=== PATIENT | male | born 1945 | race Caucasian/White ===

== ENCOUNTER 2018-12-09 12:47 | Day surgery (SDC) | payer MEDICARE ==
[2018-12-09 13:09] VITALS: BP 126/63; PULSE 76; RESP 20; TEMP 98.4
--- NOTE | 2018-12-09 13:51 | US ---
ULTRASOUND GUIDED FNA THYROID BIOPSY: CLINICAL HISTORY: Left thyroid nodule FINDINGS: The procedure was explained to the patient. The risks, complications, benefits and alternatives were discussed and any questions were answered. Informed consent was obtained. Patient was placed supin e on the ultrasound table and prepped and draped in the usual sterile fashion. The nodules supraclavi cular. Access was difficult approach patient deferred the procedure. All elements of maximal barrier technique were utilized. IMPRESSION: 1. Patient deferred biopsy as discussed above.
== END 2018-12-09 13:50 | disposition home or self-care (01) ==
LOC: RADPROMAIN 12:47
PROVIDERS: ATTEND Internal Medicine Endocrinology, Diabetes & Metabolism
DX: E04.1 Nontoxic single thyroid nodule (principal)
CPT/HCPCS: 76536

== ENCOUNTER → 2022-10-30 | Outpatient (CLI) | payer MEDICARE ==
--- NOTE | 2022-10-30 09:53 | PE ---
EXAMINATION TYPE: PET CT fusion skull to thigh DATE OF EXAM: 10/30/2022 COMPARISON: NONE at this institution. HISTORY: History of prostate cancer March 2018 completed hormone and radiation treatment in June . Lung cancer per order. Recent abnormal CT right upper and lower lobe lung lesion. TECHNIQUE: Following the intravenous administration of 11.72 mCi of F-18 FDG, whole body images are performed from the skull base to the midthigh. Images are reviewed on the computer in the coronal, a xial, and sagittal planes. Reconstructed rotating images are created on independent workstation and reviewed on the computer. A localization and attenuation correction CT is performed in conjunction with the PET scan. Blood glucose level equals 146. SCAN: Initial Scan FINDINGS: SKULL BASE AND NECK: No areas of abnormal hypermetabolic uptake. CHEST, MEDIASTINUM, AND HILAR REGION: Background moderate underlying emphysematous change is identifi ed. In the right upper lobe anteriorly there is a spiculated 2.4 x 1.9 cm area axial image 87 that do es not show abnormal hypermetabolic uptake. In the superior aspect right lower lobe there is a 1.7 x 1.3 cm hypermetabolic nodule or nodular cons olidation axial image 85, max SUV is 6.35 on axial image 87. There are some adjacent small nodules fo r reference 8 mm posterior right lower lobe nodule axial image 91 and 1.2 x 0.7 cm medial right lower lobe nodule axial image 89 that are ametabolic. There is hypermetabolic 1.1 x 0.8 cm right hilar lymph node axial image 91 max SUV is 4.18. No additional areas of abnormal hypermetabolic uptake are present. There is mild/moderate parenchymal fibrotic changes bilaterally. Mild symmetric uptake in the bilateral breasts is incidentally noted. Correlate for mild inflammatory mastitis. ABDOMEN AND PELVIS: There is 2.0 x 1.1 cm low dense left adrenal mass without hypermetabolic take pre sumed lipid rich adenoma. Normal excretion. Nonspecific mild bowel uptake. No abnormal hypermetabolic uptake. OSSEOUS STRUCTURES: No abnormal hypermetabolic uptake. OTHER CT: Moderate calcified plaque right carotid bulb. Moderate to severe calcified plaque left gilman tid bulb. Coronary artery calcification is present which is noted marking for underlying coronary art angelina disease. Tiny fat-containing ventral wall hernia axial image 176. There is aorto bifemoral graft noted. Slight scoliotic curvature in the spine with multilevel spurring. Moderate to severe narrowing in bot h hip joints is present. IMPRESSION: Suspicious hypermetabolic right lower lobe peripheral nodule worrisome for neoplasm with suspected right hilar adenopathy. No distal metastatic disease.
== END | disposition home or self-care (01) ==
LOC: RADPETMAIN 06:33
PROVIDERS: ATTEND Family Medicine
DX: R91.8 Other nonspecific abnormal finding of lung field (principal)
CPT/HCPCS: 78815; A9552

== ENCOUNTER → 2023-02-12 | Outpatient (CLI) | payer MEDICARE ==
[~2023-02-12] MED LIST: SODIUM CHLORIDE 0.9% 1,000 ML IV ONE; SODIUM CHLORIDE 0.9% 500 ML 500 ML in EMPTY BAG 1 BAG IV PRN
[2023-02-12 12:09] VITALS: BP 96/63; PULSE 99; RESP 16; TEMP 97.5
== END ==
LOC: PROCWHC3 11:51
PROVIDERS: ATTEND Internal Medicine Hematology & Oncology
DX: E86.0 Dehydration (principal)
CPT/HCPCS: 96360; 96361

== ENCOUNTER 2023-03-19 11:39 | Day surgery (SDC) | payer MEDICARE, OTHER ==
[2023-03-18 12:57] VITALS: BMI 33.2
[2023-03-19] MEDS ORDERED: LIDOCAINE 1% INJ 10MG/ML (5 ML VIAL-PF) SQ ONE (13:46)
--- NOTE | 2023-03-19 14:20 | IR ---
PICC LINE PLACEMENT: HISTORY: Chemotherapy PROCEDURE: Ultrasound and fluoroscopic guidance of PICC line placement. COMPLICATIONS: None ANESTHESIA: 1. 1% Lidocaine locally. FINDINGS/TECHNIQUE: The procedure was explained to the patient. The risks, complications, benefits and alternatives were discussed and any questions were answered. Informed consent was obtained. The patient was placed supine on the fluoroscopic table and prepped and draped in the usual sterile critical access hospital ion. Utilizing a 21 gauge needle and sonographic and fluoroscopic guidance, access in the vein was achieved and there is placement of a 0.018 guidewire. The vein is patent. A 5-Fr sheath was placed over the guidewire. The guidewire and dilator were removed and a 5-F. Double lumen PICC line was pl aced through the sheath with the tip at the level of the SVC. The sheath was removed, the catheter w as flushed and sutured into position. The patient was stable throughout the procedure and remained s table upon discharge from the Department of Radiology. The vein puncture was patent under ultrasound. A salazar scale image was obtained to document patency of the vein punctured. All elements of the maximal barrier technique were utilized. FLUOROSCOPY TIME: 16.14 DAP IMPRESSION: Successful PICC double lumen line placement under ultrasound and fluoroscopic guidance.
[2023-03-19 21:43] VITALS: RESP 16
[2023-03-19 21:44] VITALS: PULSE 70
[2023-03-19 21:45] VITALS: BP 179/83
== END 2023-03-19 15:30 | disposition home or self-care (01) ==
LOC: CATHCVL 11:39
PROVIDERS: ATTEND Radiology Diagnostic Radiology
DX: Z45.2 Encounter for adjustment and management of vascular access device (principal); C34.91 Malignant neoplasm of unspecified part of right bronchus or lung; E11.9 Type 2 diabetes mellitus without complications; E78.5 Hyperlipidemia, unspecified; I10 Essential (primary) hypertension; E03.9 Hypothyroidism, unspecified; I48.91 Unspecified atrial fibrillation; M10.9 Gout, unspecified; Z98.890 Other specified postprocedural states; Z90.49 Acquired absence of other specified parts of digestive tract; Z79.02 Long term (current) use of antithrombotics/antiplatelets; Z79.84 Long term (current) use of oral hypoglycemic drugs; Z79.899 Other long term (current) drug therapy
CPT/HCPCS: 36573; C1751; C1769; J2001

== ENCOUNTER 2023-03-19 15:37 | Emergency (ER) | payer OTHER ==
[2023-03-19 15:41] VITALS: RESP 18
[2023-03-19] MEDS ORDERED: KETOROLAC 15 MG/ML 1 ML VIAL IVP STA (16:19)
--- NOTE | 2023-03-19 16:34 | XR ---
EXAMINATION TYPE: XR wrist complete LT DATE OF EXAM: 03/19/2023 4:27 PM INDICATION: Patient age:Male; 77 years old; Reason for study: r/o fx; COMPARISON: None TECHNIQUE: left wrist was examined in the. Frontal, navicular, lateral, and oblique. FINDINGS: Degeneration changes most pronounced at the first digit carpometacarpal joint. No acute oss eous pathology, joint dislocation, or joint effusion. No evidence of any soft tissue swelling is see n. IMPRESSION: 1. No acute osseous pathology. 2. 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
--- NOTE | 2023-03-19 16:46 | ED ---
General Adult HPI - General Chief complaint: Extremity Injury, Upper Stated complaint: left wrist pain Time Seen by Provider: 03/19/23 16:07 Source: patient Mode of arrival: wheelchair Limitations: no limitations - History of Present Illness Initial comments: 77-year-old male with past medical history significant for cancer on chemotherapy presents to ED with a chief complaint of left wrist pain. Denies any injury or trauma to left wrist. States over the past 2-3 days has developed pain and swelling over the left wrist and thumb. Pain is worse with movement. Has not been taking any medications for this. No other complaints. - Related Data Home Medications Medication Instructions Recorded Confirmed Aspirin [Adult Low Dose Aspirin EC] 81 mg PO DAILY 11/30/18 03/18/23 Magnesium 400 mg PO BID 11/30/18 03/18/23 Omeprazole 20 mg PO DAILY 11/30/18 03/18/23 hydroCHLOROthiazide 25 mg PO DAILY 11/30/18 03/18/23 lisinopriL 20 mg PO DAILY 11/30/18 03/18/23 metFORMIN HCL [Glucophage] 1,000 mg PO QAM 11/30/18 03/18/23 metFORMIN HCL [Glucophage] 500 mg PO W/SUPPER 11/30/18 03/18/23 Allopurinol (Unknown Dose 1 dose PO DIRECTED 03/18/23 Cholecalciferol [Vitamin D3 (125 125 mcg PO DAILY 03/18/23 03/18/23 Mcg = 5000 Iu)] Ferrous Gluconate 324 mg PO DAILY 03/18/23 03/18/23 Levothyroxine Sodium 137 mcg PO DAILY 03/18/23 03/18/23 Metoprolol Tartrate 25 mg PO BID 03/18/23 03/18/23 Allergies Allergy/AdvReac Type Severity Reaction Status Date / Time No Known Allergies Allergy Verified 03/19/23 15:41 Review of Systems ROS Statement: Those systems with pertinent positive or pertinent negative responses have been documented in the HPI. ROS Other: All systems not noted in ROS Statement are negative. Past Medical History Past Medical History: Atrial Fibrillation, Asthma, Cancer, Diabetes Mellitus, GERD/Reflux, Hyperlipidemia, Hypertension, Prostate Disorder, Sleep Apnea/CPAP/BIPAP, Thyroid Disorder, Vascular Disorder Additional Past Medical History / Comment(s): DM type II, prostate cancer 2018 with radiation & brachytherapy., kidney stones x1., pseudogout., hx of bowel obstrution with surgery and multiple bowel obstruction since (no surgery)., bilateral bifemoral bypass for calcifications (2005), sleep apnea with c-pap machine., hx anemia., Lung cancer with radation tx (last tx 02/08/23), and chemo tx (last 03/04/23)., constipation & diarrhea., pt has been receiving hydration tx at [facility]- states his left hand is swollen and painful and they may go to ER to check (previous IV site)., pt has Loop Recorder. History of Any Multi-Drug Resistant Organisms: None Reported Past Surgical History: Appendectomy, Bowel Resection, Orthopedic Surgery Additional Past Surgical History / Comment(s): bowel resection., bi-femoral bypass for calcifications, left shoulder surgery , left knee surgery, Loop recorder., bronchoscopy with bx. Past Anesthesia/Blood Transfusion Reactions: Previous Problems w/ Anesthesia Additional Past Anesthesia/Blood Transfusion Reaction / Comment(s): difficulty waking up. Past Psychological History: No Psychological Hx Reported Smoking Status: Former smoker Past Alcohol Use History: Occasional Past Drug Use History: None Reported - Past Family History Father Additional Family Medical History / Comment(s): alzheimers Mother Family Medical History: Renal Disease Additional Family Medical History / Comment(s): kidney failure General Exam Limitations: no limitations General appearance: alert, in no apparent distress Eye exam: Present: normal appearance Respiratory exam: Present: normal lung sounds bilaterally Cardiovascular Exam: Present: regular rate, normal rhythm GI/Abdominal exam: Present: soft Extremities exam: Present: other (Positive Jef test.) Neurological exam: Present: alert, oriented X3 Skin exam: Present: warm, dry Course Vital Signs 03/19/23 15:38 Temperature 98 F Pulse Rate 70 Respiratory 18 Rate Blood Pressure 164/86 O2 Sat by Pulse 98 Oximetry Medical Decision Making - Medical Decision Making Was pt. sent in by a medical professional or institution (, PA, KNOCKDOWN WORKER, urgent care, hospital, or correction...) When possible be specific @ -No Did you speak to anyone other than the patient for history (EMS, parent, family, police, friend...)? What history was obtained from this source @ -No Did you review nursing and triage notes (agree or disagree)? Why? @ -I reviewed and agree with nursing and triage notes Were old charts reviewed (outside hosp., previous admission, EMS record, old EKG, old radiological studies, urgent care reports/EKG's, correction records)? Report findings @ -No old charts were reviewed Differential Diagnosis (chest pain, altered mental status, abdominal pain women, abdominal pain men, vaginal bleeding, weakness, fever, dyspnea, syncope, headache, dizziness, GI bleed, back pain, seizure, CVA, palpatations, mental health, musculoskeletal)? @ -Differential Musculoskeletal Muscular strain, contusion, ligament sprain, fracture, arthritis, septic arthritis, bursitis, cellulitis, muscle spasm, nerve compression, DVT, arterial occlusion, herpes zoster, electrolyte abnormality, tumor.... This is not meant to be in all inclusive list EKG interpreted by me (3pts min.). @ -None X-rays interpreted by me (1pt min.). @ -X-ray of the wrist shows no acute findings. CT interpreted by me (1pt min.). @ -None done U/S interpreted by me (1pt. min.). @ -None done What testing was considered but not performed or refused? (CT, X-rays, U/S, labs)? Why? @ -None What meds were considered but not given or refused? Why? @ -None Did you discuss the management of the patient with other professionals (professionals i.e. , PA, KNOCKDOWN WORKER, lab, RT, psych nurse, social worker assistant, reconciliation machine operator, teacher, chairman and chief executive officer, shelter case manager)? Give summary @ -No Was smoking cessation discussed for >3mins.? @ -No Was critical care preformed (if so, how long)? @ -No Were there social determinants of health that impacted care today? How? (Homelessness, low income, unemployed, alcoholism, drug addiction, transportation, low edu. Level, literacy, decrease access to med. care, correction, rehab)? @ -No Was there de-escalation of care discussed even if they declined (Discuss DNR or withdrawal of care, Hospice)? DNR status @ -No What co-morbidities impacted this encounter? (DM, HTN, Smoking, COPD, CAD, Cancer, CVA, ARF, Chemo, Hep., AIDS, mental health diagnosis, sleep apnea, morbid obesity)? @ -Cancer Was patient admitted / discharged? Hospital course, mention meds given and route, prescriptions, significant lab abnormalities, going to OR and other pertinent info. @ -Discharge. Urging shows no acute findings. Patient has a positive Jef test. Symptoms likely musculoskeletal in nature. Provided Toradol here with improvement of pain. Advised Motrin and Tylenol, rest. Discharged home in stable condition. Discussed return precautions with patient verbalizes agreement. Undiagnosed new problem with uncertain prognosis? @ -No Drug Therapy requiring intensive monitoring for toxicity (Heparin, Nitro, Insulin, Cardizem)? @ -No Were any procedures done? @ -No Diagnosis/symptom? @ -Wrist pain, dequarvian tenosynovitis Acute, or Chronic, or Acute on Chronic? @ -Acute Uncomplicated (without systemic symptoms) or Complicated (systemic symptoms)? @ -Uncomplicated Side effects of treatment? @ -No Exacerbation, Progression, or Severe Exacerbation? @ -No Poses a threat to life or bodily function? How? (Chest pain, USA, NV, pneumonia, PE, COPD, DKA, ARF, appy, cholecystitis, CVA, Diverticulitis, Homicidal, Suicidal, threat to staff... and all critical care pts) @ -No Disposition Clinical Impression: Wrist pain Disposition: HOME SELF-CARE Condition: Good Instructions (If sedation given, give patient instructions): Arthralgia (ED) Is patient prescribed a controlled substance at d/c from ED?: No Referrals: Analisa Rosado FNPBC [Primary Care Provider] - 1-2 days Time of Disposition: 16:52
[2023-03-19] MEDS ORDERED: ACETAMINOPHEN TAB 500 MG TAB PO STA (16:58)
[2023-03-19] MEDS ORDERED: MORPHINE SULFATE 4 MG/ML SYRINGE IVP STA (17:17)
[2023-03-19 18:07] VITALS: BP 152/76; PULSE 69; TEMP 97.9
== END 2023-03-19 18:07 | disposition home or self-care (01) ==
LOC: EC 15:37
DX: M25.532 Pain in left wrist (principal); E11.9 Type 2 diabetes mellitus without complications; E78.5 Hyperlipidemia, unspecified; I10 Essential (primary) hypertension; I48.91 Unspecified atrial fibrillation; J45.909 Unspecified asthma, uncomplicated; K21.9 Gastro-esophageal reflux disease without esophagitis; M19.042 Primary osteoarthritis, left hand; E07.9 Disorder of thyroid, unspecified; Z87.891 Personal history of nicotine dependence; Z79.82 Long term (current) use of aspirin; Z79.84 Long term (current) use of oral hypoglycemic drugs; Z79.890 Hormone replacement therapy; Z79.899 Other long term (current) drug therapy
CPT/HCPCS: 73110; 99283; 96374; 96375; J2270; J1885

== ENCOUNTER → 2023-03-24 | Outpatient (CLI) | payer OTHER ==
--- NOTE | 2023-03-24 15:54 | US ---
EXAMINATION TYPE: US venous doppler duplex UE LT DATE OF EXAM: 03/24/2023 COMPARISON: NONE CLINICAL INDICATION: Male, 77 years old with history of R22.31 SWELLING ARM M79.621 PAIN ARM; Left a rm swelling SIDE PERFORMED: Left Left Arm: Appears negative for DVT Limited visualization of lower portions of brachial veins, cephalic vein and basilic vein due to PI CC Line bandage cover part of upper arm IMPRESSION: 1 Left upper extremity venous ultrasound negative for deep venous thrombosis.
== END | disposition home or self-care (01) ==
LOC: RADUSWWP 14:59
PROVIDERS: ATTEND Internal Medicine Hematology & Oncology
DX: R22.31 Localized swelling, mass and lump, right upper limb (principal); M79.621 Pain in right upper arm

== ENCOUNTER → 2023-06-11 | Outpatient (CLI) | payer MEDICARE, OTHER ==
--- NOTE | 2023-06-11 22:50 | PE ---
EXAMINATION TYPE: PET CT fusion skull to thigh DATE OF EXAM: 06/11/2023 CLINICAL INDICATION:Male, 77 years old with history of C34.31; TECHNIQUE: Following the intravenous administration of 12.09 mCi of F-18 FDG, whole body images are performed from the skull base to the midthigh. Images are reviewed on the computer in the coronal, axial, and sagittal planes. Reconstructed rotating images are created on independent workstation and reviewed on the computer. A non-contrast CT is performed in conjunction with the PET scan. Glucose level 124 mg/dL CT DLP: 1000 mGycm, Automated exposure control for dose reduction was used. COMPARISON: CT None, PET/CT 10/30/2022, FINDINGS: Mediastinal SUV mean is 3.. Hepatic parenchyma SUV mean is 3.6. SKULL BASE AND NECK: No suspicious radiotracer activity. CHEST, MEDIASTINUM, AND HILAR REGION: Prior right lower lobe lateral peripheral nodule is no longer visualized. There is patchy airspace op acities with increased FDG activity in this region. There is scattered airspace opacities throughout the right lower lung which is worse around the right pulmonary hilum which limits evaluation with max SUV 5.6 MRI the pulmonary hilum. Other airspace opacities in the right lower lobe max SUV 5.9. Right upper lobe focal opacities with uptake max SUV 4.3. Additionally there is minimal uptake in the left upper and lower lobes. Left upper lobe area max SUV 2.8 and left lower lobe max SUV 3.5. ABDOMEN AND PELVIS: No suspicious radiotracer activity. MUSCULOSKELETAL STRUCTURES: No suspicious radiotracer activity. OTHER CT: Moderate calcified plaque right carotid bulb. Moderate to severe atherosclerotic plaque. Le ft carotid bulb. Coronary artery calcification is present which is noted marking for underlying coron audrey artery disease. Tiny fat-containing ventral wall hernia. There is aorto bifemoral graft noted. Sl ight scoliotic curvature in the spine with multilevel spurring. Moderate to severe narrowing in both hip joints is present. Aortobiiliac stent graft. Postsurgical changes to the transverse colon with che ture identified. Trace right pleural effusion. IMPRESSION: 1. Posttreatment changes with suspected acute infectious/inflammatory process within the right lower lung superior segment. No focal right lower lung peripheral nodule visualized on today's exam. 2. The Right pulmonary hilum lymph node seen on prior with elevated FDG activity is poorly delineate d. This is partially due to the acute infectious/inflammatory process. There is radiotracer activity with in and around the right pulmonary hilum which is similar FDG value to the lymph node seen on didier or. Attention follow-up imaging.
== END | disposition home or self-care (01) ==
LOC: RADPETMAIN 12:13
PROVIDERS: ATTEND Internal Medicine Hematology & Oncology
DX: C34.31 Malignant neoplasm of lower lobe, right bronchus or lung (principal); R59.0 Localized enlarged lymph nodes
CPT/HCPCS: 78815; A9552

== ENCOUNTER → 2023-10-14 | Outpatient (CLI) | payer OTHER ==
--- NOTE | 2023-10-15 02:49 | PE ---
EXAMINATION TYPE: PET CT fusion skull to thigh DATE OF EXAM: 10/14/2023 COMPARISON: Prior PET/CT June 11, 2023 and older study October 30, 2022 HISTORY: Right-sided lung cancer progress study diagnosed in October 2022 completed radiation in January and chemotherapy in March. TECHNIQUE: Following the intravenous administration of 11.5 mCi of F-18 FDG, whole body images are p erformed from the skull base to the midthigh. Images are reviewed on the computer in the coronal, ax ial, and sagittal planes. Reconstructed rotating images are created on independent workstation and r eviewed on the computer. A localization and attenuation correction CT is performed in conjunction w ith the PET scan. Blood glucose level equals 158 SCAN: Subsequent Scan FINDINGS: SKULL BASE AND NECK: No new areas of abnormal hypermetabolic uptake. CHEST, MEDIASTINUM, AND HILAR REGION: Moderate underlying emphysematous change is redemonstrated. The re is persistent irregular consolidation in the right hilar region with some surrounding groundglass opacity. No new or recurrent areas of abnormal hypermetabolic uptake throughout the thorax. ABDOMEN AND PELVIS: No hypermetabolic adrenal masses. Normal excretion. More prominent nonspecific di ffuse bowel uptake. No areas of abnormal suspicious hypermetabolic uptake. OSSEOUS STRUCTURES: No new areas of abnormal hypermetabolic uptake. OTHER CT: Moderate to severe calcified plaque left greater than right carotid bulb level is redemonst rated. Coronary artery calcification is redemonstrated. There is aortobifemoral graft again seen. Flakito gical change to the left side of bowel loop redemonstrated. IMPRESSION: No new areas of abnormal hypermetabolic uptake to suggest active neoplastic recurrence.
== END | disposition home or self-care (01) ==
LOC: RADPETMAIN 11:29
PROVIDERS: ATTEND Internal Medicine Hematology & Oncology
DX: C34.11 Malignant neoplasm of upper lobe, right bronchus or lung (principal)
CPT/HCPCS: 78815; A9552

== ENCOUNTER 2023-12-20 18:46 | Inpatient (IN) | payer OTHER, MEDICARE ==
[2023-12-20 19:48] LABS: Glucose,Whole Blood 491 mg/dL (70-110)
[2023-12-20 19:56] LABS: Anisocytosis Slight; Basophils % (A) 0 %; Eosinophils % (A) 1 %; HCT 29.3 % (39.0-53.0); HGB 9.1 gm/dL (13.0-17.5); Hypochromasia Slight; Lymphocytes # (A) 0.2 k/uL (1.0-4.8); Lymphocytes % (A) 3 %; MCH 31.6 pg (25.0-35.0); MCV 101.9 fL (80.0-100.0); Macrocytosis Slight; Mean Platelet Volume 9.4; Monocytes # (A) 0.3 k/uL (0-1.0); Monocytes % (A) 4 %; Neutrophils # (A) 7.2 k/uL (1.3-7.7); Neutrophils % (A) 92 %; RBC 2.87 m/uL (4.30-5.90); RDW 16.6 % (11.5-15.5); WBC 7.8 k/uL (3.8-10.6)
--- NOTE | 2023-12-20 20:05 | ED ---
General Adult HPI - General Chief complaint: Shortness of Breath Stated complaint: COPD Time Seen by Provider: 12/20/23 19:00 Source: patient, RN notes reviewed, old records reviewed Mode of arrival: EMS Limitations: no limitations - History of Present Illness Initial comments: This is a 78-year-old male who comes to us from [facility]. Patient came to [facility] because of difficulty breathing. Patient has a history of lung cancer which she has been treated for. Patient also has a history of COPD. Patient states this morning he became very short of breath just walking around his home and that was unusual for him. When he went to [facility] they diagnosed him with COPD and a small pulmonary embolism also questionable CHF. Patient states initially he did have some chest pain but it is resolved at this point in time. Patient denies any fever chills or cough. Patient denies abdominal pain patient has any nausea vomiting diarrhea. - Related Data Home Medications Medication Instructions Recorded Confirmed Aspirin [Adult Low Dose Aspirin EC] 81 mg PO DAILY 11/30/18 12/20/23 Omeprazole 20 mg PO Q48H 11/30/18 12/20/23 metFORMIN HCL [Glucophage] 1,000 mg PO DIRECTED 11/30/18 12/20/23 Cholecalciferol [Vitamin D3 (125 125 mcg PO DAILY 03/18/23 12/20/23 Mcg = 5000 Iu)] Ferrous Gluconate 324 mg PO HS 03/18/23 12/20/23 Albuterol Inhaler [Ventolin Hfa 1 - 2 puff INHALATION RT-Q4H PRN 12/20/23 12/20/23 Inhaler] Apixaban [Eliquis] 5 mg PO Q12H 12/20/23 12/20/23 Atorvastatin Calcium [Lipitor] 80 mg PO HS 12/20/23 12/20/23 Budesonide [Pulmicort] 0.5 mg INHALATION RT-BID 12/20/23 12/20/23 Cyanocobalamin (Vitamin B-12) 1,000 mcg PO DAILY 12/20/23 12/20/23 [Vitamin B-12] Furosemide [Lasix] 40 mg PO DAILY PRN 12/20/23 12/20/23 Insulin Glargine,Hum.rec.anlog 10 units SQ HS 12/20/23 12/20/23 [Lantus Solostar Pen] Insulin Lispro [humaLOG Kwikpen] See Protocol SQ AC-TID PRN MDD 30 12/20/23 12/20/23 units Ipratropium-Albuterol Nebulize 3 ml INHALATION RT-QID PRN 12/20/23 12/20/23 [Duoneb 0.5 mg-3 mg/3 ml Soln] Levothyroxine Sodium [Synthroid] 150 mcg PO DAILY 12/20/23 12/20/23 Lidocaine 5% Patch [Lidoderm] 1 patch TOPICAL DIRECTED 12/20/23 12/20/23 Magnesium Chloride [Nu-Mag] 214.5 mg PO BID 12/20/23 12/20/23 Metoprolol Tartrate [Lopressor] 75 mg PO BID 12/20/23 12/20/23 Montelukast [Singulair] 10 mg PO HS 12/20/23 12/20/23 Potassium Chloride ER [K-Dur 20] 20 meq PO DAILY PRN 12/20/23 12/20/23 Vitamin E (Dl,Tocopheryl Acet) 400 unit PO DAILY 12/20/23 12/20/23 [Vitamin E (400 Iu = 180 mg)] allopurinoL [Zyloprim] 100 mg PO HS 12/20/23 12/20/23 allopurinoL [Zyloprim] 200 mg PO DAILY 12/20/23 12/20/23 hydrALAZINE HCL [Apresoline] 10 mg PO BID 12/20/23 12/20/23 hydrALAZINE HCL [Apresoline] 10 mg PO DAILY PRN 12/20/23 12/20/23 lisinopriL 40 mg PO DAILY 12/20/23 12/20/23 predniSONE See Taper PO DIRECTED 12/20/23 12/20/23 Allergies Allergy/AdvReac Type Severity Reaction Status Date / Time No Known Allergies Allergy Verified 12/20/23 19:15 Review of Systems ROS Statement: Those systems with pertinent positive or pertinent negative responses have been documented in the HPI. ROS Other: All systems not noted in ROS Statement are negative. Past Medical History Past Medical History: Atrial Fibrillation, Asthma, Cancer, Diabetes Mellitus, GERD/Reflux, Hyperlipidemia, Hypertension, Prostate Disorder, Sleep Apnea/CPAP/BIPAP, Thyroid Disorder, Vascular Disorder Additional Past Medical History / Comment(s): DM type II, prostate cancer 2018 with radiation & brachytherapy., kidney stones x1., pseudogout., hx of bowel obstrution with surgery and multiple bowel obstruction since (no surgery)., bilateral bifemoral bypass for calcifications (2005), sleep apnea with c-pap machine., hx anemia., Lung cancer with radation tx (last tx 02/08/23), and chemo tx (last 03/04/23)., constipation & diarrhea., pt has been receiving hydration tx at [facility]- states his left hand is swollen and painful and they may go to ER to check (previous IV site)., pt has Loop Recorder. History of Any Multi-Drug Resistant Organisms: None Reported Past Surgical History: Appendectomy, Bowel Resection, Orthopedic Surgery Additional Past Surgical History / Comment(s): bowel resection., bi-femoral bypass for calcifications, left shoulder surgery , left knee surgery, Loop recorder., bronchoscopy with bx. Past Anesthesia/Blood Transfusion Reactions: Previous Problems w/ Anesthesia Additional Past Anesthesia/Blood Transfusion Reaction / Comment(s): difficulty waking up. Past Psychological History: No Psychological Hx Reported Smoking Status: Former smoker Past Alcohol Use History: None Reported - Past Family History Father Additional Family Medical History / Comment(s): alzheimers Mother Family Medical History: Renal Disease Additional Family Medical History / Comment(s): kidney failure General Exam - General Exam Comments Initial Comments: GENERAL: Patient is well-developed and well-nourished. Patient is nontoxic and well-hydrated and is in mild distress. ENT: Neck is soft and supple. No significant lymphadenopathy is noted. Oropharynx is clear. Moist mucous membranes. Neck has full range of motion without eliciting any pain. EYES: The sclera were anicteric and conjunctiva were pink and moist. Extraocular movements were intact and pupils were equal round and reactive to light. Eyelids were unremarkable. PULMONARY: Patient has diffuse expiratory wheezing CARDIOVASCULAR: There is a regular rate and rhythm without any murmurs gallops or rubs. ABDOMEN: Soft and nontender with normal bowel sounds. SKIN: Skin is clear with no lesions or rashes and otherwise unremarkable. NEUROLOGIC: Patient is alert and oriented x3. Cranial nerves II through XII are grossly intact. Motor and sensory are also intact. Normal speech, volume and content. Symmetrical smile. MUSCULOSKELETAL: Normal extremities with adequate strength and full range of motion. Patient has slight edema in his legs bilaterally LYMPHATICS: No significant lymphadenopathy is noted PSYCHIATRIC: Normal psychiatric evaluation. Limitations: no limitations Course Vital Signs 12/20/23 12/20/23 18:53 19:05 Temperature 97.4 F L Pulse Rate 72 Respiratory 22 Rate Blood Pressure 180/91 O2 Sat by Pulse 98 Oximetry Medical Decision Making - Medical Decision Making EKG is interpreted by myself. EKG shows a sinus rhythm at 68 bpm IL is 147 QRS 93 QT interval 418 QTc is 435. Patient EKG shows no ST segment ovation or depression. Was pt. sent in by a medical professional or institution (, PA, TELEVISION REPAIR TEACHER, urgent care, hospital, or long term...) When possible be specific @ -Patient was sent to us by [facility] Did you speak to anyone other than the patient for history (EMS, parent, family, police, friend...)? What history was obtained from this source @ -The ER doc called and gave a doctor to doctor report Did you review nursing and triage notes (agree or disagree)? Why? @ -I reviewed and agree with nursing and triage notes Were old charts reviewed (outside hosp., previous admission, EMS record, old EKG, old radiological studies, urgent care reports/EKG's, long term records)? Report findings @ -I reviewed all records from [facility] including labs CT scans and x-rays Differential Diagnosis (chest pain, altered mental status, abdominal pain women, abdominal pain men, vaginal bleeding, weakness, fever, dyspnea, syncope, headache, dizziness, GI bleed, back pain, seizure, CVA, palpatations, mental health, musculoskeletal)? @ -Differential Dyspnea: Coronary syndrome, arrhythmia, tamponade, asthma, COPD, pulmonary embolism, pneumonia, pneumothorax, pulmonary effusion, anaphylaxis, diabetic ketoacidosis, flailed chest, pulmonary contusion, diaphragmatic rupture, anemia, neuromuscular, this is not meant to be an all-inclusive list. EKG interpreted by me (3pts min.). @ -As above X-rays interpreted by me (1pt min.). @ -None done CT interpreted by me (1pt min.). @ -None done U/S interpreted by me (1pt. min.). @ -None done What testing was considered but not performed or refused? (CT, X-rays, U/S, labs)? Why? @ -None What meds were considered but not given or refused? Why? @ -None Did you discuss the management of the patient with other professionals (professionals i.e. , PA, TELEVISION REPAIR TEACHER, lab, RT, psych nurse, social services, sharepoint developer, teacher, police officer, case folder)? Give summary @ -No Was smoking cessation discussed for >3mins.? @ -No Was critical care preformed (if so, how long)? @ -No Were there social determinants of health that impacted care today? How? (Homelessness, low income, unemployed, alcoholism, drug addiction, transpor tation, low edu. Level, literacy, decrease access to med. care, [facility], rehab)? @ -No Was there de-escalation of care discussed even if they declined (Discuss DNR or withdrawal of care, Hospice)? DNR status @ -No What co-morbidities impacted this encounter? (DM, HTN, Smoking, COPD, CAD, Cancer, CVA, ARF, Chemo, Hep., AIDS, mental health diagnosis, sleep apnea, morbid obesity)? @ -None Was patient admitted / discharged? Hospital course, mention meds given and route, prescriptions, significant lab abnormalities, going to OR and other pertinent info. @ -Patient was given 2 breathing treatments when he arrived at [facility] because of his extensive wheezing. Patient also had an elevated troponin he will be admitted with a cardiology consult. [facility] will admit the patient I will write admitting orders. Undiagnosed new problem with uncertain prognosis? @ -No Drug Therapy requiring intensive monitoring for toxicity (Heparin, Nitro, Insulin, Cardizem)? @ -No Were any procedures done? @ -No Diagnosis/symptom? @ -COPD exacerbation Acute, or Chronic, or Acute on Chronic? @ -Acute Uncomplicated (without systemic symptoms) or Complicated (systemic symptoms)? @ -Complicated Side effects of treatment? @ -No Exacerbation, Progression, or Severe Exacerbation? @ -No Poses a threat to life or bodily function? How? (Chest pain, [place], [place], pneumonia, PE, COPD, DKA, ARF, appy, cholecystitis, CVA, Diverticulitis, Homicidal, Suicidal, threat to staff... and all critical care pts) @ -Yes this can lead to hypoxia and endorgan dysfunction Diagnosis/symptom? @ -Pulmonary embolus Acute, or Chronic, or Acute on Chronic? @ -Acute Uncomplicated (without systemic symptoms) or Complicated (systemic symptoms)? @ -Complicated Side effects of treatment? @ -None Exacerbation, Progression, or Severe Exacerbation] @ -No Poses a threat to life or bodily function? @ -Yes this can lead to hypoxia and endorgan dysfunction - Lab Data Result diagrams: 12/20/23 19:40 Lab Results 12/20/23 12/20/23 12/20/23 Range/Units 19:40 19:40 19:47 Sodium 133 L (137-145) mmol/L Potassium 4.8 (3.5-5.1) mmol/L Chloride 100 (98-107) mmol/L Carbon Dioxide 23 (22-30) mmol/L Anion Gap 10 mmol/L BUN 29 H (9-20) mg/dL Creatinine 1.09 (0.66-1.25) mg/dL Est GFR (CKD-EPI)AfAm 75 (>60 ml/min/1.73 sqM) Est GFR (CKD-EPI)NonAf 65 (>60 ml/min/1.73 sqM) Glucose 436 H (74-99) mg/dL POC Glucose (mg/dL) 491 H (70-110) mg/dL POC Glu Machinist Mate ID Budnik, Rosaline Calcium 8.2 L (8.4-10.2) mg/dL Total Bilirubin 0.5 (0.2-1.3) mg/dL AST 16 L (17-59) U/L ALT 25 (4-49) U/L Alkaline Phosphatase 72 (38-126) U/L Troponin I 0.047 H* (0.000-0.034) ng/mL NT-Pro-B Natriuret Pep 5960 pg/mL Total Protein 5.8 L (6.3-8.2) g/dL Albumin 3.3 L (3.5-5.0) g/dL Disposition Clinical Impression: Acute exacerbation of chronic obstructive pulmonary disease, Pulmonary embolism, Elevated troponin Disposition: ADMITTED IP TO THIS HOSP Referrals: Landen Wilson MD [Primary Care Provider] - 1-2 days Time of Disposition: 20:32
[2023-12-20 20:06] LABS: ALT 25 U/L (4-49); AST 16 U/L (17-59); African American GFR (CKD) 75 (>60 ml/min/1.73 sqM); Albumin 3.3 g/dL (3.5-5.0); Alkaline Phosphatase 72 U/L (38-126); Anion Gap 10 mmol/L; Blood Urea Nitrogen 29 mg/dL (9-20); Calcium 8.2 mg/dL (8.4-10.2); Carbon Dioxide 23 mmol/L (22-30); Chloride 100 mmol/L (98-107); Glucose 436 mg/dL (74-99); Non-African American GFR(CKD) 65 (>60 ml/min/1.73 sqM); Potassium 4.8 mmol/L (3.5-5.1); Sodium 133 mmol/L (137-145); Total Bilirubin 0.5 mg/dL (0.2-1.3); Total Protein 5.8 g/dL (6.3-8.2)
[2023-12-20 20:13] LABS: NT-Pro-B-Type Natriuretic Pept 5960 pg/mL
[2023-12-20] MEDS ORDERED: IPRATROPIUM-ALBUTEROL 3 ML NEB INHALATION PRN (20:35)
[2023-12-20] MEDS ORDERED: NALOXONE 0.4 MG/ML 1 ML VIAL IVP PRN (20:35)
[2023-12-20] MEDS: IPRATROPIUM 0.5 MG/2.5 ML NEBU INHALATION STA (20:37)
[2023-12-20] MEDS: ALBUTEROL NEBULIZED 2.5 MG/3 ML INHALATION STA (20:37)
[2023-12-20] MEDS ORDERED: DEXTROSE 50% SYRINGE 50 ML IVP PRN ×2 (20:54)
[2023-12-20] MEDS ORDERED: POTASSIUM CHLORIDE ER 20 MEQ TAB.ER PO PRN (20:55)
[2023-12-20] MEDS ORDERED: NON FORMULARY DRUG (Metformin Hcl [Glucophage] 1,000 MG Tablet) PO SCH (21:00)
[2023-12-20 21:23] LABS: Platelet Count 90 k/uL (150-450)
[2023-12-20] MEDS: AMOXIC-POT CLAV 875-125MG 1 EACH TAB PO SCH (21:28)
[2023-12-20] MEDS: MAGNESIUM OXIDE 400 MG TAB PO SCH (21:29)
[2023-12-20] MEDS: MONTELUKAST 10 MG TAB PO SCH (21:29)
[2023-12-20] MEDS: ATORVASTATIN 80 MG TAB PO SCH (21:29)
[2023-12-20] MEDS: METOPROLOL TARTRATE 25 MG TAB PO SCH (21:30)
[2023-12-20] MEDS: APIXABAN 5 MG TAB PO SCH (21:30)
[2023-12-20] MEDS: hydrALAZINE HCL 10 MG TAB PO SCH (21:30)
[2023-12-20] MEDS: INSULIN ASPART (NovoLOG) 100 UNIT/ML VIAL SQ SCH (21:33)
[2023-12-21 00:31] LABS: Glucose,Whole Blood 487 mg/dL (70-110)
[2023-12-21] MEDS: methylPREDNISolone SOD SUCCI 125 MG/2 ML VIAL IV SCH ×2 (02:48→08:44)
[2023-12-21] MEDS: MELATONIN 5 MG TABLET PO ONE (02:49)
[2023-12-21 04:29] LABS: Glucose,Whole Blood 483 mg/dL (70-110)
[2023-12-21] MEDS: INSULIN ASPART (NovoLOG) 100 UNIT/ML VIAL SQ ONE (04:58)
[2023-12-21 06:59] LABS: Glucose,Whole Blood 412 mg/dL (70-110)
[2023-12-21] MEDS ORDERED: Potassium Replacement Protocol 1 EACH MISC MISCELLANE PRN (07:51)
[2023-12-21] MEDS ORDERED: Magnesium Replacement Protocol 1 EACH MISC MISCELLANE PRN (07:51)
[2023-12-21] MEDS: IPRATROPIUM-ALBUTEROL 3 ML NEB INHALATION SCH (07:55)
[2023-12-21] MEDS: BUDESONIDE 0.5 MG/2 ML NEBU INHALATION SCH (07:55)
--- NOTE | 2023-12-21 08:20 | XR ---
EXAMINATION TYPE: XR chest 1V portable DATE OF EXAM: 12/21/2023 COMPARISON: None INDICATION: Acute on chronic hypoxemic respiratory failure TECHNIQUE: Single frontal view of the chest is obtained. FINDINGS: The heart size is normal. The pulmonary vasculature is somewhat prominent. There is a focal infiltrate in the right upper lobe. Left lower lobe diffuse infiltrate is present. C orrelate for pneumonia. IMPRESSION: 1. Right upper and left lower lobe infiltrates. Correlate for atelectasis and pneumonia. Atypical pul monary edema could be considered. Follow-up is recommended.
[2023-12-21 08:40] LABS: Glucose,Whole Blood 379 mg/dL (70-110)
[2023-12-21] MEDS: ISOSORBIDE MONONITRATE ER 30 MG TAB.ER.24H PO SCH (08:42)
[2023-12-21] MEDS: PANTOPRAZOLE 40 MG TABLET PO SCH (08:42)
[2023-12-21] MEDS: lisinopriL 20 MG TAB PO SCH (08:43)
[2023-12-21] MEDS: ASPIRIN 81 MG PO SCH (08:44)
--- NOTE | 2023-12-21 08:47 | US ---
EXAMINATION TYPE: US venous doppler duplex LE DATE OF EXAM: 12/21/2023 8:34 AM COMPARISON: NONE CLINICAL INDICATION: Male, 78 years old with history of rule out DVT; SOB, PE SIDE PERFORMED: Bilateral TECHNIQUE: The lower extremity deep venous system is examined utilizing real time linear array sonog beatrice with graded compression, doppler sonography and color-flow sonography. VESSELS IMAGED: Common Femoral Vein Deep Femoral Vein Greater Saphenous Vein * Femoral Vein Popliteal Vein Small Saphenous Vein * Proximal Calf Veins (* superficial vessels) Right Leg: no evidence of DVT as visualized Left Leg: no evidence of DVT as visualized IMPRESSION: Grayscale, color doppler, spectral doppler imaging performed of the deep veins of the lo wer extremities. There is normal flow, compressibility, vascular waveforms.
[2023-12-21] MEDS: INSULIN REGULAR 100 UNIT in SODIUM CHLORIDE 0.9% 100 ML IV SCH (08:48)
--- NOTE | 2023-12-21 08:51 | P.CNPUL ---
History of Present Illness Consult date: 12/21/23 Requesting physician: Howard E Sheet Reason for consult: COPD, pulmonary embolism Chief complaint: Acute shortness of breath History of present illness: Patient is a 78-year-old white male with past medical history significant for lung cancer status post chemoradiation, COPD, former tobacco smoker quitting approximately 1 year ago, diabetes melitis, hypothyroidism, hypertension, hyperlipidemia, obesity, peripheral arterial disease, atrial fibrillation chronically anticoagulated on Eliquis, obstructive sleep apnea with home CPAP, among other comorbidities. Patient states that he was originally diagnosed with small cell lung cancer at [facility] October,. He is currently stat us post chemo and radiation treatments. He does follow with Dr. Kaiser from oncology. Most recent PET scan done 10/14/2023 did not show any new areas of abnormal hypermetabolic uptake to suggest active neoplastic recurrence. He does follow with a local tobacco drier operator, Dr. Nirmala Gillespie. Patient states that his pulmonary status has significantly worsened over the last month and a half. He did have a brief hospitalization at [facility] reportedly last month. He has progressively become more short of breath, especially with exertion. States that he was told that he developed some radiation pneumonitis after his last radiation treatment. He is chronically oxygen dependent on 3 L ho me O2, but more recently increased his flow to 4 L/min. Yesterday, he got up as usual and started to make coffee. Had to use the bathroom, took his oxygen off, and went to the bathroom. He states that his nasal cannula does not reach this far. While in the bathroom he becomes severely short of breath. He called for his who put his CPAP machine on him. They then drove to [facility] where the patient was initially evaluated. While at the outside facility he did have a chest CTA which showed a very small distal right upper lobe filling defect consistent with small pulmonary embolism. Also, some likely post treatment changes of the right lung, with atelectasis and reticular changes in the right upper lobe. Superimposed diffuse groundglass opacities. Following these findings, the patient was transferred to [facility] late last night. Patient is currently sitting up in bed, on 4 L/min nasal cannula, in no acute distress. He endorses acute on chronic shortness of breath as described above. States he has been coughing more than normal over the last 3 days. No significant sputum production. Denies fevers. Denies sick contacts. Does admit substernal chest discomfort. Nonradiating. CBC on arrival to our facility: WBC count 7.8, hemoglobin 9.1, hematocrit 29.3, platelets 90,000. BMP drawn at our facility: Sodium 133, potassium 4.8, chloride 100, serum bicarb 10, BUN 29, creatinine 1.09, glucose 436. LFTs not elevated. Troponins were mildly elevated but are trending down, likely supply/demand mismatch, and are 0.047, 0.045, and 0.026 respectively. EKG demonstrates normal sinus rhythm without any acute ischemic changes noted. NT proBNP was significantly elevated at 5960. Patient's Eliquis has been restarted. Hemodynamics are stable. Review of Systems REVIEW OF SYSTEMS: CONSTITUTIONAL: Denies any recent significant weight loss or weight gain. EYES: Denies change in vision. EARS, NOSE, MOUTH, THROAT: Denies headaches, denies sore throat. CARDIOVASCULAR: Denies palpitations, lightheadedness, syncopal episodes, increased lower extremity swelling. Does endorse chest pain as described in HPI. RESPIRATORY: See HPI. GASTROINTESTINAL: Denies change in appetite, abdominal pain, nausea and vomiting, or diarrhea GENITOURINARY: Denies hematuria, denies infections. MUSKULOSKELETAL: Denies pain, denies swelling. INTEGUMENTARY: Denies rash, denies eczema. NEUROLOGICAL: Denies recent memory loss, no recent seizure activity. PSYCHIATRIC: Denies anxiety, denies depression. HEMATOLOGIC/LYMPHATIC: Denies anemia, denies enlarged lymph node Past Medical History Past Medical History: Atrial Fibrillation, Asthma, Cancer, Diabetes Mellitus, GERD/Reflux, Hyperlipidemia, Hypertension, Prostate Disorder, Sleep Apnea/CPAP/BIPAP, Thyroid Disorder, Vascular Disorder Additional Past Medical History / Comment(s): DM type II, prostate cancer 2018 with radiation & brachytherapy., kidney stones x1., pseudogout., hx of bowel obstrution with surgery and multiple bowel obstruction since (no surgery)., bilateral bifemoral bypass for calcifications (2005), sleep apnea with c-pap machine., hx anemia., Lung cancer with radation tx (last tx 02/08/23), and chemo tx (last 03/04/23)., constipation & diarrhea., pt has been receiving hydration tx at [facility]- states his left hand is swollen and painful and they may go to ER to check (previous IV site)., pt has Loop Recorder. History of Any Multi-Drug Resistant Organisms: None Reported Past Surgical History: Appendectomy, Bowel Resection, Orthopedic Surgery Additional Past Surgical History / Comment(s): bowel resection., bi-femoral bypass for calcifications, left shoulder surgery , left knee surgery, Loop recorder., bronchoscopy with bx. Past Anesthesia/Blood Transfusion Reactions: Previous Problems w/ Anesthesia Additional Past Anesthesia/Blood Transfusion Reaction / Comment(s): difficulty waking up. Past Psychological History: No Psychological Hx Reported Smoking Status: Former smoker Past Alcohol Use History: None Reported - Past Family History Father Additional Family Medical History / Comment(s): alzheimers Mother Family Medical History: Renal Disease Additional Family Medical History / Comment(s): kidney failure Medications and Allergies Home Medications Medication Instructions Recorded Confirmed Type Aspirin [Adult Low Dose Aspirin EC] 81 mg PO DAILY 11/30/18 12/20/23 History Omeprazole 20 mg PO Q48H 11/30/18 12/20/23 History metFORMIN HCL [Glucophage] 1,000 mg PO DIRECTED 11/30/18 12/20/23 History Cholecalciferol [Vitamin D3 (125 125 mcg PO DAILY 03/18/23 12/20/23 History Mcg = 5000 Iu)] Ferrous Gluconate 324 mg PO HS 03/18/23 12/20/23 History Albuterol Inhaler [Ventolin Hfa 1 - 2 puff INHALATION RT-Q4H PRN 12/20/23 12/20/23 History Inhaler] Apixaban [Eliquis] 5 mg PO Q12H 12/20/23 12/20/23 History Atorvastatin Calcium [Lipitor] 80 mg PO HS 12/20/23 12/20/23 History Budesonide [Pulmicort] 0.5 mg INHALATION RT-BID 12/20/23 12/20/23 History Cyanocobalamin (Vitamin B-12) 1,000 mcg PO DAILY 12/20/23 12/20/23 History [Vitamin B-12] Furosemide [Lasix] 40 mg PO DAILY PRN 12/20/23 12/20/23 History Insulin Glargine,Hum.rec.anlog 10 units SQ HS 12/20/23 12/20/23 History [Lantus Solostar Pen] Insulin Lispro [humaLOG Kwikpen] See Protocol SQ AC-TID PRN MDD 30 12/20/23 12/20/23 History units Ipratropium-Albuterol Nebulize 3 ml INHALATION RT-QID PRN 12/20/23 12/20/23 History [Duoneb 0.5 mg-3 mg/3 ml Soln] Levothyroxine Sodium [Synthroid] 150 mcg PO DAILY 12/20/23 12/20/23 History Lidocaine 5% Patch [Lidoderm] 1 patch TOPICAL DIRECTED 12/20/23 12/20/23 History Magnesium Chloride [Nu-Mag] 214.5 mg PO BID 12/20/23 12/20/23 History Metoprolol Tartrate [Lopressor] 75 mg PO BID 12/20/23 12/20/23 History Montelukast [Singulair] 10 mg PO HS 12/20/23 12/20/23 History Potassium Chloride ER [K-Dur 20] 20 meq PO DAILY PRN 12/20/23 12/20/23 History Vitamin E (Dl,Tocopheryl Acet) 400 unit PO DAILY 12/20/23 12/20/23 History [Vitamin E (400 Iu = 180 mg)] allopurinoL [Zyloprim] 100 mg PO HS 12/20/23 12/20/23 History allopurinoL [Zyloprim] 200 mg PO DAILY 12/20/23 12/20/23 History hydrALAZINE HCL [Apresoline] 10 mg PO BID 12/20/23 12/20/23 History hydrALAZINE HCL [Apresoline] 10 mg PO DAILY PRN 12/20/23 12/20/23 History lisinopriL 40 mg PO DAILY 12/20/23 12/20/23 History predniSONE See Taper PO DIRECTED 12/20/23 12/20/23 History Allergies Allergy/AdvReac Type Severity Reaction Status Date / Time No Known Allergies Allergy Verified 12/20/23 19:15 Physical Exam Vitals: Vital Signs Temp Pulse Resp BP Pulse Ox 12/21/23 06:42 68 16 170/68 97 12/21/23 02:00 64 23 157/94 99 12/21/23 00:31 64 21 157/94 98 05/20/24 21:04 97 12/20/23 21:00 81 20 126/80 97 12/20/23 20:38 83 12/20/23 19:05 97.4 F L 12/20/23 18:53 72 22 180/91 98 Intake and Output 12/20/23 12/21/23 12/21/23 22:59 06:59 14:59 Other: Weight 118.841 kg GENERAL EXAM: Alert, 78-year-old white obese male, comfortable in no apparent distress. HEAD: Normocephalic and atraumatic EYES: Normal reaction of pupils, equal size. NOSE: Clear with pink turbinates. THROAT: No erythema or exudates. NECK: No masses, no JVD. CHEST: No chest wall deformity. LUNGS: Equal air entry with faint and expiratory wheezes and mild inspiratory crackles at the right base. On 4 L/min nasal cannula. No conversational dyspnea or accessory muscle use.. CVS: S1 and S2 normal with no audible murmur, regular rhythm. No extra heart sounds ABDOMEN: No hepatosplenomegaly, active bowel sounds, no guarding or rigidity. SPINE: No scoliosis or deformity SKIN: No rashes CENTRAL NERVOUS SYSTEM: No focal deficits, tone is normal in all 4 extremities. EXTREMITIES: There is no peripheral edema, clubbing, or cyanosis. Peripheral pulses are intact. Results - Laboratory Findings CBC and BMP: 12/21/23 09:23 12/21/23 12:52 Abnormal lab findings: Abnormal Labs 12/20/23 12/20/23 12/20/23 19:40 19:40 19:40 RBC 2.87 L Hgb 9.1 L Hct 29.3 L MCV 101.9 H RDW 16.6 H Plt Count 90 L Lymphocytes # 0.2 L Sodium 133 L BUN 29 H Glucose 436 H POC Glucose (mg/dL) Calcium 8.2 L AST 16 L Troponin I 0.047 H* Total Protein 5.8 L Albumin 3.3 L 12/20/23 12/20/23 12/21/23 19:47 21:38 00:29 RBC Hgb Hct MCV RDW Plt Count Lymphocytes # Sodium BUN Glucose POC Glucose (mg/dL) 491 H 487 H Calcium AST Troponin I 0.045 H* Total Protein Albumin 12/21/23 12/21/23 04:27 06:57 RBC Hgb Hct MCV RDW Plt Count Lymphocytes # Sodium BUN Glucose POC Glucose (mg/dL) 483 H 412 H Calcium AST Troponin I Total Protein Albumin - Diagnostic Findings CT scan - chest: image reviewed Assessment and Plan Assessment: Acute on chronic hypoxemic respiratory failure, currently on 4 L/min nasal cannula, chest CTA from outside facility was noted to demonstrate a right upper lobe distal small filling defect consistent with pulmonary embolism. When correlating with patient's past medical history, there was also some likely post treatment changes in the right lung. Also, noted diffuse groundglass opacities, superimposed pulmonary edema was not excluded. Acute exacerbation of chronic obstructive pulmonary disease History of lung cancer, status post chemo/radiation, continues to follow-up with his oncologist outpatient Chronic hypoxemic respiratory failure, secondary to above Elevated troponins, trending down, not consistent with ACS History of paroxysmal atrial fibrillation, currently normal sinus rhythm, chronically anticoagulated on Eliquis Diabetes mellitus type 2 Hypertension History of hyperlipidemia History of hypothyroidism History of peripheral arterial disease Bicytopenia, with thrombocytopenia and anemia, possibly chronic and no overt sig ns of acute blood loss History of prostate cancer status postradiation Obstructive sleep apnea with home CPAP Obesity, with a BMI of 35.5 kg/m Former tobacco dependence, quit smoking December 2022 Plan: Patient's medication, labs, imaging were reviewed Continue supplemental oxygen to maintain attain oxygen saturation of 90% or greater Patient's Eliquis has been resumed Obtain venous Doppler of bilateral lower extremities Continue combination of DuoNebs [id number], budesonide inhalation, and IV Solu-Medrol Follow-up chest x-ray. Patient was empirically placed on Augmentin in the emergency room. Check procalcitonin level Transthoracic echocardiogram pending. Blood glucose management per admitting We will continue to follow, and additional recommendations are forthcoming. I have personally seen and examined the patient, performed the documentation and the assessment and plan as written. Number of minutes spent on the visit:20 This is a joint evaluation that was done along with the nurse practitioner. This evaluation was done more than 30 minutes. I met the patient and also discussed the case with his and the daughter at the bedside. In summary, the patient does not have COPD the patient is currently being treated for limited stage small cell lung cancer the patient has completed chemoradiation therapy. The most recent PET/CT shows some radiation pneumonitis likely chronic with secondary scarring in the right perihilar area. The patient is coming in with worsening shortness of breath. Doppler of the lower extremity has been negative. The patient had a CT angiogram which I reviewed and I do not see any evidence of pulmonary embolism at this point in time. Noted the patient was admitted on anticoagulation for history of chronic atrial fibrillation. As such, his worsening shortness of breath associated to COPD exacerbation. He is currently on bronchodilators and steroids. He is clinically stable. Hemodynamically stable. Comorbidities were all noted. The patient is currently on 40 of oxygen by nasal cannula with a pulse ox of 98%. He will be started on DuoNeb, Perforomist and Pulmicort nebulized treatments and IV Solu- Medrol. Will continue monitoring his sugars closely. Is on Levemir insulin 20 units twice daily and NovoLog 6 units with meals and sliding scale coverage. Rest of the home medications have been resumed. He remains on anticoagulation with Eliquis. Time with Patient: Greater than 30
[2023-12-21 09:44] LABS: Anisocytosis Slight; Basophils % (A) 0 %; Eosinophils % (A) 0 %; HCT 28.3 % (39.0-53.0); HGB 8.9 gm/dL (13.0-17.5); Hypochromasia Slight; Lymphocytes # (A) 0.3 k/uL (1.0-4.8); Lymphocytes % (A) 4 %; MCHC 31.5 g/dL (31.0-37.0); MCV 101.7 fL (80.0-100.0); Macrocytosis Slight; Mean Platelet Volume 8.8; Monocytes # (A) 0.2 k/uL (0-1.0); Monocytes % (A) 3 %; Neutrophils # (A) 6.7 k/uL (1.3-7.7); Neutrophils % (A) 93 %; Platelet Count 104 k/uL (150-450); RBC 2.79 m/uL (4.30-5.90); RDW 16.5 % (11.5-15.5); WBC 7.2 k/uL (3.8-10.6)
[2023-12-21 10:08] LABS: ALT 25 U/L (4-49); AST 16 U/L (17-59); African American GFR (CKD) 79 (>60 ml/min/1.73 sqM); Albumin 3.2 g/dL (3.5-5.0); Alkaline Phosphatase 70 U/L (38-126); Anion Gap 10 mmol/L; Blood Urea Nitrogen 29 mg/dL (9-20); Calcium 8.3 mg/dL (8.4-10.2); Carbon Dioxide 24 mmol/L (22-30); Chloride 99 mmol/L (98-107); Glucose 366 mg/dL (74-99); Non-African American GFR(CKD) 69 (>60 ml/min/1.73 sqM); Potassium 4.1 mmol/L (3.5-5.1); Sodium 133 mmol/L (137-145); Total Bilirubin 0.5 mg/dL (0.2-1.3); Total Protein 5.7 g/dL (6.3-8.2)
[2023-12-21 10:09] LABS: Glucose,Whole Blood 395 mg/dL (70-110)
--- NOTE | 2023-12-21 10:15 | P.CRDCN ---
History of Present Illness Consult date: 12/21/23 Reason for Consult (text): Elevated troponin History of present illness: History of present illness: This is a 78-year-old male follows with a cloth dyer in [place] with past medical history of small cell lung cancer status post chemoradiation, COPD, radiation pneumonitis, chronic hypoxic respiratory failure on home O2 at 3 L, diabetes mellitus type 2, hypothyroidism, hypertension, hyperlipidemia, peripheral artery disease, paroxysmal atrial fibrillation on Eliquis, obstructive sleep apnea with CPAP, remote history of tobacco use. We have been asked to evaluate the patient for elevated troponins. Patient initially presented to [facility] due to shortness of breath. He underwent a CTA of the chest that reported again advanced reticular changes right upper lobe where there is a very small pulmonary embolus. Patient denies having any chest pain. Patient was thus transferred to [facility] for further evaluation. EKG sinus rhythm with ventricular rate of 68. Ultrasound of the bilateral lower extremities negative for DVT. Chest x-ray: Right upper and left lower lobe infiltrates. Correlate for atelectasis and pneumonia. Atypical pulmonary edema could be considered. WBC 7.2, hemoglobin 8.9, platelet count 104. Sodium 133, potassium 4.8, BUN 29,, creatinine 1.09. Glucose initially 491. Hemoglobin A1c 9.5. Calcium 8.2. Total bilirubin 0.5, AST 16, troponins 0.047, 0.045 and 0.026. proBNP 5960. Home cardiac medications: Eliquis 5 mg twice daily, aspirin 81 mg daily, Lipitor 80 mg at bedtime, lisinopril 40 mg daily, magnesium chloride 214 mg twice daily, Lopressor 75 mg twice daily, potassium chloride 20 mill equivalents daily as needed. Review Of Systems: At the time of my exam: CONSTITUTIONAL: Denies fever or chills. HEENT: Denies blurred vision, vision changes, or eye pain. Denies hemoptysis CARDIOVASCULAR: Denies chest pain. Denies orthopnea. Denies PND. Denies palpitations RESPIRATORY: + shortness of breath. GASTROINTESTINAL: Denies abdominal pain. Denies nausea or vomiting. HEMATOLOGIC: Denies bleeding disorders. GENITOURINARY: Denies any blood in urine. SKIN: Denies pruitis. Denies rash. Physical examination: Gen: This is a 78-year-old male in no acute distress VS: reviewed, blood pressure 166/78, heart rate 62, pulse ox 96% on 4 L nasal cannula. HEENT: Head is atraumatic, normocephalic. Pupils equal, round. Sclerae is anicteric. NECK: Supple. No JVD. LUNGS: Few scattered wheezes. No intercostal retractions. HEART: Regular rate and rhythm. No murmur. ABDOMEN: Soft No tenderness. EXTREMITIES: No pedal edema. No calf tenderness. NEUROLOGICAL: Patient is awake, alert and oriented x3. Assessment: Acute on chronic hypoxic respiratory failure secondary to COPD exacerbation Right upper lobe PE doubtful History of lung cancer status post chemoradiation Non-ST elevated myocardial infarction Paroxysmal atrial fibrillation, currently in sinus rhythm Diabetes mellitus type 2 Hypertension Hyperlipidemia Hypothyroidism Peripheral artery disease Plan: Resume patient's home cardiac medications Obtain 2-D echocardiogram and Doppler study to assess cardiac structure and function Due to patient's history of lung cancer and poor prognosis, no aggressive ischemic cardiac workup planned at this time. We will complete the echocardiogram while patient is hospitalized and possibly do outpatient stress testing. At the time of discharge, patient will either follow-up with his primary cloth dyer in [place] or follow-up locally with Dr. Josselyn Hidalgo. Further recommendations to follow based upon clinical course Thank you kindly for this consultation. Nurse practitioner note has been reviewed, I agree with documented findings and plan of care. Patient was seen and examined. Past Medical History Past Medical History: Atrial Fibrillation, Asthma, Cancer, Diabetes Mellitus, GERD/Reflux, Hyperlipidemia, Hypertension, Prostate Disorder, Sleep Apnea/CPAP/BIPAP, Thyroid Disorder, Vascular Disorder Additional Past Medical History / Comment(s): DM type II, prostate cancer 2018 with radiation & brachytherapy., kidney stones x1., pseudogout., hx of bowel obstrution with surgery and multiple bowel obstruction since (no surgery)., bilateral bifemoral bypass for calcifications (2005), sleep apnea with c-pap machine., hx anemia., Lung cancer with radation tx (last tx 02/08/23), and chemo tx (last 03/04/23)., constipation & diarrhea., pt has been receiving hydration tx at [facility]- states his left hand is swollen and painful and they may go to ER to check (previous IV site)., pt has Loop Recorder. History of Any Multi-Drug Resistant Organisms: None Reported Past Surgical History: Appendectomy, Bowel Resection, Orthopedic Surgery Additional Past Surgical History / Comment(s): bowel resection., bi-femoral bypass for calcifications, left shoulder surgery , left knee surgery, Loop recorder., bronchoscopy with bx. Past Anesthesia/Blood Transfusion Reactions: Previous Problems w/ Anesthesia Additional Past Anesthesia/Blood Transfusion Reaction / Comment(s): difficulty waking up. Past Psychological History: No Psychological Hx Reported Smoking Status: Former smoker Past Alcohol Use History: None Reported - Past Family History Father Additional Family Medical History / Comment(s): alzheimers Mother Family Medical History: Renal Disease Additional Family Medical History / Comment(s): kidney failure Medications and Allergies Home Medications Medication Instructions Recorded Confirmed Type Aspirin [Adult Low Dose Aspirin EC] 81 mg PO DAILY 11/30/18 12/20/23 History Omeprazole 20 mg PO Q48H 11/30/18 12/20/23 History metFORMIN HCL [Glucophage] 1,000 mg PO DIRECTED 11/30/18 12/20/23 History Cholecalciferol [Vitamin D3 (125 125 mcg PO DAILY 03/18/23 12/20/23 History Mcg = 5000 Iu)] Ferrous Gluconate 324 mg PO HS 03/18/23 12/20/23 History Albuterol Inhaler [Ventolin Hfa 1 - 2 puff INHALATION RT-Q4H PRN 12/20/23 12/20/23 History Inhaler] Apixaban [Eliquis] 5 mg PO Q12H 12/20/23 12/20/23 History Atorvastatin Calcium [Lipitor] 80 mg PO HS 12/20/23 12/20/23 History Budesonide [Pulmicort] 0.5 mg INHALATION RT-BID 12/20/23 12/20/23 History Cyanocobalamin (Vitamin B-12) 1,000 mcg PO DAILY 12/20/23 12/20/23 History [Vitamin B-12] Furosemide [Lasix] 40 mg PO DAILY PRN 12/20/23 12/20/23 History Insulin Glargine,Hum.rec.anlog 10 units SQ HS 12/20/23 12/20/23 History [Lantus Solostar Pen] Insulin Lispro [humaLOG Kwikpen] See Protocol SQ AC-TID PRN MDD 30 12/20/23 12/20/23 History units Ipratropium-Albuterol Nebulize 3 ml INHALATION RT-QID PRN 12/20/23 12/20/23 History [Duoneb 0.5 mg-3 mg/3 ml Soln] Levothyroxine Sodium [Synthroid] 150 mcg PO DAILY 12/20/23 12/20/23 History Lidocaine 5% Patch [Lidoderm] 1 patch TOPICAL DIRECTED 12/20/23 12/20/23 History Magnesium Chloride [Nu-Mag] 214.5 mg PO BID 12/20/23 12/20/23 History Metoprolol Tartrate [Lopressor] 75 mg PO BID 12/20/23 12/20/23 History Montelukast [Singulair] 10 mg PO HS 12/20/23 12/20/23 History Potassium Chloride ER [K-Dur 20] 20 meq PO DAILY PRN 12/20/23 12/20/23 History Vitamin E (Dl,Tocopheryl Acet) 400 unit PO DAILY 12/20/23 12/20/23 History [Vitamin E (400 Iu = 180 mg)] allopurinoL [Zyloprim] 100 mg PO HS 12/20/23 12/20/23 History allopurinoL [Zyloprim] 200 mg PO DAILY 12/20/23 12/20/23 History hydrALAZINE HCL [Apresoline] 10 mg PO BID 12/20/23 12/20/23 History hydrALAZINE HCL [Apresoline] 10 mg PO DAILY PRN 12/20/23 12/20/23 History lisinopriL 40 mg PO DAILY 12/20/23 12/20/23 History predniSONE See Taper PO DIRECTED 12/20/23 12/20/23 History Allergies Allergy/AdvReac Type Severity Reaction Status Date / Time No Known Allergies Allergy Verified 12/20/23 19:15 Physical Exam Vitals: Vital Signs Temp Pulse Resp BP Pulse Ox 12/21/23 06:42 68 16 170/68 97 12/21/23 02:00 64 23 157/94 99 12/21/23 00:31 64 21 157/94 98 12/20/23 21:04 97 12/20/23 21:00 81 20 126/80 97 12/20/23 20:38 83 12/20/23 19:05 97.4 F L 12/20/23 18:53 72 22 180/91 98 Intake and Output 12/20/23 12/20/23 12/21/23 14:59 22:59 06:59 Other: Weight 118.841 kg Results 12/21/23 09:23 12/20/23 19:40 Cardiac Enzymes 12/20/23 12/20/23 12/20/23 Range/Units 19:40 19:40 21:38 AST 16 L (17-59) U/L Troponin I 0.047 H* 0.045 H* (0.000-0.034) ng/mL 12/21/23 Range/Units 03:47 AST (17-59) U/L Troponin I 0.026 (0.000-0.034) ng/mL CBC 12/20/23 Range/Units 19:40 WBC 7.8 (3.8-10.6) k/uL RBC 2.87 L (4.30-5.90) m/uL Hgb 9.1 L (13.0-17.5) gm/dL Hct 29.3 L (39.0-53.0) % Plt Count 90 L (150-450) k/uL Comprehensive Metabolic Panel 12/20/23 Range/Units 19:40 Sodium 133 L (137-145) mmol/L Potassium 4.8 (3.5-5.1) mmol/L Chloride 100 (98-107) mmol/L Carbon Dioxide 23 (22-30) mmol/L BUN 29 H (9-20) mg/dL Creatinine 1.09 (0.66-1.25) mg/dL Glucose 436 H (74-99) mg/dL Calcium 8.2 L (8.4-10.2) mg/dL AST 16 L (17-59) U/L ALT 25 (4-49) U/L Alkaline Phosphatase 72 (38-126) U/L Total Protein 5.8 L (6.3-8.2) g/dL Albumin 3.3 L (3.5-5.0) g/dL Current Medications Generic Name Dose Route Start Last Admin Trade Name Freq PRN Reason Stop Dose Admin Albuterol/Ipratropium 3 ml 12/21/23 08:00 Ipratropium-Albuterol 3 Ml Neb INHALATION RT-QID TENA Albuterol/Ipratropium 3 ml 12/20/23 20:35 Ipratropium-Albuterol 3 Ml Neb INHALATION RT-Q2H PRN Shortness Of Breath Or Wheezing Amoxicillin/Clavulanate Potassium 1 each 12/20/23 21:00 12/20/23 21:28 Amoxic-Pot Clav 875-125mg 1 Each Tab PO 12/25/23 09:01 1 each Q12HR TENA Administration Protocol Apixaban 5 mg 12/20/23 21:00 12/20/23 21:30 Apixaban 5 Mg Tab PO 5 mg Q12H TENA Administration Protocol Aspirin 81 mg 12/21/23 09:00 Aspirin 81 Mg PO DAILY TENA Atorvastatin Calcium 80 mg 12/20/23 21:00 12/20/23 21:29 Atorvastatin 80 Mg Tab PO 80 mg HS TENA Administration Budesonide 0.5 mg 12/21/23 08:00 Budesonide 0.5 Mg/2 Ml Nebu INHALATION RT-BID TENA Dextrose/Water 25 ml 12/20/23 20:54 Dextrose 50% Syringe 50 Ml IVP PER PROTOCOL PRN Hypoglycemia Protocol Dextrose/Water 50 ml 12/20/23 20:54 Dextrose 50% Syringe 50 Ml IVP PER PROTOCOL PRN Hypoglycemia Protocol Furosemide 40 mg 12/20/23 20:55 Furosemide 40 Mg Tab PO DAILY PRN Edema Hydralazine HCl 10 mg 12/20/23 21:00 12/20/23 21:30 Hydralazine Hcl 10 Mg Tab PO 10 mg BID TENA Administration Insulin Aspart 0 unit 12/20/23 21:00 12/20/23 21:33 Insulin Aspart (Novolog) 100 Unit/Ml Vial SQ 12 unit ACHS TENA Administration Protocol Lisinopril 40 mg 12/21/23 09:00 Lisinopril 20 Mg Tab PO DAILY [facility] Magnesium Oxide 200 mg 12/20/23 21:00 12/20/23 21:29 Magnesium Oxide 400 Mg Tab PO 200 mg BID TENA Administration Melatonin 5 mg 12/21/23 02:16 Melatonin 5 Mg Tablet PO HS PRN Insomnia Methylprednisolone Sodium Succinate 60 mg 12/21/23 09:00 Methylprednisolone Sod Succi 125 Mg/2 Ml Vial IV Q6H [facility] Metoprolol Tartrate 75 mg 12/20/23 21:00 12/20/23 21:30 Metoprolol Tartrate 25 Mg Tab PO 75 mg BID TENA Administration Montelukast Sodium 10 mg 12/20/23 21:00 12/20/23 21:29 Montelukast 10 Mg Tab PO 10 mg HS TENA Administration Naloxone HCl 0.2 mg 12/20/23 20:35 Naloxone 0.4 Mg/Ml 1 Ml Vial IVP Q2M PRN Opioid Reversal Pantoprazole Sodium 40 mg 12/21/23 09:00 Pantoprazole 40 Mg Tablet PO Q48H TENA Potassium Chloride 20 meq 12/20/23 20:55 Potassium Chloride Er 20 Meq Tab.Er PO DAILY PRN EDEMA/WITH LASIX Intake and Output 12/20/23 12/20/23 12/21/23 14:59 22:59 06:59 Other: Weight 118.841 kg Patient Weight 12/21/23 06:59 Weight 118.841 kg 12/20/23 19:40 12/20/23 19:40
[2023-12-21 11:03] LABS: Glucose,Whole Blood 317 mg/dL (70-110)
[2023-12-21 11:37] LABS: Glucose,Whole Blood 268 mg/dL (70-110)
[2023-12-21 12:42] LABS: Glucose,Whole Blood 276 mg/dL (70-110)
[2023-12-21 13:36] LABS: Potassium 3.9 mmol/L (3.5-5.1)
[2023-12-21 14:16] LABS: Glucose,Whole Blood 361 mg/dL (70-110)
[2023-12-21] MEDS: IBUPROFEN 600 MG TAB PO STA (14:50)
[2023-12-21 15:35] LABS: Glucose,Whole Blood 347 mg/dL (70-110)
[2023-12-21 16:51] LABS: Glucose,Whole Blood 218 mg/dL (70-110)
[2023-12-21 17:53] LABS: Glucose,Whole Blood 248 mg/dL (70-110)
[2023-12-21] MEDS: INSULIN ASPART (NovoLOG) 100 UNIT/ML VIAL SQ SCH ×2 (17:54→17:57)
[2023-12-21] MEDS: HYDROcodone/APAP 5-325MG 1 EACH TAB PO PRN (18:20)
[2023-12-21 18:42] LABS: Glucose,Whole Blood 283 mg/dL (70-110)
[2023-12-21] MEDS: INSULIN DETEMIR (LEVEMIR) 100 UNIT/ML SYR SQ SCH (18:48)
[2023-12-21 19:57] LABS: Glucose,Whole Blood 286 mg/dL (70-110)
[2023-12-21] MEDS: TEMAZEPAM 7.5 MG CAP PO PRN (21:51)
--- NOTE | 2023-12-22 00:34 | P.HPIM ---
History of Present Illness H&P Date: 12/21/23 Chief Complaint: Shortness of breath Patient is a 78-year-old male with a past medical history of small cell lung cancer status post chemoradiation, COPD, radiation pneumonitis, chronic hypoxic respiratory failure on home oxygen at 3 L via nasal cannula, diabetes type 2, hypertension hyperlipidemia, peripheral vascular disease, paroxysmal atrial fibrillation on anticoagulation with Eliquis, obstructive sleep apnea on CPAP and prior history of smoking presents to the hospital initially to [facility] due to complaints of worsening shortness of breath. Patient states that he woke up this morning and suddenly became very short of breath while he was walking around his home. Patient initially went to [facility] where they diagnosed him with COPD exacerbation and small PE also questionable CHF. Patient states that he did have chest pain initially but resolved now. Denies any fever or chills. No cough or sputum production. Denies recent illnesses. No nausea vomiting abdominal pain or diarrhea. Denies any dizziness or lightheadedness. EKG showed sinus rhythm. Lab data showed BUN 29 creatinine 1.2 sodium 132 potassium 4.5 chloride 100 bicarb is 22 liver edge is not elevated. WBC 10.2 hemoglobin 9.[address] angio of the chest on 12/20/2023 showed advanced reticular changes right upper lobe. There is a very small pulmonary embolus. Scattered groundglass changes are negative fluid spaces could represent some pulmonary edema. There is fairly diffuse however trace right effusion. Findings represent a significant gynecoma stia bilaterally. Scoliosis. Patient is on anticoagulation with Eliquis 5 mg twice daily at home. Procalcitonin level 0.05 Review of Systems Constitutional: Patient denies any fever or chills . No generalized weakness or weight loss. Abdomen: Patient denied nausea vomiting and diarrhea and abdominal pain. Cardiovascular: Patient did have chest pain and shortness of breath. No palpitations. No worsening leg swelling Respiratory: patient denied any cough is from production. Positive for shortness of breath Neurologic: Patient denied any numbness or tingling headache. Musculoskeletal: Patient denies any complaints of joint swelling or deformity. Skin: Negative Psychiatric: Negative Endocrine: No heat or cold intolerance. No recent weight gain. Genitourinary: No dysuria or hematuria. All other 14 point ROS negative except the above Past Medical History Past Medical History: Atrial Fibrillation, Asthma, Cancer, Diabetes Mellitus, GERD/Reflux, Hyperlipidemia, Hypertension, Prostate Disorder, Sleep Apnea/CPAP/BIPAP, Thyroid Disorder, Vascular Disorder Additional Past Medical History / Comment(s): DM type II, prostate cancer 2018 with radiation & brachytherapy., kidney stones x1., pseudogout., hx of bowel obstrution with surgery and multiple bowel obstruction since (no surgery)., terry ateral bifemoral bypass for calcifications (2005), sleep apnea with c-pap machine., hx anemia., Lung cancer with radation tx (last tx 02/08/23), and chemo tx (last 03/04/23)., constipation & diarrhea., pt has been receiving hydration tx at [facility]- states his left hand is swollen and painful and they may go to ER to check (previous IV site)., pt has Loop Recorder. History of Any Multi-Drug Resistant Organisms: None Reported Past Surgical History: Appendectomy, Bowel Resection, Orthopedic Surgery Additional Past Surgical History / Comment(s): bowel resection., bi-femoral bypass for calcifications, left shoulder surgery , left knee surgery, Loop recorder., bronchoscopy with bx. Past Anesthesia/Blood Transfusion Reactions: Previous Problems w/ Anesthesia Additional Past Anesthesia/Blood Transfusion Reaction / Comment(s): difficulty waking up. Past Psychological History: No Psychological Hx Reported Smoking Status: Former smoker Past Alcohol Use History: None Reported - Past Family History Father Additional Family Medical History / Comment(s): alzheimers Mother Family Medical History: Renal Disease Additional Family Medical History / Comment(s): kidney failure Medications and Allergies Home Medications Medication Instructions Recorded Confirmed Type Aspirin [Adult Low Dose Aspirin EC] 81 mg PO DAILY 11/30/18 12/20/23 History Omeprazole 20 mg PO Q48H 11/30/18 12/20/23 History metFORMIN HCL [Glucophage] 1,000 mg PO DIRECTED 11/30/18 12/20/23 History Cholecalciferol [Vitamin D3 (125 125 mcg PO DAILY 03/18/23 12/20/23 History Mcg = 5000 Iu)] Ferrous Gluconate 324 mg PO HS 03/18/23 12/20/23 History Albuterol Inhaler [Ventolin Hfa 1 - 2 puff INHALATION RT-Q4H PRN 12/20/23 12/20/23 History Inhaler] Apixaban [Eliquis] 5 mg PO Q12H 12/20/23 12/20/23 History Atorvastatin Calcium [Lipitor] 80 mg PO HS 12/20/23 12/20/23 History Budesonide [Pulmicort] 0.5 mg INHALATION RT-BID 12/20/23 12/20/23 History Cyanocobalamin (Vitamin B-12) 1,000 mcg PO DAILY 12/20/23 12/20/23 History [Vitamin B-12] Furosemide [Lasix] 40 mg PO DAILY PRN 12/20/23 12/20/23 History Insulin Glargine,Hum.rec.anlog 10 units SQ HS 12/20/23 12/20/23 History [Lantus Solostar Pen] Insulin Lispro [humaLOG Kwikpen] See Protocol SQ AC-TID PRN MDD 30 12/20/23 12/20/23 History units Ipratropium-Albuterol Nebulize 3 ml INHALATION RT-QID PRN 12/20/23 12/20/23 History [Duoneb 0.5 mg-3 mg/3 ml Soln] Levothyroxine Sodium [Synthroid] 150 mcg PO DAILY 12/20/23 12/20/23 History Lidocaine 5% Patch [Lidoderm] 1 patch TOPICAL DIRECTED 12/20/23 12/20/23 History Magnesium Chloride [Nu-Mag] 214.5 mg PO BID 12/20/23 12/20/23 History Metoprolol Tartrate [Lopressor] 75 mg PO BID 12/20/23 12/20/23 History Montelukast [Singulair] 10 mg PO HS 12/20/23 12/20/23 History Potassium Chloride ER [K-Dur 20] 20 meq PO DAILY PRN 12/20/23 12/20/23 History Vitamin E (Dl,Tocopheryl Acet) 400 unit PO DAILY 12/20/23 12/20/23 History [Vitamin E (400 Iu = 180 mg)] allopurinoL [Zyloprim] 100 mg PO HS 12/20/23 12/20/23 History allopurinoL [Zyloprim] 200 mg PO DAILY 12/20/23 12/20/23 History hydrALAZINE HCL [Apresoline] 10 mg PO BID 12/20/23 12/20/23 History hydrALAZINE HCL [Apresoline] 10 mg PO DAILY PRN 12/20/23 12/20/23 History lisinopriL 40 mg PO DAILY 12/20/23 12/20/23 History predniSONE See Taper PO DIRECTED 12/20/23 12/20/23 History Allergies Allergy/AdvReac Type Severity Reaction Status Date / Time No Known Allergies Allergy Verified 12/20/23 19:15 Physical Exam Vitals: Vital Signs Temp Pulse Resp BP Pulse Ox 12/21/23 10:00 63 18 130/73 95 12/21/23 08:47 62 18 166/78 96 12/21/23 08:06 59 L 12/21/23 07:59 97 12/21/23 07:57 57 L 12/21/23 06:42 68 16 170/68 97 12/21/23 02:00 64 23 157/94 99 12/21/23 00:31 64 21 157/94 98 12/20/23 21:04 97 12/20/23 21:00 81 20 126/80 97 12/20/23 20:38 83 12/20/23 19:05 97.4 F L 12/20/23 18:53 72 22 180/91 98 Intake and Output 12/20/23 12/21/23 12/21/23 22:59 06:59 14:59 Intake Total 20.605 Balance 20.605 Intake: Intake, IV Titration 20.605 Amount Insulin Regular 100 unit 20.605 In Sodium Chloride 0.9% 100 ml @ 0.1 UNITS/KG/HR 12.003 mls/hr IV .Q8H25M [facility] Rx#:[id number] Other: Weight 118.841 kg PHYSICAL EXAMINATION: Patient is lying in the bed comfortably, no acute distress, awake alert and oriented.. HEENT: Normocephalic. Neck is supple. Pupils reactive. Nostrils clear. Oral cavity is moist. Neck reveals no JVD, carotid bruits, or thyromegaly. CHEST EXAMINATION: Trachea is central. Symmetrical expansion. Bibasilar diminished sounds. Expiratory wheezing and scattered rhonchi nonlabored breat skip. CARDIAC: Normal S1, S2 with no gallops. No murmurs ABDOMEN: Soft. Bowel sounds normal. No organomegaly. No abdominal bruits. Extremities: Bilateral lower extremity trace edema. No clubbing or cyanosis Neurologically awake, alert, oriented x3 with well-coordinated movements. No focal deficits noted Skin: No rash or skin lesions. Psychiatric: Coperative. Nonsuicidal Musculoskeletal: No joint swelling or deformity. Normal range of motion. Results CBC & Chem 7: 12/21/23 09:23 12/21/23 12:52 Labs: Abnormal Lab Results - Last 24 Hours (Table) 12/20/23 12/20/23 12/20/23 Range/Units 19:40 19:40 19:40 RBC 2.87 L (4.30-5.90) m/uL Hgb 9.1 L (13.0-17.5) gm/dL Hct 29.3 L (39.0-53.0) % MCV 101.9 H (80.0-100.0) fL RDW 16.6 H (11.5-15.5) % Plt Count 90 L (150-450) k/uL Lymphocytes # 0.2 L (1.0-4.8) k/uL Sodium 133 L (137-145) mmol/L BUN 29 H (9-20) mg/dL Glucose 436 H (74-99) mg/dL POC Glucose (mg/dL) (70-110) mg/dL Hemoglobin A1c (<=6.0) % Calcium 8.2 L (8.4-10.2) mg/dL AST 16 L (17-59) U/L Troponin I 0.047 H* (0.000-0.034) ng/mL Total Protein 5.8 L (6.3-8.2) g/dL Albumin 3.3 L (3.5-5.0) g/dL 12/20/23 12/20/23 12/21/23 Range/Units 19:47 21:38 00:29 RBC (4.30-5.90) m/uL Hgb (13.0-17.5) gm/dL Hct (39.0-53.0) % MCV (80.0-100.0) fL RDW (11.5-15.5) % Plt Count (150-450) k/uL Lymphocytes # (1.0-4.8) k/uL Sodium (137-145) mmol/L BUN (9-20) mg/dL Glucose (74-99) mg/dL POC Glucose (mg/dL) 491 H 487 H (70-110) mg/dL Hemoglobin A1c (<=6.0) % Calcium (8.4-10.2) mg/dL AST (17-59) U/L Troponin I 0.045 H* (0.000-0.034) ng/mL Total Protein (6.3-8.2) g/dL Albumin (3.5-5.0) g/dL 12/21/23 12/21/23 12/21/23 Range/Units 03:47 04:27 06:57 RBC (4.30-5.90) m/uL Hgb (13.0-17.5) gm/dL Hct (39.0-53.0) % MCV (80.0-100.0) fL RDW (11.5-15.5) % Plt Count (150-450) k/uL Lymphocytes # (1.0-4.8) k/uL Sodium (137-145) mmol/L BUN (9-20) mg/dL Glucose (74-99) mg/dL POC Glucose (mg/dL) 483 H 412 H (70-110) mg/dL Hemoglobin A1c 9.5 H (<=6.0) % Calcium (8.4-10.2) mg/dL AST (17-59) U/L Troponin I (0.000-0.034) ng/mL Total Protein (6.3-8.2) g/dL Albumin (3.5-5.0) g/dL 12/21/23 12/21/23 12/21/23 Range/Units 08:39 09:23 09:23 RBC 2.79 L (4.30-5.90) m/uL Hgb 8.9 L (13.0-17.5) gm/dL Hct 28.3 L (39.0-53.0) % MCV 101.7 H (80.0-100.0) fL RDW 16.5 H (11.5-15.5) % Plt Count 104 L (150-450) k/uL Lymphocytes # 0.3 L (1.0-4.8) k/uL Sodium 133 L (137-145) mmol/L BUN 29 H (9-20) mg/dL Glucose 366 H (74-99) mg/dL POC Glucose (mg/dL) 379 H (70-110) mg/dL Hemoglobin A1c (<=6.0) % Calcium 8.3 L (8.4-10.2) mg/dL AST 16 L (17-59) U/L Troponin I (0.000-0.034) ng/mL Total Protein 5.7 L (6.3-8.2) g/dL Albumin 3.2 L (3.5-5.0) g/dL 12/21/23 Range/Units 10:07 RBC (4.30-5.90) m/uL Hgb (13.0-17.5) gm/dL Hct (39.0-53.0) % MCV (80.0-100.0) fL RDW (11.5-15.5) % Plt Count (150-450) k/uL Lymphocytes # (1.0-4.8) k/uL Sodium (137-145) mmol/L BUN (9-20) mg/dL Glucose (74-99) mg/dL POC Glucose (mg/dL) 395 H (70-110) mg/dL Hemoglobin A1c (<=6.0) % Calcium (8.4-10.2) mg/dL AST (17-59) U/L Troponin I (0.000-0.034) ng/mL Total Protein (6.3-8.2) g/dL Albumin (3.5-5.0) g/dL Thrombosis Risk Factor Assmnt - DVT/VTE Prophylaxis DVT/VTE Prophylaxis: Pharmacologic Prophylaxis ordered Assessment and Plan Assessment: Acute on chronic hypoxic respiratory failure. Currently on 4 L via nasal cannula. Right upper lobe distal small pulmonary embolism as per CTA done at [facility]. Acute exacerbation of COPD Chronic hypoxic respiratory failure secondary to COPD on home oxygen at 3 L via nasal cannula History of lung cancer small cell status post chemoradiation Elevated troponin level with possible type II MS Paroxysmal atrial fibrillation on anticoagulation with Eliquis at home Diabetes type 2 Hyperglycemia with uncontrolled diabetes due to steroids Hypertension Hyperlipidemia Hypothyroidism Peripheral vascular disease Bicytopenia thrombocytopenia and anemia History of prostate cancer s/p radiation Obstructive sleep apnea on CPAP at home Obesity with BMI 32.5 Prior history of smoking Plan: Patient will be continued on oxygen supplementation and titrate back to his baseline at home. Continue with IV Solu-Medrol, DuoNebs and follow-up respiratory status closely. Procalcitonin level is not elevated. Patient was started back on Eliquis. Bilateral lower extremity duplex scan was ordered to rule out DVT. 2D echocardiogram is ordered. Cardiology was consulted due to elevated troponin level. Continue with Lasix 40 mg daily and other cardiac medications. Patient was started on insulin drip for hyperglycemia which is likely due to steroids. Pulmonary and cardiology is on board. Continue to follow closely. Prognosis is guarded. Time with Patient: Greater than 30
[2023-12-22 01:58] LABS: Glucose,Whole Blood 412 mg/dL (70-110)
[2023-12-22 07:09] LABS: Glucose,Whole Blood 380 mg/dL (70-110)
[2023-12-22 11:45] LABS: Anisocytosis Slight; Basophils % (A) 0 %; Eosinophils % (A) 0 %; HCT 27.7 % (39.0-53.0); HGB 8.9 gm/dL (13.0-17.5); Hypochromasia Slight; Lymphocytes # (A) 0.3 k/uL (1.0-4.8); Lymphocytes % (A) 3 %; MCH 32.6 pg (25.0-35.0); MCHC 32.1 g/dL (31.0-37.0); MCV 101.8 fL (80.0-100.0); Macrocytosis Slight; Monocytes # (A) 0.4 k/uL (0-1.0); Monocytes % (A) 5 %; Neutrophils # (A) 8.4 k/uL (1.3-7.7); Neutrophils % (A) 92 %; RBC 2.72 m/uL (4.30-5.90); RDW 16.5 % (11.5-15.5); WBC 9.2 k/uL (3.8-10.6)
[2023-12-22 11:52] LABS: Platelet Count 96 k/uL (150-450)
[2023-12-22 12:07] LABS: Glucose,Whole Blood 468 mg/dL (70-110)
[2023-12-22 12:14] LABS: African American GFR (CKD) 67 (>60 ml/min/1.73 sqM); Anion Gap 9 mmol/L; Blood Urea Nitrogen 37 mg/dL (9-20); Carbon Dioxide 23 mmol/L (22-30); Chloride 99 mmol/L (98-107); Glucose 387 mg/dL (74-99); Non-African American GFR(CKD) 58 (>60 ml/min/1.73 sqM); Potassium 4.6 mmol/L (3.5-5.1); Sodium 131 mmol/L (137-145)
[2023-12-22] MEDS: INSULIN ASPART (NovoLOG) 100 UNIT/ML VIAL SQ SCH ×2 (12:17→19:12)
--- NOTE | 2023-12-22 14:31 | P.PN ---
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 We have been asked to evaluate the patient for elevated troponins. Patient initially presented to [facility] due to shortness of breath. He underwent a CTA of the chest that reported again advanced reticular changes right upper lobe where there is a very small pulmonary embolus. Patient denies having any chest pain. Patient was thus transferred to [facility] for further evaluation. EKG sinus rhythm with ventricular rate of 68. Ultrasound of the bilateral lower extremities negative for DVT. Chest x-ray: Right upper and left lower lobe infiltrates. Correlate for atelectasis and pneumonia. Atypical pulmonary edema could be considered. WBC 7.2, hemoglobin 8.9, platelet count 104. Sodium 133, potassium 4.8, BUN 29,, creatinine 1.09. Glucose initially 491. Hemoglobin A1c 9.5. Calcium 8.2. Total bilirubin 0.5, AST 16, troponins 0.047, 0.045 and 0.026. proBNP 5960. Home cardiac medications: Eliquis 5 mg twice daily, aspirin 81 mg daily, Lipitor 80 mg at bedtime, lisinopril 40 mg daily, magnesium chloride 214 mg twice daily, Lopressor 75 mg twice daily, potassium chloride 20 mill equivalents daily as needed. 12/21 Patient states that he is feeling a lot better from yesterday. Shortness of breath is significantly improved. He denies having any chest pain. Blood pressure 148/83, heart rate 64, pulse ox 97% on 4 L nasal cannula. Hemoglobin 8.9. BUN 37, creatinine 1.2, sodium 131 and potassium 4.6. Echocardiogram has been obtained but report is pending. Physical examination: Gen: This is a 78-year-old male in no acute distress VS: reviewed, blood pressure 166/78, heart rate 62, pulse ox 96% on 4 L nasal cannula. HEENT: Head is atraumatic, normocephalic. Pupils equal, round. Sclerae is anicteric. NECK: Supple. No JVD. LUNGS: Few scattered wheezes. No intercostal retractions. HEART: Regular rate and rhythm. No murmur. ABDOMEN: Soft No tenderness. EXTREMITIES: No pedal edema. No calf tenderness. NEUROLOGICAL: Patient is awake, alert and oriented x3. Assessment: Acute on chronic hypoxic respiratory failure secondary to COPD exacerbation Right upper lobe PE doubtful History of lung cancer status post chemoradiation Non-ST elevated myocardial infarction Paroxysmal atrial fibrillation, currently in sinus rhythm Diabetes mellitus type 2 Hypertension Hyperlipidemia Hypothyroidism Peripheral artery disease Plan: Continue patient's home cardiac medications Obtain 2-D echocardiogram and Doppler report Due to patient's history of lung cancer and poor prognosis, no aggressive ischemic cardiac workup planned at this time. We will complete the echocardiogram while patient is hospitalized and possibly do outpatient stress testing. At the time of discharge, patient will either follow-up with his primary electrician substation in [place] or follow-up locally with Dr. Josselyn Hidalgo. Further recommendations to follow based upon clinical course Nurse practitioner note has been reviewed, I agree with documented findings and plan of care. Patient was seen and examined. Objective - Vital Signs Vital signs: Vital Signs Temp 98.5 F 12/22/23 11:03 Pulse 64 12/22/23 11:03 Resp 16 12/22/23 11:03 BP 148/83 12/22/23 11:03 Pulse Ox 97 12/22/23 11:03 FiO2 Intake & Output 12/21/23 12/22/23 12/22/23 18:59 06:59 18:59 Intake Total 202.000 10 356 Output Total 1575 Balance 202.000 -1565 356 Weight 121 kg Intake: IV 10 Invasive Line 1 10 Intake, IV Titration 202.000 Amount Insulin Regular 100 unit 202.000 In Sodium Chloride 0.9% 100 ml @ 0.1 UNITS/KG/HR 12.003 mls/hr IV .Q8H25M [facility] Rx#:[id number] Oral 356 Output: Urine 1575 Other: Voiding Method Urinal Urinal - Labs CBC & Chem 7: 12/22/23 11:26 12/22/23 11:26 Labs: Abnormal Lab Results - Last 24 Hours (Table) 12/21/23 12/21/23 12/21/23 Range/Units 12:41 12:52 14:15 Sodium 135 L (137-145) mmol/L POC Glucose (mg/dL) 276 H 361 H (70-110) mg/dL 12/21/23 12/21/23 12/21/23 Range/Units 15:35 16:49 17:52 Sodium (137-145) mmol/L POC Glucose (mg/dL) 347 H 218 H 248 H (70-110) mg/dL 12/21/23 12/21/23 12/22/23 Range/Units 18:41 19:55 01:56 Sodium (137-145) mmol/L POC Glucose (mg/dL) 283 H 286 H 412 H (70-110) mg/dL 12/22/23 Range/Units 07:06 Sodium (137-145) mmol/L POC Glucose (mg/dL) 380 H (70-110) mg/dL
--- NOTE | 2023-12-22 15:17 | P.PN ---
Subjective Progress Note Date: 12/22/23 Patient is a 78-year-old white male with past medical history significant for lung cancer status post chemoradiation, COPD, former tobacco smoker quitting approximately 1 year ago, diabetes melitis, hypothyroidism, hypertension, hyperlipidemia, obesity, peripheral arterial disease, atrial fibrillation ch ronically anticoagulated on Eliquis, obstructive sleep apnea with home CPAP, among other comorbidities. Patient states that he was originally diagnosed with small cell lung cancer at [facility] October,. He is currently status post chemo and radiation treatments. He does follow with Dr. Kaiser from oncology. Most recent PET scan done 10/14/2023 did not show any new areas of abnormal hypermetabolic uptake to suggest active neoplastic recurrence. He does follow with a local lead front end developer, Dr. Nirmala Gillespie. Patient states that his pulmonary status has significantly worsened over the last month and a half. He did have a brief hospitalization at [facility] reportedly last month. He has progressively become more short of breath, especially with exertion. States that he was told that he developed some radiation pneumonitis after his last radiation treatment. He is chronically oxygen dependent on 3 L home O2, but more recently increased his flow to 4 L/min. Yesterday, he got up as usual and started to make coffee. Had to use the bathroom, took his oxygen off, and went to the bathroom. He states that his nasal cannula does not reach this far. While in the bathroom he becomes severely short of breath. He called for his who put his CPAP machine on him. They then drove to [facility] where the patient was initially evaluated. While at the outside facility he did have a chest CTA which showed a very small distal right upper lobe filling defect consistent with small pulmonary embolism. Also, some likely post treatment changes of the right lung, with atelectasis and reticular changes in the right upper lobe. Superimposed diffuse groundglass opacities. Following these findings, the patient was transferred to [facility] late last night. Patient is currently sitting up in bed, on 4 L/min nasal cannula, in no acute distress. He endorses acute on chronic shortness of breath as described above. States he has been coughing more than normal over the last 3 days. No significant sputum production. Denies fevers. Denies sick contacts. Does admit substernal chest discomfort. Nonradiating. CBC on arrival to our facility: WBC count 7.8, hemoglobin 9.1, hematocrit 29.3, platelets 90,000. BMP drawn at our facility: Sodium 133, potassium 4.8, chloride 100, serum bicarb 10, BUN 29, creatinine 1.09, glucose 436. LFTs not elevated. Troponins were mildly elevated but are trending down, likely supply/demand mismatch, and are 0.047, 0.045, and 0.026 respectively. EKG demonstrates normal sinus rhythm without any acute ischemic changes noted. NT proBNP was significantly elevated at 5960. Patient's Eliquis has been restarted. Hemodynamics are stable. On today's evaluation of 12/22/2023, I am seeing the patient for a follow-up. Clinically improved compared to yesterday. Less bronchospastic and wheezy compared to yesterday. Still having some shortness of breath at rest. He is considerably improved compared to yesterday. Remains on bronchodilators. Remains on IV Solu-Medrol. Remains on oxygen 4 L/min nasal cannula. Remains on a combination performance of Pulmicort nebulized treatments and remains on Augmentin as an empiric antibiotic coverage. The blood work from today shows a WBC count of 9.2 with a hemoglobin 8.9 and a platelet count of 96. BUN is at 37 with a creatinine of 1.2 and a sodium levels at 131. The patient also has obstructive sleep apnea and he was able to bring in his CPAP unit which is an APAP unit set at a pressure of 6/15 cm of water. His treatment has been successful as the patient has been averaging around 10 hours of CPAP use per night and his AHI was down to 1 while on treatment the patient also feeds and oxygen 2 L through his CPAP unit. He remains on anticoagulation with Eliquis. Objective - Vital Signs Vital signs: Vital Signs Temp 97.4 F L 12/22/23 08:06 Pulse 62 12/22/23 10:03 Resp 18 12/22/23 08:06 BP 137/81 12/22/23 08:06 Pulse Ox 94 L 12/22/23 09:40 FiO2 Intake & Output 12/21/23 12/22/23 12/22/23 18:59 06:59 18:59 Intake Total 202.000 10 356 Output Total 1575 Balance 202.000 -1565 356 Weight 121 kg Intake: IV 10 Invasive Line 1 10 Intake, IV Titration 202.000 Amount Insulin Regular 100 unit 202.000 In Sodium Chloride 0.9% 100 ml @ 0.1 UNITS/KG/HR 12.003 mls/hr IV .Q8H25M [facility] Rx#:[id number] Oral 356 Output: Urine 1575 Other: Voiding Method Urinal Urinal - Exam GENERAL EXAM: Alert, 78-year-old white obese male, comfortable in no apparent distress. HEAD: Normocephalic and atraumatic EYES: Normal reaction of pupils, equal size. NOSE: Clear with pink turbinates. THROAT: No erythema or exudates. NECK: No masses, no JVD. CHEST: No chest wall deformity. LUNGS: Equal air entry with faint and expiratory wheezes and mild inspiratory crackles at the right base. On 4 L/min nasal cannula. No conversational dyspnea or accessory muscle use.. CVS: S1 and S2 normal with no audible murmur, regular rhythm. No extra heart sounds ABDOMEN: No hepatosplenomegaly, active bowel sounds, no guarding or rigidity. SPINE: No scoliosis or deformity SKIN: No rashes CENTRAL NERVOUS SYSTEM: No focal deficits, tone is normal in all 4 extremities. EXTREMITIES: There is no peripheral edema, clubbing, or cyanosis. Peripheral pulses are intact. - Labs CBC & Chem 7: 12/22/23 11:26 12/22/23 11:26 Labs: Abnormal Lab Results - Last 24 Hours (Table) 12/21/23 12/21/23 12/21/23 Range/Units 11:02 11:36 12:41 Sodium (137-145) mmol/L POC Glucose (mg/dL) 317 H 268 H 276 H (70-110) mg/dL 12/21/23 12/21/23 12/21/23 Range/Units 12:52 14:15 15:35 Sodium 135 L (137-145) mmol/L POC Glucose (mg/dL) 361 H 347 H (70-110) mg/dL 12/21/23 12/21/23 12/21/23 Range/Units 16:49 17:52 18:41 Sodium (137-145) mmol/L POC Glucose (mg/dL) 218 H 248 H 283 H (70-110) mg/dL 12/21/23 12/22/23 12/22/23 Range/Units 19:55 01:56 07:06 Sodium (137-145) mmol/L POC Glucose (mg/dL) 286 H 412 H 380 H (70-110) mg/dL Assessment and Plan Assessment: Acute on chronic hypoxemic respiratory failure, currently on 4 L/min nasal cannula, chest CTA from outside facility was noted to demonstrate a right upper lobe distal small filling defect consistent with pulmonary embolism. When correlating with patient's past medical history, there was also some likely post treatment changes in the right lung. Also, noted diffuse groundglass opacities, superimposed pulmonary edema was not excluded. My overall impression that the patient has COPD exacerbation. I doubt the possibility of pulm embolism despite the report that was given by radiologist. Remains on anticoagulation. Continues to receive treatment for an acute COPD exacerbation with a combination of bronchodilators and steroids. He is also on empiric antibiotic coverage with Augmentin. Clinically improving. Acute exacerbation of chronic obstructive pulmonary disease, improving History of lung cancer, status post chemo/radiation, continues to follow-up with his oncologist outpatient, the patient has course radiation related pulmonary infiltrates involving the right perihilar area. No evidence of any active malignancy at this point in time. Chronic hypoxemic respiratory failure, secondary to above Elevated troponins, trending down, not consistent with ACS History of paroxysmal atrial fibrillation, currently normal sinus rhythm, chronically anticoagulated on Eliquis Diabetes mellitus type 2 Hypertension History of hyperlipidemia History of hypothyroidism History of peripheral arterial disease Bicytopenia, with thrombocytopenia and anemia, possibly chronic and no overt signs of acute blood loss History of prostate cancer status postradiation Obstructive sleep apnea with home CPAP Obesity, with a BMI of 35.5 kg/m Former tobacco dependence, quit smoking December 2022 Plan: Keep the oxygen at 4 L and titrate oxygen flow to maintain saturation above 90% Patient's Eliquis has been resumed, Doppler lower extremity negative and diagnosis of pulm embolism is doubtful Continue combination of DuoNebs [id number], budesonide inhalation, and IV Solu-Medrol Continue Augmentin Transthoracic echocardiogram pending. Blood glucose management per admitting Levemir insulin 20 units twice daily and NovoLog 10 units with meals and sliding scale coverage. Rest of the home medications have been resumed. He remains on anticoagulation with Eliquis.
[2023-12-22 16:25] VITALS: BMI 36.1
[2023-12-22 17:06] LABS: Glucose,Whole Blood 464 mg/dL (70-110)
[2023-12-22 18:03] LABS: Glucose,Whole Blood 454 mg/dL (70-110)
[2023-12-22] MEDS: INSULIN REGULAR 100 UNIT in SODIUM CHLORIDE 0.9% 100 ML IV SCH (18:04)
[2023-12-22] MEDS: FUROSEMIDE 40 MG TAB PO PRN (18:08)
[2023-12-22 19:05] LABS: Glucose,Whole Blood 528 mg/dL (70-110)
[2023-12-22 20:13] LABS: Glucose,Whole Blood 540 mg/dL (70-110)
[2023-12-22 20:59] LABS: Glucose,Whole Blood 455 mg/dL (70-110)
[2023-12-22 21:53] LABS: Glucose,Whole Blood 420 mg/dL (70-110)
[2023-12-22 23:07] LABS: Glucose,Whole Blood 307 mg/dL (70-110)
[2023-12-22 23:53] LABS: Glucose,Whole Blood 239 mg/dL (70-110)
[2023-12-23] MEDS: CYCLOBENZAPRINE 10 MG TAB PO PRN (00:52)
[2023-12-23 00:59] LABS: Glucose,Whole Blood 218 mg/dL (70-110)
[2023-12-23 02:00] LABS: Glucose,Whole Blood 162 mg/dL (70-110)
[2023-12-23 02:57] LABS: Glucose,Whole Blood 107 mg/dL (70-110)
[2023-12-23 04:04] LABS: Glucose,Whole Blood 136 mg/dL (70-110)
[2023-12-23 05:01] LABS: Glucose,Whole Blood 171 mg/dL (70-110)
[2023-12-23 06:03] LABS: Glucose,Whole Blood 198 mg/dL (70-110)
[2023-12-23 07:00] LABS: Glucose,Whole Blood 247 mg/dL (70-110)
[2023-12-23 08:00] LABS: Glucose,Whole Blood 256 mg/dL (70-110)
[2023-12-23 09:01] LABS: Glucose,Whole Blood 339 mg/dL (70-110)
[2023-12-23 10:06] LABS: Glucose,Whole Blood 309 mg/dL (70-110)
[2023-12-23 10:57] LABS: Glucose,Whole Blood 269 mg/dL (70-110)
[2023-12-23] MEDS: FUROSEMIDE 10 MG/ML 4 ML VIAL IV SCH (11:24)
[2023-12-23 11:47] LABS: Anisocytosis Slight; Basophils % (A) 0 %; Eosinophils % (A) 0 %; HCT 28.8 % (39.0-53.0); HGB 9.3 gm/dL (13.0-17.5); Lymphocytes # (A) 0.3 k/uL (1.0-4.8); Lymphocytes % (A) 3 %; MCH 32.2 pg (25.0-35.0); MCHC 32.3 g/dL (31.0-37.0); MCV 99.6 fL (80.0-100.0); Macrocytosis Slight; Mean Platelet Volume 9.2; Monocytes # (A) 0.4 k/uL (0-1.0); Monocytes % (A) 4 %; Neutrophils # (A) 9.8 k/uL (1.3-7.7); Neutrophils % (A) 92 %; Platelet Count 117 k/uL (150-450); RBC 2.89 m/uL (4.30-5.90); RDW 16.9 % (11.5-15.5); WBC 10.6 k/uL (3.8-10.6)
[2023-12-23 12:03] LABS: Glucose,Whole Blood 183 mg/dL (70-110)
[2023-12-23 12:15] LABS: African American GFR (CKD) 73 (>60 ml/min/1.73 sqM); Anion Gap 6 mmol/L; Blood Urea Nitrogen 37 mg/dL (9-20); Calcium 8.3 mg/dL (8.4-10.2); Carbon Dioxide 27 mmol/L (22-30); Chloride 100 mmol/L (98-107); Glucose 205 mg/dL (74-99); Non-African American GFR(CKD) 63 (>60 ml/min/1.73 sqM); Potassium 4.4 mmol/L (3.5-5.1); Sodium 133 mmol/L (137-145)
--- NOTE | 2023-12-23 12:42 | CA ---
Transthoracic Echo Report Name: Benja Guzman Age: 78 Gender: M : 1945 Exam Date: 12/22/2023 11:30 Exam Location: [facility] Ht (in): 72 Wt (lb): 262 Ordering Physician: Howard Huang MD Attending/Referring Phys: [id number], Sal Corporate Development Manager Shireen Stover RDCS Procedure CPT: Indications: elevated troponin Cardiac Hx: Technical Quality: Very technically difficult study Contrast 1: Definity Total Dose (mL): 2 Contrast 2: Total Dose (mL): MEASUREMENTS (Male / Female) Normal Values 2D ECHO LV Diastolic Diameter PLAX 4.6 cm 4.2 - 5.9 / 3.9 - 5.3 cm LV Systolic Diameter PLAX 3.5 cm IVS Diastolic Thickness 2.3 cm 0.6 - 1.0 / 0.6 - 0.9 cm LVPW Diastolic Thickness 1.6 cm 0.6 - 1.0 / 0.6 - 0.9 cm LV Relative Wall Thickness 0.9 RV Internal Dim ED PLAX 2.9 cm LVOT Diameter 2.6 cm LA Volume 87.0 cm??? 18 - 58 / 22 - 52 cm??? LA Volume Index 34.8 cm???/m??? 16 - 28 cm???/m??? M-MODE Aortic Root Diameter MM 3.8 cm LA Systolic Diameter MM 3.4 cm LA Ao Ratio MM 0.9 AV Cusp Separation MM 1.4 cm DOPPLER AV Peak Velocity 224.1 cm/s AV Peak Gradient 20.1 mmHg AV Mean Velocity 151.9 cm/s AV Mean Gradient 10.6 mmHg AV Velocity Time Integral 52.0 cm LVOT Peak Velocity 99.8 cm/s LVOT Peak Gradient 4.0 mmHg LVOT Velocity Time Integral 24.6 cm LVOT Stroke Volume 129.2 cm??? LVOT Stroke Volume Index 54.1 ml/m??? LVOT Cardiac Index 3206.6 cm???/min???m??? AV Area Cont Eq vti 2.5 cm??? AV Area Cont Eq pk 2.3 cm??? MV Area PHT 2.3 cm??? Mitral E Point Velocity 74.3 cm/s Mitral A Point Velocity 92.9 cm/s Mitral E to A Ratio 0.8 MV Deceleration Time 326.4 ms MV E' Velocity 4.9 cm/s Mitral E to MV E' Ratio 15.2 FINDINGS Left Ventricle Severely increased left ventricular wall thickness. Left ventricular cavity size normal. No obvious regional wall motion abnormalities. Left ventricular ejection fraction is estimated at 55-60 %. Grade 1 diastolic dysfunction. Right Ventricle Normal right ventricular size and function. Right ventricular systolic pressure within normal limits. Right Atrium Normal right atrial size. Left Atrium Moderately increased left atrial volume. Moderately increased left atrial area. Mitral Valve Structurally normal mitral valve. Mild mitral annular calcification. Trace to mild mitral regurgitation. Aortic Valve Mild aortic stenosis with a peak gradient of 20 mmHg and a mean gradient of 11 mmHg. Tricuspid Valve Structurally normal tricuspid valve. Mild tricuspid regurgitation. Pulmonic Valve Pulmonic valve not well visualized. Pericardium No pericardial effusion. Aorta Normal size aortic root and proximal ascending aorta. CONCLUSIONS Left ventricular ejection fraction 55-60% Moderate to severely increased left ventricular wall thickness Trace to mild mitral regurgitation Moderately dilated left atrium Mild aortic stenosis Mild tricuspid regurgitation Previewed by: Dr. Elan Sanchez DO (Electronically Signed) Final Date: 23 Dec 2023 12:41
[2023-12-23 13:05] LABS: Glucose,Whole Blood 214 mg/dL (70-110)
[2023-12-23 14:07] LABS: Glucose,Whole Blood 195 mg/dL (70-110)
--- NOTE | 2023-12-23 14:17 | P.PN ---
Subjective Progress Note Date: 12/23/23 Patient is a 78-year-old white male with past medical history significant for lung cancer status post chemoradiation, COPD, former tobacco smoker quitting approximately 1 year ago, diabetes melitis, hypothyroidism, hypertension, hyperlipidemia, obesity, peripheral arterial disease, atrial fibrillation ch ronically anticoagulated on Eliquis, obstructive sleep apnea with home CPAP, among other comorbidities. Patient states that he was originally diagnosed with small cell lung cancer at [facility] October,. He is currently status post chemo and radiation treatments. He does follow with Dr. Kaiser from oncology. Most recent PET scan done 10/14/2023 did not show any new areas of abnormal hypermetabolic uptake to suggest active neoplastic recurrence. He does follow with a local hand sample maker, Dr. Nirmala Gillespie. Patient states that his pulmonary status has significantly worsened over the last month and a half. He did have a brief hospitalization at [facility] reportedly last month. He has progressively become more short of breath, especially with exertion. States that he was told that he developed some radiation pneumonitis after his last radiation treatment. He is chronically oxygen dependent on 3 L home O2, but more recently increased his flow to 4 L/min. Yesterday, he got up as usual and started to make coffee. Had to use the bathroom, took his oxygen off, and went to the bathroom. He states that his nasal cannula does not reach this far. While in the bathroom he becomes severely short of breath. He called for his who put his CPAP machine on him. They then drove to [facility] where the patient was initially evaluated. While at the outside facility he did have a chest CTA which showed a very small distal right upper lobe filling defect consistent with small pulmonary embolism. Also, some likely post treatment changes of the right lung, with atelectasis and reticular changes in the right upper lobe. Superimposed diffuse groundglass opacities. Following these findings, the patient was transferred to [facility] late last night. Patient is currently sitting up in bed, on 4 L/min nasal cannula, in no acute distress. He endorses acute on chronic shortness of breath as described above. States he has been coughing more than normal over the last 3 days. No significant sputum production. Denies fevers. Denies sick contacts. Does admit substernal chest discomfort. Nonradiating. CBC on arrival to our facility: WBC count 7.8, hemoglobin 9.1, hematocrit 29.3, platelets 90,000. BMP drawn at our facility: Sodium 133, potassium 4.8, chloride 100, serum bicarb 10, BUN 29, creatinine 1.09, glucose 436. LFTs not elevated. Troponins were mildly elevated but are trending down, likely supply/demand mismatch, and are 0.047, 0.045, and 0.026 respectively. EKG demonstrates normal sinus rhythm without any acute ischemic changes noted. NT proBNP was significantly elevated at 5960. Patient's Eliquis has been restarted. Hemodynamics are stable. On today's evaluation of 12/22/2023, I am seeing the patient for a follow-up. Clinically improved compared to yesterday. Less bronchospastic and wheezy compared to yesterday. Still having some shortness of breath at rest. He is considerably improved compared to yesterday. Remains on bronchodilators. Remains on IV Solu-Medrol. Remains on oxygen 4 L/min nasal cannula. Remains on a combination performance of Pulmicort nebulized treatments and remains on Augmentin as an empiric antibiotic coverage. The blood work from today shows a WBC count of 9.2 with a hemoglobin 8.9 and a platelet count of 96. BUN is at 37 with a creatinine of 1.2 and a sodium levels at 131. The patient also has obstructive sleep apnea and he was able to bring in his CPAP unit which is an APAP unit set at a pressure of 6/15 cm of water. His treatment has been successful as the patient has been averaging around 10 hours of CPAP use per night and his AHI was down to 1 while on treatment the patient also feeds and oxygen 2 L through his CPAP unit. He remains on anticoagulation with Eliquis. 12/23/2023, the patient is being seen for a follow-up. The patient is doing w ell. Less short of breath compared to yesterday. Less bronchospastic and wheezy and utilizing his CPAP overnight. Blood sugar remains elevated and the patient is still on insulin drip for blood sugar control. Remains on IV Solu- Medrol dose of 60 mg every 6 hours. He is also empirically covered with Augmentin. He has developed some muscle cramps overnight. He is known to have muscle cramps on a chronic basis and the patient is drinking quinine water. BUN 37 with a creatinine 1.1 and a sodium levels at 133. Calcium level is at 8.3. Hemoglobin is 9.3 with a white cell count of 10.6. The patient remains on DuoNeb updrafts. The patient remains on Lasix 40 mg on a as needed basis and b ased on some increased edema and fluid overload, I am going to switch his Lasix to 40 mg on a daily basis and the first dose is to be given to him today. Objective - Vital Signs Vital signs: Vital Signs Temp 97.5 F L 12/23/23 08:00 Pulse 74 12/23/23 09:41 Resp 18 12/23/23 08:00 BP 180/85 12/23/23 08:00 Pulse Ox 98 12/23/23 09:25 FiO2 Intake & Output 12/22/23 12/23/23 12/23/23 18:59 06:59 18:59 Intake Total 1068 546.079 33.643 Output Total 300 1100 400 Balance 768 -553.921 -366.357 Weight 121 kg 117 kg Intake: Intake, IV Titration 146.079 33.643 Amount Insulin Regular 100 unit 146.079 33.643 In Sodium Chloride 0.9% 100 ml @ Titrate IV .Q0M [facility] Rx#:[id number] Oral 1068 400 Output: Urine 300 1100 400 Other: Voiding Method Urinal Urinal Urinal - Exam GENERAL EXAM: Alert, 78-year-old white obese male, comfortable in no apparent distress. HEAD: Normocephalic and atraumatic EYES: Normal reaction of pupils, equal size. NOSE: Clear with pink turbinates. THROAT: No erythema or exudates. NECK: No masses, no JVD. CHEST: No chest wall deformity. LUNGS: Equal air entry with faint and expiratory wheezes and mild inspiratory crackles at the right base. On 4 L/min nasal cannula. No conversational dyspnea or accessory muscle use.. CVS: S1 and S2 normal with no audible murmur, regular rhythm. No extra heart sounds ABDOMEN: No hepatosplenomegaly, active bowel sounds, no guarding or rigidity. SPINE: No scoliosis or deformity SKIN: No rashes CENTRAL NERVOUS SYSTEM: No focal deficits, tone is normal in all 4 extremities. EXTREMITIES: There is no peripheral edema, clubbing, or cyanosis. Peripheral pulses are intact. - Labs CBC & Chem 7: 12/23/23 10:52 12/23/23 10:52 Labs: Abnormal Lab Results - Last 24 Hours (Table) 12/22/23 12/22/23 12/22/23 Range/Units 11:26 11:26 12:05 RBC 2.72 L (4.30-5.90) m/uL Hgb 8.9 L (13.0-17.5) gm/dL Hct 27.7 L (39.0-53.0) % MCV 101.8 H (80.0-100.0) fL RDW 16.5 H (11.5-15.5) % Plt Count 96 L (150-450) k/uL Neutrophils # 8.4 H (1.3-7.7) k/uL Lymphocytes # 0.3 L (1.0-4.8) k/uL Sodium 131 L (137-145) mmol/L BUN 37 H (9-20) mg/dL Glucose 387 H (74-99) mg/dL POC Glucose (mg/dL) 468 H (70-110) mg/dL Calcium 8.0 L (8.4-10.2) mg/dL 12/22/23 12/22/23 12/22/23 Range/Units 17:04 18:02 19:04 RBC (4.30-5.90) m/uL Hgb (13.0-17.5) gm/dL Hct (39.0-53.0) % MCV (80.0-100.0) fL RDW (11.5-15.5) % Plt Count (150-450) k/uL Neutrophils # (1.3-7.7) k/uL Lymphocytes # (1.0-4.8) k/uL Sodium (137-145) mmol/L BUN (9-20) mg/dL Glucose (74-99) mg/dL POC Glucose (mg/dL) 464 H 454 H 528 H* (70-110) mg/dL Calcium (8.4-10.2) mg/dL 12/22/23 12/22/23 12/22/23 Range/Units 20:11 20:58 21:52 RBC (4.30-5.90) m/uL Hgb (13.0-17.5) gm/dL Hct (39.0-53.0) % MCV (80.0-100.0) fL RDW (11.5-15.5) % Plt Count (150-450) k/uL Neutrophils # (1.3-7.7) k/uL Lymphocytes # (1.0-4.8) k/uL Sodium (137-145) mmol/L BUN (9-20) mg/dL Glucose (74-99) mg/dL POC Glucose (mg/dL) 540 H* 455 H 420 H (70-110) mg/dL Calcium (8.4-10.2) mg/dL 12/22/23 12/22/23 12/23/23 Range/Units 23:05 23:51 00:58 RBC (4.30-5.90) m/uL Hgb (13.0-17.5) gm/dL Hct (39.0-53.0) % MCV (80.0-100.0) fL RDW (11.5-15.5) % Plt Count (150-450) k/uL Neutrophils # (1.3-7.7) k/uL Lymphocytes # (1.0-4.8) k/uL Sodium (137-145) mmol/L BUN (9-20) mg/dL Glucose (74-99) mg/dL POC Glucose (mg/dL) 307 H 239 H 218 H (70-110) mg/dL Calcium (8.4-10.2) mg/dL 12/23/23 12/23/23 12/23/23 Range/Units 01:59 04:02 04:59 RBC (4.30-5.90) m/uL Hgb (13.0-17.5) gm/dL Hct (39.0-53.0) % MCV (80.0-100.0) fL RDW (11.5-15.5) % Plt Count (150-450) k/uL Neutrophils # (1.3-7.7) k/uL Lymphocytes # (1.0-4.8) k/uL Sodium (137-145) mmol/L BUN (9-20) mg/dL Glucose (74-99) mg/dL POC Glucose (mg/dL) 162 H 136 H 171 H (70-110) mg/dL Calcium (8.4-10.2) mg/dL 12/23/23 12/23/23 12/23/23 Range/Units 06:01 06:59 07:59 RBC (4.30-5.90) m/uL Hgb (13.0-17.5) gm/dL Hct (39.0-53.0) % MCV (80.0-100.0) fL RDW (11.5-15.5) % Plt Count (150-450) k/uL Neutrophils # (1.3-7.7) k/uL Lymphocytes # (1.0-4.8) k/uL Sodium (137-145) mmol/L BUN (9-20) mg/dL Glucose (74-99) mg/dL POC Glucose (mg/dL) 198 H 247 H 256 H (70-110) mg/dL Calcium (8.4-10.2) mg/dL 12/23/23 12/23/23 Range/Units 08:59 10:04 RBC (4.30-5.90) m/uL Hgb (13.0-17.5) gm/dL Hct (39.0-53.0) % MCV (80.0-100.0) fL RDW (11.5-15.5) % Plt Count (150-450) k/uL Neutrophils # (1.3-7.7) k/uL Lymphocytes # (1.0-4.8) k/uL Sodium (137-145) mmol/L BUN (9-20) mg/dL Glucose (74-99) mg/dL POC Glucose (mg/dL) 339 H 309 H (70-110) mg/dL Calcium (8.4-10.2) mg/dL Assessment and Plan Assessment: Acute on chronic hypoxemic respiratory failure, currently on 4 L/min nasal cannula, chest CTA from outside facility was noted to demonstrate a right upper lobe distal small filling defect consistent with pulmonary embolism. When correlating with patient's past medical history, there was also some likely post treatment changes in the right lung. Also, noted diffuse groundglass opacities, superimposed pulmonary edema was not excluded. My overall impression that the patient has COPD exacerbation. I doubt the possibility of pulm embolism despite the report that was given by radiologist. Remains on anticoagulation. Continues to receive treatment for an acute COPD exacerbation with a combination of bronchodilators and steroids. He is also on empiric antibiotic coverage with Augmentin. Clinically improving. Acute exacerbation of chronic obstructive pulmonary disease, improving History of lung cancer, status post chemo/radiation, continues to follow-up with his oncologist outpatient, the patient has course radiation related pulmonary infiltrates involving the right perihilar area. No evidence of any active malignancy at this point in time. Chronic hypoxemic respiratory failure, secondary to above Elevated troponins, trending down, not consistent with ACS History of paroxysmal atrial fibrillation, currently normal sinus rhythm, chronically anticoagulated on Eliquis Diabetes mellitus type 2 Hypertension History of hyperlipidemia History of hypothyroidism History of peripheral arterial disease Bicytopenia, with thrombocytopenia and anemia, possibly chronic and no overt signs of acute blood loss History of prostate cancer status postradiation Obstructive sleep apnea with home CPAP Obesity, with a BMI of 35.5 kg/m Former tobacco dependence, quit smoking December 2022 Plan: Clinically improving and will continue the same treatment Less short of breath compared to yesterday Keep the oxygen at 4 L and titrate oxygen flow to maintain saturation above 90% Patient's Eliquis has been resumed, Doppler lower extremity negative and diagnosis of pulm embolism is doubtful Continue combination of DuoNebs [id number], budesonide inhalation, and IV Solu-Medrol Continue Augmentin Change Lasix to 40 mg IV every 24 hours Transthoracic echocardiogram pending. Blood glucose management per admitting Continue insulin drip for blood sugar Control CPAP overnight and the patient utilizing his own APAP unit. He remains on anticoagulation with Eliquis.
--- NOTE | 2023-12-23 14:58 | P.PN ---
Subjective Progress Note Date: 12/23/23 Reason for Consult (text): Elevated troponin History of present illness: This is a 78-year-old male follows with a food supervisor in [place] with past medical history of small cell lung cancer status post chemoradiation, COPD, radiation pneumonitis, chronic hypoxic respiratory failure on home O2 at 3 L, diabetes mellitus type 2, hypothyroidism, hypertension, hyperlipidemia, peripheral artery disease, paroxysmal atrial fibrillation on Eliquis, obstructi ve sleep apnea with CPAP, remote history of tobacco use. We have been asked to evaluate the patient for elevated troponins. Patient initially presented to [facility] due to shortness of breath. He underwent a CTA of the chest that reported again advanced reticular changes right upper lobe where there is a very small pulmonary embolus. Patient denies having any chest pain. Patient was thus transferred to [facility] for further evaluation. EKG sinus rhythm with ventricular rate of 68. Ultrasound of the bilateral lower extremities negative for DVT. Chest x-ray: Right upper and left lower lobe infiltrates. Correlate for atelectasis and pneumonia. Atypical pulmonary edema could be considered. WBC 7.2, hemoglobin 8.9, platelet count 104. Sodium 133, potassium 4.8, BUN 29,, creatinine 1.09. Glucose initially 491. Hemoglobin A1c 9.5. Calcium 8.2. Total bilirubin 0.5, AST 16, troponins 0.047, 0.045 and 0.026. proBNP 5960. Home cardiac medications: Eliquis 5 mg twice daily, aspirin 81 mg daily, Lipitor 80 mg at bedtime, lisinopril 40 mg daily, magnesium chloride 214 mg twice daily, Lopressor 75 mg twice daily, potassium chloride 20 mill equivalents daily as needed. 12/21 Patient states that he is feeling a lot better from yesterday. Shortness of breath is significantly improved. He denies having any chest pain. Blood pressure 148/83, heart rate 64, pulse ox 97% on 4 L nasal cannula. Hemoglobin 8.9. BUN 37, creatinine 1.2, sodium 131 and potassium 4.6. Echocardiogram has been obtained but report is pending. 12/22 Patient denies having any chest pain or shortness of breath. He states he had a bad night as his blood sugar was extremely high over 500 he was started on insulin drip and developed cramps in his hands. Blood pressure 141/71, heart rate in the 60s and 70s, pulse ox 99% on 4 L nasal cannula. Repeat blood work reveals hemoglobin 9.3. BUN 37, creatinine 1.12. Echocardiogram reveals EF of 55 to 60%. Moderate to severe increased left ventricular wall thickness. Trace to mild mitral regurgitation. Moderately dilated left atrium. Mild aortic stenosis. Mild tricuspid regurgitation. Physical examination: Gen: This is a 78-year-old male in no acute distress VS: reviewed HEENT: Head is atraumatic, normocephalic. Pupils equal, round. Sclerae is anicteric. NECK: Supple. No JVD. LUNGS: Few scattered wheezes. No intercostal retractions. HEART: Regular rate and rhythm. No murmur. ABDOMEN: Soft No tenderness. EXTREMITIES: No pedal edema. No calf tenderness. NEUROLOGICAL: Patient is awake, alert and oriented x3. Assessment: Acute on chronic hypoxic respiratory failure secondary to COPD exacerbation Right upper lobe PE doubtful History of lung cancer status post chemoradiation Non-ST elevated myocardial infarction Paroxysmal atrial fibrillation, currently in sinus rhythm Diabetes mellitus type 2 Hypertension Hyperlipidemia Hypothyroidism Peripheral artery disease Plan: Continue patient's home cardiac medications Due to patient's history of lung cancer and poor prognosis, no aggressive ischemic cardiac workup planned at this time. We will complete the echocardiogram while patient is hospitalized and possibly do outpatient stress testing. At the time of discharge, patient will either follow-up with his primary food supervisor in [place] or follow-up locally with Dr. Josselyn Hidalgo. Further recommendations to follow based upon clinical course Nurse practitioner note has been reviewed, I agree with documented findings and plan of care. Patient was seen and examined. Objective - Vital Signs Vital signs: Vital Signs Temp 97.5 F L 12/23/23 08:00 Pulse 74 12/23/23 09:41 Resp 18 12/23/23 08:00 BP 180/85 12/23/23 08:00 Pulse Ox 98 12/23/23 09:25 FiO2 Intake & Output 12/22/23 12/23/23 12/23/23 18:59 06:59 18:59 Intake Total 1068 546.079 33.643 Output Total 300 1100 400 Balance 768 -553.921 -366.357 Weight 121 kg 117 kg Intake: Intake, IV Titration 146.079 33.643 Amount Insulin Regular 100 unit 146.079 33.643 In Sodium Chloride 0.9% 100 ml @ Titrate IV .Q0M [facility] Rx#:[id number] Oral 1068 400 Output: Urine 300 1100 400 Other: Voiding Method Urinal Urinal Urinal - Labs CBC & Chem 7: 12/23/23 10:52 12/23/23 10:52 Labs: Abnormal Lab Results - Last 24 Hours (Table) 12/22/23 12/22/23 12/22/23 Range/Units 11:26 11:26 12:05 RBC 2.72 L (4.30-5.90) m/uL Hgb 8.9 L (13.0-17.5) gm/dL Hct 27.7 L (39.0-53.0) % MCV 101.8 H (80.0-100.0) fL RDW 16.5 H (11.5-15.5) % Plt Count 96 L (150-450) k/uL Neutrophils # 8.4 H (1.3-7.7) k/uL Lymphocytes # 0.3 L (1.0-4.8) k/uL Sodium 131 L (137-145) mmol/L BUN 37 H (9-20) mg/dL Glucose 387 H (74-99) mg/dL POC Glucose (mg/dL) 468 H (70-110) mg/dL Calcium 8.0 L (8.4-10.2) mg/dL 12/22/23 12/22/23 12/22/23 Range/Units 17:04 18:02 19:04 RBC (4.30-5.90) m/uL Hgb (13.0-17.5) gm/dL Hct (39.0-53.0) % MCV (80.0-100.0) fL RDW (11.5-15.5) % Plt Count (150-450) k/uL Neutrophils # (1.3-7.7) k/uL Lymphocytes # (1.0-4.8) k/uL Sodium (137-145) mmol/L BUN (9-20) mg/dL Glucose (74-99) mg/dL POC Glucose (mg/dL) 464 H 454 H 528 H* (70-110) mg/dL Calcium (8.4-10.2) mg/dL 12/22/23 12/22/23 12/22/23 Range/Units 20:11 20:58 21:52 RBC (4.30-5.90) m/uL Hgb (13.0-17.5) gm/dL Hct (39.0-53.0) % MCV (80.0-100.0) fL RDW (11.5-15.5) % Plt Count (150-450) k/uL Neutrophils # (1.3-7.7) k/uL Lymphocytes # (1.0-4.8) k/uL Sodium (137-145) mmol/L BUN (9-20) mg/dL Glucose (74-99) mg/dL POC Glucose (mg/dL) 540 H* 455 H 420 H (70-110) mg/dL Calcium (8.4-10.2) mg/dL 12/22/23 12/22/23 12/23/23 Range/Units 23:05 23:51 00:58 RBC (4.30-5.90) m/uL Hgb (13.0-17.5) gm/dL Hct (39.0-53.0) % MCV (80.0-100.0) fL RDW (11.5-15.5) % Plt Count (150-450) k/uL Neutrophils # (1.3-7.7) k/uL Lymphocytes # (1.0-4.8) k/uL Sodium (137-145) mmol/L BUN (9-20) mg/dL Glucose (74-99) mg/dL POC Glucose (mg/dL) 307 H 239 H 218 H (70-110) mg/dL Calcium (8.4-10.2) mg/dL 12/23/23 12/23/23 12/23/23 Range/Units 01:59 04:02 04:59 RBC (4.30-5.90) m/uL Hgb (13.0-17.5) gm/dL Hct (39.0-53.0) % MCV (80.0-100.0) fL RDW (11.5-15.5) % Plt Count (150-450) k/uL Neutrophils # (1.3-7.7) k/uL Lymphocytes # (1.0-4.8) k/uL Sodium (137-145) mmol/L BUN (9-20) mg/dL Glucose (74-99) mg/dL POC Glucose (mg/dL) 162 H 136 H 171 H (70-110) mg/dL Calcium (8.4-10.2) mg/dL 12/23/23 12/23/23 12/23/23 Range/Units 06:01 06:59 07:59 RBC (4.30-5.90) m/uL Hgb (13.0-17.5) gm/dL Hct (39.0-53.0) % MCV (80.0-100.0) fL RDW (11.5-15.5) % Plt Count (150-450) k/uL Neutrophils # (1.3-7.7) k/uL Lymphocytes # (1.0-4.8) k/uL Sodium (137-145) mmol/L BUN (9-20) mg/dL Glucose (74-99) mg/dL POC Glucose (mg/dL) 198 H 247 H 256 H (70-110) mg/dL Calcium (8.4-10.2) mg/dL 12/23/23 12/23/23 Range/Units 08:59 10:04 RBC (4.30-5.90) m/uL Hgb (13.0-17.5) gm/dL Hct (39.0-53.0) % MCV (80.0-100.0) fL RDW (11.5-15.5) % Plt Count (150-450) k/uL Neutrophils # (1.3-7.7) k/uL Lymphocytes # (1.0-4.8) k/uL Sodium (137-145) mmol/L BUN (9-20) mg/dL Glucose (74-99) mg/dL POC Glucose (mg/dL) 339 H 309 H (70-110) mg/dL Calcium (8.4-10.2) mg/dL
[2023-12-23 15:02] LABS: Glucose,Whole Blood 128 mg/dL (70-110)
[2023-12-23 16:03] LABS: Glucose,Whole Blood 229 mg/dL (70-110)
[2023-12-23 17:03] LABS: Glucose,Whole Blood 292 mg/dL (70-110)
[2023-12-23 18:04] LABS: Glucose,Whole Blood 295 mg/dL (70-110)
[2023-12-23 19:06] LABS: Glucose,Whole Blood 303 mg/dL (70-110)
[2023-12-23 20:00] LABS: Glucose,Whole Blood 325 mg/dL (70-110)
[2023-12-23 21:03] LABS: Glucose,Whole Blood 316 mg/dL (70-110)
[2023-12-23 22:04] LABS: Glucose,Whole Blood 293 mg/dL (70-110)
[2023-12-23 23:02] LABS: Glucose,Whole Blood 251 mg/dL (70-110)
[2023-12-24] MEDS: MELATONIN 5 MG TABLET PO PRN (00:07)
[2023-12-24 00:12] LABS: Glucose,Whole Blood 186 mg/dL (70-110)
--- NOTE | 2023-12-24 00:15 | P.PN ---
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 Patient states that he woke up this morning and suddenly became very short of breath while he was walking around his home. Patient initially went to [facility] where they diagnosed him with COPD exacerbation and small PE also questionable CHF. Patient states that he did have chest pain initially but resolved now. Denies any fever or chills. No cough or sputum production. Denies recent illnesses. No nausea vomiting abdominal pain or diarrhea. Denies any dizziness or lightheadedness. EKG showed sinus rhythm. Lab data showed BUN 29 creatinine 1.2 sodium 132 potassium 4.5 chloride 100 bicarb is 22 liver edge is not elevated. WBC 10.2 hemoglobin 9.[address] angio of the chest on 12/20/2023 showed advanced reticular changes right upper lobe. There is a very small pulmonary embolus. Scattered groundglass changes are negative fluid spaces could represent some pulmonary edema. There is fairly diffuse however trace right effusion. Findings represent a significant gynecomastia bilaterally. Scoliosis. Patient is on anticoagulation with Eliquis 5 mg twice daily at home. Procalcitonin level 0.05 12/22/2023 Patient is currently resting in the bed. Awake alert and oriented. Shortness of breath is slightly better compared to yesterday. Continued on IV Solu-Medrol and DuoNebs and also on insulin drip due to hyperglycemia. Patient is on 4 L oxygen via nasal cannula currently. Laboratory data showed WBC 9.2 hemoglobin 8.9 and platelets 96 sodium 131 potassium 4.6 chloride 99 bicarb is 23 BUN 37 and creatinine 1.21 and calcium 8.0. Lower EXTR duplex scan is negative for DVT. 2D echocardiogram was done. Cardiology and pulmonary is on board. Current medications reviewed. Objective - Vital Signs Vital signs: Vital Signs Temp 97.0 F L 12/22/23 23:11 Pulse 60 12/22/23 23:11 Resp 20 12/22/23 23:11 BP 148/78 12/22/23 23:11 Pulse Ox 99 12/22/23 23:11 FiO2 Intake & Output 12/22/23 12/22/23 12/23/23 06:59 18:59 06:59 Intake Total 10 1068 63.537 Output Total 1575 300 800 Balance -1565 768 -736.463 Weight 121 kg 121 kg Intake: IV 10 Invasive Line 1 10 Intake, IV Titration 63.537 Amount Insulin Regular 100 unit 63.537 In Sodium Chloride 0.9% 100 ml @ Titrate IV .Q0M [facility] Rx#:[id number] Oral 1068 Output: Urine 1575 300 800 Other: Voiding Method Urinal Urinal - Exam PHYSICAL EXAMINATION: Patient is lying in the bed comfortably, no acute distress, awake alert and oriented.. HEENT: Normocephalic. Neck is supple. Pupils reactive. Nostrils clear. Oral cavity is moist. Neck reveals no JVD, carotid bruits, or thyromegaly. CHEST EXAMINATION: Trachea is central. Symmetrical expansion. Bibasilar diminished sounds. Expiratory wheezing and scattered rhonchi nonlabored breathing. CARDIAC: Normal S1, S2 with no gallops. No murmurs ABDOMEN: Soft. Bowel sounds normal. No organomegaly. No abdominal bruits. Extremities: Bilateral lower extremity trace edema. No clubbing or cyanosis Neurologically awake, alert, oriented x3 with well-coordinated movements. No focal deficits noted Skin: No rash or skin lesions. Psychiatric: Coperative. Nonsuicidal Musculoskeletal: No joint swelling or deformity. Normal range of motion. - Labs CBC & Chem 7: 12/23/23 10:52 12/23/23 10:52 Labs: Abnormal Lab Results - Last 24 Hours (Table) 12/22/23 12/22/23 12/22/23 Range/Units 01:56 07:06 11:26 RBC (4.30-5.90) m/uL Hgb (13.0-17.5) gm/dL Hct (39.0-53.0) % MCV (80.0-100.0) fL RDW (11.5-15.5) % Plt Count (150-450) k/uL Neutrophils # (1.3-7.7) k/uL Lymphocytes # (1.0-4.8) k/uL Sodium 131 L (137-145) mmol/L BUN 37 H (9-20) mg/dL Glucose 387 H (74-99) mg/dL POC Glucose (mg/dL) 412 H 380 H (70-110) mg/dL Calcium 8.0 L (8.4-10.2) mg/dL 12/22/23 12/22/23 12/22/23 Range/Units 11:26 12:05 17:04 RBC 2.72 L (4.30-5.90) m/uL Hgb 8.9 L (13.0-17.5) gm/dL Hct 27.7 L (39.0-53.0) % MCV 101.8 H (80.0-100.0) fL RDW 16.5 H (11.5-15.5) % Plt Count 96 L (150-450) k/uL Neutrophils # 8.4 H (1.3-7.7) k/uL Lymphocytes # 0.3 L (1.0-4.8) k/uL Sodium (137-145) mmol/L BUN (9-20) mg/dL Glucose (74-99) mg/dL POC Glucose (mg/dL) 468 H 464 H (70-110) mg/dL Calcium (8.4-10.2) mg/dL 12/22/23 12/22/23 12/22/23 Range/Units 18:02 19:04 20:11 RBC (4.30-5.90) m/uL Hgb (13.0-17.5) gm/dL Hct (39.0-53.0) % MCV (80.0-100.0) fL RDW (11.5-15.5) % Plt Count (150-450) k/uL Neutrophils # (1.3-7.7) k/uL Lymphocytes # (1.0-4.8) k/uL Sodium (137-145) mmol/L BUN (9-20) mg/dL Glucose (74-99) mg/dL POC Glucose (mg/dL) 454 H 528 H* 540 H* (70-110) mg/dL Calcium (8.4-10.2) mg/dL 12/22/23 12/22/23 12/22/23 Range/Units 20:58 21:52 23:05 RBC (4.30-5.90) m/uL Hgb (13.0-17.5) gm/dL Hct (39.0-53.0) % MCV (80.0-100.0) fL RDW (11.5-15.5) % Plt Count (150-450) k/uL Neutrophils # (1.3-7.7) k/uL Lymphocytes # (1.0-4.8) k/uL Sodium (137-145) mmol/L BUN (9-20) mg/dL Glucose (74-99) mg/dL POC Glucose (mg/dL) 455 H 420 H 307 H (70-110) mg/dL Calcium (8.4-10.2) mg/dL Assessment and Plan Assessment: Acute on chronic hypoxic respiratory failure. Currently on 4 L via nasal cannula. Right upper lobe distal small pulmonary embolism as per CTA done at [facility]. Less likely PE. Acute exacerbation of COPD Chronic hypoxic respiratory failure secondary to COPD on home oxygen at 3 L via nasal cannula History of lung cancer small cell status post chemoradiation Elevated troponin level with possible type II ND Paroxysmal atrial fibrillation on anticoagulation with Eliquis at home Diabetes type 2 Hyperglycemia with uncontrolled diabetes due to steroids Hypertension Hyperlipidemia Hypothyroidism Peripheral vascular disease Bicytopenia thrombocytopenia and anemia History of prostate cancer s/p radiation Obstructive sleep apnea on CPAP at home Obesity with BMI 32.5 Prior history of smoking Plan: Patient will be continued on oxygen supplementation and titrate back to his baseline at home. Continue with IV Solu-Medrol, DuoNebs and follow-up respiratory status closely. Procalcitonin level is not elevated.. Patient was started back on Eliquis. Bilateral lower extremity duplex scan was ordered to rule out DVT. 2D echocardiogram is ordered. Cardiology was consulted due to elevated troponin level. Continue with Lasix 40 mg daily and other cardiac medications. Patient was started on insulin drip for hyperglycemia which is likely due to steroids. Pulmonary and cardiology is on board. Continue to follow closely. Prognosis is guarded. Time with Patient: Greater than 30
--- NOTE | 2023-12-24 00:17 | P.PN ---
Subjective Progress Note Date: 12/23/23 Patient is a 78-year-old male with a past medical history of small cell lung cancer status post chemoradiation, COPD, radiation pneumonitis, chronic hypoxic respiratory failure on home oxygen at 3 L via nasal cannula, diabetes type 2, hypertension hyperlipidemia, peripheral vascular disease, paroxysmal atrial fibrillation on anticoagulation with Eliquis, obstructive sleep apnea on CPAP and prior history of smoking presents to the hospital initially to [facility] due to complaints of worsening shortness of breath. Patient states that he woke up this morning and suddenly became very short of breath while he was walking around his home. Patient initially went to [facility] where they diagnosed him with COPD exacerbation and small PE also questionable CHF. Patient states that he did have chest pain initially but resolved now. Denies any fever or chills. No cough or sputum production. Denies recent illnesses. No nausea vomiting abdominal pain or diarrhea. Denies any dizziness or lightheadedness. EKG showed sinus rhythm. Lab data showed BUN 29 creatinine 1.2 sodium 132 potassium 4.5 chloride 100 bicarb is 22 liver edge is not elevated. WBC 10.2 hemoglobin 9.[address] angio of the chest on 12/20/2023 showed advanced reticular changes right upper lobe. There is a very small pulmonary embolus. Scattered groundglass changes are negative fluid spaces could represent some pulmonary edema. There is fairly diffuse however trace right effusion. Findings represent a significant gynecomastia bilaterally. Scoliosis. Patient is on anticoagulation with Eliquis 5 mg twice daily at home. Procalcitonin level 0.05 12/22/2023 Patient is currently resting in the bed. Awake alert and oriented. Shortness of breath is slightly better compared to yesterday. Continued on IV Solu-Medrol and DuoNebs and also on insulin drip due to hyperglycemia. Patient is on 4 L oxygen via nasal cannula currently. Laboratory data showed WBC 9.2 hemoglobin 8.9 and platelets 96 sodium 131 potassium 4.6 chloride 99 bicarb is 23 BUN 37 and creatinine 1.21 and calcium 8.0. Lower EXTR duplex scan is negative for DVT. 2D echocardiogram was done. Cardiology and pulmonary is on board. 12/23/2023 Patient is resting in the bed. Awake alert and oriented x 3. No complaints of chest pain. Breathing status is much improved. No nausea or vomiting or abdominal pain or diarrhea. Patient is on insulin drip. Also complains of muscle cramps in the upper extremities this morning. Patient was also started on Lasix 40 mg IV daily. Continued on IV Solu-Medrol, DuoNebs and antibiotics in the form of Augmentin. Laboratory data showed WBC 10.6 hemoglobin 9.3 and platelets 117 sodium 133 potassium 4.4 chloride 100 bicarb is 27 BUN 37 creatinine 1.12 and blood sugar 269 calcium 8.3 procalcitonin level 0.05 2D echocardiogram showed left ventricular ejection fraction 55 to 60%, moderate to severely increased left ventricular wall thickness, trace to mild mitral regurgitation, moderately dilated left atrium, moderate aortic stenosis and mild tricuspid regurgitation. Current medications reviewed. Objective - Vital Signs Vital signs: Vital Signs Temp 98.1 F 12/23/23 20:00 Pulse 75 12/23/23 20:34 Resp 16 12/23/23 20:00 BP 125/72 12/23/23 20:00 Pulse Ox 100 12/23/23 20:00 FiO2 Intake & Output 12/23/23 12/23/23 12/24/23 06:59 18:59 06:59 Intake Total 546.079 530.632 37.296 Output Total 1100 2120 150 Balance -553.921 -1589.368 -112.704 Weight 117 kg Intake: Intake, IV Titration 146.079 114.632 37.296 Amount Insulin Regular 100 unit 146.079 114.632 37.296 In Sodium Chloride 0.9% 100 ml @ Titrate IV .Q0M [facility] Rx#:[id number] Oral 400 416 Output: Urine 1100 2120 150 Straight 475 Other: Voiding Method Urinal Urinal - Exam PHYSICAL EXAMINATION: Patient is lying in the bed comfortably, no acute distress, awake alert and oriented.. HEENT: Normocephalic. Neck is supple. Pupils reactive. Nostrils clear. Oral cavity is moist. Neck reveals no JVD, carotid bruits, or thyromegaly. CHEST EXAMINATION: Trachea is central. Symmetrical expansion. Bibasilar diminished sounds. Scattered rhonchi. No wheezing. Nonlabored breathing.. CARDIAC: Normal S1, S2 with no gallops. No murmurs ABDOMEN: Soft. Bowel sounds normal. No organomegaly. No abdominal bruits. Extremities: Bilateral lower extremity trace edema. No clubbing or cyanosis Neurologically awake, alert, oriented x3 with well-coordinated movements. No focal deficits noted Skin: No rash or skin lesions. Psychiatric: Coperative. Nonsuicidal Musculoskeletal: No joint swelling or deformity. Normal range of motion. - Labs CBC & Chem 7: 01/02/24 04:40 01/02/24 04:40 Labs: Abnormal Lab Results - Last 24 Hours (Table) 12/22/23 12/22/23 12/22/23 Range/Units 21:52 23:05 23:51 RBC (4.30-5.90) m/uL Hgb (13.0-17.5) gm/dL Hct (39.0-53.0) % RDW (11.5-15.5) % Plt Count (150-450) k/uL Neutrophils # (1.3-7.7) k/uL Lymphocytes # (1.0-4.8) k/uL Sodium (137-145) mmol/L BUN (9-20) mg/dL Glucose (74-99) mg/dL POC Glucose (mg/dL) 420 H 307 H 239 H (70-110) mg/dL Calcium (8.4-10.2) mg/dL 12/23/23 12/23/23 12/23/23 Range/Units 00:58 01:59 04:02 RBC (4.30-5.90) m/uL Hgb (13.0-17.5) gm/dL Hct (39.0-53.0) % RDW (11.5-15.5) % Plt Count (150-450) k/uL Neutrophils # (1.3-7.7) k/uL Lymphocytes # (1.0-4.8) k/uL Sodium (137-145) mmol/L BUN (9-20) mg/dL Glucose (74-99) mg/dL POC Glucose (mg/dL) 218 H 162 H 136 H (70-110) mg/dL Calcium (8.4-10.2) mg/dL 12/23/23 12/23/23 12/23/23 Range/Units 04:59 06:01 06:59 RBC (4.30-5.90) m/uL Hgb (13.0-17.5) gm/dL Hct (39.0-53.0) % RDW (11.5-15.5) % Plt Count (150-450) k/uL Neutrophils # (1.3-7.7) k/uL Lymphocytes # (1.0-4.8) k/uL Sodium (137-145) mmol/L BUN (9-20) mg/dL Glucose (74-99) mg/dL POC Glucose (mg/dL) 171 H 198 H 247 H (70-110) mg/dL Calcium (8.4-10.2) mg/dL 12/23/23 12/23/23 12/23/23 Range/Units 07:59 08:59 10:04 RBC (4.30-5.90) m/uL Hgb (13.0-17.5) gm/dL Hct (39.0-53.0) % RDW (11.5-15.5) % Plt Count (150-450) k/uL Neutrophils # (1.3-7.7) k/uL Lymphocytes # (1.0-4.8) k/uL Sodium (137-145) mmol/L BUN (9-20) mg/dL Glucose (74-99) mg/dL POC Glucose (mg/dL) 256 H 339 H 309 H (70-110) mg/dL Calcium (8.4-10.2) mg/dL 12/23/23 12/23/23 12/23/23 Range/Units 10:52 10:52 10:55 RBC 2.89 L (4.30-5.90) m/uL Hgb 9.3 L (13.0-17.5) gm/dL Hct 28.8 L (39.0-53.0) % RDW 16.9 H (11.5-15.5) % Plt Count 117 L (150-450) k/uL Neutrophils # 9.8 H (1.3-7.7) k/uL Lymphocytes # 0.3 L (1.0-4.8) k/uL Sodium 133 L (137-145) mmol/L BUN 37 H (9-20) mg/dL Glucose 205 H (74-99) mg/dL POC Glucose (mg/dL) 269 H (70-110) mg/dL Calcium 8.3 L (8.4-10.2) mg/dL 0512/23/23 12/23/23 Range/Units 12:00 13:04 14:05 RBC (4.30-5.90) m/uL Hgb (13.0-17.5) gm/dL Hct (39.0-53.0) % RDW (11.5-15.5) % Plt Count (150-450) k/uL Neutrophils # (1.3-7.7) k/uL Lymphocytes # (1.0-4.8) k/uL Sodium (137-145) mmol/L BUN (9-20) mg/dL Glucose (74-99) mg/dL POC Glucose (mg/dL) 183 H 214 H 195 H (70-110) mg/dL Calcium (8.4-10.2) mg/dL 12/23/23 12/23/23 12/23/23 Range/Units 15:00 16:02 17:01 RBC (4.30-5.90) m/uL Hgb (13.0-17.5) gm/dL Hct (39.0-53.0) % RDW (11.5-15.5) % Plt Count (150-450) k/uL Neutrophils # (1.3-7.7) k/uL Lymphocytes # (1.0-4.8) k/uL Sodium (137-145) mmol/L BUN (9-20) mg/dL Glucose (74-99) mg/dL POC Glucose (mg/dL) 128 H 229 H 292 H (70-110) mg/dL Calcium (8.4-10.2) mg/dL 12/23/23 12/23/23 12/23/23 Range/Units 18:02 19:05 19:59 RBC (4.30-5.90) m/uL Hgb (13.0-17.5) gm/dL Hct (39.0-53.0) % RDW (11.5-15.5) % Plt Count (150-450) k/uL Neutrophils # (1.3-7.7) k/uL Lymphocytes # (1.0-4.8) k/uL Sodium (137-145) mmol/L BUN (9-20) mg/dL Glucose (74-99) mg/dL POC Glucose (mg/dL) 295 H 303 H 325 H (70-110) mg/dL Calcium (8.4-10.2) mg/dL 12/23/23 Range/Units 21:01 RBC (4.30-5.90) m/uL Hgb (13.0-17.5) gm/dL Hct (39.0-53.0) % RDW (11.5-15.5) % Plt Count (150-450) k/uL Neutrophils # (1.3-7.7) k/uL Lymphocytes # (1.0-4.8) k/uL Sodium (137-145) mmol/L BUN (9-20) mg/dL Glucose (74-99) mg/dL POC Glucose (mg/dL) 316 H (70-110) mg/dL Calcium (8.4-10.2) mg/dL Assessment and Plan Assessment: Acute on chronic hypoxic respiratory failure. Currently on 4 L via nasal cannula. Right upper lobe distal small pulmonary embolism as per CTA done at [facility]. Less likely PE. Acute exacerbation of COPD Chronic hypoxic respiratory failure secondary to COPD on home oxygen at 3 L via nasal cannula History of lung cancer small cell status post chemoradiation Elevated troponin level with possible type II [place] Paroxysmal atrial fibrillation on anticoagulation with Eliquis at home Diabetes type 2 Hyperglycemia with uncontrolled diabetes due to steroids Hypertension Hyperlipidemia Hypothyroidism Peripheral vascular disease Bicytopenia thrombocytopenia and anemia History of prostate cancer s/p radiation Obstructive sleep apnea on CPAP at home Obesity with BMI 32.5 Prior history of smoking Plan: Patient will be continued on oxygen supplementation and titrate back to his baseline at home. Continue with IV Solu-Medrol, DuoNebs and follow-up respiratory status closely. Procalcitonin level is not elevated.. Patient was started back on Eliquis. Bilateral lower extremity duplex scan was ordered to rule out DVT which is negative. 2D echocardiogram is ordered. Cardiology was consulted due to elevated troponin level. Continue with Lasix 40 mg daily, changed to IV and other cardiac medications. Patient was started on insulin drip for hyperglycemia which is likely due to steroids. Pulmonary and cardiology is on board. Continue to follow closely. Prognosis is guarded. Time with Patient: Greater than 30
[2023-12-24 01:03] LABS: Glucose,Whole Blood 142 mg/dL (70-110)
[2023-12-24] MEDS: methylPREDNISolone SOD SUCCI 40 MG/ML 1 ML VIAL IV SCH (01:16)
[2023-12-24 02:01] LABS: Glucose,Whole Blood 90 mg/dL (70-110)
[2023-12-24 03:06] LABS: Glucose,Whole Blood 127 mg/dL (70-110)
[2023-12-24 04:01] LABS: Glucose,Whole Blood 216 mg/dL (70-110)
[2023-12-24 05:03] LABS: Glucose,Whole Blood 208 mg/dL (70-110)
[2023-12-24 06:03] LABS: Glucose,Whole Blood 194 mg/dL (70-110)
[2023-12-24 07:03] LABS: Glucose,Whole Blood 167 mg/dL (70-110)
[2023-12-24 08:06] LABS: Glucose,Whole Blood 200 mg/dL (70-110)
[2023-12-24 08:43] LABS: African American GFR (CKD) 67 (>60 ml/min/1.73 sqM); Anion Gap 9 mmol/L; Blood Urea Nitrogen 49 mg/dL (9-20); Calcium 7.6 mg/dL (8.4-10.2); Carbon Dioxide 23 mmol/L (22-30); Chloride 102 mmol/L (98-107); Glucose 139 mg/dL (74-99); Non-African American GFR(CKD) 58 (>60 ml/min/1.73 sqM); Sodium 134 mmol/L (137-145)
[2023-12-24 08:45] LABS: Potassium 4.7 mmol/L (3.5-5.1)
[2023-12-24] MEDS ORDERED: FUROSEMIDE 40 MG TAB PO SCH (09:00)
[2023-12-24 09:07] LABS: Glucose,Whole Blood 256 mg/dL (70-110)
[2023-12-24 09:08] LABS: Anisocytosis Slight; HCT 29.6 % (39.0-53.0); HGB 9.3 gm/dL (13.0-17.5); Hypochromasia Slight; MCH 31.7 pg (25.0-35.0); MCHC 31.3 g/dL (31.0-37.0); MCV 101.2 fL (80.0-100.0); Macrocytosis Slight; Mean Platelet Volume 10.2; Platelet Count 103 k/uL (150-450); RBC 2.93 m/uL (4.30-5.90); WBC 11.7 k/uL (3.8-10.6)
[2023-12-24 10:10] LABS: Glucose,Whole Blood 214 mg/dL (70-110)
[2023-12-24 10:59] LABS: Glucose,Whole Blood 189 mg/dL (70-110)
[2023-12-24] MEDS: TAMSULOSIN 0.4 MG CAP.ER.24H PO SCH (11:05)
[2023-12-24 12:04] LABS: Glucose,Whole Blood 208 mg/dL (70-110)
[2023-12-24 13:00] LABS: Glucose,Whole Blood 253 mg/dL (70-110)
--- NOTE | 2023-12-24 13:34 | P.PN ---
Subjective Progress Note Date: 12/24/23 Reason for Consult (text): Elevated troponin History of present illness: This is a 78-year-old male follows with a human resource professional in [place] with past medical history of small cell lung cancer status post chemoradiation, COPD, radiation pneumonitis, chronic hypoxic respiratory failure on home O2 at 3 L, diabetes mellitus type 2, hypothyroidism, hypertension, hyperlipidemia, peripheral artery disease, paroxysmal atrial fibrillation on Eliquis, obstructi ve sleep apnea with CPAP, remote history of tobacco use. We have been asked to evaluate the patient for elevated troponins. Patient initially presented to [facility] due to shortness of breath. He underwent a CTA of the chest that reported again advanced reticular changes right upper lobe where there is a very small pulmonary embolus. Patient denies having any chest pain. Patient was thus transferred to [facility] for further evaluation. EKG sinus rhythm with ventricular rate of 68. Ultrasound of the bilateral lower extremities negative for DVT. Chest x-ray: Right upper and left lower lobe infiltrates. Correlate for atelectasis and pneumonia. Atypical pulmonary edema could be considered. WBC 7.2, hemoglobin 8.9, platelet count 104. Sodium 133, potassium 4.8, BUN 29,, creatinine 1.09. Glucose initially 491. Hemoglobin A1c 9.5. Calcium 8.2. Total bilirubin 0.5, AST 16, troponins 0.047, 0.045 and 0.026. proBNP 5960. Home cardiac medications: Eliquis 5 mg twice daily, aspirin 81 mg daily, Lipitor 80 mg at bedtime, lisinopril 40 mg daily, magnesium chloride 214 mg twice daily, Lopressor 75 mg twice daily, potassium chloride 20 mill equivalents daily as needed. 12/21 Patient states that he is feeling a lot better from yesterday. Shortness of breath is significantly improved. He denies having any chest pain. Blood pressure 148/83, heart rate 64, pulse ox 97% on 4 L nasal cannula. Hemoglobin 8.9. BUN 37, creatinine 1.2, sodium 131 and potassium 4.6. Echocardiogram has been obtained but report is pending. 12/22 Patient denies having any chest pain or shortness of breath. He states he had a bad night as his blood sugar was extremely high over 500 he was started on insulin drip and developed cramps in his hands. Blood pressure 141/71, heart rate in the 60s and 70s, pulse ox 99% on 4 L nasal cannula. Repeat blood work reveals hemoglobin 9.3. BUN 37, creatinine 1.12. Echocardiogram reveals EF of 55 to 60%. Moderate to severe increased left ventricular wall thickness. Trace to mild mitral regurgitation. Moderately dilated left atrium. Mild aortic stenosis. Mild tricuspid regurgitation. 12/23 Patient denies having any chest pain. Pulmonary medicine started patient on IV Lasix 40 mg yesterday. Telemetry is a sinus rhythm with PACs. Blood pressure 126/68, heart rate 68, pulse ox 98% on 4 L nasal cannula. He remains on insulin drip. Physical examination: Gen: This is a 78-year-old male in no acute distress VS: reviewed HEENT: Head is atraumatic, normocephalic. Pupils equal, round. Sclerae is anicteric. NECK: Supple. No JVD. LUNGS: Few scattered wheezes. No intercostal retractions. HEART: Regular rate and rhythm. No murmur. ABDOMEN: Soft No tenderness. EXTREMITIES: Mild pedal edema. No calf tenderness. NEUROLOGICAL: Patient is awake, alert and oriented x3. Assessment: Acute on chronic hypoxic respiratory failure secondary to COPD exacerbation Right upper lobe PE doubtful History of lung cancer status post chemoradiation Non-ST elevated myocardial infarction Paroxysmal atrial fibrillation, currently in sinus rhythm Diabetes mellitus type 2 Hypertension Hyperlipidemia Hypothyroidism Peripheral artery disease Chronic hypoxic respiratory failure on home O2 at 3 L nasal cannula Plan: Continue patient's home cardiac medications Due to patient's history of lung cancer and poor prognosis, no aggressive ischemic cardiac workup planned at this time. We will complete the echocardiogram while patient is hospitalized and possibly do outpatient stress testing. Continue IV Lasix per pulmonary medicine Monitor BESS, daily weights, electrolytes and renal function At the time of discharge, patient will either follow-up with his primary human resource professional in [place] or follow-up locally with Dr. Josselyn Hidalgo. Further recommendations to follow based upon clinical course Nurse practitioner note has been reviewed, I agree with documented findings and plan of care. Patient was seen and examined. Objective - Vital Signs Vital signs: Vital Signs Temp 97.5 F L 12/24/23 07:48 Pulse 76 12/24/23 08:17 Resp 18 12/24/23 07:48 BP 139/72 12/24/23 07:48 Pulse Ox 99 12/24/23 07:48 FiO2 Intake & Output 12/23/23 12/24/23 12/24/23 18:59 06:59 18:59 Intake Total 530.632 914.556 156.635 Output Total 2120 825 900 Balance -1589.368 89.556 -743.365 Weight 118.5 kg Intake: Intake, IV Titration 114.632 134.556 38.635 Amount Insulin Regular 100 unit 114.632 134.556 38.635 In Sodium Chloride 0.9% 100 ml @ Titrate IV .Q0M [facility] Rx#:[id number] Oral 416 780 [id number] Output: Urine 2120 825 900 Straight 475 350 Other: Voiding Method Urinal Urinal Indwelling Catheter - Labs CBC & Chem 7: 12/24/23 07:14 12/24/23 07:14 Labs: Abnormal Lab Results - Last 24 Hours (Table) 12/23/23 12/23/23 12/23/23 Range/Units 10:04 10:52 10:52 WBC (3.8-10.6) k/uL RBC 2.89 L (4.30-5.90) m/uL Hgb 9.3 L (13.0-17.5) gm/dL Hct 28.8 L (39.0-53.0) % MCV (80.0-100.0) fL RDW 16.9 H (11.5-15.5) % Plt Count 117 L (150-450) k/uL Neutrophils # 9.8 H (1.3-7.7) k/uL Lymphocytes # 0.3 L (1.0-4.8) k/uL Sodium 133 L (137-145) mmol/L BUN 37 H (9-20) mg/dL Glucose 205 H (74-99) mg/dL POC Glucose (mg/dL) 309 H (70-110) mg/dL Calcium 8.3 L (8.4-10.2) mg/dL 12/23/23 12/23/23 12/23/23 Range/Units 10:55 12:00 13:04 WBC (3.8-10.6) k/uL RBC (4.30-5.90) m/uL Hgb (13.0-17.5) gm/dL Hct (39.0-53.0) % MCV (80.0-100.0) fL RDW (11.5-15.5) % Plt Count (150-450) k/uL Neutrophils # (1.3-7.7) k/uL Lymphocytes # (1.0-4.8) k/uL Sodium (137-145) mmol/L BUN (9-20) mg/dL Glucose (74-99) mg/dL POC Glucose (mg/dL) 269 H 183 H 214 H (70-110) mg/dL Calcium (8.4-10.2) mg/dL 12/23/23 12/23/23 12/23/23 Range/Units 14:05 15:00 16:02 WBC (3.8-10.6) k/uL RBC (4.30-5.90) m/uL Hgb (13.0-17.5) gm/dL Hct (39.0-53.0) % MCV (80.0-100.0) fL RDW (11.5-15.5) % Plt Count (150-450) k/uL Neutrophils # (1.3-7.7) k/uL Lymphocytes # (1.0-4.8) k/uL Sodium (137-145) mmol/L BUN (9-20) mg/dL Glucose (74-99) mg/dL POC Glucose (mg/dL) 195 H 128 H 229 H (70-110) mg/dL Calcium (8.4-10.2) mg/dL 12/23/23 12/23/23 12/23/23 Range/Units 17:01 18:02 19:05 WBC (3.8-10.6) k/uL RBC (4.30-5.90) m/uL Hgb (13.0-17.5) gm/dL Hct (39.0-53.0) % MCV (80.0-100.0) fL RDW (11.5-15.5) % Plt Count (150-450) k/uL Neutrophils # (1.3-7.7) k/uL Lymphocytes # (1.0-4.8) k/uL Sodium (137-145) mmol/L BUN (9-20) mg/dL Glucose (74-99) mg/dL POC Glucose (mg/dL) 292 H 295 H 303 H (70-110) mg/dL Calcium (8.4-10.2) mg/dL 12/23/23 12/23/23 12/23/23 Range/Units 19:59 21:01 21:59 WBC (3.8-10.6) k/uL RBC (4.30-5.90) m/uL Hgb (13.0-17.5) gm/dL Hct (39.0-53.0) % MCV (80.0-100.0) fL RDW (11.5-15.5) % Plt Count (150-450) k/uL Neutrophils # (1.3-7.7) k/uL Lymphocytes # (1.0-4.8) k/uL Sodium (137-145) mmol/L BUN (9-20) mg/dL Glucose (74-99) mg/dL POC Glucose (mg/dL) 325 H 316 H 293 H (70-110) mg/dL Calcium (8.4-10.2) mg/dL 12/23/23 12/23/23 12/24/23 Range/Units 23:00 23:58 00:58 WBC (3.8-10.6) k/uL RBC (4.30-5.90) m/uL Hgb (13.0-17.5) gm/dL Hct (39.0-53.0) % MCV (80.0-100.0) fL RDW (11.5-15.5) % Plt Count (150-450) k/uL Neutrophils # (1.3-7.7) k/uL Lymphocytes # (1.0-4.8) k/uL Sodium (137-145) mmol/L BUN (9-20) mg/dL Glucose (74-99) mg/dL POC Glucose (mg/dL) 251 H 186 H 142 H (70-110) mg/dL Calcium (8.4-10.2) mg/dL 12/24/23 12/24/23 12/24/23 Range/Units 03:02 04:00 05:01 WBC (3.8-10.6) k/uL RBC (4.30-5.90) m/uL Hgb (13.0-17.5) gm/dL Hct (39.0-53.0) % MCV (80.0-100.0) fL RDW (11.5-15.5) % Plt Count (150-450) k/uL Neutrophils # (1.3-7.7) k/uL Lymphocytes # (1.0-4.8) k/uL Sodium (137-145) mmol/L BUN (9-20) mg/dL Glucose (74-99) mg/dL POC Glucose (mg/dL) 127 H 216 H 208 H (70-110) mg/dL Calcium (8.4-10.2) mg/dL 12/24/23 12/24/23 12/24/23 Range/Units 06:01 07:02 07:14 WBC 11.7 H (3.8-10.6) k/uL RBC 2.93 L (4.30-5.90) m/uL Hgb 9.3 L (13.0-17.5) gm/dL Hct 29.6 L (39.0-53.0) % MCV 101.2 H (80.0-100.0) fL RDW 17.0 H (11.5-15.5) % Plt Count 103 L (150-450) k/uL Neutrophils # (1.3-7.7) k/uL Lymphocytes # (1.0-4.8) k/uL Sodium (137-145) mmol/L BUN (9-20) mg/dL Glucose (74-99) mg/dL POC Glucose (mg/dL) 194 H 167 H (70-110) mg/dL Calcium (8.4-10.2) mg/dL 12/24/23 12/24/23 12/24/23 Range/Units 07:14 08:04 09:06 WBC (3.8-10.6) k/uL RBC (4.30-5.90) m/uL Hgb (13.0-17.5) gm/dL Hct (39.0-53.0) % MCV (80.0-100.0) fL RDW (11.5-15.5) % Plt Count (150-450) k/uL Neutrophils # (1.3-7.7) k/uL Lymphocytes # (1.0-4.8) k/uL Sodium 134 L (137-145) mmol/L BUN 49 H (9-20) mg/dL Glucose 139 H (74-99) mg/dL POC Glucose (mg/dL) 200 H 256 H (70-110) mg/dL Calcium 7.6 L (8.4-10.2) mg/dL
[2023-12-24 13:57] LABS: Glucose,Whole Blood 269 mg/dL (70-110)
[2023-12-24 14:00] LABS: Band Neutrophils % 3 %; Lymphocytes # (M) 0.47 k/uL (1.0-4.8); Monocytes # (M) 0.35 k/uL (0-1.0); Myelocytes # (M) 0.35 k/uL (0); Myelocytes % 3 %; Neutrophils % (M) 87 %; Nucleated Red Blood Cells 0 /100 WBC (0-0); Total Cells Counted 200
--- NOTE | 2023-12-24 14:00 | P.PN ---
Subjective Progress Note Date: 12/24/23 Patient is a 78-year-old white male with past medical history significant for lung cancer status post chemoradiation, COPD, former tobacco smoker quitting approximately 1 year ago, diabetes melitis, hypothyroidism, hypertension, hyperlipidemia, obesity, peripheral arterial disease, atrial fibrillation ch ronically anticoagulated on Eliquis, obstructive sleep apnea with home CPAP, among other comorbidities. Patient states that he was originally diagnosed with small cell lung cancer at [facility] October,. He is currently status post chemo and radiation treatments. He does follow with Dr. Kaiser from oncology. Most recent PET scan done 10/14/2023 did not show any new areas of abnormal hypermetabolic uptake to suggest active neoplastic recurrence. He does follow with a local leaded glass installer, Dr. Nirmala Gillespie. Patient states that his pulmonary status has significantly worsened over the last month and a half. He did have a brief hospitalization at [facility] reportedly last month. He has progressively become more short of breath, especially with exertion. States that he was told that he developed some radiation pneumonitis after his last radiation treatment. He is chronically oxygen dependent on 3 L home O2, but more recently increased his flow to 4 L/min. Yesterday, he got up as usual and started to make coffee. Had to use the bathroom, took his oxygen off, and went to the bathroom. He states that his nasal cannula does not reach this far. While in the bathroom he becomes severely short of breath. He called for his who put his CPAP machine on him. They then drove to [facility] where the patient was initially evaluated. While at the outside facility he did have a chest CTA which showed a very small distal right upper lobe filling defect consistent with small pulmonary embolism. Also, some likely post treatment changes of the right lung, with atelectasis and reticular changes in the right upper lobe. Superimposed diffuse groundglass opacities. Following these findings, the patient was transferred to [facility] late last night. Patient is currently sitting up in bed, on 4 L/min nasal cannula, in no acute distress. He endorses acute on chronic shortness of breath as described above. States he has been coughing more than normal over the last 3 days. No significant sputum production. Denies fevers. Denies sick contacts. Does admit substernal chest discomfort. Nonradiating. CBC on arrival to our facility: WBC count 7.8, hemoglobin 9.1, hematocrit 29.3, platelets 90,000. BMP drawn at our facility: Sodium 133, potassium 4.8, chloride 100, serum bicarb 10, BUN 29, creatinine 1.09, glucose 436. LFTs not elevated. Troponins were mildly elevated but are trending down, likely supply/demand mismatch, and are 0.047, 0.045, and 0.026 respectively. EKG demonstrates normal sinus rhythm without any acute ischemic changes noted. NT proBNP was significantly elevated at 5960. Patient's Eliquis has been restarted. Hemodynamics are stable. On today's evaluation of 12/22/2023, I am seeing the patient for a follow-up. Clinically improved compared to yesterday. Less bronchospastic and wheezy compared to yesterday. Still having some shortness of breath at rest. He is considerably improved compared to yesterday. Remains on bronchodilators. Remains on IV Solu-Medrol. Remains on oxygen 4 L/min nasal cannula. Remains on a combination performance of Pulmicort nebulized treatments and remains on Augmentin as an empiric antibiotic coverage. The blood work from today shows a WBC count of 9.2 with a hemoglobin 8.9 and a platelet count of 96. BUN is at 37 with a creatinine of 1.2 and a sodium levels at 131. The patient also has obstructive sleep apnea and he was able to bring in his CPAP unit which is an APAP unit set at a pressure of 6/15 cm of water. His treatment has been successful as the patient has been averaging around 10 hours of CPAP use per night and his AHI was down to 1 while on treatment the patient also feeds and oxygen 2 L through his CPAP unit. He remains on anticoagulation with Eliquis. 12/23/2023, the patient is being seen for a follow-up. The patient is doing w ell. Less short of breath compared to yesterday. Less bronchospastic and wheezy and utilizing his CPAP overnight. Blood sugar remains elevated and the patient is still on insulin drip for blood sugar control. Remains on IV Solu- Medrol dose of 60 mg every 6 hours. He is also empirically covered with Augmentin. He has developed some muscle cramps overnight. He is known to have muscle cramps on a chronic basis and the patient is drinking quinine water. BUN 37 with a creatinine 1.1 and a sodium levels at 133. Calcium level is at 8.3. Hemoglobin is 9.3 with a white cell count of 10.6. The patient remains on DuoNeb updrafts. The patient remains on Lasix 40 mg on a as needed basis and b ased on some increased edema and fluid overload, I am going to switch his Lasix to 40 mg on a daily basis and the first dose is to be given to him today. On 12/24/2023, seen the patient for a follow-up. The patient is doing well. Remains on IV Solu-Medrol. Remains on insulin drip for blood sugar control. No cramping of the body. Overnight, the patient issues with urinary retention. Michelle catheter was inserted and this was a traumatic insertion and is encountering some hematuria which is mild. Anticoagulation is still in progress. He is less short of breath compared to yesterday. Obese close 11.7 with a hemoglobin 9.3 and a platelet count of 103. His BUN is 49 with a creatinine of 1.2 and sodium is at 134 and the potassium level is 4.7. He has no other specific complaints for now. No chest pain. He clearly reports that his shortness of breath improving and the patient is currently on 4 L of oxygen by nasal cannula with a pulse ox of 98%. Objective - Vital Signs Vital signs: Vital Signs Temp 97.5 F L 12/24/23 07:48 Pulse 76 12/24/23 08:17 Resp 18 12/24/23 07:48 BP 139/72 12/24/23 07:48 Pulse Ox 99 12/24/23 07:48 FiO2 Intake & Output 12/23/23 12/24/23 12/24/23 18:59 06:59 18:59 Intake Total 530.632 914.556 165.954 Output Total 2120 825 900 Balance -1589.368 89.556 -734.046 Weight 118.5 kg Intake: Intake, IV Titration 114.632 134.556 47.954 Amount Insulin Regular 100 unit 114.632 134.556 47.954 In Sodium Chloride 0.9% 100 ml @ Titrate IV .Q0M [facility] Rx#:[id number] Oral [id number] Output: Urine 2120 825 900 Straight 475 350 Other: Voiding Method Urinal Urinal Indwelling Catheter - Exam GENERAL EXAM: Alert, 78-year-old white obese male, comfortable in no apparent distress. HEAD: Normocephalic and atraumatic EYES: Normal reaction of pupils, equal size. NOSE: Clear with pink turbinates. THROAT: No erythema or exudates. NECK: No masses, no JVD. CHEST: No chest wall deformity. LUNGS: Equal air entry with faint and expiratory wheezes and mild inspiratory crackles at the right base. On 4 L/min nasal cannula. No conversational dyspnea or accessory muscle use.. CVS: S1 and S2 normal with no audible murmur, regular rhythm. No extra heart s ounds ABDOMEN: No hepatosplenomegaly, active bowel sounds, no guarding or rigidity. SPINE: No scoliosis or deformity SKIN: No rashes CENTRAL NERVOUS SYSTEM: No focal deficits, tone is normal in all 4 extremities. EXTREMITIES: There is no peripheral edema, clubbing, or cyanosis. Peripheral pulses are intact. - Labs CBC & Chem 7: 12/24/23 07:14 12/24/23 07:14 Labs: Abnormal Lab Results - Last 24 Hours (Table) 12/23/23 12/23/23 12/23/23 Range/Units 10:52 10:52 10:55 WBC (3.8-10.6) k/uL RBC 2.89 L (4.30-5.90) m/uL Hgb 9.3 L (13.0-17.5) gm/dL Hct 28.8 L (39.0-53.0) % MCV (80.0-100.0) fL RDW 16.9 H (11.5-15.5) % Plt Count 117 L (150-450) k/uL Neutrophils # 9.8 H (1.3-7.7) k/uL Lymphocytes # 0.3 L (1.0-4.8) k/uL Sodium 133 L (137-145) mmol/L BUN 37 H (9-20) mg/dL Glucose 205 H (74-99) mg/dL POC Glucose (mg/dL) 269 H (70-110) mg/dL Calcium 8.3 L (8.4-10.2) mg/dL 12/23/23 12/23/23 12/23/23 Range/Units 12:00 13:04 14:05 WBC (3.8-10.6) k/uL RBC (4.30-5.90) m/uL Hgb (13.0-17.5) gm/dL Hct (39.0-53.0) % MCV (80.0-100.0) fL RDW (11.5-15.5) % Plt Count (150-450) k/uL Neutrophils # (1.3-7.7) k/uL Lymphocytes # (1.0-4.8) k/uL Sodium (137-145) mmol/L BUN (9-20) mg/dL Glucose (74-99) mg/dL POC Glucose (mg/dL) 183 H 214 H 195 H (70-110) mg/dL Calcium (8.4-10.2) mg/dL 12/23/23 12/23/23 12/23/23 Range/Units 15:00 16:02 17:01 WBC (3.8-10.6) k/uL RBC (4.30-5.90) m/uL Hgb (13.0-17.5) gm/dL Hct (39.0-53.0) % MCV (80.0-100.0) fL RDW (11.5-15.5) % Plt Count (150-450) k/uL Neutrophils # (1.3-7.7) k/uL Lymphocytes # (1.0-4.8) k/uL Sodium (137-145) mmol/L BUN (9-20) mg/dL Glucose (74-99) mg/dL POC Glucose (mg/dL) 128 H 229 H 292 H (70-110) mg/dL Calcium (8.4-10.2) mg/dL 12/23/23 12/23/23 12/23/23 Range/Units 18:02 19:05 19:59 WBC (3.8-10.6) k/uL RBC (4.30-5.90) m/uL Hgb (13.0-17.5) gm/dL Hct (39.0-53.0) % MCV (80.0-100.0) fL RDW (11.5-15.5) % Plt Count (150-450) k/uL Neutrophils # (1.3-7.7) k/uL Lymphocytes # (1.0-4.8) k/uL Sodium (137-145) mmol/L BUN (9-20) mg/dL Glucose (74-99) mg/dL POC Glucose (mg/dL) 295 H 303 H 325 H (70-110) mg/dL Calcium (8.4-10.2) mg/dL 12/23/23 12/23/23 12/23/23 Range/Units 21:01 21:59 23:00 WBC (3.8-10.6) k/uL RBC (4.30-5.90) m/uL Hgb (13.0-17.5) gm/dL Hct (39.0-53.0) % MCV (80.0-100.0) fL RDW (11.5-15.5) % Plt Count (150-450) k/uL Neutrophils # (1.3-7.7) k/uL Lymphocytes # (1.0-4.8) k/uL Sodium (137-145) mmol/L BUN (9-20) mg/dL Glucose (74-99) mg/dL POC Glucose (mg/dL) 316 H 293 H 251 H (70-110) mg/dL Calcium (8.4-10.2) mg/dL 12/23/23 12/24/23 12/24/23 Range/Units 23:58 00:58 03:02 WBC (3.8-10.6) k/uL RBC (4.30-5.90) m/uL Hgb (13.0-17.5) gm/dL Hct (39.0-53.0) % MCV (80.0-100.0) fL RDW (11.5-15.5) % Plt Count (150-450) k/uL Neutrophils # (1.3-7.7) k/uL Lymphocytes # (1.0-4.8) k/uL Sodium (137-145) mmol/L BUN (9-20) mg/dL Glucose (74-99) mg/dL POC Glucose (mg/dL) 186 H 142 H 127 H (70-110) mg/dL Calcium (8.4-10.2) mg/dL 12/24/23 12/24/23 12/24/23 Range/Units 04:00 05:01 06:01 WBC (3.8-10.6) k/uL RBC (4.30-5.90) m/uL Hgb (13.0-17.5) gm/dL Hct (39.0-53.0) % MCV (80.0-100.0) fL RDW (11.5-15.5) % Plt Count (150-450) k/uL Neutrophils # (1.3-7.7) k/uL Lymphocytes # (1.0-4.8) k/uL Sodium (137-145) mmol/L BUN (9-20) mg/dL Glucose (74-99) mg/dL POC Glucose (mg/dL) 216 H 208 H 194 H (70-110) mg/dL Calcium (8.4-10.2) mg/dL 12/24/23 12/24/23 12/24/23 Range/Units 07:02 07:14 07:14 WBC 11.7 H (3.8-10.6) k/uL RBC 2.93 L (4.30-5.90) m/uL Hgb 9.3 L (13.0-17.5) gm/dL Hct 29.6 L (39.0-53.0) % MCV 101.2 H (80.0-100.0) fL RDW 17.0 H (11.5-15.5) % Plt Count 103 L (150-450) k/uL Neutrophils # (1.3-7.7) k/uL Lymphocytes # (1.0-4.8) k/uL Sodium 134 L (137-145) mmol/L BUN 49 H (9-20) mg/dL Glucose 139 H (74-99) mg/dL POC Glucose (mg/dL) 167 H (70-110) mg/dL Calcium 7.6 L (8.4-10.2) mg/dL 12/24/23 12/24/23 12/24/23 Range/Units 08:04 09:06 10:08 WBC (3.8-10.6) k/uL RBC (4.30-5.90) m/uL Hgb (13.0-17.5) gm/dL Hct (39.0-53.0) % MCV (80.0-100.0) fL RDW (11.5-15.5) % Plt Count (150-450) k/uL Neutrophils # (1.3-7.7) k/uL Lymphocytes # (1.0-4.8) k/uL Sodium (137-145) mmol/L BUN (9-20) mg/dL Glucose (74-99) mg/dL POC Glucose (mg/dL) 200 H 256 H 214 H (70-110) mg/dL Calcium (8.4-10.2) mg/dL Assessment and Plan Assessment: Acute on chronic hypoxemic respiratory failure, currently on 4 L/min nasal cannula, chest CTA from outside facility was noted to demonstrate a right upper lobe distal small filling defect consistent with pulmonary embolism. When correlating with patient's past medical history, there was also some likely post treatment changes in the right lung. Also, noted diffuse groundglass opacities, superimposed pulmonary edema was not excluded. My overall impression that the patient has COPD exacerbation. I doubt the possibility of pulm embolism despite the report that was given by radiologist. Remains on anticoagulation. Continues to receive treatment for an acute COPD exacerbation with a combination of bronchodilators and steroids. He is also on empiric antibiotic coverage with Augmentin. Clinically improving. The patient remains on 4 L of oxygen by nasal cannula. Calm and comfortable. Acute exacerbation of chronic obstructive pulmonary disease, improving and the patient is less short of breath History of lung cancer, status post chemo/radiation, continues to follow-up with his oncologist outpatient, the patient has course radiation related pulmonary infiltrates involving the right perihilar area. No evidence of any active malignancy at this point in time. 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 Plan: Clinically improving and will continue the same treatment Less short of breath compared to yesterday Keep the oxygen at 4 L and titrate oxygen flow to maintain saturation above 90% Patient's Eliquis has been resumed, Doppler lower extremity negative and diagnosis of pulm embolism is doubtful Continue combination of DuoNebs [id number], budesonide inhalation, and IV Solu-Medrol and IV Solu-Medrol will be continued for another 24 hours. Continue Augmentin Continue Lasix to 40 mg IV every 24 hours Transthoracic echocardiogram was within normal limits Blood glucose elevated due to steroids and the patient is currently on insulin drip for blood sugar control. Continue insulin drip for blood sugar Control CPAP overnight and the patient utilizing his own APAP unit. He remains on anticoagulation with Eliquis. Michelle catheter in place Monitor hematuria The plan is to switch this patient to a prednisone burst taper as of tomorrow. Will keep the IV Solu-Medrol for another 24 hours. Keep the IV insulin for another 24 hours.
[2023-12-24 14:57] LABS: Glucose,Whole Blood 197 mg/dL (70-110)
[2023-12-24] MEDS: allopurinoL 100 MG TAB PO SCH ×2 (15:02→20:57)
[2023-12-24] MEDS: LIDOCAINE 4% PATCH TOPICAL SCH (15:17)
[2023-12-24 16:12] LABS: Glucose,Whole Blood 215 mg/dL (70-110)
[2023-12-24] MEDS: AMIODARONE 200 MG TAB PO SCH (16:14)
--- NOTE | 2023-12-24 16:37 | XR ---
EXAMINATION TYPE: XR chest 1V portable DATE OF EXAM: 12/24/2023 COMPARISON: 12/21/2023 INDICATION: COPD TECHNIQUE: Single frontal view of the chest is obtained. FINDINGS: The heart size is probably prominent. The pulmonary vasculature is normal Left lower lobe and right upper lobe infiltrates remain present. This may be worsening at the left ba se. IMPRESSION: 1. Left lower lobe worsening infiltrate. Correlate for pneumonia. 2. Stable right upper lobe infiltrate.
[2023-12-24 17:12] LABS: Glucose,Whole Blood 194 mg/dL (70-110)
[2023-12-24 17:59] LABS: Glucose,Whole Blood 254 mg/dL (70-110)
[2023-12-24] MEDS: DILTIAZEM 125 MG in SODIUM CHLORIDE 0.9% 100 ML IV SCH (18:36)
[2023-12-24 19:00] LABS: Glucose,Whole Blood 245 mg/dL (70-110)
[2023-12-24 19:56] LABS: Glucose,Whole Blood 243 mg/dL (70-110)
[2023-12-24] MEDS: FERROUS SULFATE 325 MG TAB PO SCH (20:57)
[2023-12-24] MEDS: INSULIN DETEMIR (LEVEMIR) 100 UNIT/ML SYR SQ SCH (20:58)
[2023-12-24 21:09] LABS: Glucose,Whole Blood 191 mg/dL (70-110)
[2023-12-24 22:01] LABS: Glucose,Whole Blood 149 mg/dL (70-110)
[2023-12-24] MEDS ORDERED: HEPARIN SODIUM 1,000 UN/ML (10ML VL) IV PRN (22:28)
[2023-12-24 22:59] LABS: Glucose,Whole Blood 147 mg/dL (70-110)
[2023-12-24 23:26] LABS: Glucose,Whole Blood 118 mg/dL (70-110)
[2023-12-24] MEDS: HEPARIN SOD,PORK IN 0.45% NACL 25,000 UNIT in 0.45% NACL 1 250ML.BAG IV SCH (23:50)
[2023-12-24 23:55] LABS: Anisocytosis Slight; Basophils % (A) 0 %; Eosinophils # (A) 0.1 k/uL (0-0.7); Eosinophils % (A) 1 %; HCT 26.9 % (39.0-53.0); HGB 9.1 gm/dL (13.0-17.5); Hypochromasia Slight; Lymphocytes # (A) 0.4 k/uL (1.0-4.8); Lymphocytes % (A) 3 %; MCHC 33.6 g/dL (31.0-37.0); MCV 101.2 fL (80.0-100.0); Macrocytosis Slight; Monocytes # (A) 0.7 k/uL (0-1.0); Monocytes % (A) 6 %; Neutrophils # (A) 10.4 k/uL (1.3-7.7); Neutrophils % (A) 89 %; Platelet Count 117 k/uL (150-450); RBC 2.66 m/uL (4.30-5.90); RDW 17.2 % (11.5-15.5); WBC 11.7 k/uL (3.8-10.6)
[2023-12-25] MEDS ORDERED: NALOXONE 0.4 MG/ML 1 ML VIAL IV PRN (00:09)
[2023-12-25 00:12] LABS: INR 1.1 (<1.2); Prothrombin Time 11.5 sec (10.0-12.5)
[2023-12-25] MEDS: fentaNYL (PF) 50 MCG/ML 2 ML AMP IVP STA (00:12)
[2023-12-25] MEDS: MIDAZOLAM 1 MG/ML 5 ML VIAL IV STA (00:12)
[2023-12-25 00:32] LABS: Partial Thromboplastin Time 20.5 sec (22.0-30.0)
[2023-12-25 00:46] LABS: Glucose,Whole Blood 139 mg/dL (70-110)
[2023-12-25 01:09] LABS: Glucose,Whole Blood 142 mg/dL (70-110)
[2023-12-25 01:37] LABS: African American GFR (CKD) 54 (>60 ml/min/1.73 sqM); Anion Gap 6 mmol/L; Blood Urea Nitrogen 55 mg/dL (9-20); Carbon Dioxide 25 mmol/L (22-30); Chloride 101 mmol/L (98-107); Glucose 114 mg/dL (74-99); Magnesium 1.6 mg/dL (1.6-2.3); Non-African American GFR(CKD) 47 (>60 ml/min/1.73 sqM); Potassium 4.8 mmol/L (3.5-5.1); Sodium 132 mmol/L (137-145)
[2023-12-25 02:09] LABS: Glucose,Whole Blood 166 mg/dL (70-110)
--- NOTE | 2023-12-25 02:46 | PN ---
PROGRESS NOTE DATE OF SERVICE: 12/24/2023 This 78-year-old gentleman admitted with COPD exacerbation as well as small pulmonary embolism, acute hypoxic respiratory failure, is being closely monitored. Multiple consultants are following the patient closely. Chest x-ray was reviewed, showed some atelectasis and right upper and lower lobe infiltrates. is following the patient closely. PAST MEDICAL HISTORY: Reviewed. REVIEW OF SYSTEMS: 14-point review is negative as mentioned. CURRENT MEDICATIONS: Reviewed. PHYSICAL EXAMINATION: VITAL SIGNS: Pulse is 68, blood pressure 126/68, respirations 17. HEENT: Conjunctivae normal. CARDIOVASCULAR: S1, S2. CHEST: Few scattered rhonchi and crackles. ABDOMEN: Soft. NERVOUS SYSTEM: Nonfocal. LABORATORY DATA: WBC 11.7, rest of the labs are noted. ASSESSMENT: 1. Chronic obstructive pulmonary disease acute exacerbation with acute hypoxic respiratory failure. 2. Right upper lobe distal pulmonary embolism. 3. Possible right upper lobe pneumonia. 4. Chronic hypoxic respiratory failure. 5. History of lung cancer status post chemoradiation. 6. Elevated troponin. 7. Paroxysmal atrial fibrillation. 8. Hypertension. 9. Hyperlipidemia. 10.Hypothyroidism. 11.Multiple complex medical issues. RECOMMENDATIONS AND DISCUSSION: I recommend to continue current management and symptomatic treatment. Otherwise, continue with aggressive bronchodilator treatment. The patient is also on IV steroids. Closely follow with Pulmonary. Increase ambulation. Continue with Eliquis and DVT prophylaxis. Prognosis guarded. Further recommendations to follow. See orders for details. MMODL / IJN: [id number] / MTDD
[2023-12-25 02:48] LABS: Appearance,Urine Turbid (Clear); Bilirubin,Urine Negative (Negative); Blood,Urine Large (Negative); Color,Urine Dark Red; Glucose,Urine (UA) Negative (Negative); Ketones,Urine Negative (Negative); Leukocyte Esterase,Urine Moderate (Negative); Nitrite,Urine Negative (Negative); Protein,Urine 2+ (Negative); RBC,Urine >182 /hpf (0-5); Squamous Epithelial Cell,Urine 31 /hpf (0-4); Urobilinogen,Urine <2.0 mg/dL (<2.0); WBC,Urine 36 /hpf (0-5)
[2023-12-25 02:58] LABS: Specific Gravity,Urine 1.016 (1.001-1.035)
[2023-12-25] MEDS: MAGNESIUM SULFATE-D5W PMX 1 GM in DEXTROSE/WATER 1 100ML.BAG IVPB SCH (03:17)
[2023-12-25 03:24] LABS: Glucose,Whole Blood 206 mg/dL (70-110)
[2023-12-25 04:20] LABS: Anisocytosis Slight; Basophils % (A) 0 %; Eosinophils # (A) 0.1 k/uL (0-0.7); Eosinophils % (A) 1 %; HCT 28.4 % (39.0-53.0); HGB 9.1 gm/dL (13.0-17.5); Hypochromasia Slight; Lymphocytes # (A) 0.3 k/uL (1.0-4.8); Lymphocytes % (A) 3 %; MCH 32.8 pg (25.0-35.0); MCHC 32.1 g/dL (31.0-37.0); MCV 102.2 fL (80.0-100.0); Macrocytosis Moderate; Mean Platelet Volume 8.9; Monocytes # (A) 0.5 k/uL (0-1.0); Monocytes % (A) 5 %; Neutrophils # (A) 9.1 k/uL (1.3-7.7); Neutrophils % (A) 91 %; Platelet Count 106 k/uL (150-450); RBC 2.78 m/uL (4.30-5.90); RDW 17.2 % (11.5-15.5)
[2023-12-25 04:32] LABS: African American GFR (CKD) 61 (>60 ml/min/1.73 sqM); Anion Gap 8 mmol/L; Blood Urea Nitrogen 54 mg/dL (9-20); Calcium 6.8 mg/dL (8.4-10.2); Carbon Dioxide 21 mmol/L (22-30); Chloride 103 mmol/L (98-107); Glucose 200 mg/dL (74-99); INR 1.1 (<1.2); Non-African American GFR(CKD) 53 (>60 ml/min/1.73 sqM); Partial Thromboplastin Time 28.6 sec (22.0-30.0); Potassium 4.8 mmol/L (3.5-5.1); Prothrombin Time 11.7 sec (10.0-12.5); Sodium 132 mmol/L (137-145)
[2023-12-25 04:34] LABS: Glucose,Whole Blood 242 mg/dL (70-110)
[2023-12-25 05:37] LABS: Glucose,Whole Blood 215 mg/dL (70-110)
[2023-12-25 06:18] LABS: Glucose,Whole Blood 212 mg/dL (70-110)
--- NOTE | 2023-12-25 06:44 | P.GSCN ---
History of Present Illness Consult date: 12/24/23 Reason for Consult: Urinary Retention Requesting physician: Howard E Sheet History of present illness: The patient is a 78-year-old white male admitted with shortness of breath due to exacerbation of CHF. He was found to be emptying his bladder incompletely. A Michelle catheter was placed with difficulty. Resistance was met, requiring that a coud tip catheter be used. He has experienced hematuria since that time. Postvoid residuals prior to Michelle catheter insertion were 397 cc, 482 cc, and 527 cc. Patient is a vague historian. He appears to have a history of prostate cancer, treated with radiation therapy. However, he is vague regarding this. When questioned about his voiding recently at home, he describes his urinary stream as being very weak and he reports both hesitancy and postvoid dribbling. He a lso reports nocturia as often as hourly. He denies dysuria and clearly states that he has not experienced hematuria prior to catheter insertion. Review of Systems - Cardiovascular Reports high blood pressure - Respiratory Reports dyspnea - Genitourinary Reports as per HPI Past Medical History Past Medical History: Atrial Fibrillation, Asthma, Cancer, Diabetes Mellitus, GERD/Reflux, Hyperlipidemia, Hypertension, Prostate Disorder, Sleep Apnea/CPAP/B IPAP, Thyroid Disorder, Vascular Disorder Additional Past Medical History / Comment(s): DM type II, prostate cancer 2018 with radiation & brachytherapy. kidney stones x1. pseudogout. hx of bowel obstrution with surgery and multiple bowel obstruction since (no surgery). bilat eral bifemoral bypass for calcifications (2005). sleep apnea with c-pap machine. hx anemia. Lung cancer with radation tx (last tx 02/08/23), and chemo tx (last 03/04/23). constipation & diarrhea. Pt has been receiving hydration tx at [facility] - states his left hand is swollen and painful and they may go to ER to check (previous IV site). Pt has Loop Recorder. History of Any Multi-Drug Resistant Organisms: None Reported Past Surgical History: Appendectomy, Bowel Resection, Orthopedic Surgery Additional Past Surgical History / Comment(s): bowel resection, bi-femoral bypass for calcifications, left shoulder surgery, left knee surgery, Loop recorder, bronchoscopy with bx. Past Anesthesia/Blood Transfusion Reactions: Previous Problems w/ Anesthesia Additional Past Anesthesia/Blood Transfusion Reaction / Comm: difficulty waking up. Smoking Status: Former smoker - Past Family History Father Additional Family Medical History / Comment(s): alzheimers Mother Family Medical History: Renal Disease Additional Family Medical History / Comment(s): kidney failure Medications and Allergies Home Medications Medication Instructions Recorded Confirmed Type Aspirin [Adult Low Dose Aspirin EC] 81 mg PO DAILY 11/30/18 12/20/23 History Omeprazole 20 mg PO Q48H 11/30/18 12/20/23 History metFORMIN HCL [Glucophage] 1,000 mg PO DIRECTED 11/30/18 12/20/23 History Cholecalciferol [Vitamin D3 (125 125 mcg PO DAILY 03/18/23 12/20/23 History Mcg = 5000 Iu)] Ferrous Gluconate 324 mg PO HS 03/18/23 12/20/23 History Albuterol Inhaler [Ventolin Hfa 1 - 2 puff INHALATION RT-Q4H PRN 12/20/23 12/20/23 History Inhaler] Apixaban [Eliquis] 5 mg PO Q12H 12/20/23 12/20/23 History Atorvastatin Calcium [Lipitor] 80 mg PO HS 12/20/23 12/20/23 History Budesonide [Pulmicort] 0.5 mg INHALATION RT-BID 12/20/23 12/20/23 History Cyanocobalamin (Vitamin B-12) 1,000 mcg PO DAILY 12/20/23 12/20/23 History [Vitamin B-12] Furosemide [Lasix] 40 mg PO DAILY PRN 12/20/23 12/20/23 History Insulin Glargine,Hum.rec.anlog 10 units SQ HS 12/20/23 12/20/23 History [Lantus Solostar Pen] Insulin Lispro [humaLOG Kwikpen] See Protocol SQ AC-TID PRN MDD 30 12/20/23 12/20/23 History units Ipratropium-Albuterol Nebulize 3 ml INHALATION RT-QID PRN 12/20/23 12/20/23 History [Duoneb 0.5 mg-3 mg/3 ml Soln] Levothyroxine Sodium [Synthroid] 150 mcg PO DAILY 12/20/23 12/20/23 History Lidocaine 5% Patch [Lidoderm] 1 patch TOPICAL DIRECTED 12/20/23 12/20/23 History Magnesium Chloride [Nu-Mag] 214.5 mg PO BID 12/20/23 12/20/23 History Metoprolol Tartrate [Lopressor] 75 mg PO BID 12/20/23 12/20/23 History Montelukast [Singulair] 10 mg PO HS 12/20/23 12/20/23 History Potassium Chloride ER [K-Dur 20] 20 meq PO DAILY PRN 12/20/23 12/20/23 History Vitamin E (Dl,Tocopheryl Acet) 400 unit PO DAILY 12/20/23 12/20/23 History [Vitamin E (400 Iu = 180 mg)] allopurinoL [Zyloprim] 100 mg PO HS 12/20/23 12/20/23 History allopurinoL [Zyloprim] 200 mg PO DAILY 12/20/23 12/20/23 History hydrALAZINE HCL [Apresoline] 10 mg PO BID 12/20/23 12/20/23 History hydrALAZINE HCL [Apresoline] 10 mg PO DAILY PRN 12/20/23 12/20/23 History lisinopriL 40 mg PO DAILY 12/20/23 12/20/23 History predniSONE See Taper PO DIRECTED 12/20/23 12/20/23 History Allergies Allergy/AdvReac Type Severity Reaction Status Date / Time No Known Allergies Allergy Verified 12/20/23 19:15 Surgical - Exam Vital Signs Pulse Resp BP Pulse Ox 72 22 180/91 98 12/20/23 18:53 12/20/23 18:53 12/20/23 18:53 12/20/23 18:53 - General well developed, well nourished, no distress - Respiratory normal respiratory effort - Genitourinary normal penis with no external lesions, testicles non-tender - Rectum Rectum: normal sphincter tone, no masses, other (Prostate small and smooth) - Psychiatric oriented to time, oriented to person, oriented to place, speech is normal, memory intact Results - Labs 12/25/23 03:52 12/25/23 03:52 Abnormal Lab Results - Last 24 Hours (Table) 12/23/23 12/23/23 12/23/23 Range/Units 21:59 23:00 23:58 WBC (3.8-10.6) k/uL RBC (4.30-5.90) m/uL Hgb (13.0-17.5) gm/dL Hct (39.0-53.0) % MCV (80.0-100.0) fL RDW (11.5-15.5) % Plt Count (150-450) k/uL Neutrophils # (Manual) (1.3-7.7) k/uL Lymphocytes # (Manual) (1.0-4.8) k/uL Myelocytes # (Manual) (0) k/uL Sodium (137-145) mmol/L BUN (9-20) mg/dL Glucose (74-99) mg/dL POC Glucose (mg/dL) 293 H 251 H 186 H (70-110) mg/dL Calcium (8.4-10.2) mg/dL 12/24/23 12/24/23 12/24/23 Range/Units 00:58 03:02 04:00 WBC (3.8-10.6) k/uL RBC (4.30-5.90) m/uL Hgb (13.0-17.5) gm/dL Hct (39.0-53.0) % MCV (80.0-100.0) fL RDW (11.5-15.5) % Plt Count (150-450) k/uL Neutrophils # (Manual) (1.3-7.7) k/uL Lymphocytes # (Manual) (1.0-4.8) k/uL Myelocytes # (Manual) (0) k/uL Sodium (137-145) mmol/L BUN (9-20) mg/dL Glucose (74-99) mg/dL POC Glucose (mg/dL) 142 H 127 H 216 H (70-110) mg/dL Calcium (8.4-10.2) mg/dL 12/24/23 12/24/23 12/24/23 Range/Units 05:01 06:01 07:02 WBC (3.8-10.6) k/uL RBC (4.30-5.90) m/uL Hgb (13.0-17.5) gm/dL Hct (39.0-53.0) % MCV (80.0-100.0) fL RDW (11.5-15.5) % Plt Count (150-450) k/uL Neutrophils # (Manual) (1.3-7.7) k/uL Lymphocytes # (Manual) (1.0-4.8) k/uL Myelocytes # (Manual) (0) k/uL Sodium (137-145) mmol/L BUN (9-20) mg/dL Glucose (74-99) mg/dL POC Glucose (mg/dL) 208 H 194 H 167 H (70-110) mg/dL Calcium (8.4-10.2) mg/dL 12/24/23 12/24/23 12/24/23 Range/Units 07:14 07:14 08:04 WBC 11.7 H (3.8-10.6) k/uL RBC 2.93 L (4.30-5.90) m/uL Hgb 9.3 L (13.0-17.5) gm/dL Hct 29.6 L (39.0-53.0) % MCV 101.2 H (80.0-100.0) fL RDW 17.0 H (11.5-15.5) % Plt Count 103 L (150-450) k/uL Neutrophils # (Manual) 10.50 H (1.3-7.7) k/uL Lymphocytes # (Manual) 0.47 L (1.0-4.8) k/uL Myelocytes # (Manual) 0.35 H (0) k/uL Sodium 134 L (137-145) mmol/L BUN 49 H (9-20) mg/dL Glucose 139 H (74-99) mg/dL POC Glucose (mg/dL) 200 H (70-110) mg/dL Calcium 7.6 L (8.4-10.2) mg/dL 12/24/23 12/24/23 12/24/23 Range/Units 09:06 10:08 10:58 WBC (3.8-10.6) k/uL RBC (4.30-5.90) m/uL Hgb (13.0-17.5) gm/dL Hct (39.0-53.0) % MCV (80.0-100.0) fL RDW (11.5-15.5) % Plt Count (150-450) k/uL Neutrophils # (Manual) (1.3-7.7) k/uL Lymphocytes # (Manual) (1.0-4.8) k/uL Myelocytes # (Manual) (0) k/uL Sodium (137-145) mmol/L BUN (9-20) mg/dL Glucose (74-99) mg/dL POC Glucose (mg/dL) 256 H 214 H 189 H (70-110) mg/dL Calcium (8.4-10.2) mg/dL 12/24/23 12/24/23 12/24/23 Range/Units 12:02 12:58 13:56 WBC (3.8-10.6) k/uL RBC (4.30-5.90) m/uL Hgb (13.0-17.5) gm/dL Hct (39.0-53.0) % MCV (80.0-100.0) fL RDW (11.5-15.5) % Plt Count (150-450) k/uL Neutrophils # (Manual) (1.3-7.7) k/uL Lymphocytes # (Manual) (1.0-4.8) k/uL Myelocytes # (Manual) (0) k/uL Sodium (137-145) mmol/L BUN (9-20) mg/dL Glucose (74-99) mg/dL POC Glucose (mg/dL) 208 H 253 H 269 H (70-110) mg/dL Calcium (8.4-10.2) mg/dL 12/24/23 12/24/23 12/24/23 Range/Units 14:55 16:10 17:10 WBC (3.8-10.6) k/uL RBC (4.30-5.90) m/uL Hgb (13.0-17.5) gm/dL Hct (39.0-53.0) % MCV (80.0-100.0) fL RDW (11.5-15.5) % Plt Count (150-450) k/uL Neutrophils # (Manual) (1.3-7.7) k/uL Lymphocytes # (Manual) (1.0-4.8) k/uL Myelocytes # (Manual) (0) k/uL Sodium (137-145) mmol/L BUN (9-20) mg/dL Glucose (74-99) mg/dL POC Glucose (mg/dL) 197 H 215 H 194 H (70-110) mg/dL Calcium (8.4-10.2) mg/dL 12/24/23 12/24/23 12/24/23 Range/Units 17:58 18:58 19:54 WBC (3.8-10.6) k/uL RBC (4.30-5.90) m/uL Hgb (13.0-17.5) gm/dL Hct (39.0-53.0) % MCV (80.0-100.0) fL RDW (11.5-15.5) % Plt Count (150-450) k/uL Neutrophils # (Manual) (1.3-7.7) k/uL Lymphocytes # (Manual) (1.0-4.8) k/uL Myelocytes # (Manual) (0) k/uL Sodium (137-145) mmol/L BUN (9-20) mg/dL Glucose (74-99) mg/dL POC Glucose (mg/dL) 254 H 245 H 243 H (70-110) mg/dL Calcium (8.4-10.2) mg/dL 12/24/23 Range/Units 21:07 WBC (3.8-10.6) k/uL RBC (4.30-5.90) m/uL Hgb (13.0-17.5) gm/dL Hct (39.0-53.0) % MCV (80.0-100.0) fL RDW (11.5-15.5) % Plt Count (150-450) k/uL Neutrophils # (Manual) (1.3-7.7) k/uL Lymphocytes # (Manual) (1.0-4.8) k/uL Myelocytes # (Manual) (0) k/uL Sodium (137-145) mmol/L BUN (9-20) mg/dL Glucose (74-99) mg/dL POC Glucose (mg/dL) 191 H (70-110) mg/dL Calcium (8.4-10.2) mg/dL Diabetes panel 12/24/23 Range/Units 07:14 Sodium 134 L (137-145) mmol/L Potassium 4.7 (3.5-5.1) mmol/L Chloride 102 (98-107) mmol/L Carbon Dioxide 23 (22-30) mmol/L BUN 49 H (9-20) mg/dL Creatinine 1.21 (0.66-1.25) mg/dL Glucose 139 H (74-99) mg/dL Calcium 7.6 L (8.4-10.2) mg/dL Calcium panel 12/24/23 Range/Units 07:14 Calcium 7.6 L (8.4-10.2) mg/dL Pituitary panel 12/24/23 Range/Units 07:14 Sodium 134 L (137-145) mmol/L Potassium 4.7 (3.5-5.1) mmol/L Chloride 102 (98-107) mmol/L Carbon Dioxide 23 (22-30) mmol/L BUN 49 H (9-20) mg/dL Creatinine 1.21 (0.66-1.25) mg/dL Glucose 139 H (74-99) mg/dL Calcium 7.6 L (8.4-10.2) mg/dL Adrenal panel 12/24/23 Range/Units 07:14 Sodium 134 L (137-145) mmol/L Potassium 4.7 (3.5-5.1) mmol/L Chloride 102 (98-107) mmol/L Carbon Dioxide 23 (22-30) mmol/L BUN 49 H (9-20) mg/dL Creatinine 1.21 (0.66-1.25) mg/dL Glucose 139 H (74-99) mg/dL Calcium 7.6 L (8.4-10.2) mg/dL Assessment and Plan (1) Retention of urine, unspecified Current Visit: Yes Status: Acute Code(s): R33.9 - RETENTION OF URINE, UNSPECIFIED SNOMED Code(s): 056381161 Plan: Tamsulosin was prescribed earlier today. The Michelle catheter is draining bloody urine, without clots. I would suggest the catheter remain in place for a m inimum of 48 hours, and until the urine has cleared. The catheter may then be removed for a voiding trial. If the retention persists, he may may need to be discharged home with the Michelle catheter and undergo outpatient evaluation. Time with Patient: Greater than 30
[2023-12-25 07:57] LABS: Glucose,Whole Blood 361 mg/dL (70-110)
[2023-12-25] MEDS: INSULIN DETEMIR (LEVEMIR) 100 UNIT/ML SYR SQ SCH ×2 (10:21→21:03)
[2023-12-25] MEDS: predniSONE 20 MG TAB PO SCH (10:21)
[2023-12-25] MEDS: CYANOCOBALAMIN 500 MCG TAB PO SCH (10:21)
[2023-12-25] MEDS: FUROSEMIDE 40 MG TAB PO SCH (10:22)
[2023-12-25] MEDS: CHOLECALCIFEROL 125 MCG (5000 IU) TABLET PO SCH (10:23)
[2023-12-25] MEDS: APIXABAN 5 MG TAB PO SCH (10:26)
[2023-12-25] MEDS: LEVOTHYROXINE 75 MCG TAB PO SCH (10:26)
[2023-12-25] MEDS ORDERED: DEXTROSE 50% SYRINGE 50 ML IVP PRN ×4 (11:27→17:21)
[2023-12-25 11:59] LABS: Glucose,Whole Blood 390 mg/dL (70-110)
[2023-12-25] MEDS: INSULIN ASPART (NovoLOG) 100 UNIT/ML VIAL SQ SCH (12:22)
[2023-12-25] MEDS: VITAMIN E (DL,TOCOPHERYL ACET) 400 UNIT (180 MG) CAP PO SCH (12:22)
--- NOTE | 2023-12-25 13:01 | P.PN ---
Subjective Progress Note Date: 12/25/23 Patient is a 78-year-old white male with past medical history significant for lung cancer status post chemoradiation, COPD, former tobacco smoker quitting approximately 1 year ago, diabetes melitis, hypothyroidism, hypertension, hyperlipidemia, obesity, peripheral arterial disease, atrial fibrillation ch ronically anticoagulated on Eliquis, obstructive sleep apnea with home CPAP, among other comorbidities. Patient states that he was originally diagnosed with small cell lung cancer at [facility] October,. He is currently status post chemo and radiation treatments. He does follow with Dr. Kaiser from oncology. Most recent PET scan done 10/14/2023 did not show any new areas of abnormal hypermetabolic uptake to suggest active neoplastic recurrence. He does follow with a local electrical laboratory technician, Dr. Nirmala Gillespie. Patient states that his pulmonary status has significantly worsened over the last month and a half. He did have a brief hospitalization at [facility] reportedly last month. He has progressively become more short of breath, especially with exertion. States that he was told that he developed some radiation pneumonitis after his last radiation treatment. He is chronically oxygen dependent on 3 L home O2, but more recently increased his flow to 4 L/min. Yesterday, he got up as usual and started to make coffee. Had to use the bathroom, took his oxygen off, and went to the bathroom. He states that his nasal cannula does not reach this far. While in the bathroom he becomes severely short of breath. He called for his who put his CPAP machine on him. They then drove to [facility] where the patient was initially evaluated. While at the outside facility he did have a chest CTA which showed a very small distal right upper lobe filling defect consistent with small pulmonary embolism. Also, some likely post treatment changes of the right lung, with atelectasis and reticular changes in the right upper lobe. Superimposed diffuse groundglass opacities. Following these findings, the patient was transferred to [facility] late last night. Patient is currently sitting up in bed, on 4 L/min nasal cannula, in no acute distress. He endorses acute on chronic shortness of breath as described above. States he has been coughing more than normal over the last 3 days. No significant sputum production. Denies fevers. Denies sick contacts. Does admit substernal chest discomfort. Nonradiating. CBC on arrival to our facility: WBC count 7.8, hemoglobin 9.1, hematocrit 29.3, platelets 90,000. BMP drawn at our facility: Sodium 133, potassium 4.8, chloride 100, serum bicarb 10, BUN 29, creatinine 1.09, glucose 436. LFTs not elevated. Troponins were mildly elevated but are trending down, likely supply/demand mismatch, and are 0.047, 0.045, and 0.026 respectively. EKG demonstrates normal sinus rhythm without any acute ischemic changes noted. NT proBNP was significantly elevated at 5960. Patient's Eliquis has been restarted. Hemodynamics are stable. On today's evaluation of 12/22/2023, I am seeing the patient for a follow-up. Clinically improved compared to yesterday. Less bronchospastic and wheezy compared to yesterday. Still having some shortness of breath at rest. He is considerably improved compared to yesterday. Remains on bronchodilators. Remains on IV Solu-Medrol. Remains on oxygen 4 L/min nasal cannula. Remains on a combination performance of Pulmicort nebulized treatments and remains on Augmentin as an empiric antibiotic coverage. The blood work from today shows a WBC count of 9.2 with a hemoglobin 8.9 and a platelet count of 96. BUN is at 37 with a creatinine of 1.2 and a sodium levels at 131. The patient also has obstructive sleep apnea and he was able to bring in his CPAP unit which is an APAP unit set at a pressure of 6/15 cm of water. His treatment has been successful as the patient has been averaging around 10 hours of CPAP use per night and his AHI was down to 1 while on treatment the patient also feeds and oxygen 2 L through his CPAP unit. He remains on anticoagulation with Eliquis. 12/23/2023, the patient is being seen for a follow-up. The patient is doing w ell. Less short of breath compared to yesterday. Less bronchospastic and wheezy and utilizing his CPAP overnight. Blood sugar remains elevated and the patient is still on insulin drip for blood sugar control. Remains on IV Solu- Medrol dose of 60 mg every 6 hours. He is also empirically covered with Augmentin. He has developed some muscle cramps overnight. He is known to have muscle cramps on a chronic basis and the patient is drinking quinine water. BUN 37 with a creatinine 1.1 and a sodium levels at 133. Calcium level is at 8.3. Hemoglobin is 9.3 with a white cell count of 10.6. The patient remains on DuoNeb updrafts. The patient remains on Lasix 40 mg on a as needed basis and b ased on some increased edema and fluid overload, I am going to switch his Lasix to 40 mg on a daily basis and the first dose is to be given to him today. On 12/24/2023, seen the patient for a follow-up. The patient is doing well. Remains on IV Solu-Medrol. Remains on insulin drip for blood sugar control. No cramping of the body. Overnight, the patient issues with urinary retention. Michelle catheter was inserted and this was a traumatic insertion and is encountering some hematuria which is mild. Anticoagulation is still in progress. He is less short of breath compared to yesterday. Obese close 11.7 with a hemoglobin 9.3 and a platelet count of 103. His BUN is 49 with a creatinine of 1.2 and sodium is at 134 and the potassium level is 4.7. He has no other specific complaints for now. No chest pain. He clearly reports that his shortness of breath improving and the patient is currently on 4 L of oxygen by nasal cannula with a pulse ox of 98%. 12/25/2023, patient is being seen for a follow-up. Events from last night were noted. Noted the patient went into A-fib RVR. This made him quite unstable and short of breath. The patient was initially started on a Cardizem drip and he failed and his heart rate was quite tachycardic. Based on cardiology recommendation, the patient was cardioverted and a cardioversion was successful and the patient is currently back in normal sinus rhythm. Michelle catheter is in place and is having some limited hematuria. This is essentially clearing at this point in time. No significant shortness of breath. " Again wheezy and his respiratory status is back to his baseline. Blood sugars elevated and the patient remains on an insulin drip at 7 units an hour. Is currently on 3 L of oxygen nasal cannula. He is on IV Lasix daily. He remains in a negative fluid balance of 1.8 L over the past 24 hours. The white cell count is at 10 with a hemoglobin 9.1 and a platelet count of 106. Sodium is 132, potassium is at 4.8, BUN is 54 with a creatinine of 1.3. Blood sugars are elevated. Objective - Vital Signs Vital signs: Vital Signs Temp 98.2 F 12/25/23 00:00 Pulse 64 12/25/23 08:03 Resp 18 12/25/23 08:03 BP 138/70 12/25/23 07:30 Pulse Ox 98 12/25/23 07:51 FiO2 Intake & Output 12/24/23 12/25/23 12/25/23 18:59 06:59 18:59 Intake Total 634.274 78.391 17.513 Output Total 1900 650 75 Balance -1265.726 -571.609 -57.487 Intake: Intake, IV Titration 140.274 78.391 17.513 Amount Insulin Regular 100 unit 140.274 78.391 17.513 In Sodium Chloride 0.9% 100 ml @ Titrate IV .Q0M [facility] Rx#:[id number] Oral 494 Output: Urine 1900 650 75 Other: Voiding Method Indwelling Catheter Indwelling Catheter - Exam GENERAL EXAM: Alert, 78-year-old white obese male, comfortable in no apparent distress. The patient is currently on 3 L of O2 nasal cannula HEAD: Normocephalic and atraumatic EYES: Normal reaction of pupils, equal size. NOSE: Clear with pink turbinates. THROAT: No erythema or exudates. NECK: No masses, no JVD. CHEST: No chest wall deformity. LUNGS: Equal air entry with faint and expiratory wheezes and mild inspiratory crackles at the right base. No conversational dyspnea or accessory muscle use.. CVS: S1 and S2 normal with no audible murmur, regular rhythm. No extra heart sounds ABDOMEN: No hepatosplenomegaly, active bowel sounds, no guarding or rigidity. SPINE: No scoliosis or deformity SKIN: No rashes CENTRAL NERVOUS SYSTEM: No focal deficits, tone is normal in all 4 extremities. EXTREMITIES: There is no peripheral edema, clubbing, or cyanosis. Peripheral pulses are intact. - Labs CBC & Chem 7: 12/25/23 03:52 12/25/23 03:52 Labs: Abnormal Lab Results - Last 24 Hours (Table) 12/24/23 12/24/23 12/24/23 Range/Units 07:14 09:06 10:08 WBC 11.7 H (3.8-10.6) k/uL RBC 2.93 L (4.30-5.90) m/uL Hgb 9.3 L (13.0-17.5) gm/dL Hct 29.6 L (39.0-53.0) % MCV 101.2 H (80.0-100.0) fL RDW 17.0 H (11.5-15.5) % Plt Count 103 L (150-450) k/uL Neutrophils # (1.3-7.7) k/uL Neutrophils # (Manual) 10.50 H (1.3-7.7) k/uL Lymphocytes # (1.0-4.8) k/uL Lymphocytes # (Manual) 0.47 L (1.0-4.8) k/uL Myelocytes # (Manual) 0.35 H (0) k/uL APTT (22.0-30.0) sec Sodium (137-145) mmol/L Carbon Dioxide (22-30) mmol/L BUN (9-20) mg/dL Creatinine (0.66-1.25) mg/dL Glucose (74-99) mg/dL POC Glucose (mg/dL) 256 H 214 H (70-110) mg/dL Calcium (8.4-10.2) mg/dL Urine Protein (Negative) Urine Blood (Negative) Ur Leukocyte Esterase (Negative) Urine RBC (0-5) /hpf Urine WBC (0-5) /hpf Ur Squamous Epith Cells (0-4) /hpf 12/24/23 12/24/23 12/24/23 Range/Units 10:58 12:02 12:58 WBC (3.8-10.6) k/uL RBC (4.30-5.90) m/uL Hgb (13.0-17.5) gm/dL Hct (39.0-53.0) % MCV (80.0-100.0) fL RDW (11.5-15.5) % Plt Count (150-450) k/uL Neutrophils # (1.3-7.7) k/uL Neutrophils # (Manual) (1.3-7.7) k/uL Lymphocytes # (1.0-4.8) k/uL Lymphocytes # (Manual) (1.0-4.8) k/uL Myelocytes # (Manual) (0) k/uL APTT (22.0-30.0) sec Sodium (137-145) mmol/L Carbon Dioxide (22-30) mmol/L BUN (9-20) mg/dL Creatinine (0.66-1.25) mg/dL Glucose (74-99) mg/dL POC Glucose (mg/dL) 189 H 208 H 253 H (70-110) mg/dL Calcium (8.4-10.2) mg/dL Urine Protein (Negative) Urine Blood (Negative) Ur Leukocyte Esterase (Negative) Urine RBC (0-5) /hpf Urine WBC (0-5) /hpf Ur Squamous Epith Cells (0-4) /hpf 12/24/23 12/24/23 12/24/23 Range/Units 13:56 14:55 16:10 WBC (3.8-10.6) k/uL RBC (4.30-5.90) m/uL Hgb (13.0-17.5) gm/dL Hct (39.0-53.0) % MCV (80.0-100.0) fL RDW (11.5-15.5) % Plt Count (150-450) k/uL Neutrophils # (1.3-7.7) k/uL Neutrophils # (Manual) (1.3-7.7) k/uL Lymphocytes # (1.0-4.8) k/uL Lymphocytes # (Manual) (1.0-4.8) k/uL Myelocytes # (Manual) (0) k/uL APTT (22.0-30.0) sec Sodium (137-145) mmol/L Carbon Dioxide (22-30) mmol/L BUN (9-20) mg/dL Creatinine (0.66-1.25) mg/dL Glucose (74-99) mg/dL POC Glucose (mg/dL) 269 H 197 H 215 H (70-110) mg/dL Calcium (8.4-10.2) mg/dL Urine Protein (Negative) Urine Blood (Negative) Ur Leukocyte Esterase (Negative) Urine RBC (0-5) /hpf Urine WBC (0-5) /hpf Ur Squamous Epith Cells (0-4) /hpf 12/24/23 12/24/23 12/24/23 Range/Units 17:10 17:58 18:58 WBC (3.8-10.6) k/uL RBC (4.30-5.90) m/uL Hgb (13.0-17.5) gm/dL Hct (39.0-53.0) % MCV (80.0-100.0) fL RDW (11.5-15.5) % Plt Count (150-450) k/uL Neutrophils # (1.3-7.7) k/uL Neutrophils # (Manual) (1.3-7.7) k/uL Lymphocytes # (1.0-4.8) k/uL Lymphocytes # (Manual) (1.0-4.8) k/uL Myelocytes # (Manual) (0) k/uL APTT (22.0-30.0) sec Sodium (137-145) mmol/L Carbon Dioxide (22-30) mmol/L BUN (9-20) mg/dL Creatinine (0.66-1.25) mg/dL Glucose (74-99) mg/dL POC Glucose (mg/dL) 194 H 254 H 245 H (70-110) mg/dL Calcium (8.4-10.2) mg/dL Urine Protein (Negative) Urine Blood (Negative) Ur Leukocyte Esterase (Negative) Urine RBC (0-5) /hpf Urine WBC (0-5) /hpf Ur Squamous Epith Cells (0-4) /hpf 12/24/23 12/24/23 12/24/23 Range/Units 19:54 21:07 22:00 WBC (3.8-10.6) k/uL RBC (4.30-5.90) m/uL Hgb (13.0-17.5) gm/dL Hct (39.0-53.0) % MCV (80.0-100.0) fL RDW (11.5-15.5) % Plt Count (150-450) k/uL Neutrophils # (1.3-7.7) k/uL Neutrophils # (Manual) (1.3-7.7) k/uL Lymphocytes # (1.0-4.8) k/uL Lymphocytes # (Manual) (1.0-4.8) k/uL Myelocytes # (Manual) (0) k/uL APTT (22.0-30.0) sec Sodium (137-145) mmol/L Carbon Dioxide (22-30) mmol/L BUN (9-20) mg/dL Creatinine (0.66-1.25) mg/dL Glucose (74-99) mg/dL POC Glucose (mg/dL) 243 H 191 H 149 H (70-110) mg/dL Calcium (8.4-10.2) mg/dL Urine Protein (Negative) Urine Blood (Negative) Ur Leukocyte Esterase (Negative) Urine RBC (0-5) /hpf Urine WBC (0-5) /hpf Ur Squamous Epith Cells (0-4) /hpf 12/24/23 12/24/23 12/24/23 Range/Units 22:58 23:24 23:42 WBC 11.7 H (3.8-10.6) k/uL RBC 2.66 L (4.30-5.90) m/uL Hgb 9.1 L (13.0-17.5) gm/dL Hct 26.9 L (39.0-53.0) % MCV 101.2 H (80.0-100.0) fL RDW 17.2 H (11.5-15.5) % Plt Count 117 L (150-450) k/uL Neutrophils # 10.4 H (1.3-7.7) k/uL Neutrophils # (Manual) (1.3-7.7) k/uL Lymphocytes # 0.4 L (1.0-4.8) k/uL Lymphocytes # (Manual) (1.0-4.8) k/uL Myelocytes # (Manual) (0) k/uL APTT (22.0-30.0) sec Sodium (137-145) mmol/L Carbon Dioxide (22-30) mmol/L BUN (9-20) mg/dL Creatinine (0.66-1.25) mg/dL Glucose (74-99) mg/dL POC Glucose (mg/dL) 147 H 118 H (70-110) mg/dL Calcium (8.4-10.2) mg/dL Urine Protein (Negative) Urine Blood (Negative) Ur Leukocyte Esterase (Negative) Urine RBC (0-5) /hpf Urine WBC (0-5) /hpf Ur Squamous Epith Cells (0-4) /hpf 12/24/23 12/25/23 12/25/23 Range/Units 23:42 00:42 00:56 WBC (3.8-10.6) k/uL RBC (4.30-5.90) m/uL Hgb (13.0-17.5) gm/dL Hct (39.0-53.0) % MCV (80.0-100.0) fL RDW (11.5-15.5) % Plt Count (150-450) k/uL Neutrophils # (1.3-7.7) k/uL Neutrophils # (Manual) (1.3-7.7) k/uL Lymphocytes # (1.0-4.8) k/uL Lymphocytes # (Manual) (1.0-4.8) k/uL Myelocytes # (Manual) (0) k/uL APTT 20.5 L (22.0-30.0) sec Sodium 132 L (137-145) mmol/L Carbon Dioxide (22-30) mmol/L BUN 55 H (9-20) mg/dL Creatinine 1.44 H (0.66-1.25) mg/dL Glucose 114 H (74-99) mg/dL POC Glucose (mg/dL) 139 H (70-110) mg/dL Calcium 7.0 L (8.4-10.2) mg/dL Urine Protein (Negative) Urine Blood (Negative) Ur Leukocyte Esterase (Negative) Urine RBC (0-5) /hpf Urine WBC (0-5) /hpf Ur Squamous Epith Cells (0-4) /hpf 12/25/23 12/25/23 12/25/23 Range/Units 01:07 02:08 02:10 WBC (3.8-10.6) k/uL RBC (4.30-5.90) m/uL Hgb (13.0-17.5) gm/dL Hct (39.0-53.0) % MCV (80.0-100.0) fL RDW (11.5-15.5) % Plt Count (150-450) k/uL Neutrophils # (1.3-7.7) k/uL Neutrophils # (Manual) (1.3-7.7) k/uL Lymphocytes # (1.0-4.8) k/uL Lymphocytes # (Manual) (1.0-4.8) k/uL Myelocytes # (Manual) (0) k/uL APTT (22.0-30.0) sec Sodium (137-145) mmol/L Carbon Dioxide (22-30) mmol/L BUN (9-20) mg/dL Creatinine (0.66-1.25) mg/dL Glucose (74-99) mg/dL POC Glucose (mg/dL) 142 H 166 H (70-110) mg/dL Calcium (8.4-10.2) mg/dL Urine Protein 2+ H (Negative) Urine Blood Large H (Negative) Ur Leukocyte Esterase Moderate H (Negative) Urine RBC >182 H (0-5) /hpf Urine WBC 36 H (0-5) /hpf Ur Squamous Epith Cells 31 H (0-4) /hpf 12/25/23 12/25/23 12/25/23 Range/Units 03:22 03:52 03:52 WBC (3.8-10.6) k/uL RBC 2.78 L (4.30-5.90) m/uL Hgb 9.1 L (13.0-17.5) gm/dL Hct 28.4 L (39.0-53.0) % MCV 102.2 H (80.0-100.0) fL RDW 17.2 H (11.5-15.5) % Plt Count 106 L (150-450) k/uL Neutrophils # 9.1 H (1.3-7.7) k/uL Neutrophils # (Manual) (1.3-7.7) k/uL Lymphocytes # 0.3 L (1.0-4.8) k/uL Lymphocytes # (Manual) (1.0-4.8) k/uL Myelocytes # (Manual) (0) k/uL APTT (22.0-30.0) sec Sodium 132 L (137-145) mmol/L Carbon Dioxide 21 L (22-30) mmol/L BUN 54 H (9-20) mg/dL Creatinine 1.30 H (0.66-1.25) mg/dL Glucose 200 H (74-99) mg/dL POC Glucose (mg/dL) 206 H (70-110) mg/dL Calcium 6.8 L (8.4-10.2) mg/dL Urine Protein (Negative) Urine Blood (Negative) Ur Leukocyte Esterase (Negative) Urine RBC (0-5) /hpf Urine WBC (0-5) /hpf Ur Squamous Epith Cells (0-4) /hpf 12/25/23 12/25/23 12/25/23 Range/Units 04:32 05:29 05:35 WBC (3.8-10.6) k/uL RBC (4.30-5.90) m/uL Hgb (13.0-17.5) gm/dL Hct (39.0-53.0) % MCV (80.0-100.0) fL RDW (11.5-15.5) % Plt Count (150-450) k/uL Neutrophils # (1.3-7.7) k/uL Neutrophils # (Manual) (1.3-7.7) k/uL Lymphocytes # (1.0-4.8) k/uL Lymphocytes # (Manual) (1.0-4.8) k/uL Myelocytes # (Manual) (0) k/uL APTT 30.6 H (22.0-30.0) sec Sodium (137-145) mmol/L Carbon Dioxide (22-30) mmol/L BUN (9-20) mg/dL Creatinine (0.66-1.25) mg/dL Glucose (74-99) mg/dL POC Glucose (mg/dL) 242 H 215 H (70-110) mg/dL Calcium (8.4-10.2) mg/dL Urine Protein (Negative) Urine Blood (Negative) Ur Leukocyte Esterase (Negative) Urine RBC (0-5) /hpf Urine WBC (0-5) /hpf Ur Squamous Epith Cells (0-4) /hpf 12/25/23 12/25/23 Range/Units 06:17 07:56 WBC (3.8-10.6) k/uL RBC (4.30-5.90) m/uL Hgb (13.0-17.5) gm/dL Hct (39.0-53.0) % MCV (80.0-100.0) fL RDW (11.5-15.5) % Plt Count (150-450) k/uL Neutrophils # (1.3-7.7) k/uL Neutrophils # (Manual) (1.3-7.7) k/uL Lymphocytes # (1.0-4.8) k/uL Lymphocytes # (Manual) (1.0-4.8) k/uL Myelocytes # (Manual) (0) k/uL APTT (22.0-30.0) sec Sodium (137-145) mmol/L Carbon Dioxide (22-30) mmol/L BUN (9-20) mg/dL Creatinine (0.66-1.25) mg/dL Glucose (74-99) mg/dL POC Glucose (mg/dL) 212 H 361 H (70-110) mg/dL Calcium (8.4-10.2) mg/dL Urine Protein (Negative) Urine Blood (Negative) Ur Leukocyte Esterase (Negative) Urine RBC (0-5) /hpf Urine WBC (0-5) /hpf Ur Squamous Epith Cells (0-4) /hpf Assessment and Plan Assessment: Acute on chronic hypoxemic respiratory failure, currently on 3 L/min nasal cannula, chest CTA from outside facility was noted to demonstrate a right upper lobe distal small filling defect consistent with pulmonary embolism. When correlating with patient's past medical history, there was also some likely post treatment changes in the right lung. Also, noted diffuse groundglass opacities, superimposed pulmonary edema was not excluded. My overall impression that the patient has COPD exacerbation. Patient responded nicely to bronchodilators and steroids and the patient's overall respite status is improved and the patient is currently on 3 L O2 nasal cannula Acute exacerbation of chronic obstructive pulmonary disease, improving and the patient is less short of breath, improving History of lung cancer, status post chemo/radiation, continues to follow-up with his oncologist outpatient, the patient has course radiation related pulmonary infiltrates involving the right perihilar area. No evidence of any active sindi gnancy at this point in time. Atrial fibrillation with rapid ventricular response, converted into sinus rhythm post cardioversion and the patient remains on amiodarone 4 mg p.o. twice a day and metoprolol 75 mg twice a day and the patient is on anticoagulation with Eliquis. 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 Plan: Clinically improving Cardiac rhythm is sinus Shortness of breath is improved Keep the oxygen at 3 L and titrate oxygen flow to maintain saturation above 90% Patient's Eliquis has been resumed, Doppler lower extremity negative and diagnosis of pulm embolism is doubtful, IV heparin will be discontinued Continue combination of DuoNebs [id number], budesonide inhalation Discontinue the IV Solu-Medrol start the patient on prednisone burst taper Continue Augmentin Continue Lasix at a dose of 40 mg p.o. twice a day Transthoracic echocardiogram was within normal limits Discontinue Lasix drip and start the patient on Levemir insulin, 20 units twice a day and sliding scale coverage CPAP overnight and the patient utilizing his own APAP unit. He remains on anticoagulation with Eliquis. Monitor hematuria Michelle catheter in place Keep the patient in the ICU for today and will continue to follow.
[2023-12-25] MEDS ORDERED: Magnesium Replacement Protocol 1 EACH MISC MISCELLANE PRN (14:08)
[2023-12-25] MEDS ORDERED: Potassium Replacement Protocol 1 EACH MISC MISCELLANE PRN (14:08)
--- NOTE | 2023-12-25 14:09 | P.PN ---
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 We have been asked to evaluate the patient for elevated troponins. Patient initially presented to [facility] due to shortness of breath. He underwent a CTA of the chest that reported again advanced reticular changes right upper lobe where there is a very small pulmonary embolus. Patient denies having any chest pain. Patient was thus transferred to [facility] for further evaluation. EKG sinus rhythm with ventricular rate of 68. Ultrasound of the bilateral lower extremities negative for DVT. Chest x-ray: Right upper and left lower lobe infiltrates. Correlate for atelec tasis and pneumonia. Atypical pulmonary edema could be considered. WBC 7.2, hemoglobin 8.9, platelet count 104. Sodium 133, potassium 4.8, BUN 29,, creatinine 1.09. Glucose initially 491. Hemoglobin A1c 9.5. Calcium 8.2. Total bilirubin 0.5, AST 16, troponins 0.047, 0.045 and 0.026. proBNP 5960. Home cardiac medications: Eliquis 5 mg twice daily, aspirin 81 mg daily, Lipitor 80 mg at bedtime, lisinopril 40 mg daily, magnesium chloride 214 mg twice daily, Lopressor 75 mg twice daily, potassium chloride 20 mill equivalents daily as needed. 12/21 Patient states that he is feeling a lot better from yesterday. Shortness of breath is significantly improved. He denies having any chest pain. Blood pressure 148/83, heart rate 64, pulse ox 97% on 4 L nasal cannula. Hemoglobin 8.9. BUN 37, creatinine 1.2, sodium 131 and potassium 4.6. Echocardiogram has been obtained but report is pending. 12/22 Patient denies having any chest pain or shortness of breath. He states he had a bad night as his blood sugar was extremely high over 500 he was started on insulin drip and developed cramps in his hands. Blood pressure 141/71, heart rate in the 60s and 70s, pulse ox 99% on 4 L nasal cannula. Repeat blood work reveals hemoglobin 9.3. BUN 37, creatinine 1.12. Echocardiogram reveals EF of 55 to 60%. Moderate to severe increased left ventricular wall thickness. Trace to mild mitral regurgitation. Moderately dilated left atrium. Mild aortic stenosis. Mild tricuspid regurgitation. 12/23 Patient denies having any chest pain. Pulmonary medicine started patient on IV Lasix 40 mg yesterday. Telemetry is a sinus rhythm with PACs. Blood pressure 126/68, heart rate 68, pulse ox 98% on 4 L nasal cannula. He remains on insulin drip. 12/24 Patient seen and examined. Patient had event overnight where he became more short of breath and more unstable with atrial fibrillation and RVR. Heart rates up in the 160s and Cardizem drip started however became again more symptomatic and therefore was recommended to undergo cardioversion which patient tolerated well with conversion back to normal sinus rhythm. He was transferred to ICU. He denies any chest pain or pressure. He does have continued shortness of breath. Physical examination: Gen: This is a 78-year-old male in no acute distress VS: reviewed HEENT: Head is atraumatic, normocephalic. Pupils equal, round. Sclerae is anicteric. NECK: Supple. No JVD. LUNGS: Few scattered wheezes. No intercostal retractions. HEART: Regular rate and rhythm. No murmur. ABDOMEN: Soft No tenderness. EXTREMITIES: Mild pedal edema. No calf tenderness. NEUROLOGICAL: Patient is awake, alert and oriented x3. Assessment: Acute on chronic hypoxic respiratory failure secondary to COPD exacerbation Right upper lobe PE doubtful History of lung cancer status post chemoradiation Non-ST elevated myocardial infarction Paroxysmal atrial fibrillation, currently in sinus rhythm Diabetes mellitus type 2 Hypertension Hyperlipidemia Hypothyroidism Peripheral artery disease Chronic hypoxic respiratory failure on home O2 at 3 L nasal cannula Episode of Atrial flutter with RVR, highly symptomatic s/p cardioversion Plan: Continue patient's home cardiac medications Due to patient's history of lung cancer and poor prognosis, no aggressive ischemic cardiac workup planned at this time. Consider outpatient stress testing. patient was transitioned to oral Lasix patient was transitioned to oral Lasix. Currently appears euvolemic. 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 Josselyn Hidalgo. patient with highly symptomatic atrial flutter requiring cardioversion and therefore continue with amiodarone at this time. Further recommendations to follow based upon clinical course Objective - Vital Signs Vital signs: Vital Signs Temp 97.4 F L 12/25/23 09:00 Pulse 60 12/25/23 11:42 Resp 18 12/25/23 12:00 BP 124/73 12/25/23 11:00 Pulse Ox 97 12/25/23 11:00 FiO2 Intake & Output 12/24/23 12/25/23 12/25/23 18:59 06:59 18:59 Intake Total 634.274 78.391 217.513 Output Total 1900 650 335 Balance -1265.726 -571.609 -117.487 Intake: Intake, IV Titration 140.274 78.391 17.513 Amount Insulin Regular 100 unit 140.274 78.391 17.513 In Sodium Chloride 0.9% 100 ml @ Titrate IV .Q0M [facility] Rx#:[id number] Oral 494 200 Output: Urine 1900 650 335 Other: Voiding Method Indwelling Catheter Indwelling Catheter Indwelling Catheter - Labs CBC & Chem 7: 12/25/23 03:52 12/25/23 03:52 Labs: Abnormal Lab Results - Last 24 Hours (Table) 12/24/23 12/24/23 12/24/23 Range/Units 14:55 16:10 17:10 WBC (3.8-10.6) k/uL RBC (4.30-5.90) m/uL Hgb (13.0-17.5) gm/dL Hct (39.0-53.0) % MCV (80.0-100.0) fL RDW (11.5-15.5) % Plt Count (150-450) k/uL Neutrophils # (1.3-7.7) k/uL Lymphocytes # (1.0-4.8) k/uL APTT (22.0-30.0) sec Sodium (137-145) mmol/L Carbon Dioxide (22-30) mmol/L BUN (9-20) mg/dL Creatinine (0.66-1.25) mg/dL Glucose (74-99) mg/dL POC Glucose (mg/dL) 197 H 215 H 194 H (70-110) mg/dL Calcium (8.4-10.2) mg/dL Urine Protein (Negative) Urine Blood (Negative) Ur Leukocyte Esterase (Negative) Urine RBC (0-5) /hpf Urine WBC (0-5) /hpf Ur Squamous Epith Cells (0-4) /hpf 12/24/23 12/24/23 12/24/23 Range/Units 17:58 18:58 19:54 WBC (3.8-10.6) k/uL RBC (4.30-5.90) m/uL Hgb (13.0-17.5) gm/dL Hct (39.0-53.0) % MCV (80.0-100.0) fL RDW (11.5-15.5) % Plt Count (150-450) k/uL Neutrophils # (1.3-7.7) k/uL Lymphocytes # (1.0-4.8) k/uL APTT (22.0-30.0) sec Sodium (137-145) mmol/L Carbon Dioxide (22-30) mmol/L BUN (9-20) mg/dL Creatinine (0.66-1.25) mg/dL Glucose (74-99) mg/dL POC Glucose (mg/dL) 254 H 245 H 243 H (70-110) mg/dL Calcium (8.4-10.2) mg/dL Urine Protein (Negative) Urine Blood (Negative) Ur Leukocyte Esterase (Negative) Urine RBC (0-5) /hpf Urine WBC (0-5) /hpf Ur Squamous Epith Cells (0-4) /hpf 12/24/23 12/24/23 12/24/23 Range/Units 21:07 22:00 22:58 WBC (3.8-10.6) k/uL RBC (4.30-5.90) m/uL Hgb (13.0-17.5) gm/dL Hct (39.0-53.0) % MCV (80.0-100.0) fL RDW (11.5-15.5) % Plt Count (150-450) k/uL Neutrophils # (1.3-7.7) k/uL Lymphocytes # (1.0-4.8) k/uL APTT (22.0-30.0) sec Sodium (137-145) mmol/L Carbon Dioxide (22-30) mmol/L BUN (9-20) mg/dL Creatinine (0.66-1.25) mg/dL Glucose (74-99) mg/dL POC Glucose (mg/dL) 191 H 149 H 147 H (70-110) mg/dL Calcium (8.4-10.2) mg/dL Urine Protein (Negative) Urine Blood (Negative) Ur Leukocyte Esterase (Negative) Urine RBC (0-5) /hpf Urine WBC (0-5) /hpf Ur Squamous Epith Cells (0-4) /hpf 12/24/23 12/24/23 12/24/23 Range/Units 23:24 23:42 23:42 WBC 11.7 H (3.8-10.6) k/uL RBC 2.66 L (4.30-5.90) m/uL Hgb 9.1 L (13.0-17.5) gm/dL Hct 26.9 L (39.0-53.0) % MCV 101.2 H (80.0-100.0) fL RDW 17.2 H (11.5-15.5) % Plt Count 117 L (150-450) k/uL Neutrophils # 10.4 H (1.3-7.7) k/uL Lymphocytes # 0.4 L (1.0-4.8) k/uL APTT 20.5 L (22.0-30.0) sec Sodium (137-145) mmol/L Carbon Dioxide (22-30) mmol/L BUN (9-20) mg/dL Creatinine (0.66-1.25) mg/dL Glucose (74-99) mg/dL POC Glucose (mg/dL) 118 H (70-110) mg/dL Calcium (8.4-10.2) mg/dL Urine Protein (Negative) Urine Blood (Negative) Ur Leukocyte Esterase (Negative) Urine RBC (0-5) /hpf Urine WBC (0-5) /hpf Ur Squamous Epith Cells (0-4) /hpf 12/25/23 12/25/23 12/25/23 Range/Units 00:42 00:56 01:07 WBC (3.8-10.6) k/uL RBC (4.30-5.90) m/uL Hgb (13.0-17.5) gm/dL Hct (39.0-53.0) % MCV (80.0-100.0) fL RDW (11.5-15.5) % Plt Count (150-450) k/uL Neutrophils # (1.3-7.7) k/uL Lymphocytes # (1.0-4.8) k/uL APTT (22.0-30.0) sec Sodium 132 L (137-145) mmol/L Carbon Dioxide (22-30) mmol/L BUN 55 H (9-20) mg/dL Creatinine 1.44 H (0.66-1.25) mg/dL Glucose 114 H (74-99) mg/dL POC Glucose (mg/dL) 139 H 142 H (70-110) mg/dL Calcium 7.0 L (8.4-10.2) mg/dL Urine Protein (Negative) Urine Blood (Negative) Ur Leukocyte Esterase (Negative) Urine RBC (0-5) /hpf Urine WBC (0-5) /hpf Ur Squamous Epith Cells (0-4) /hpf 12/25/23 12/25/23 12/25/23 Range/Units 02:08 02:10 03:22 WBC (3.8-10.6) k/uL RBC (4.30-5.90) m/uL Hgb (13.0-17.5) gm/dL Hct (39.0-53.0) % MCV (80.0-100.0) fL RDW (11.5-15.5) % Plt Count (150-450) k/uL Neutrophils # (1.3-7.7) k/uL Lymphocytes # (1.0-4.8) k/uL APTT (22.0-30.0) sec Sodium (137-145) mmol/L Carbon Dioxide (22-30) mmol/L BUN (9-20) mg/dL Creatinine (0.66-1.25) mg/dL Glucose (74-99) mg/dL POC Glucose (mg/dL) 166 H 206 H (70-110) mg/dL Calcium (8.4-10.2) mg/dL Urine Protein 2+ H (Negative) Urine Blood Large H (Negative) Ur Leukocyte Esterase Moderate H (Negative) Urine RBC >182 H (0-5) /hpf Urine WBC 36 H (0-5) /hpf Ur Squamous Epith Cells 31 H (0-4) /hpf 12/25/23 12/25/23 12/25/23 Range/Units 03:52 03:52 04:32 WBC (3.8-10.6) k/uL RBC 2.78 L (4.30-5.90) m/uL Hgb 9.1 L (13.0-17.5) gm/dL Hct 28.4 L (39.0-53.0) % MCV 102.2 H (80.0-100.0) fL RDW 17.2 H (11.5-15.5) % Plt Count 106 L (150-450) k/uL Neutrophils # 9.1 H (1.3-7.7) k/uL Lymphocytes # 0.3 L (1.0-4.8) k/uL APTT (22.0-30.0) sec Sodium 132 L (137-145) mmol/L Carbon Dioxide 21 L (22-30) mmol/L BUN 54 H (9-20) mg/dL Creatinine 1.30 H (0.66-1.25) mg/dL Glucose 200 H (74-99) mg/dL POC Glucose (mg/dL) 242 H (70-110) mg/dL Calcium 6.8 L (8.4-10.2) mg/dL Urine Protein (Negative) Urine Blood (Negative) Ur Leukocyte Esterase (Negative) Urine RBC (0-5) /hpf Urine WBC (0-5) /hpf Ur Squamous Epith Cells (0-4) /hpf 12/25/23 12/25/23 12/25/23 Range/Units 05:29 05:35 06:17 WBC (3.8-10.6) k/uL RBC (4.30-5.90) m/uL Hgb (13.0-17.5) gm/dL Hct (39.0-53.0) % MCV (80.0-100.0) fL RDW (11.5-15.5) % Plt Count (150-450) k/uL Neutrophils # (1.3-7.7) k/uL Lymphocytes # (1.0-4.8) k/uL APTT 30.6 H (22.0-30.0) sec Sodium (137-145) mmol/L Carbon Dioxide (22-30) mmol/L BUN (9-20) mg/dL Creatinine (0.66-1.25) mg/dL Glucose (74-99) mg/dL POC Glucose (mg/dL) 215 H 212 H (70-110) mg/dL Calcium (8.4-10.2) mg/dL Urine Protein (Negative) Urine Blood (Negative) Ur Leukocyte Esterase (Negative) Urine RBC (0-5) /hpf Urine WBC (0-5) /hpf Ur Squamous Epith Cells (0-4) /hpf 12/25/23 12/25/23 Range/Units 07:56 11:57 WBC (3.8-10.6) k/uL RBC (4.30-5.90) m/uL Hgb (13.0-17.5) gm/dL Hct (39.0-53.0) % MCV (80.0-100.0) fL RDW (11.5-15.5) % Plt Count (150-450) k/uL Neutrophils # (1.3-7.7) k/uL Lymphocytes # (1.0-4.8) k/uL APTT (22.0-30.0) sec Sodium (137-145) mmol/L Carbon Dioxide (22-30) mmol/L BUN (9-20) mg/dL Creatinine (0.66-1.25) mg/dL Glucose (74-99) mg/dL POC Glucose (mg/dL) 361 H 390 H (70-110) mg/dL Calcium (8.4-10.2) mg/dL Urine Protein (Negative) Urine Blood (Negative) Ur Leukocyte Esterase (Negative) Urine RBC (0-5) /hpf Urine WBC (0-5) /hpf Ur Squamous Epith Cells (0-4) /hpf
[2023-12-25 16:25] LABS: Glucose,Whole Blood 475 mg/dL (70-110)
[2023-12-25] MEDS: INSULIN ASPART (NovoLOG) 100 UNIT/ML VIAL SQ ONE (17:48)
--- NOTE | 2023-12-25 18:21 | PN ---
PROGRESS NOTE DATE OF SERVICE: 12/25/2023 SUBJECTIVE: This 78-year-old gentleman admitted with COPD as well as pulmonary embolism, had atrial fibrillation with rapid ventricular rate. Last night, the patient was transferred to the ICU and cardioverted. The patient was closely monitored. Multiple consultants are following the patient closely. The most recent chest x-ray, which I reviewed personally showed continued fluid overload and right upper lobe scarring also. PAST MEDICAL HISTORY: Reviewed. REVIEW OF SYSTEMS: A 14-point review is negative, otherwise as mentioned earlier. MEDICATIONS: DuoNeb. Rest of medication and doses are reviewed. PHYSICAL EXAMINATION: VITAL SIGNS: Pulse is 59, blood pressure 120/70, and respirations 20. HEENT: Conjunctivae normal. CARDIOVASCULAR: S1 and S2. RESPIRATIONS: Diminished breath sounds at the bases. Few scattered rhonchi and crackles. ABDOMEN: Soft. NERVOUS SYSTEM: Nonfocal. LABORATORY DATA: Accu-Cheks 361 and 319. Hemoglobin 9.1. Rest of the labs are noted. ASSESSMENT: 1. Chronic obstructive pulmonary disease acute exacerbation with acute hypoxic respiratory failure. 2. Atrial fibrillation with rapid ventricular rate, cardioverted, normal sinus rhythm. 3. Right upper lobe distal pulmonary embolism. 4. Possible right upper lobe pneumonia versus scarring. 5. Chronic hypoxic respiratory failure. 6. Elevated blood sugars and diabetes mellitus type 2. 7. History of lung cancer, status post chemoradiation. 8. Elevated troponin. 9. Paroxysmal atrial fibrillation. 10.Multiple complex medical issues. RECOMMENDATIONS: Recommend to continue current medical management and symptomatic treatment, otherwise closely follow with Cardiology. Continue with bronchodilators. Continue with beta- blockers. The patient is on Levemir 20 units subcu b.i.d. We will continue to monitor. Steroids have been tapered to p.o. prednisone. Guarded prognosis. Further recommendations to follow. See orders for details. The patient is on Eliquis at this time. MMODL / IJN: [id number] /
[2023-12-25 18:40] LABS: Glucose,Whole Blood 558 mg/dL (70-110)
[2023-12-25] MEDS: INSULIN REGULAR 100 UNIT in SODIUM CHLORIDE 0.9% 100 ML IV SCH (18:42)
[2023-12-25 20:16] LABS: Glucose,Whole Blood 492 mg/dL (70-110)
[2023-12-25 21:30] LABS: Glucose,Whole Blood 415 mg/dL (70-110)
[2023-12-25 22:22] LABS: Glucose,Whole Blood 363 mg/dL (70-110)
[2023-12-25 23:13] LABS: Glucose,Whole Blood 314 mg/dL (70-110)
[2023-12-26 00:11] LABS: Glucose,Whole Blood 214 mg/dL (70-110)
[2023-12-26 03:56] LABS: Glucose,Whole Blood 270 mg/dL (70-110)
[2023-12-26] MEDS: INSULIN ASPART (NovoLOG) 100 UNIT/ML VIAL SQ SCH (04:04)
--- NOTE | 2023-12-26 05:47 | P.PN ---
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 We have been asked to evaluate the patient for elevated troponins. Patient initially presented to [facility] due to shortness of breath. He underwent a CTA of the chest that reported again advanced reticular changes right upper lobe where there is a very small pulmonary embolus. Patient denies having any chest pain. Patient was thus transferred to [facility] for further evaluation. EKG sinus rhythm with ventricular rate of 68. Ultrasound of the bilateral lower extremities negative for DVT. Chest x-ray: Right upper and left lower lobe infiltrates. Correlate for atelec tasis and pneumonia. Atypical pulmonary edema could be considered. WBC 7.2, hemoglobin 8.9, platelet count 104. Sodium 133, potassium 4.8, BUN 29,, creatinine 1.09. Glucose initially 491. Hemoglobin A1c 9.5. Calcium 8.2. Total bilirubin 0.5, AST 16, troponins 0.047, 0.045 and 0.026. proBNP 5960. Home cardiac medications: Eliquis 5 mg twice daily, aspirin 81 mg daily, Lipitor 80 mg at bedtime, lisinopril 40 mg daily, magnesium chloride 214 mg twice daily, Lopressor 75 mg twice daily, potassium chloride 20 mill equivalents daily as needed. 12/21 Patient states that he is feeling a lot better from yesterday. Shortness of breath is significantly improved. He denies having any chest pain. Blood pressure 148/83, heart rate 64, pulse ox 97% on 4 L nasal cannula. Hemoglobin 8.9. BUN 37, creatinine 1.2, sodium 131 and potassium 4.6. Echocardiogram has been obtained but report is pending. 12/22 Patient denies having any chest pain or shortness of breath. He states he had a bad night as his blood sugar was extremely high over 500 he was started on insulin drip and developed cramps in his hands. Blood pressure 141/71, heart rate in the 60s and 70s, pulse ox 99% on 4 L nasal cannula. Repeat blood work reveals hemoglobin 9.3. BUN 37, creatinine 1.12. Echocardiogram reveals EF of 55 to 60%. Moderate to severe increased left ventricular wall thickness. Trace to mild mitral regurgitation. Moderately dilated left atrium. Mild aortic stenosis. Mild tricuspid regurgitation. 12/23 Patient denies having any chest pain. Pulmonary medicine started patient on IV Lasix 40 mg yesterday. Telemetry is a sinus rhythm with PACs. Blood pressure 126/68, heart rate 68, pulse ox 98% on 4 L nasal cannula. He remains on insulin drip. 12/24 Patient seen and examined. Patient had event overnight where he became more short of breath and more unstable with atrial fibrillation and RVR. Heart rates up in the 160s and Cardizem drip started however became again more symptomatic and therefore was recommended to undergo cardioversion which patient tolerated well with conversion back to normal sinus rhythm. He was transferred to ICU. He denies any chest pain or pressure. He does have continued shortness of breath. 12/24 patient seen and examined. Patient denies any chest pain or pressure. Still some shortness breath. No further atrial fibrillation. On amiodarone with we aning dose currently 400 twice a day. Physical examination: Gen: This is a 78-year-old male in no acute distress VS: reviewed HEENT: Head is atraumatic, normocephalic. Pupils equal, round. Sclerae is anicteric. NECK: Supple. No JVD. LUNGS: Few scattered wheezes. No intercostal retractions. HEART: Regular rate and rhythm. No murmur. ABDOMEN: Soft No tenderness. EXTREMITIES: Mild pedal edema. No calf tenderness. NEUROLOGICAL: Patient is awake, alert and oriented x3. Assessment: Acute on chronic hypoxic respiratory failure secondary to COPD exacerbation Right upper lobe PE doubtful History of lung cancer status post chemoradiation Non-ST elevated myocardial infarction Paroxysmal atrial fibrillation, currently in sinus rhythm Diabetes mellitus type 2 Hypertension Hyperlipidemia Hypothyroidism Peripheral artery disease Chronic hypoxic respiratory failure on home O2 at 3 L nasal cannula Episode of Atrial flutter with RVR, highly symptomatic s/p cardioversion Plan: Continue patient's home cardiac medications Due to patient's history of lung cancer and poor prognosis, no aggressive ischemic cardiac workup planned at this time. Consider outpatient stress testing. patient was transitioned to oral Lasix patient was transitioned to oral Lasix. Currently appears euvolemic. Monitor BESS, daily weights, electrolytes and renal function At the time of discharge, patient will either follow-up with his primary wire straightener in [place] or follow-up locally with Dr. Josselyn Hidalgo. patient with highly symptomatic atrial flutter requiring cardioversion and therefore continue with amiodarone at this time. stop his aspirin and only anticoagulation. Further recommendations to follow based upon clinical course Objective - Vital Signs Vital signs: Vital Signs Temp 97.6 F 12/26/23 04:00 Pulse 54 L 12/26/23 05:00 Resp 12 12/26/23 05:00 BP 150/71 12/26/23 05:00 Pulse Ox 97 12/26/23 05:00 FiO2 Intake & Output 12/25/23 12/25/23 12/26/23 06:59 18:59 06:59 Intake Total 78.391 917.513 504.637 Output Total 815 240 0280 Balance -571.609 7.513 -970.363 Intake: Intake, IV Titration 78.391 117.513 64.637 Amount Insulin Regular 100 unit 78.391 17.513 In Sodium Chloride 0.9% 100 ml @ Titrate IV .Q0M [facility] Rx#:[id number] Insulin Regular 100 unit 64.637 In Sodium Chloride 0.9% 100 ml @ Titrate IV .Q0M [facility] Rx#:[id number] Magnesium Sulfate-D5w Pmx 100 1 gm In Dextrose/Water 1 100ml.bag @ 100 mls/hr IVPB Q1H [facility] Rx#: [id number] Oral 800 440 Output: Urine 178 351 6143 Other: Voiding Method Indwelling Catheter Indwelling Catheter Indwelling Catheter # Bowel Movements 1 - Labs CBC & Chem 7: 12/25/23 03:52 12/25/23 03:52 Labs: Abnormal Lab Results - Last 24 Hours (Table) 12/25/23 12/25/23 12/25/23 Range/Units 05:29 06:17 07:56 APTT 30.6 H (22.0-30.0) sec POC Glucose (mg/dL) 212 H 361 H (70-110) mg/dL 12/25/23 12/25/23 12/25/23 Range/Units 11:57 16:23 18:39 APTT (22.0-30.0) sec POC Glucose (mg/dL) 390 H 475 H 558 H* (70-110) mg/dL 12/25/23 12/25/23 12/25/23 Range/Units 20:14 21:29 22:21 APTT (22.0-30.0) sec POC Glucose (mg/dL) 492 H 415 H 363 H (70-110) mg/dL 12/25/23 12/26/23 12/26/23 Range/Units 23:10 00:10 03:55 APTT (22.0-30.0) sec POC Glucose (mg/dL) 314 H 214 H 270 H (70-110) mg/dL
[2023-12-26 06:06] LABS: Anisocytosis Slight; HCT 30.8 % (39.0-53.0); HGB 9.8 gm/dL (13.0-17.5); Hypochromasia Slight; MCH 33.2 pg (25.0-35.0); MCHC 31.9 g/dL (31.0-37.0); MCV 103.9 fL (80.0-100.0); Macrocytosis Moderate; Mean Platelet Volume 9.2; RBC 2.97 m/uL (4.30-5.90); RDW 16.9 % (11.5-15.5)
[2023-12-26 06:07] LABS: Platelet Count 114 k/uL (150-450)
[2023-12-26 06:17] LABS: ALT 22 U/L (4-49); AST 15 U/L (17-59); African American GFR (CKD) 65 (>60 ml/min/1.73 sqM); Albumin 2.9 g/dL (3.5-5.0); Alkaline Phosphatase 69 U/L (38-126); Anion Gap 4 mmol/L; Blood Urea Nitrogen 57 mg/dL (9-20); Calcium 7.5 mg/dL (8.4-10.2); Carbon Dioxide 25 mmol/L (22-30); Chloride 101 mmol/L (98-107); Glucose 175 mg/dL (74-99); Magnesium 2.1 mg/dL (1.6-2.3); Non-African American GFR(CKD) 56 (>60 ml/min/1.73 sqM); Potassium 4.5 mmol/L (3.5-5.1); Sodium 130 mmol/L (137-145); Total Bilirubin 0.4 mg/dL (0.2-1.3); Total Protein 5.2 g/dL (6.3-8.2)
[2023-12-26 06:28] LABS: Band Neutrophils % 3 %; Monocytes # (M) 0.28 k/uL (0-1.0); Myelocytes % 2 %; Neutrophils % (M) 88 %; Nucleated Red Blood Cells 2 /100 WBC (0-0); Total Cells Counted 200
[2023-12-26 06:29] LABS: Lymphocytes # (M) 0.37 k/uL (1.0-4.8); Myelocytes # (M) 0.18 k/uL (0); WBC 9.2 k/uL (3.8-10.6)
[2023-12-26 06:30] LABS: Toxic Vacuolation Present
[2023-12-26 07:01] LABS: Glucose,Whole Blood 162 mg/dL (70-110)
[2023-12-26 08:25] LABS: Glucose,Whole Blood 253 mg/dL (70-110)
[2023-12-26] MEDS: SODIUM CHLORIDE 0.9% 1,000 ML IV ONE ×2 (11:20→14:04)
[2023-12-26 12:47] LABS: Glucose,Whole Blood 160 mg/dL (70-110)
--- NOTE | 2023-12-26 12:57 | XR ---
EXAMINATION TYPE: XR chest 1V portable DATE OF EXAM: 12/26/2023 COMPARISON: 12/24/2023 INDICATION: Respiratory status follow-up TECHNIQUE: Single frontal view of the chest is obtained. FINDINGS: The heart size is normal. The pulmonary vasculature is prominent. There is some increasing density in the right upper lung field Mild left basilar atelectasis or early pneumonia, similar to prior IMPRESSION: 1. Worsening right upper lobe infiltrate. Correlate for pneumonia. 2. Mild transient the left base remains present.
--- NOTE | 2023-12-26 13:11 | P.PN ---
Subjective Progress Note Date: 12/26/23 Patient is a 78-year-old white male with past medical history significant for lung cancer status post chemoradiation, COPD, former tobacco smoker quitting approximately 1 year ago, diabetes melitis, hypothyroidism, hypertension, hyperlipidemia, obesity, peripheral arterial disease, atrial fibrillation ch ronically anticoagulated on Eliquis, obstructive sleep apnea with home CPAP, among other comorbidities. Patient states that he was originally diagnosed with small cell lung cancer at [facility] October,. He is currently status post chemo and radiation treatments. He does follow with Dr. Kaiser from oncology. Most recent PET scan done 10/14/2023 did not show any new areas of abnormal hypermetabolic uptake to suggest active neoplastic recurrence. He does follow with a local river guide, Dr. Nirmala Gillespie. Patient states that his pulmonary status has significantly worsened over the last month and a half. He did have a brief hospitalization at [facility] reportedly last month. He has progressively become more short of breath, especially with exertion. States that he was told that he developed some radiation pneumonitis after his last radiation treatment. He is chronically oxygen dependent on 3 L home O2, but more recently increased his flow to 4 L/min. Yesterday, he got up as usual and started to make coffee. Had to use the bathroom, took his oxygen off, and went to the bathroom. He states that his nasal cannula does not reach this far. While in the bathroom he becomes severely short of breath. He called for his who put his CPAP machine on him. They then drove to [facility] where the patient was initially evaluated. While at the outside facility he did have a chest CTA which showed a very small distal right upper lobe filling defect consistent with small pulmonary embolism. Also, some likely post treatment changes of the right lung, with atelectasis and reticular changes in the right upper lobe. Superimposed diffuse groundglass opacities. Following these findings, the patient was transferred to [facility] late last night. Patient is currently sitting up in bed, on 4 L/min nasal cannula, in no acute distress. He endorses acute on chronic shortness of breath as described above. States he has been coughing more than normal over the last 3 days. No significant sputum production. Denies fevers. Denies sick contacts. Does admit substernal chest discomfort. Nonradiating. CBC on arrival to our facility: WBC count 7.8, hemoglobin 9.1, hematocrit 29.3, platelets 90,000. BMP drawn at our facility: Sodium 133, potassium 4.8, chloride 100, serum bicarb 10, BUN 29, creatinine 1.09, glucose 436. LFTs not elevated. Troponins were mildly elevated but are trending down, likely supply/demand mismatch, and are 0.047, 0.045, and 0.026 respectively. EKG demonstrates normal sinus rhythm without any acute ischemic changes noted. NT proBNP was significantly elevated at 5960. Patient's Eliquis has been restarted. Hemodynamics are stable. On today's evaluation of 12/22/2023, I am seeing the patient for a follow-up. Clinically improved compared to yesterday. Less bronchospastic and wheezy compared to yesterday. Still having some shortness of breath at rest. He is considerably improved compared to yesterday. Remains on bronchodilators. Remains on IV Solu-Medrol. Remains on oxygen 4 L/min nasal cannula. Remains on a combination performance of Pulmicort nebulized treatments and remains on Augmentin as an empiric antibiotic coverage. The blood work from today shows a WBC count of 9.2 with a hemoglobin 8.9 and a platelet count of 96. BUN is at 37 with a creatinine of 1.2 and a sodium levels at 131. The patient also has obstructive sleep apnea and he was able to bring in his CPAP unit which is an APAP unit set at a pressure of 6/15 cm of water. His treatment has been successful as the patient has been averaging around 10 hours of CPAP use per night and his AHI was down to 1 while on treatment the patient also feeds and oxygen 2 L through his CPAP unit. He remains on anticoagulation with Eliquis. 12/23/2023, the patient is being seen for a follow-up. The patient is doing w ell. Less short of breath compared to yesterday. Less bronchospastic and wheezy and utilizing his CPAP overnight. Blood sugar remains elevated and the patient is still on insulin drip for blood sugar control. Remains on IV Solu- Medrol dose of 60 mg every 6 hours. He is also empirically covered with Augmentin. He has developed some muscle cramps overnight. He is known to have muscle cramps on a chronic basis and the patient is drinking quinine water. BUN 37 with a creatinine 1.1 and a sodium levels at 133. Calcium level is at 8.3. Hemoglobin is 9.3 with a white cell count of 10.6. The patient remains on DuoNeb updrafts. The patient remains on Lasix 40 mg on a as needed basis and b ased on some increased edema and fluid overload, I am going to switch his Lasix to 40 mg on a daily basis and the first dose is to be given to him today. On 12/24/2023, seen the patient for a follow-up. The patient is doing well. Remains on IV Solu-Medrol. Remains on insulin drip for blood sugar control. No cramping of the body. Overnight, the patient issues with urinary retention. Michelle catheter was inserted and this was a traumatic insertion and is encountering some hematuria which is mild. Anticoagulation is still in progress. He is less short of breath compared to yesterday. Obese close 11.7 with a hemoglobin 9.3 and a platelet count of 103. His BUN is 49 with a creatinine of 1.2 and sodium is at 134 and the potassium level is 4.7. He has no other specific complaints for now. No chest pain. He clearly reports that his shortness of breath improving and the patient is currently on 4 L of oxygen by nasal cannula with a pulse ox of 98%. 12/25/2023, patient is being seen for a follow-up. Events from last night were noted. Noted the patient went into A-fib RVR. This made him quite unstable and short of breath. The patient was initially started on a Cardizem drip and he failed and his heart rate was quite tachycardic. Based on cardiology recommendation, the patient was cardioverted and a cardioversion was successful and the patient is currently back in normal sinus rhythm. Michelle catheter is in place and is having some limited hematuria. This is essentially clearing at this point in time. No significant shortness of breath. " Again wheezy and his respiratory status is back to his baseline. Blood sugars elevated and the patient remains on an insulin drip at 7 units an hour. Is currently on 3 L of oxygen nasal cannula. He is on IV Lasix daily. He remains in a negative fluid balance of 1.8 L over the past 24 hours. The white cell count is at 10 with a hemoglobin 9.1 and a platelet count of 106. Sodium is 132, potassium is at 4.8, BUN is 54 with a creatinine of 1.3. Blood sugars are elevated. 12/26/2023, the patient is being seen for a follow-up. Comfortable on 3 L of oxygen by nasal cannula. The cardiac rhythm Remains sinus. No significant bronchospasm or wheezing. Afebrile. Blood sugars remain quite elevated and the patient will be placed on Levemir 30 units twice daily. Patient is on oral Lasix. The patient is also on oral prednisone. IV insulin drip has been discontinued. Labs are stable with a white cell count of 9.2, hemoglobin 9.8, platelet count of 114, BUN 57 with a creatinine of 1.2 and a sodium levels of 130. Objective - Vital Signs Vital signs: Vital Signs Temp 97.6 F 12/26/23 04:00 Pulse 60 12/26/23 08:42 Resp 18 12/26/23 08:42 BP 140/65 12/26/23 07:00 Pulse Ox 98 12/26/23 08:29 FiO2 Intake & Output 12/25/23 12/26/23 12/26/23 18:59 06:59 18:59 Intake Total 917.513 504.637 Output Total 910 1775 Balance 7.513 -1270.363 Intake: Intake, IV Titration 117.513 64.637 Amount Insulin Regular 100 unit 17.513 In Sodium Chloride 0.9% 100 ml @ Titrate IV .Q0M TENA Rx#:[id number] Insulin Regular 100 unit 64.637 In Sodium Chloride 0.9% 100 ml @ Titrate IV .Q0M TENA Rx#:[id number] Magnesium Sulfate-D5w Pmx 100 1 gm In Dextrose/Water 1 100ml.bag @ 100 mls/hr IVPB Q1H TENA Rx#: [id number] Oral 800 440 Output: Urine 910 1775 Other: Voiding Method Indwelling Catheter Indwelling Catheter # Bowel Movements 1 - Exam GENERAL EXAM: Alert, 78-year-old white obese male, comfortable in no apparent distress. The patient is currently on 3 L of O2 nasal cannula HEAD: Normocephalic and atraumatic EYES: Normal reaction of pupils, equal size. NOSE: Clear with pink turbinates. THROAT: No erythema or exudates. NECK: No masses, no JVD. CHEST: No chest wall deformity. LUNGS: Equal air entry with faint and expiratory wheezes and mild inspiratory crackles at the right base. No conversational dyspnea or accessory muscle use.. CVS: S1 and S2 normal with no audible murmur, regular rhythm. No extra heart sounds ABDOMEN: No hepatosplenomegaly, active bowel sounds, no guarding or rigidity. SPINE: No scoliosis or deformity SKIN: No rashes CENTRAL NERVOUS SYSTEM: No focal deficits, tone is normal in all 4 extremities. EXTREMITIES: There is no peripheral edema, clubbing, or cyanosis. Peripheral pulses are intact. - Labs CBC & Chem 7: 12/26/23 05:42 12/26/23 05:42 Labs: Abnormal Lab Results - Last 24 Hours (Table) 12/25/23 12/25/23 12/25/23 Range/Units 11:57 16:23 18:39 RBC (4.30-5.90) m/uL Hgb (13.0-17.5) gm/dL Hct (39.0-53.0) % MCV (80.0-100.0) fL RDW (11.5-15.5) % Plt Count (150-450) k/uL Neutrophils # (Manual) (1.3-7.7) k/uL Lymphocytes # (Manual) (1.0-4.8) k/uL Myelocytes # (Manual) (0) k/uL Nucleated RBCs (0-0) /100 WBC Sodium (137-145) mmol/L BUN (9-20) mg/dL Glucose (74-99) mg/dL POC Glucose (mg/dL) 390 H 475 H 558 H* (70-110) mg/dL Calcium (8.4-10.2) mg/dL AST (17-59) U/L Total Protein (6.3-8.2) g/dL Albumin (3.5-5.0) g/dL 12/25/23 12/25/23 12/25/23 Range/Units 20:14 21:29 22:21 RBC (4.30-5.90) m/uL Hgb (13.0-17.5) gm/dL Hct (39.0-53.0) % MCV (80.0-100.0) fL RDW (11.5-15.5) % Plt Count (150-450) k/uL Neutrophils # (Manual) (1.3-7.7) k/uL Lymphocytes # (Manual) (1.0-4.8) k/uL Myelocytes # (Manual) (0) k/uL Nucleated RBCs (0-0) /100 WBC Sodium (137-145) mmol/L BUN (9-20) mg/dL Glucose (74-99) mg/dL POC Glucose (mg/dL) 492 H 415 H 363 H (70-110) mg/dL Calcium (8.4-10.2) mg/dL AST (17-59) U/L Total Protein (6.3-8.2) g/dL Albumin (3.5-5.0) g/dL 12/25/23 12/26/23 12/26/23 Range/Units 23:10 00:10 03:55 RBC (4.30-5.90) m/uL Hgb (13.0-17.5) gm/dL Hct (39.0-53.0) % MCV (80.0-100.0) fL RDW (11.5-15.5) % Plt Count (150-450) k/uL Neutrophils # (Manual) (1.3-7.7) k/uL Lymphocytes # (Manual) (1.0-4.8) k/uL Myelocytes # (Manual) (0) k/uL Nucleated RBCs (0-0) /100 WBC Sodium (137-145) mmol/L BUN (9-20) mg/dL Glucose (74-99) mg/dL POC Glucose (mg/dL) 314 H 214 H 270 H (70-110) mg/dL Calcium (8.4-10.2) mg/dL AST (17-59) U/L Total Protein (6.3-8.2) g/dL Albumin (3.5-5.0) g/dL 12/26/23 12/26/23 12/26/23 Range/Units 05:42 05:42 07:00 RBC 2.97 L (4.30-5.90) m/uL Hgb 9.8 L (13.0-17.5) gm/dL Hct 30.8 L (39.0-53.0) % MCV 103.9 H (80.0-100.0) fL RDW 16.9 H (11.5-15.5) % Plt Count 114 L (150-450) k/uL Neutrophils # (Manual) 8.30 H (1.3-7.7) k/uL Lymphocytes # (Manual) 0.37 L (1.0-4.8) k/uL Myelocytes # (Manual) 0.18 H (0) k/uL Nucleated RBCs 2 H (0-0) /100 WBC Sodium 130 L (137-145) mmol/L BUN 57 H (9-20) mg/dL Glucose 175 H (74-99) mg/dL POC Glucose (mg/dL) 162 H (70-110) mg/dL Calcium 7.5 L (8.4-10.2) mg/dL AST 15 L (17-59) U/L Total Protein 5.2 L (6.3-8.2) g/dL Albumin 2.9 L (3.5-5.0) g/dL 12/26/23 Range/Units 08:23 RBC (4.30-5.90) m/uL Hgb (13.0-17.5) gm/dL Hct (39.0-53.0) % MCV (80.0-100.0) fL RDW (11.5-15.5) % Plt Count (150-450) k/uL Neutrophils # (Manual) (1.3-7.7) k/uL Lymphocytes # (Manual) (1.0-4.8) k/uL Myelocytes # (Manual) (0) k/uL Nucleated RBCs (0-0) /100 WBC Sodium (137-145) mmol/L BUN (9-20) mg/dL Glucose (74-99) mg/dL POC Glucose (mg/dL) 253 H (70-110) mg/dL Calcium (8.4-10.2) mg/dL AST (17-59) U/L Total Protein (6.3-8.2) g/dL Albumin (3.5-5.0) g/dL Assessment and Plan Assessment: Acute on chronic hypoxemic respiratory failure, currently on 3 L/min nasal cannula, chest CTA from outside facility was noted to demonstrate a right upper lobe distal small filling defect consistent with pulmonary embolism. When c orrelating with patient's past medical history, there was also some likely post treatment changes in the right lung. Also, noted diffuse groundglass opacities, superimposed pulmonary edema was not excluded. My overall impression that the patient has COPD exacerbation. Patient responded nicely to bronchodilators and steroids and the patient's overall respite status is improved and the patient is currently on 3 L O2 nasal cannula Acute exacerbation of chronic obstructive pulmonary disease, improving and the patient is less short of breath, improving History of lung cancer, status post chemo/radiation, continues to follow-up with his oncologist outpatient, the patient has course radiation related pulmonary infiltrates involving the right perihilar area. No evidence of any active malignancy at this point in time. Atrial fibrillation with rapid ventricular response, converted into sinus rhythm post cardioversion and the patient remains on amiodarone 400 mg p.o. twice a day and metoprolol 75 mg twice a day and the patient is on anticoagulation with Eliquis. 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 Improved and the patient is on Flomax and the hematuria has recovered Plan: Clinically improving Cardiac rhythm is sinus Shortness of breath is improved Keep the oxygen at 3 L and titrate oxygen flow to maintain saturation above 90% Patient's Eliquis has been resumed, Doppler lower extremity negative and diagnosis of pulm embolism is doubtful, IV heparin will be discontinued Continue combination of DuoNebs [id number], budesonide inhalation Continue prednisone burst taper Continue Augmentin Continue Lasix at a dose of 40 mg p.o. twice a day Transthoracic echocardiogram was within normal limits Discontinue Lasix drip and start the patient on Levemir insulin, 30 units twice a day and sliding scale coverage CPAP overnight and the patient utilizing his own APAP unit. He remains on anticoagulation with Eliquis. Monitor hematuria, currently inactive and this has subsided Michelle catheter in place Possible discharge out of the intensive care unit today.
[2023-12-26 16:46] LABS: Glucose,Whole Blood 248 mg/dL (70-110)
[2023-12-26] MEDS: INSULIN DETEMIR (LEVEMIR) 100 UNIT/ML SYR SQ SCH (20:33)
[2023-12-26 20:40] LABS: Glucose,Whole Blood 353 mg/dL (70-110)
[2023-12-27 00:01] LABS: Glucose,Whole Blood 243 mg/dL (70-110)
--- NOTE | 2023-12-27 02:13 | PN ---
PROGRESS NOTE DATE OF SERVICE: 12/26/2023 SUBJECTIVE: This 78-year-old gentleman admitted with COPD as well as pulmonary embolism and atrial fibrillation with rapid ventricular rate. The patient was transferred to ICU and is being closely monitored. The blood pressure today this morning was slightly low, but is improving at this time. The most recent chest x-ray which I reviewed personally showed some increased bronchovascular markings and rather stable appearance. PAST MEDICAL HISTORY: Reviewed. REVIEW OF SYSTEMS: A 14-point review is negative, otherwise as mentioned. CURRENT MEDICATIONS: Reviewed include DuoNeb, dose and rest of medications noted. PHYSICAL EXAMINATION: VITAL SIGNS: Pulse 86, blood pressure 140/70, and respirations 16. CHEST: Few scattered rhonchi. ABDOMEN: Soft and obese. LEGS: No edema. No swelling. NERVOUS SYSTEM: Nonfocal. LABORATORY DATA: Hemoglobin 9.8, sodium 130. Accu-Cheks are noted. Further labs are noted. ASSESSMENT: 1. Chronic obstructive pulmonary disease acute exacerbation with acute hypoxic respiratory failure. 2. Atrial fibrillation with rapid ventricular rate, cardioverted, normal sinus rhythm. 3. Right upper lobe distal pulmonary embolism. 4. Possible right upper lobe pneumonia versus scarring. 5. Chronic hypoxic respiratory failure. 6. Elevated blood sugars and diabetes mellitus type 2. 7. History of lung cancer, status post chemo radiation. 8. Elevated troponins and paroxysmal atrial fibrillation. 9. Multiple complex medical issues. RECOMMENDATIONS: I recommend to continue current medical management and symptomatic treatment. Repeat labs. Continue the bronchodilators. Monitor closely. Continue with Eliquis. Guarded prognosis. Further recommendations follow. MMODL / IJN: [id number] /
[2023-12-27 04:09] LABS: Glucose,Whole Blood 83 mg/dL (70-110)
[2023-12-27 06:18] LABS: Glucose,Whole Blood 57 mg/dL (70-110)
[2023-12-27 06:39] LABS: Glucose,Whole Blood 73 mg/dL (70-110)
[2023-12-27 06:57] LABS: Glucose,Whole Blood 84 mg/dL (70-110)
[2023-12-27 08:12] LABS: Glucose,Whole Blood 132 mg/dL (70-110)
[2023-12-27 09:49] LABS: Anisocytosis Slight; Basophils # (A) 0.1 k/uL (0-0.2); Basophils % (A) 1 %; Eosinophils # (A) 0.2 k/uL (0-0.7); Eosinophils % (A) 2 %; HCT 30.5 % (39.0-53.0); HGB 9.1 gm/dL (13.0-17.5); Hypochromasia Slight; Lymphocytes # (A) 0.3 k/uL (1.0-4.8); Lymphocytes % (A) 3 %; MCH 31.4 pg (25.0-35.0); MCV 104.4 fL (80.0-100.0); Macrocytosis Moderate; Mean Platelet Volume 9.3; Monocytes # (A) 0.6 k/uL (0-1.0); Monocytes % (A) 6 %; Neutrophils # (A) 9.2 k/uL (1.3-7.7); Neutrophils % (A) 89 %; Platelet Count 107 k/uL (150-450); RBC 2.92 m/uL (4.30-5.90); WBC 10.3 k/uL (3.8-10.6)
[2023-12-27 09:55] LABS: African American GFR (CKD) 63 (>60 ml/min/1.73 sqM); Anion Gap 5 mmol/L; Blood Urea Nitrogen 47 mg/dL (9-20); Calcium 7.7 mg/dL (8.4-10.2); Carbon Dioxide 26 mmol/L (22-30); Chloride 103 mmol/L (98-107); Glucose 108 mg/dL (74-99); Non-African American GFR(CKD) 54 (>60 ml/min/1.73 sqM); Potassium 4.3 mmol/L (3.5-5.1); Sodium 134 mmol/L (137-145)
--- NOTE | 2023-12-27 10:50 | P.PN ---
Subjective Progress Note Date: 12/27/23 Principal diagnosis: Urinary retention, hematuria The patient underwent difficult insertion of a Michelle catheter on December 24, 2023. Following that, he was noted to have hematuria. That evening, he developed atrial fibrillation and was transferred to the ICU for cardioversion. He is now back on the floor, and the Michelle catheter is draining clear yellow urine. I discussed with the patient and his his previous prostate cancer treatment. He underwent external beam radiotherapy combined with HDR, performed at [facility] by Dr. Ruelas. Dr. Ruelas has retired and the patient does not currently have a urologist. Objective - Vital Signs Vital signs: Vital Signs Temp 97.6 F 12/27/23 00:00 Pulse 65 12/27/23 04:00 Resp 16 12/27/23 04:00 BP 135/73 12/27/23 04:00 Pulse Ox 95 12/27/23 04:00 FiO2 Intake & Output 12/26/23 12/27/23 12/27/23 18:59 06:59 18:59 Intake Total 1000 Output Total 605 2075 Balance 395 -2075 Weight 118 kg Intake: IV 1000 Sodium Chloride 0.9% 1, 1000 000 ml @ 999 mls/hr IV . Q1H1M ONE Rx#:[id number] Output: Urine 605 2075 Other: Voiding Method Indwelling Catheter Indwelling Catheter - Constitutional General appearance: Present: average body habitus, cooperative, no acute distress - Psychiatric Psychiatric: Present: A&O x's 3 - Labs CBC & Chem 7: 12/27/23 09:09 12/27/23 09:09 Labs: Abnormal Lab Results - Last 24 Hours (Table) 12/26/23 12/26/23 12/26/23 Range/Units 08:23 12:45 16:45 POC Glucose (mg/dL) 253 H 160 H 248 H (70-110) mg/dL 12/26/23 12/26/23 12/27/23 Range/Units 20:38 23:59 06:16 POC Glucose (mg/dL) 353 H 243 H 57 L (70-110) mg/dL 12/27/23 Range/Units 08:07 POC Glucose (mg/dL) 132 H (70-110) mg/dL Assessment and Plan (1) Retention of urine, unspecified Current Visit: Yes Status: Acute Code(s): R33.9 - RETENTION OF URINE, UNSPECIFIED SNOMED Code(s): 990039960 (2) Malignant neoplasm of prostate Current Visit: Yes Status: Acute Code(s): C61 - MALIGNANT NEOPLASM OF PROSTATE SNOMED Code(s): 031237623 Plan: A PSA level has been ordered to determine the status of the patient's prostate cancer. The Michelle catheter is now draining clear yellow urine, and the patient is receiving tamsulosin. The Michelle catheter will be removed tomorrow for a voiding trial.
--- NOTE | 2023-12-27 11:03 | P.PN ---
Subjective Progress Note Date: 12/27/23 This is a 78-year-old male follows with a manufacturing team member in [place] with past medical history of small cell lung cancer status post chemoradiation, COPD, radiation pneumonitis, chronic hypoxic respiratory failure on home O2 at 3 L, diabetes mellitus type 2, hypothyroidism, hypertension, hyperlipidemia, rhoda pheral artery disease, paroxysmal atrial fibrillation on Eliquis, obstructive sleep apnea with CPAP, remote history of tobacco use. We have been asked to evaluate the patient for elevated troponins. Patient initially presented to [facility] due to shortness of breath. He underwent a CTA of the chest that reported again advanced reticular changes right upper lobe where there is a very small pulmonary embolus. Patient denies having any chest pain. Patient was thus transferred to [facility] for further evaluation. EKG sinus rhythm with ventricular rate of 68. Ultrasound of the bilateral lower extremities negative for DVT. Chest x-ray: Right upper and left lower lobe infiltrates. Correlate for atelectasis and pneumonia. Atypical pulmonary edema could be considered. WBC 7.2, hemoglobin 8.9, platelet count 104. Sodium 133, potassium 4.8, BUN 29,, creatinine 1.09. Glucose initially 491. Hemoglobin A1c 9.5. Calcium 8.2. Total bilirubin 0.5, AST 16, troponins 0.047, 0.045 and 0.026. proBNP 5960. Home cardiac medications: Eliquis 5 mg twice daily, aspirin 81 mg daily, Lipitor 80 mg at bedtime, lisinopril 40 mg daily, magnesium chloride 214 mg twice daily, Lopressor 75 mg twice daily, potassium chloride 20 mill equivalents daily as needed. 12/21 Patient states that he is feeling a lot better from yesterday. Shortness of breath is significantly improved. He denies having any chest pain. Blood pressure 148/83, heart rate 64, pulse ox 97% on 4 L nasal cannula. Hemoglobin 8.9. BUN 37, creatinine 1.2, sodium 131 and potassium 4.6. Echocardiogram has been obtained but report is pending. 12/22 Patient denies having any chest pain or shortness of breath. He states he had a bad night as his blood sugar was extremely high over 500 he was started on insulin drip and developed cramps in his hands. Blood pressure 141/71, heart rate in the 60s and 70s, pulse ox 99% on 4 L nasal cannula. Repeat blood work reveals hemoglobin 9.3. BUN 37, creatinine 1.12. Echocardiogram reveals EF of 55 to 60%. Moderate to severe increased left ventricular wall thickness. Trace to mild mitral regurgitation. Moderately dilated left atrium. Mild aortic stenosis. Mild tricuspid regurgitation. 12/23 Patient denies having any chest pain. Pulmonary medicine started patient on IV Lasix 40 mg yesterday. Telemetry is a sinus rhythm with PACs. Blood pressure 126/68, heart rate 68, pulse ox 98% on 4 L nasal cannula. He remains on insulin drip. 12/24 Patient seen and examined. Patient had event overnight where he became more short of breath and more unstable with atrial fibrillation and RVR. Heart rates up in the 160s and Cardizem drip started however became again more symptomatic and therefore was recommended to undergo cardioversion which patient tolerated well with conversion back to normal sinus rhythm. He was transferred to ICU. He denies any chest pain or pressure. He does have continued shortness of breath. 12/24 patient seen and examined. Patient denies any chest pain or pressure. Still some shortness breath. No further atrial fibrillation. On amiodarone with weaning dose currently 400 twice a day. 12/26 Patient has been transferred out of ICU and seen today on the CSD unit. He is concerned about low BS and felt shaky. He denies chest pain and no shortness of breath. Blood pressure 124/65, heart rate is in the 60s and sinus rhythm. Pulse ox 98% on 3 L nasal cannula. Physical examination: Gen: This is a 78-year-old male in no acute distress VS: reviewed HEENT: Head is atraumatic, normocephalic. Pupils equal, round. Sclerae is anicteric. NECK: Supple. No JVD. LUNGS: Few scattered wheezes. No intercostal retractions. HEART: Regular rate and rhythm. No murmur. ABDOMEN: Soft No tenderness. EXTREMITIES: Mild pedal edema. No calf tenderness. NEUROLOGICAL: Patient is awake, alert and oriented x3. Assessment: Acute on chronic hypoxic respiratory failure secondary to COPD exacerbation Right upper lobe PE doubtful History of lung cancer status post chemoradiation Non-ST elevated myocardial infarction Paroxysmal atrial fibrillation, currently in sinus rhythm Diabetes mellitus type 2 Hypertension Hyperlipidemia Hypothyroidism Peripheral artery disease Chronic hypoxic respiratory failure on home O2 at 3 L nasal cannula Episode of Atrial flutter with RVR, highly symptomatic s/p cardioversion Plan: Continue patient's home cardiac medications Due to patient's history of lung cancer and poor prognosis, no aggressive ischemic cardiac workup planned at this time. Consider outpatient stress testing. patient was transitioned to oral Lasix patient was transitioned to oral Lasix. Currently appears euvolemic. Monitor BESS, daily weights, electrolytes and renal function At the time of discharge, patient will either follow-up with his primary manufacturing team member in [place] or follow-up locally with Dr. Josselyn Hidalgo. Patient with highly symptomatic atrial flutter requiring cardioversion and therefore continue with amiodarone at this time. Stop his aspirin and only anticoagulation with Eliquis. Further recommendations to follow based upon clinical course Nurse practitioner note has been reviewed, I agree with documented findings and plan of care. Patient was seen and examined. He denies have any chest pain or shortness of breath. Objective - Vital Signs Vital signs: Vital Signs Temp 97.0 F L 12/27/23 08:33 Pulse 68 12/27/23 09:21 Resp 17 12/27/23 08:33 BP 124/65 12/27/23 08:33 Pulse Ox 98 12/27/23 09:07 FiO2 Intake & Output 12/26/23 12/27/23 12/27/23 18:59 06:59 18:59 Intake Total 1000 110 Output Total 605 2075 Balance 395 -2075 110 Weight 118 kg Intake: IV 1000 Sodium Chloride 0.9% 1, 1000 000 ml @ 999 mls/hr IV . Q1H1M ONE Rx#:[id number] Oral 110 Output: Urine 605 2075 Other: Voiding Method Indwelling Catheter Indwelling Catheter Indwelling Catheter - Labs CBC & Chem 7: 12/27/23 09:09 12/27/23 09:09 Labs: Abnormal Lab Results - Last 24 Hours (Table) 12/26/23 12/26/23 12/26/23 Range/Units 12:45 16:45 20:38 RBC (4.30-5.90) m/uL Hgb (13.0-17.5) gm/dL Hct (39.0-53.0) % MCV (80.0-100.0) fL MCHC (31.0-37.0) g/dL RDW (11.5-15.5) % Plt Count (150-450) k/uL Neutrophils # (1.3-7.7) k/uL Lymphocytes # (1.0-4.8) k/uL Sodium (137-145) mmol/L BUN (9-20) mg/dL Creatinine (0.66-1.25) mg/dL Glucose (74-99) mg/dL POC Glucose (mg/dL) 160 H 248 H 353 H (70-110) mg/dL Calcium (8.4-10.2) mg/dL 12/26/23 12/27/23 12/27/23 Range/Units 23:59 06:16 08:07 RBC (4.30-5.90) m/uL Hgb (13.0-17.5) gm/dL Hct (39.0-53.0) % MCV (80.0-100.0) fL MCHC (31.0-37.0) g/dL RDW (11.5-15.5) % Plt Count (150-450) k/uL Neutrophils # (1.3-7.7) k/uL Lymphocytes # (1.0-4.8) k/uL Sodium (137-145) mmol/L BUN (9-20) mg/dL Creatinine (0.66-1.25) mg/dL Glucose (74-99) mg/dL POC Glucose (mg/dL) 243 H 57 L 132 H (70-110) mg/dL Calcium (8.4-10.2) mg/dL 12/27/23 12/27/23 Range/Units 09:09 09:09 RBC 2.92 L (4.30-5.90) m/uL Hgb 9.1 L (13.0-17.5) gm/dL Hct 30.5 L (39.0-53.0) % MCV 104.4 H (80.0-100.0) fL MCHC 30.0 L (31.0-37.0) g/dL RDW 17.0 H (11.5-15.5) % Plt Count 107 L (150-450) k/uL Neutrophils # 9.2 H (1.3-7.7) k/uL Lymphocytes # 0.3 L (1.0-4.8) k/uL Sodium 134 L (137-145) mmol/L BUN 47 H (9-20) mg/dL Creatinine 1.27 H (0.66-1.25) mg/dL Glucose 108 H (74-99) mg/dL POC Glucose (mg/dL) (70-110) mg/dL Calcium 7.7 L (8.4-10.2) mg/dL
[2023-12-27 11:41] LABS: Glucose,Whole Blood 129 mg/dL (70-110)
--- NOTE | 2023-12-27 14:45 | P.PN ---
Subjective Progress Note Date: 12/27/23 Patient is a 78-year-old white male with past medical history significant for lung cancer status post chemoradiation, COPD, former tobacco smoker quitting approximately 1 year ago, diabetes melitis, hypothyroidism, hypertension, hyperlipidemia, obesity, peripheral arterial disease, atrial fibrillation ch ronically anticoagulated on Eliquis, obstructive sleep apnea with home CPAP, among other comorbidities. Patient states that he was originally diagnosed with small cell lung cancer at [facility] October,. He is currently status post chemo and radiation treatments. He does follow with Dr. Kaiser from oncology. Most recent PET scan done 10/14/2023 did not show any new areas of abnormal hypermetabolic uptake to suggest active neoplastic recurrence. He does follow with a local extruder operator, Dr. Nirmala Gillespie. Patient states that his pulmonary status has significantly worsened over the last month and a half. He did have a brief hospitalization at [facility] reportedly last month. He has progressively become more short of breath, especially with exertion. States that he was told that he developed some radiation pneumonitis after his last radiation treatment. He is chronically oxygen dependent on 3 L home O2, but more recently increased his flow to 4 L/min. Yesterday, he got up as usual and started to make coffee. Had to use the bathroom, took his oxygen off, and went to the bathroom. He states that his nasal cannula does not reach this far. While in the bathroom he becomes severely short of breath. He called for his who put his CPAP machine on him. They then drove to [facility] where the patient was initially evaluated. While at the outside facility he did have a chest CTA which showed a very small distal right upper lobe filling defect consistent with small pulmonary embolism. Also, some likely post treatment changes of the right lung, with atelectasis and reticular changes in the right upper lobe. Superimposed diffuse groundglass opacities. Following these findings, the patient was transferred to [facility] late last night. Patient is currently sitting up in bed, on 4 L/min nasal cannula, in no acute distress. He endorses acute on chronic shortness of breath as described above. States he has been coughing more than normal over the last 3 days. No significant sputum production. Denies fevers. Denies sick contacts. Does admit substernal chest discomfort. Nonradiating. CBC on arrival to our facility: WBC count 7.8, hemoglobin 9.1, hematocrit 29.3, platelets 90,000. BMP drawn at our facility: Sodium 133, potassium 4.8, chloride 100, serum bicarb 10, BUN 29, creatinine 1.09, glucose 436. LFTs not elevated. Troponins were mildly elevated but are trending down, likely supply/demand mismatch, and are 0.047, 0.045, and 0.026 respectively. EKG demonstrates normal sinus rhythm without any acute ischemic changes noted. NT proBNP was significantly elevated at 5960. Patient's Eliquis has been restarted. Hemodynamics are stable. On today's evaluation of 12/22/2023, I am seeing the patient for a follow-up. Clinically improved compared to yesterday. Less bronchospastic and wheezy compared to yesterday. Still having some shortness of breath at rest. He is considerably improved compared to yesterday. Remains on bronchodilators. Remains on IV Solu-Medrol. Remains on oxygen 4 L/min nasal cannula. Remains on a combination performance of Pulmicort nebulized treatments and remains on Augmentin as an empiric antibiotic coverage. The blood work from today shows a WBC count of 9.2 with a hemoglobin 8.9 and a platelet count of 96. BUN is at 37 with a creatinine of 1.2 and a sodium levels at 131. The patient also has obstructive sleep apnea and he was able to bring in his CPAP unit which is an APAP unit set at a pressure of 6/15 cm of water. His treatment has been successful as the patient has been averaging around 10 hours of CPAP use per night and his AHI was down to 1 while on treatment the patient also feeds and oxygen 2 L through his CPAP unit. He remains on anticoagulation with Eliquis. 12/23/2023, the patient is being seen for a follow-up. The patient is doing w ell. Less short of breath compared to yesterday. Less bronchospastic and wheezy and utilizing his CPAP overnight. Blood sugar remains elevated and the patient is still on insulin drip for blood sugar control. Remains on IV Solu- Medrol dose of 60 mg every 6 hours. He is also empirically covered with Augmentin. He has developed some muscle cramps overnight. He is known to have muscle cramps on a chronic basis and the patient is drinking quinine water. BUN 37 with a creatinine 1.1 and a sodium levels at 133. Calcium level is at 8.3. Hemoglobin is 9.3 with a white cell count of 10.6. The patient remains on DuoNeb updrafts. The patient remains on Lasix 40 mg on a as needed basis and b ased on some increased edema and fluid overload, I am going to switch his Lasix to 40 mg on a daily basis and the first dose is to be given to him today. On 12/24/2023, seen the patient for a follow-up. The patient is doing well. Remains on IV Solu-Medrol. Remains on insulin drip for blood sugar control. No cramping of the body. Overnight, the patient issues with urinary retention. Michelle catheter was inserted and this was a traumatic insertion and is encountering some hematuria which is mild. Anticoagulation is still in progress. He is less short of breath compared to yesterday. Obese close 11.7 with a hemoglobin 9.3 and a platelet count of 103. His BUN is 49 with a creatinine of 1.2 and sodium is at 134 and the potassium level is 4.7. He has no other specific complaints for now. No chest pain. He clearly reports that his shortness of breath improving and the patient is currently on 4 L of oxygen by nasal cannula with a pulse ox of 98%. 12/25/2023, patient is being seen for a follow-up. Events from last night were noted. Noted the patient went into A-fib RVR. This made him quite unstable and short of breath. The patient was initially started on a Cardizem drip and he failed and his heart rate was quite tachycardic. Based on cardiology recommendation, the patient was cardioverted and a cardioversion was successful and the patient is currently back in normal sinus rhythm. Michelle catheter is in place and is having some limited hematuria. This is essentially clearing at this point in time. No significant shortness of breath. " Again wheezy and his respiratory status is back to his baseline. Blood sugars elevated and the patient remains on an insulin drip at 7 units an hour. Is currently on 3 L of oxygen nasal cannula. He is on IV Lasix daily. He remains in a negative fluid balance of 1.8 L over the past 24 hours. The white cell count is at 10 with a hemoglobin 9.1 and a platelet count of 106. Sodium is 132, potassium is at 4.8, BUN is 54 with a creatinine of 1.3. Blood sugars are elevated. 12/26/2023, the patient is being seen for a follow-up. Comfortable on 3 L of oxygen by nasal cannula. The cardiac rhythm Remains sinus. No significant bronchospasm or wheezing. Afebrile. Blood sugars remain quite elevated and the patient will be placed on Levemir 30 units twice daily. Patient is on oral Lasix. The patient is also on oral prednisone. IV insulin drip has been discontinued. Labs are stable with a white cell count of 9.2, hemoglobin 9.8, platelet count of 114, BUN 57 with a creatinine of 1.2 and a sodium levels of 130. On 12/27/2023, the patient is resting comfortably in bed and currently is on 3 L of oxygen by nasal cannula. Oxygenation is improved. Chills exacerbation was also recovered. Patient is currently on DuoNeb updrafts and prednisone taper and currently receiving a dose of 40 mg p.o. daily. Cardiac rhythm is also sinus. He is on a combination of amiodarone 400 mg p.o. twice a day and metoprolol 75 mg p.o. twice daily. He remains on anticoagulation with Eliquis 5 mg p.o. twice a day. He is also on Levemir insulin 20 units twice daily and sliding scale coverage. He remains on Lasix 40 mg p.o. daily. He was moved out of the intensive care unit. Michelle catheter is in place and the plan is to keep the catheter for another 24 hours and remove it in the morning. The white cell count is at 10.3 with a hemoglobin 11.1 and a platelet count of 117. BUN is 47 with a creatinine of 1.27 and a sodium levels of 134. Awake and alert. No altered mentation. No other new complaints otherwise for now. Objective - Vital Signs Vital signs: Vital Signs Temp 97.0 F L 12/27/23 08:33 Pulse 56 L 12/27/23 11:44 Resp 18 12/27/23 11:31 BP 96/50 12/27/23 11:31 Pulse Ox 98 12/27/23 11:31 FiO2 Intake & Output 12/26/23 12/27/23 12/27/23 18:59 06:59 18:59 Intake Total 1000 110 Output Total 605 5 Balance 395 -207 110 Weight 118 kg Intake: IV 1000 Sodium Chloride 0.9% 1, 1000 000 ml @ 999 mls/hr IV . Q1H1M ONE Rx#:[id number] Oral 110 Output: Urine 605 2074 Other: Voiding Method Indwelling Catheter Indwelling Catheter Indwelling Catheter - Exam GENERAL EXAM: Alert, 78-year-old white obese male, comfortable in no apparent distress. The patient is currently on 3 L of O2 nasal cannula HEAD: Normocephalic and atraumatic EYES: Normal reaction of pupils, equal size. NOSE: Clear with pink turbinates. THROAT: No erythema or exudates. NECK: No masses, no JVD. CHEST: No chest wall deformity. LUNGS: Equal air entry with faint and expiratory wheezes and mild inspiratory crackles at the right base. No conversational dyspnea or accessory muscle use.. CVS: S1 and S2 normal with no audible murmur, regular rhythm. No extra heart sounds ABDOMEN: No hepatosplenomegaly, active bowel sounds, no guarding or rigidity. SPINE: No scoliosis or deformity SKIN: No rashes CENTRAL NERVOUS SYSTEM: No focal deficits, tone is normal in all 4 extremities. EXTREMITIES: There is no peripheral edema, clubbing, or cyanosis. Peripheral pulses are intact. - Labs CBC & Chem 7: 12/27/23 09:09 12/27/23 09:09 Labs: Abnormal Lab Results - Last 24 Hours (Table) 12/26/23 12/26/23 12/26/23 Range/Units 12:45 16:45 20:38 RBC (4.30-5.90) m/uL Hgb (13.0-17.5) gm/dL Hct (39.0-53.0) % MCV (80.0-100.0) fL MCHC (31.0-37.0) g/dL RDW (11.5-15.5) % Plt Count (150-450) k/uL Neutrophils # (1.3-7.7) k/uL Lymphocytes # (1.0-4.8) k/uL Sodium (137-145) mmol/L BUN (9-20) mg/dL Creatinine (0.66-1.25) mg/dL Glucose (74-99) mg/dL POC Glucose (mg/dL) 160 H 248 H 353 H (70-110) mg/dL Calcium (8.4-10.2) mg/dL 12/26/23 12/27/23 12/27/23 Range/Units 23:59 06:16 08:07 RBC (4.30-5.90) m/uL Hgb (13.0-17.5) gm/dL Hct (39.0-53.0) % MCV (80.0-100.0) fL MCHC (31.0-37.0) g/dL RDW (11.5-15.5) % Plt Count (150-450) k/uL Neutrophils # (1.3-7.7) k/uL Lymphocytes # (1.0-4.8) k/uL Sodium (137-145) mmol/L BUN (9-20) mg/dL Creatinine (0.66-1.25) mg/dL Glucose (74-99) mg/dL POC Glucose (mg/dL) 243 H 57 L 132 H (70-110) mg/dL Calcium (8.4-10.2) mg/dL 12/27/23 12/27/23 12/27/23 Range/Units 09:09 09:09 11:39 RBC 2.92 L (4.30-5.90) m/uL Hgb 9.1 L (13.0-17.5) gm/dL Hct 30.5 L (39.0-53.0) % MCV 104.4 H (80.0-100.0) fL MCHC 30.0 L (31.0-37.0) g/dL RDW 17.0 H (11.5-15.5) % Plt Count 107 L (150-450) k/uL Neutrophils # 9.2 H (1.3-7.7) k/uL Lymphocytes # 0.3 L (1.0-4.8) k/uL Sodium 134 L (137-145) mmol/L BUN 47 H (9-20) mg/dL Creatinine 1.27 H (0.66-1.25) mg/dL Glucose 108 H (74-99) mg/dL POC Glucose (mg/dL) 129 H (70-110) mg/dL Calcium 7.7 L (8.4-10.2) mg/dL Assessment and Plan Assessment: Acute on chronic hypoxemic respiratory failure, currently on 3 L/min nasal cannula, chest CTA from outside facility was noted to demonstrate a right upper lobe distal small filling defect consistent with pulmonary embolism. When correlating with patient's past medical history, there was also some likely post treatment changes in the right lung. Also, noted diffuse groundglass opacities, superimposed pulmonary edema was not excluded. My overall impression that the patient has COPD exacerbation. Patient responded nicely to bronchodilators and steroids and the patient's overall respite status is improved and the patient is currently on 3 L O2 nasal cannula. The patient is currently on a prednisone burst taper starting with 40 mg p.o. daily. Remains on bronchodilators. Acute exacerbation of chronic obstructive pulmonary disease, improving and the patient is less short of breath, improved History of lung cancer, status post chemo/radiation, continues to follow-up with his oncologist outpatient, the patient has course radiation related pulmonary infiltrates involving the right perihilar area. No evidence of any active malignancy at this point in time. Atrial fibrillation with rapid ventricular response, converted into sinus rhythm post cardioversion and the patient remains on amiodarone 400 mg p.o. twice a day and metoprolol 75 mg twice a day and the patient is on anticoagulation with Eliquis. The current rhythm remained sinus Chronic hypoxemic respiratory failure, secondary to above Elevated troponins, trending down, not consistent with ACS History of paroxysmal atrial fibrillation, currently normal sinus rhythm, chronically anticoagulated on Eliquis Diabetes mellitus type 2 with steroid-induced hyperglycemia currently off insulin drip for blood sugar control currently on Levemir insulin Hypertension History of hyperlipidemia History of hypothyroidism History of peripheral arterial disease Bicytopenia, with thrombocytopenia and anemia, possibly chronic and no overt signs of acute blood loss History of prostate cancer status postradiation Obstructive sleep apnea with home CPAP Obesity, with a BMI of 35.5 kg/m Former tobacco dependence, quit smoking December 2022 Obstructive uropathy post Michelle catheter insertion. Improved and the patient is on Flomax and the hematuria has recovered Plan: Clinically improving Cardiac rhythm is sinus Shortness of breath is improved Keep the oxygen at 3 L and titrate oxygen flow to maintain saturation above 90% Patient's is on anticoagulation with Eliquis Continue combination of DuoNebs [id number], budesonide inhalation Continue prednisone burst taper Continue Augmentin Continue Lasix at a dose of 40 mg p.o. twice a day Transthoracic echocardiogram was within normal limits Levemir insulin, 20 units twice a day and sliding scale coverage CPAP overnight and the patient utilizing his own APAP unit. He remains on anticoagulation with Eliquis. Monitor hematuria, currently inactive and this has subsided Michelle catheter in place for another 24 hours and attempt removing it in the mo rning
[2023-12-27 16:26] LABS: Glucose,Whole Blood 357 mg/dL (70-110)
[2023-12-27 20:06] LABS: Glucose,Whole Blood 482 mg/dL (70-110)
[2023-12-27] MEDS: INSULIN DETEMIR (LEVEMIR) 100 UNIT/ML SYR SQ SCH (21:39)
--- NOTE | 2023-12-28 00:55 | PN ---
PROGRESS NOTE DATE OF SERVICE: 12/27/2023 SUBJECTIVE: This is a 78-year-old gentleman who was admitted with COPD acute exacerbation, also had atrial fibrillation. No chest pain, no palpitations, no fever. The patient's most recent chest x-ray showed some worsening of the right upper lobe infiltrate. The patient clinically is stable. OBJECTIVE: VITAL SIGNS: Pulse is 56, blood pressure 96/50, respirations 18. CHEST: Few scattered rhonchi and crackles. ABDOMEN: Soft. NERVOUS SYSTEM: Nonfocal. LABORATORY DATA: Hemoglobin 9.1, other labs are noted. ASSESSMENT: 1. Chronic obstructive pulmonary disease acute exacerbation with acute hypoxic respiratory failure. 2. Atrial fibrillation, rapid ventricular rate, converted to normal sinus rhythm. 3. Right upper lobe lesion in the upper lobe, distal pulmonary embolism. 4. Possible right upper lobe pneumonia versus scarring. 5. Chronic hypoxic respiratory failure. 6. Elevated blood sugars and diabetes mellitus type 2. 7. History of lung cancer, status post chemo radiation. 8. Elevated troponin, paroxysmal atrial fibrillation. 9. Multiple complex medical issues. RECOMMENDATIONS AND DISCUSSION: Continue current management and continue symptomatic treatment. Repeat labs. Increase ambulation. Possible discharge within the next 24-48 hours if the patient continues to improve and if okay with multiple consultants. Prognosis guarded. Further recommendations to follow, discussed with family. MMODL / IJN: [id number] /
[2023-12-28 01:04] LABS: Glucose,Whole Blood 326 mg/dL (70-110)
[2023-12-28 04:04] LABS: Glucose,Whole Blood 192 mg/dL (70-110)
[2023-12-28 06:03] LABS: Glucose,Whole Blood 287 mg/dL (70-110)
[2023-12-28 08:09] LABS: Glucose,Whole Blood 198 mg/dL (70-110)
[2023-12-28 09:09] LABS: African American GFR (CKD) 60 (>60 ml/min/1.73 sqM); Anion Gap 6 mmol/L; Blood Urea Nitrogen 47 mg/dL (9-20); Calcium 7.8 mg/dL (8.4-10.2); Carbon Dioxide 25 mmol/L (22-30); Chloride 102 mmol/L (98-107); Glucose 116 mg/dL (74-99); Non-African American GFR(CKD) 52 (>60 ml/min/1.73 sqM); Potassium 4.5 mmol/L (3.5-5.1); Sodium 133 mmol/L (137-145)
[2023-12-28 09:10] LABS: Anisocytosis Slight; Basophils # (A) 0.1 k/uL (0-0.2); Basophils % (A) 1 %; Eosinophils # (A) 0.2 k/uL (0-0.7); Eosinophils % (A) 2 %; HGB 9.2 gm/dL (13.0-17.5); Hypochromasia Slight; Lymphocytes # (A) 0.2 k/uL (1.0-4.8); Lymphocytes % (A) 2 %; MCH 32.7 pg (25.0-35.0); MCHC 31.7 g/dL (31.0-37.0); MCV 103.2 fL (80.0-100.0); Macrocytosis Moderate; Mean Platelet Volume 8.7; Monocytes # (A) 0.4 k/uL (0-1.0); Monocytes % (A) 5 %; Neutrophils # (A) 7.1 k/uL (1.3-7.7); Neutrophils % (A) 90 %; Platelet Count 110 k/uL (150-450); RBC 2.81 m/uL (4.30-5.90); RDW 16.8 % (11.5-15.5); WBC 7.9 k/uL (3.8-10.6)
--- NOTE | 2023-12-28 09:24 | P.PN ---
Subjective Progress Note Date: 12/28/23 Principal diagnosis: Urinary retention, hematuria The patient underwent difficult insertion of a Michelle catheter on December 24, 2023. Following that, he was noted to have hematuria. That evening, he developed atrial fibrillation and was transferred to the ICU for cardioversion. The hematuria has resolved, and the Michelle catheter was removed this morning. The patient has yet to void. The patient has a history of prostate cancer. He underwent external beam radiotherapy combined with HDR, performed at [facility] by Dr. Ruelas. Dr. Ruelas has retired and the patient does not currently have a urologist. Objective - Vital Signs Vital signs: Vital Signs Temp 97.4 F L 12/28/23 07:57 Pulse 62 12/28/23 07:57 Resp 18 12/28/23 07:57 BP 132/76 12/28/23 07:57 Pulse Ox 97 12/28/23 07:57 FiO2 Intake & Output 12/27/23 12/28/23 12/28/23 18:59 06:59 18:59 Intake Total 350 500 180 Output Total 2100 1380 Balance -1750 -880 180 Weight 123.5 kg Intake: IV 20 Invasive Line 2 20 Oral 350 480 180 Output: Urine 2100 1380 Uretheral (Michelle) 180 Other: Voiding Method Indwelling Catheter Indwelling Catheter - Constitutional General appearance: Present: average body habitus, cooperative, no acute distress - Psychiatric Psychiatric: Present: A&O x's 3 - Labs CBC & Chem 7: 12/28/23 08:14 12/28/23 08:14 Labs: Abnormal Lab Results - Last 24 Hours (Table) 12/27/23 12/27/23 12/27/23 Range/Units 09:09 09:09 11:39 RBC 2.92 L (4.30-5.90) m/uL Hgb 9.1 L (13.0-17.5) gm/dL Hct 30.5 L (39.0-53.0) % MCV 104.4 H (80.0-100.0) fL MCHC 30.0 L (31.0-37.0) g/dL RDW 17.0 H (11.5-15.5) % Plt Count 107 L (150-450) k/uL Neutrophils # 9.2 H (1.3-7.7) k/uL Lymphocytes # 0.3 L (1.0-4.8) k/uL Sodium 134 L (137-145) mmol/L BUN 47 H (9-20) mg/dL Creatinine 1.27 H (0.66-1.25) mg/dL Glucose 108 H (74-99) mg/dL POC Glucose (mg/dL) 129 H (70-110) mg/dL Calcium 7.7 L (8.4-10.2) mg/dL 12/27/23 12/27/23 12/28/23 Range/Units 16:24 20:04 01:00 RBC (4.30-5.90) m/uL Hgb (13.0-17.5) gm/dL Hct (39.0-53.0) % MCV (80.0-100.0) fL MCHC (31.0-37.0) g/dL RDW (11.5-15.5) % Plt Count (150-450) k/uL Neutrophils # (1.3-7.7) k/uL Lymphocytes # (1.0-4.8) k/uL Sodium (137-145) mmol/L BUN (9-20) mg/dL Creatinine (0.66-1.25) mg/dL Glucose (74-99) mg/dL POC Glucose (mg/dL) 357 H 482 H 326 H (70-110) mg/dL Calcium (8.4-10.2) mg/dL 12/28/23 12/28/23 12/28/23 Range/Units 04:02 06:01 08:08 RBC (4.30-5.90) m/uL Hgb (13.0-17.5) gm/dL Hct (39.0-53.0) % MCV (80.0-100.0) fL MCHC (31.0-37.0) g/dL RDW (11.5-15.5) % Plt Count (150-450) k/uL Neutrophils # (1.3-7.7) k/uL Lymphocytes # (1.0-4.8) k/uL Sodium (137-145) mmol/L BUN (9-20) mg/dL Creatinine (0.66-1.25) mg/dL Glucose (74-99) mg/dL POC Glucose (mg/dL) 192 H 287 H 198 H (70-110) mg/dL Calcium (8.4-10.2) mg/dL 12/28/23 12/28/23 Range/Units 08:14 08:14 RBC 2.81 L (4.30-5.90) m/uL Hgb 9.2 L (13.0-17.5) gm/dL Hct 29.0 L (39.0-53.0) % MCV 103.2 H (80.0-100.0) fL MCHC (31.0-37.0) g/dL RDW 16.8 H (11.5-15.5) % Plt Count 110 L (150-450) k/uL Neutrophils # (1.3-7.7) k/uL Lymphocytes # 0.2 L (1.0-4.8) k/uL Sodium 133 L (137-145) mmol/L BUN 47 H (9-20) mg/dL Creatinine 1.33 H (0.66-1.25) mg/dL Glucose 116 H (74-99) mg/dL POC Glucose (mg/dL) (70-110) mg/dL Calcium 7.8 L (8.4-10.2) mg/dL Assessment and Plan (1) Retention of urine, unspecified Current Visit: Yes Status: Acute Code(s): R33.9 - RETENTION OF URINE, UNSPECIFIED SNOMED Code(s): 340146864 (2) Malignant neoplasm of prostate Current Visit: Yes Status: Acute Code(s): C61 - MALIGNANT NEOPLASM OF PROSTATE SNOMED Code(s): 203515591 Plan: A PSA level has been ordered to determine the status of the patient's prostate cancer. The Michelle catheter has been removed. If the patient is unable to void or empties his bladder incompletely, the Michelle catheter will be replaced and arrangements will be made for him to undergo urodynamic testing and cystoscopy as an outpatient.
[2023-12-28 11:55] LABS: Glucose,Whole Blood 83 mg/dL (70-110)
--- NOTE | 2023-12-28 14:11 | PN ---
PROGRESS NOTE DATE OF SERVICE: 12/28/2023 SUBJECTIVE: This 78-year-old gentleman admitted with COPD acute exacerbation, also atrial fibrillation. No chest pain, no palpitations. History of short of breath. OBJECTIVE: VITAL SIGNS: Pulse is 60, blood pressure 130/76, respirations 70. CHEST: Bilateral scattered rhonchi and crackles. ABDOMEN: Soft. NERVOUS SYSTEM: Nonfocal. LABORATORY DATA: Reviewed. ASSESSMENT: 1. Chronic obstructive pulmonary disease acute exacerbation with acute hypoxic respiratory failure. 2. Atrial fibrillation, rapid ventricular rate, converted to normal sinus rhythm. 3. Right upper lobe lesion and possibly distal pulmonary embolism. 4. Possible right upper lobe pneumonia versus scarring. 5. Chronic hypoxic respiratory failure. 6. Elevated blood sugar, diabetes mellitus type 2. 7. History of lung cancer, status post chemoradiation. 8. Multiple medical issues. RECOMMENDATIONS AND DISCUSSION: Recommended to continue current management, continue symptomatic treatment, increase ambulation. Otherwise, I would recommend repeat labs. Closely follow. Possible discharge in the next 24 hours. Further recommendations to follow. MMODL / IJN: [id number] /
--- NOTE | 2023-12-28 15:14 | P.PN ---
Subjective Progress Note Date: 12/28/23 Patient is a 78-year-old white male with past medical history significant for lung cancer status post chemoradiation, COPD, former tobacco smoker quitting approximately 1 year ago, diabetes melitis, hypothyroidism, hypertension, hyperlipidemia, obesity, peripheral arterial disease, atrial fibrillation chr onically anticoagulated on Eliquis, obstructive sleep apnea with home CPAP, among other comorbidities. Patient states that he was originally diagnosed with small cell lung cancer at [facility] October,. He is currently status post chemo and radiation treatments. He does follow with Dr. Kaiser from oncology. Most recent PET scan done 10/14/2023 did not show any new areas of abnormal hypermetabolic uptake to suggest active neoplastic recurrence. He does follow with a local upholstery cutter, Dr. Nirmala Gillespie. Patient states that his pulmonary status has significantly worsened over the last month and a half. He did have a brief hospitalization at [facility] reportedly last month. He has progressively become more short of breath, especially with exertion. States that he was told that he developed some radiation pneumonitis after his last radiation treatment. He is chronically oxygen dependent on 3 L home O2, but more recently increased his flow to 4 L/min. Yesterday, he got up as usual and started to make coffee. Had to use the bathroom, took his oxygen off, and went to the bathroom. He states that his nasal cannula does not reach this far. While in the bathroom he becomes severely short of breath. He called for his who put his CPAP machine on him. They then drove to [facility] where the patient was initially evaluated. While at the outside facility he did have a chest CTA which showed a very small distal right upper lobe filling defect consistent with small pulmonary embolism. Also, some likely post treatment changes of the right lung, with atelectasis and reticular changes in the right upper lobe. Superimposed diffuse groundglass opacities. Following these findings, the patient was transferred to [facility] late last night. Patient is currently sitting up in bed, on 4 L/min nasal cannula, in no acute distress. He endorses acute on chronic shortness of breath as described above. States he has been coughing more than normal over the last 3 days. No significant sputum production. Denies fevers. Denies sick contacts. Does admit substernal chest discomfort. Nonradiating. CBC on arrival to our facility: WBC count 7.8, hemoglobin 9.1, hematocrit 29.3, platelets 90,000. BMP drawn at our facility: Sodium 133, potassium 4.8, chloride 100, serum bicarb 10, BUN 29, creatinine 1.09, glucose 436. LFTs not elevated. Troponins were mildly elevated but are trending down, likely supply/demand mismatch, and are 0.047, 0.045, and 0.026 respectively. EKG demonstrates normal sinus rhythm without any acute ischemic changes noted. NT proBNP was significantly elevated at 5960. Patient's Eliquis has been restarted. Hemodynamics are stable. On today's evaluation of 12/22/2023, I am seeing the patient for a follow-up. Clinically improved compared to yesterday. Less bronchospastic and wheezy compared to yesterday. Still having some shortness of breath at rest. He is considerably improved compared to yesterday. Remains on bronchodilators. Remains on IV Solu-Medrol. Remains on oxygen 4 L/min nasal cannula. Remains on a combination performance of Pulmicort nebulized treatments and remains on Augmentin as an empiric antibiotic coverage. The blood work from today shows a WBC count of 9.2 with a hemoglobin 8.9 and a platelet count of 96. BUN is at 37 with a creatinine of 1.2 and a sodium levels at 131. The patient also has obstructive sleep apnea and he was able to bring in his CPAP unit which is an APAP unit set at a pressure of 6/15 cm of water. His treatment has been successful as the patient has been averaging around 10 hours of CPAP use per night and his AHI was down to 1 while on treatment the patient also feeds and oxygen 2 L through his CPAP unit. He remains on anticoagulation with Eliquis. 12/23/2023, the patient is being seen for a follow-up. The patient is doing we ll. Less short of breath compared to yesterday. Less bronchospastic and wheezy and utilizing his CPAP overnight. Blood sugar remains elevated and the patient is still on insulin drip for blood sugar control. Remains on IV Solu-Medrol dose of 60 mg every 6 hours. He is also empirically covered with Augmentin. He has developed some muscle cramps overnight. He is known to have muscle cramps on a chronic basis and the patient is drinking quinine water. BUN 37 with a creatinine 1.1 and a sodium levels at 133. Calcium level is at 8.3. Hemoglobin is 9.3 with a white cell count of 10.6. The patient remains on DuoNeb updrafts. The patient remains on Lasix 40 mg on a as needed basis and based on some increased edema and fluid overload, I am going to switch his Lasix to 40 mg on a daily basis and the first dose is to be given to him today. On 12/24/2023, seen the patient for a follow-up. The patient is doing well. Remains on IV Solu-Medrol. Remains on insulin drip for blood sugar control. No cramping of the body. Overnight, the patient issues with urinary retention. Michelle catheter was inserted and this was a traumatic insertion and is encountering some hematuria which is mild. Anticoagulation is still in progress. He is less short of breath compared to yesterday. Obese close 11.7 with a hemoglobin 9.3 and a platelet count of 103. His BUN is 49 with a creatinine of 1.2 and sodium is at 134 and the potassium level is 4.7. He has no other specific complaints for now. No chest pain. He clearly reports that his shortness of breath improving and the patient is currently on 4 L of oxygen by nasal cannula with a pulse ox of 98%. 12/25/2023, patient is being seen for a follow-up. Events from last night were noted. Noted the patient went into A-fib RVR. This made him quite unstable and short of breath. The patient was initially started on a Cardizem drip and he failed and his heart rate was quite tachycardic. Based on cardiology recommendation, the patient was cardioverted and a cardioversion was successful and the patient is currently back in normal sinus rhythm. Michelle catheter is in place and is having some limited hematuria. This is essentially clearing at this point in time. No significant shortness of breath. " Again wheezy and his respiratory status is back to his baseline. Blood sugars elevated and the patient remains on an insulin drip at 7 units an hour. Is currently on 3 L of oxygen nasal cannula. He is on IV Lasix daily. He remains in a negative fluid balance of 1.8 L over the past 24 hours. The white cell count is at 10 with a hemoglobin 9.1 and a platelet count of 106. Sodium is 132, potassium is at 4.8, BUN is 54 with a creatinine of 1.3. Blood sugars are elevated. 12/26/2023, the patient is being seen for a follow-up. Comfortable on 3 L of oxygen by nasal cannula. The cardiac rhythm Remains sinus. No significant bronchospasm or wheezing. Afebrile. Blood sugars remain quite elevated and the patient will be placed on Levemir 30 units twice daily. Patient is on oral Lasix. The patient is also on oral prednisone. IV insulin drip has been discontinued. Labs are stable with a white cell count of 9.2, hemoglobin 9.8, platelet count of 114, BUN 57 with a creatinine of 1.2 and a sodium levels of 130. On 12/27/2023, the patient is resting comfortably in bed and currently is on 3 L of oxygen by nasal cannula. Oxygenation is improved. Chills exacerbation was also recovered. Patient is currently on DuoNeb updrafts and prednisone taper and currently receiving a dose of 40 mg p.o. daily. Cardiac rhythm is also sinus. He is on a combination of amiodarone 400 mg p.o. twice a day and metoprolol 75 mg p.o. twice daily. He remains on anticoagulation with Eliquis 5 mg p.o. twice a day. He is also on Levemir insulin 20 units twice daily and sliding scale coverage. He remains on Lasix 40 mg p.o. daily. He was moved out of the intensive care unit. Michelle catheter is in place and the plan is to keep the catheter for another 24 hours and remove it in the morning. The white cell count is at 10.3 with a hemoglobin 11.1 and a platelet count of 117. BUN is 47 with a creatinine of 1.27 and a sodium levels of 134. Awake and alert. No altered mentation. No other new complaints otherwise for now. The patient is seen today December 28, 2023 in follow-up on the selective care unit. He is awake and alert in no acute distress. Resting comfortably in bed. Denies any worsening shortness of breath, cough or congestion. He is maintaining good O2 saturations in the upper 90s on 2 L/min per nasal cannula. Has been afebrile. Hemodynamically stable. White count 7.9. Hemoglobin 9.2. Platelets 110. Sodium 133. Potassium 4.5. Bicarb 25. BUN 47. Creatinine 1.33. Glucose 116. He remains on bronchodilators. Remains on diuretics. Anticoagulated with Eliquis. Objective - Vital Signs Vital signs: Vital Signs Temp 98.4 F 12/28/23 11:54 Pulse 78 12/28/23 12:12 Resp 17 12/28/23 11:54 BP 130/77 12/28/23 11:54 Pulse Ox 97 12/28/23 11:54 FiO2 Intake & Output 12/27/23 12/28/23 12/28/23 18:59 06:59 18:59 Intake Total 350 500 360 Output Total 2100 1380 525 Balance -1750 -880 -165 Weight 123.5 kg Intake: IV 20 Invasive Line 2 20 Oral 350 480 360 Output: Urine 2100 1380 525 Uretheral (Michelle) 180 Other: Voiding Method Indwelling Catheter Indwelling Catheter Urinal # Bowel Movements 1 - Exam GENERAL EXAM: Alert, 78-year-old obese male, comfortable in no apparent distress. Currently on 2 L of O2 nasal cannula HEAD: Normocephalic and atraumatic EYES: Normal reaction of pupils, equal size. NOSE: Clear with pink turbinates. THROAT: No erythema or exudates. NECK: No masses, no JVD. CHEST: No chest wall deformity. LUNGS: Equal air entry with faint and expiratory wheezes and mild inspiratory crackles at the right base. CVS: S1 and S2 normal with no audible murmur, regular rhythm. No extra heart sounds ABDOMEN: No hepatosplenomegaly, active bowel sounds, no guarding or rigidity. SPINE: No scoliosis or deformity SKIN: No rashes CENTRAL NERVOUS SYSTEM: No focal deficits, tone is normal in all 4 extremities. EXTREMITIES: There is no peripheral edema, clubbing, or cyanosis. Peripheral pulses are intact. - Labs CBC & Chem 7: 12/28/23 08:14 12/28/23 08:14 Labs: Abnormal Lab Results - Last 24 Hours (Table) 12/27/23 12/27/23 12/27/23 Range/Units 09:09 16:24 20:04 RBC (4.30-5.90) m/uL Hgb (13.0-17.5) gm/dL Hct (39.0-53.0) % MCV (80.0-100.0) fL RDW (11.5-15.5) % Plt Count (150-450) k/uL Lymphocytes # (1.0-4.8) k/uL Sodium (137-145) mmol/L BUN (9-20) mg/dL Creatinine (0.66-1.25) mg/dL Glucose (74-99) mg/dL POC Glucose (mg/dL) 357 H 482 H (70-110) mg/dL Calcium (8.4-10.2) mg/dL PSA Screen 6.550 H (0.000-4.000) ng/mL 12/28/23 12/28/23 12/28/23 Range/Units 01:00 04:02 06:01 RBC (4.30-5.90) m/uL Hgb (13.0-17.5) gm/dL Hct (39.0-53.0) % MCV (80.0-100.0) fL RDW (11.5-15.5) % Plt Count (150-450) k/uL Lymphocytes # (1.0-4.8) k/uL Sodium (137-145) mmol/L BUN (9-20) mg/dL Creatinine (0.66-1.25) mg/dL Glucose (74-99) mg/dL POC Glucose (mg/dL) 326 H 192 H 287 H (70-110) mg/dL Calcium (8.4-10.2) mg/dL PSA Screen (0.000-4.000) ng/mL 12/28/23 12/28/23 12/28/23 Range/Units 08:08 08:14 08:14 RBC 2.81 L (4.30-5.90) m/uL Hgb 9.2 L (13.0-17.5) gm/dL Hct 29.0 L (39.0-53.0) % MCV 103.2 H (80.0-100.0) fL RDW 16.8 H (11.5-15.5) % Plt Count 110 L (150-450) k/uL Lymphocytes # 0.2 L (1.0-4.8) k/uL Sodium 133 L (137-145) mmol/L BUN 47 H (9-20) mg/dL Creatinine 1.33 H (0.66-1.25) mg/dL Glucose 116 H (74-99) mg/dL POC Glucose (mg/dL) 198 H (70-110) mg/dL Calcium 7.8 L (8.4-10.2) mg/dL PSA Screen (0.000-4.000) ng/mL Assessment and Plan Assessment: Acute on chronic hypoxemic respiratory failure, currently on 3 L/min nasal cannula, chest CTA from outside facility was noted to demonstrate a right upper lobe distal small filling defect consistent with pulmonary embolism. When correlating with patient's past medical history, there was also some likely post treatment changes in the right lung. Also, noted diffuse groundglass opacities, superimposed pulmonary edema was not excluded. Overall impression that the patient has COPD exacerbation. Patient responded nicely to bronchodilators and steroids and his overall pulmonary status is improved and is currently on 2 L O2 nasal cannula. The patient is currently on a prednisone burst taper starting with 40 mg p.o. daily. Remains on bronchodilators. Acute exacerbation of chronic obstructive pulmonary disease, improving and the patient is less short of breath, improved History of lung cancer, status post chemo/radiation, continues to follow-up with his oncologist outpatient, the patient has course radiation related pulmonary infiltrates involving the right perihilar area. No evidence of any active malignancy at this point in time. Atrial fibrillation with rapid ventricular response, converted into sinus rhythm post cardioversion and the patient remains on amiodarone 400 mg p.o. twice a day and metoprolol 75 mg twice a day and the patient is on anticoagulation with Eliquis. The current rhythm remained sinus Chronic hypoxemic respiratory failure, secondary to above Elevated troponins, trending down, not consistent with ACS History of paroxysmal atrial fibrillation, currently normal sinus rhythm, chronically anticoagulated on Eliquis Diabetes mellitus type 2 with steroid-induced hyperglycemia currently off insulin drip for blood sugar control currently on Levemir insulin Hypertension History of hyperlipidemia History of hypothyroidism History of peripheral arterial disease Bicytopenia, with thrombocytopenia and anemia, possibly chronic and no overt signs of acute blood loss History of prostate cancer status postradiation Obstructive sleep apnea with home CPAP Obesity, with a BMI of 35.5 kg/m Former tobacco dependence, quit smoking December 2022 Obstructive uropathy post Michelle catheter insertion. Improved and the patient is on Flomax and the hematuria has recovered Plan: The patient was seen and evaluated Labs and medications reviewed Stable and on 2 L nasal cannula Michelle catheter removed per urology PSA level pending We will continue to follow I have personally seen and examined the patient, performed the documentation and the assessment and plan as written. Number of minutes spent on the visit: 10.
[2023-12-28 16:23] LABS: Glucose,Whole Blood 275 mg/dL (70-110)
[2023-12-28 20:12] LABS: Glucose,Whole Blood 389 mg/dL (70-110)
[2023-12-29 00:05] LABS: Glucose,Whole Blood 246 mg/dL (70-110)
[2023-12-29 04:22] LABS: Glucose,Whole Blood 62 mg/dL (70-110)
[2023-12-29 04:40] LABS: Glucose,Whole Blood 97 mg/dL (70-110)
[2023-12-29 07:57] LABS: Glucose,Whole Blood 75 mg/dL (70-110)
--- NOTE | 2023-12-29 09:12 | P.PN ---
Subjective Progress Note Date: 12/29/23 Principal diagnosis: Urinary retention, hematuria The patient underwent difficult insertion of a Michelle catheter on December 24, 2023. Following that, he was noted to have hematuria. That evening, he developed atrial fibrillation and was transferred to the ICU for cardioversion. The hematuria has resolved, and the Michelle catheter was removed yesterday, and he is voiding without difficulty. He denies dysuria and hematuria. The postvoid residual was initially approximately 380 cc, but subsequent residuals were in the 200 cc range. The patient has a history of prostate cancer. He underwent external beam radiotherapy combined with HDR, performed at [facility] by Dr. Ruelas. Dr. Ruelas has retired and the patient does not currently have a urologist. His PSA level is 6.55, suggesting the presence of recurrent prostate cancer. Objective - Vital Signs Vital signs: Vital Signs Temp 97.8 F 12/29/23 04:00 Pulse 61 12/29/23 04:00 Resp 20 12/29/23 04:00 BP 165/77 12/29/23 04:00 Pulse Ox 98 12/29/23 04:00 FiO2 Intake & Output 12/28/23 12/28/23 12/29/23 06:59 18:59 06:59 Intake Total 500 540 20 Output Total 2872 201 8607 Balance -880 -410 -2400 Weight 123.5 kg Intake: IV 20 20 Invasive Line 2 20 20 Oral 480 540 Output: Urine 3078 692 3608 Uretheral (Michelle) 180 Other: Voiding Method Indwelling Catheter Urinal Urinal # Voids 2 # Bowel Movements 1 - Constitutional General appearance: Present: average body habitus, cooperative, no acute distress - Psychiatric Psychiatric: Present: A&O x's 3 - Labs CBC & Chem 7: 12/28/23 08:14 12/28/23 08:14 Labs: Abnormal Lab Results - Last 24 Hours (Table) 12/27/23 12/28/23 12/28/23 Range/Units 09:09 08:08 08:14 RBC 2.81 L (4.30-5.90) m/uL Hgb 9.2 L (13.0-17.5) gm/dL Hct 29.0 L (39.0-53.0) % MCV 103.2 H (80.0-100.0) fL RDW 16.8 H (11.5-15.5) % Plt Count 110 L (150-450) k/uL Lymphocytes # 0.2 L (1.0-4.8) k/uL Sodium (137-145) mmol/L BUN (9-20) mg/dL Creatinine (0.66-1.25) mg/dL Glucose (74-99) mg/dL POC Glucose (mg/dL) 198 H (70-110) mg/dL Calcium (8.4-10.2) mg/dL PSA Screen 6.550 H (0.000-4.000) ng/mL 12/28/23 12/28/23 12/28/23 Range/Units 08:14 16:21 20:10 RBC (4.30-5.90) m/uL Hgb (13.0-17.5) gm/dL Hct (39.0-53.0) % MCV (80.0-100.0) fL RDW (11.5-15.5) % Plt Count (150-450) k/uL Lymphocytes # (1.0-4.8) k/uL Sodium 133 L (137-145) mmol/L BUN 47 H (9-20) mg/dL Creatinine 1.33 H (0.66-1.25) mg/dL Glucose 116 H (74-99) mg/dL POC Glucose (mg/dL) 275 H 389 H (70-110) mg/dL Calcium 7.8 L (8.4-10.2) mg/dL PSA Screen (0.000-4.000) ng/mL 12/29/23 12/29/23 Range/Units 00:04 04:21 RBC (4.30-5.90) m/uL Hgb (13.0-17.5) gm/dL Hct (39.0-53.0) % MCV (80.0-100.0) fL RDW (11.5-15.5) % Plt Count (150-450) k/uL Lymphocytes # (1.0-4.8) k/uL Sodium (137-145) mmol/L BUN (9-20) mg/dL Creatinine (0.66-1.25) mg/dL Glucose (74-99) mg/dL POC Glucose (mg/dL) 246 H 62 L (70-110) mg/dL Calcium (8.4-10.2) mg/dL PSA Screen (0.000-4.000) ng/mL Assessment and Plan (1) Retention of urine, unspecified Current Visit: Yes Status: Acute Code(s): R33.9 - RETENTION OF URINE, UNSPECIFIED SNOMED Code(s): 820817556 (2) Malignant neoplasm of prostate Current Visit: Yes Status: Acute Code(s): C61 - MALIGNANT NEOPLASM OF PROSTATE SNOMED Code(s): 306658301 Plan: Patient is stable for discharge. I would recommend that he be discharged home on tamsulosin, and follow-up with me in several weeks. I discussed the fact with him that the PSA level may represent recurrent prostate cancer. However, the PSA level may have been falsely elevated due to recent Michelle catheterization. The PSA level will be repeated when he sees me, and if it remains elevated he will be advised to undergo further evaluation.
[2023-12-29 11:00] LABS: African American GFR (CKD) 46 (>60 ml/min/1.73 sqM); Anion Gap 5 mmol/L; Blood Urea Nitrogen 51 mg/dL (9-20); Calcium 8.8 mg/dL (8.4-10.2); Carbon Dioxide 28 mmol/L (22-30); Chloride 100 mmol/L (98-107); Glucose 182 mg/dL (74-99); Non-African American GFR(CKD) 40 (>60 ml/min/1.73 sqM); Potassium 4.5 mmol/L (3.5-5.1); Sodium 133 mmol/L (137-145)
[2023-12-29 11:19] LABS: Anisocytosis Slight; Basophils # (A) 0.1 k/uL (0-0.2); Basophils % (A) 1 %; Eosinophils # (A) 0.2 k/uL (0-0.7); Eosinophils % (A) 2 %; HCT 29.8 % (39.0-53.0); HGB 9.2 gm/dL (13.0-17.5); Hypochromasia Slight; Lymphocytes # (A) 0.1 k/uL (1.0-4.8); Lymphocytes % (A) 1 %; MCHC 30.8 g/dL (31.0-37.0); Macrocytosis Moderate; Mean Platelet Volume 8.6; Monocytes # (A) 0.5 k/uL (0-1.0); Monocytes % (A) 5 %; Neutrophils # (A) 9.5 k/uL (1.3-7.7); Neutrophils % (A) 91 %; Platelet Count 109 k/uL (150-450); RBC 2.87 m/uL (4.30-5.90); RDW 16.9 % (11.5-15.5); WBC 10.4 k/uL (3.8-10.6)
[2023-12-29 11:43] LABS: Glucose,Whole Blood 271 mg/dL (70-110)
--- NOTE | 2023-12-29 11:50 | P.PN ---
Subjective There are no further inpatient recommendations from a cardiac standpoint. Per Dr. Norman, we will sign off. Please reconsult if needed. Objective - Vital Signs Vital signs: Vital Signs Temp 97.3 F L 12/29/23 08:17 Pulse 66 12/29/23 09:34 Resp 20 12/29/23 08:40 BP 97/61 12/29/23 08:17 Pulse Ox 96 12/29/23 09:16 FiO2 Intake & Output 12/28/23 12/29/23 12/29/23 18:59 06:59 18:59 Intake Total 540 20 190 Output Total 950 2420 300 Balance -410 -2400 -110 Intake: IV 20 10 Invasive Line 2 20 10 Oral 540 180 Output: Urine 950 2420 300 Other: Voiding Method Urinal Urinal Urinal # Voids 2 # Bowel Movements 1 - Labs CBC & Chem 7: 12/29/23 10:01 12/29/23 10:01 Labs: Abnormal Lab Results - Last 24 Hours (Table) 12/27/23 12/28/23 12/28/23 Range/Units 09:09 16:21 20:10 RBC (4.30-5.90) m/uL Hgb (13.0-17.5) gm/dL Hct (39.0-53.0) % MCV (80.0-100.0) fL MCHC (31.0-37.0) g/dL RDW (11.5-15.5) % Plt Count (150-450) k/uL Neutrophils # (1.3-7.7) k/uL Lymphocytes # (1.0-4.8) k/uL Sodium (137-145) mmol/L BUN (9-20) mg/dL Creatinine (0.66-1.25) mg/dL Glucose (74-99) mg/dL POC Glucose (mg/dL) 275 H 389 H (70-110) mg/dL PSA Screen 6.550 H (0.000-4.000) ng/mL 12/29/23 12/29/23 12/29/23 Range/Units 00:04 04:21 10:01 RBC 2.87 L (4.30-5.90) m/uL Hgb 9.2 L (13.0-17.5) gm/dL Hct 29.8 L (39.0-53.0) % MCV 104.0 H (80.0-100.0) fL MCHC 30.8 L (31.0-37.0) g/dL RDW 16.9 H (11.5-15.5) % Plt Count 109 L (150-450) k/uL Neutrophils # 9.5 H (1.3-7.7) k/uL Lymphocytes # 0.1 L (1.0-4.8) k/uL Sodium (137-145) mmol/L BUN (9-20) mg/dL Creatinine (0.66-1.25) mg/dL Glucose (74-99) mg/dL POC Glucose (mg/dL) 246 H 62 L (70-110) mg/dL PSA Screen (0.000-4.000) ng/mL 12/29/23 12/29/23 Range/Units 10:01 11:41 RBC (4.30-5.90) m/uL Hgb (13.0-17.5) gm/dL Hct (39.0-53.0) % MCV (80.0-100.0) fL MCHC (31.0-37.0) g/dL RDW (11.5-15.5) % Plt Count (150-450) k/uL Neutrophils # (1.3-7.7) k/uL Lymphocytes # (1.0-4.8) k/uL Sodium 133 L (137-145) mmol/L BUN 51 H (9-20) mg/dL Creatinine 1.65 H (0.66-1.25) mg/dL Glucose 182 H (74-99) mg/dL POC Glucose (mg/dL) 271 H (70-110) mg/dL PSA Screen (0.000-4.000) ng/mL
--- NOTE | 2023-12-29 15:40 | P.PN ---
Subjective Progress Note Date: 12/29/23 Patient is a 78-year-old white male with past medical history significant for lung cancer status post chemoradiation, COPD, former tobacco smoker quitting approximately 1 year ago, diabetes melitis, hypothyroidism, hypertension, hyperlipidemia, obesity, peripheral arterial disease, atrial fibrillation chr onically anticoagulated on Eliquis, obstructive sleep apnea with home CPAP, among other comorbidities. Patient states that he was originally diagnosed with small cell lung cancer at [facility] October,. He is currently status post chemo and radiation treatments. He does follow with Dr. Kaiser from oncology. Most recent PET scan done 10/14/2023 did not show any new areas of abnormal hypermetabolic uptake to suggest active neoplastic recurrence. He does follow with a local cleater, Dr. Nirmala Gillespie. Patient states that his pulmonary status has significantly worsened over the last month and a half. He did have a brief hospitalization at [facility] reportedly last month. He has progressively become more short of breath, especially with exertion. States that he was told that he developed some radiation pneumonitis after his last radiation treatment. He is chronically oxygen dependent on 3 L home O2, but more recently increased his flow to 4 L/min. Yesterday, he got up as usual and started to make coffee. Had to use the bathroom, took his oxygen off, and went to the bathroom. He states that his nasal cannula does not reach this far. While in the bathroom he becomes severely short of breath. He called for his who put his CPAP machine on him. They then drove to [facility] where the patient was initially evaluated. While at the outside facility he did have a chest CTA which showed a very small distal right upper lobe filling defect consistent with small pulmonary embolism. Also, some likely post treatment changes of the right lung, with atelectasis and reticular changes in the right upper lobe. Superimposed diffuse groundglass opacities. Following these findings, the patient was transferred to [facility] late last night. Patient is currently sitting up in bed, on 4 L/min nasal cannula, in no acute distress. He endorses acute on chronic shortness of breath as described above. States he has been coughing more than normal over the last 3 days. No significant sputum production. Denies fevers. Denies sick contacts. Does admit substernal chest discomfort. Nonradiating. CBC on arrival to our facility: WBC count 7.8, hemoglobin 9.1, hematocrit 29.3, platelets 90,000. BMP drawn at our facility: Sodium 133, potassium 4.8, chloride 100, serum bicarb 10, BUN 29, creatinine 1.09, glucose 436. LFTs not elevated. Troponins were mildly elevated but are trending down, likely supply/demand mismatch, and are 0.047, 0.045, and 0.026 respectively. EKG demonstrates normal sinus rhythm without any acute ischemic changes noted. NT proBNP was significantly elevated at 5960. Patient's Eliquis has been restarted. Hemodynamics are stable. On today's evaluation of 12/22/2023, I am seeing the patient for a follow-up. Clinically improved compared to yesterday. Less bronchospastic and wheezy compared to yesterday. Still having some shortness of breath at rest. He is considerably improved compared to yesterday. Remains on bronchodilators. Remains on IV Solu-Medrol. Remains on oxygen 4 L/min nasal cannula. Remains on a combination performance of Pulmicort nebulized treatments and remains on Augmentin as an empiric antibiotic coverage. The blood work from today shows a WBC count of 9.2 with a hemoglobin 8.9 and a platelet count of 96. BUN is at 37 with a creatinine of 1.2 and a sodium levels at 131. The patient also has obstructive sleep apnea and he was able to bring in his CPAP unit which is an APAP unit set at a pressure of 6/15 cm of water. His treatment has been successful as the patient has been averaging around 10 hours of CPAP use per night and his AHI was down to 1 while on treatment the patient also feeds and oxygen 2 L through his CPAP unit. He remains on anticoagulation with Eliquis. 12/23/2023, the patient is being seen for a follow-up. The patient is doing we ll. Less short of breath compared to yesterday. Less bronchospastic and wheezy and utilizing his CPAP overnight. Blood sugar remains elevated and the patient is still on insulin drip for blood sugar control. Remains on IV Solu-Medrol dose of 60 mg every 6 hours. He is also empirically covered with Augmentin. He has developed some muscle cramps overnight. He is known to have muscle cramps on a chronic basis and the patient is drinking quinine water. BUN 37 with a creatinine 1.1 and a sodium levels at 133. Calcium level is at 8.3. Hemoglobin is 9.3 with a white cell count of 10.6. The patient remains on DuoNeb updrafts. The patient remains on Lasix 40 mg on a as needed basis and based on some increased edema and fluid overload, I am going to switch his Lasix to 40 mg on a daily basis and the first dose is to be given to him today. On 12/24/2023, seen the patient for a follow-up. The patient is doing well. Remains on IV Solu-Medrol. Remains on insulin drip for blood sugar control. No cramping of the body. Overnight, the patient issues with urinary retention. Michelle catheter was inserted and this was a traumatic insertion and is encountering some hematuria which is mild. Anticoagulation is still in progress. He is less short of breath compared to yesterday. Obese close 11.7 with a hemoglobin 9.3 and a platelet count of 103. His BUN is 49 with a creatinine of 1.2 and sodium is at 134 and the potassium level is 4.7. He has no other specific complaints for now. No chest pain. He clearly reports that his shortness of breath improving and the patient is currently on 4 L of oxygen by nasal cannula with a pulse ox of 98%. 12/25/2023, patient is being seen for a follow-up. Events from last night were noted. Noted the patient went into A-fib RVR. This made him quite unstable and short of breath. The patient was initially started on a Cardizem drip and he failed and his heart rate was quite tachycardic. Based on cardiology recommendation, the patient was cardioverted and a cardioversion was successful and the patient is currently back in normal sinus rhythm. Michelle catheter is in place and is having some limited hematuria. This is essentially clearing at this point in time. No significant shortness of breath. " Again wheezy and his respiratory status is back to his baseline. Blood sugars elevated and the patient remains on an insulin drip at 7 units an hour. Is currently on 3 L of oxygen nasal cannula. He is on IV Lasix daily. He remains in a negative fluid balance of 1.8 L over the past 24 hours. The white cell count is at 10 with a hemoglobin 9.1 and a platelet count of 106. Sodium is 132, potassium is at 4.8, BUN is 54 with a creatinine of 1.3. Blood sugars are elevated. 12/26/2023, the patient is being seen for a follow-up. Comfortable on 3 L of oxygen by nasal cannula. The cardiac rhythm Remains sinus. No significant bronchospasm or wheezing. Afebrile. Blood sugars remain quite elevated and the patient will be placed on Levemir 30 units twice daily. Patient is on oral Lasix. The patient is also on oral prednisone. IV insulin drip has been discontinued. Labs are stable with a white cell count of 9.2, hemoglobin 9.8, platelet count of 114, BUN 57 with a creatinine of 1.2 and a sodium levels of 130. On 12/27/2023, the patient is resting comfortably in bed and currently is on 3 L of oxygen by nasal cannula. Oxygenation is improved. Chills exacerbation was also recovered. Patient is currently on DuoNeb updrafts and prednisone taper and currently receiving a dose of 40 mg p.o. daily. Cardiac rhythm is also sinus. He is on a combination of amiodarone 400 mg p.o. twice a day and metoprolol 75 mg p.o. twice daily. He remains on anticoagulation with Eliquis 5 mg p.o. twice a day. He is also on Levemir insulin 20 units twice daily and sliding scale coverage. He remains on Lasix 40 mg p.o. daily. He was moved out of the intensive care unit. Michelle catheter is in place and the plan is to keep the catheter for another 24 hours and remove it in the morning. The white cell count is at 10.3 with a hemoglobin 11.1 and a platelet count of 117. BUN is 47 with a creatinine of 1.27 and a sodium levels of 134. Awake and alert. No altered mentation. No other new complaints otherwise for now. The patient is seen today December 28, 2023 in follow-up on the selective care unit. He is awake and alert in no acute distress. Resting comfortably in bed. Denies any worsening shortness of breath, cough or congestion. He is maintaining good O2 saturations in the upper 90s on 2 L/min per nasal cannula. Has been afebrile. Hemodynamically stable. White count 7.9. Hemoglobin 9.2. Platelets 110. Sodium 133. Potassium 4.5. Bicarb 25. BUN 47. Creatinine 1.33. Glucose 116. He remains on bronchodilators. Remains on diuretics. Anticoagulated with Eliquis. The patient is seen today December 29, 2023 in follow-up on the selective care unit. He is currently sitting up in a chair. Awake and alert in no acute distress. Maintaining good O2 saturations in the 90s on 2 L/min per nasal cannula. He is afebrile. Hemodynamically stable.. He denies any worsening shortness of breath. White count 10.4. Hemoglobin 9.2. Platelets 109. Sodium 133. Potassium 4.5. Bicarb 28. BUN 51. Creatinine 1.65. Glucose 182. His PSA level is 6.55 concerning for recurrent prostate cancer. Urology is following. He is continued on bronchodilators, oral diuretics, prednisone taper. He remains on tamsulosin. Anticoagulated with Eliquis Objective - Vital Signs Vital signs: Vital Signs Temp 97.3 F L 12/29/23 08:17 Pulse 65 12/29/23 13:35 Resp 20 12/29/23 13:35 BP 113/65 12/29/23 12:00 Pulse Ox 98 12/29/23 12:00 FiO2 Intake & Output 12/28/23 12/29/23 12/29/23 18:59 06:59 18:59 Intake Total 540 20 740 Output Total 950 2420 850 Balance -410 -2400 -110 Intake: IV 20 20 Invasive Line 2 20 20 Oral 540 720 Output: Urine 950 2420 850 Other: Voiding Method Urinal Urinal Urinal # Voids 2 # Bowel Movements 1 1 - Exam GENERAL EXAM: Alert, 78-year-old obese male, sitting up in a chair, in no apparent distress. Currently on 2 L of O2 nasal cannula HEAD: Normocephalic and atraumatic EYES: Normal reaction of pupils, equal size. NOSE: Clear with pink turbinates. THROAT: No erythema or exudates. NECK: No masses, no JVD. CHEST: No chest wall deformity. LUNGS: Equal air entry with faint and expiratory wheezes and mild inspiratory crackles at the right base. CVS: S1 and S2 normal with no audible murmur, regular rhythm. No extra heart sounds ABDOMEN: No hepatosplenomegaly, active bowel sounds, no guarding or rigidity. SPINE: No scoliosis or deformity SKIN: No rashes CENTRAL NERVOUS SYSTEM: No focal deficits, tone is normal in all 4 extremities. EXTREMITIES: There is no peripheral edema, clubbing, or cyanosis. Peripheral pulses are intact. - Labs CBC & Chem 7: 12/29/23 10:01 12/29/23 10:01 Labs: Abnormal Lab Results - Last 24 Hours (Table) 12/28/23 12/28/23 12/29/23 Range/Units 16:21 20:10 00:04 RBC (4.30-5.90) m/uL Hgb (13.0-17.5) gm/dL Hct (39.0-53.0) % MCV (80.0-100.0) fL MCHC (31.0-37.0) g/dL RDW (11.5-15.5) % Plt Count (150-450) k/uL Neutrophils # (1.3-7.7) k/uL Lymphocytes # (1.0-4.8) k/uL Sodium (137-145) mmol/L BUN (9-20) mg/dL Creatinine (0.66-1.25) mg/dL Glucose (74-99) mg/dL POC Glucose (mg/dL) 275 H 389 H 246 H (70-110) mg/dL 12/29/23 12/29/23 12/29/23 Range/Units 04:21 10:01 10:01 RBC 2.87 L (4.30-5.90) m/uL Hgb 9.2 L (13.0-17.5) gm/dL Hct 29.8 L (39.0-53.0) % MCV 104.0 H (80.0-100.0) fL MCHC 30.8 L (31.0-37.0) g/dL RDW 16.9 H (11.5-15.5) % Plt Count 109 L (150-450) k/uL Neutrophils # 9.5 H (1.3-7.7) k/uL Lymphocytes # 0.1 L (1.0-4.8) k/uL Sodium 133 L (137-145) mmol/L BUN 51 H (9-20) mg/dL Creatinine 1.65 H (0.66-1.25) mg/dL Glucose 182 H (74-99) mg/dL POC Glucose (mg/dL) 62 L (70-110) mg/dL 12/29/23 Range/Units 11:41 RBC (4.30-5.90) m/uL Hgb (13.0-17.5) gm/dL Hct (39.0-53.0) % MCV (80.0-100.0) fL MCHC (31.0-37.0) g/dL RDW (11.5-15.5) % Plt Count (150-450) k/uL Neutrophils # (1.3-7.7) k/uL Lymphocytes # (1.0-4.8) k/uL Sodium (137-145) mmol/L BUN (9-20) mg/dL Creatinine (0.66-1.25) mg/dL Glucose (74-99) mg/dL POC Glucose (mg/dL) 271 H (70-110) mg/dL Assessment and Plan Assessment: Acute on chronic hypoxemic respiratory failure, currently on 2 L/min nasal cannula, chest CTA from outside facility was noted to demonstrate a right upper lobe distal small filling defect consistent with pulmonary embolism. When correlating with patient's past medical history, there was also some likely post treatment changes in the right lung. Also, noted diffuse groundglass opacities, superimposed pulmonary edema was not excluded. Overall impression that the patient has COPD exacerbation. Patient responded nicely to bronchodilators and steroids and his overall pulmonary status is improved and is currently on 2 L O2 nasal cannula. The patient is currently on a prednisone burst taper starting with 40 mg p.o. daily. Remains on bronchodilators. Acute exacerbation of chronic obstructive pulmonary disease, improving and the patient is less short of breath, improved History of lung cancer, status post chemo/radiation, continues to follow-up with his oncologist outpatient, the patient has course radiation related pulmonary infiltrates involving the right perihilar area. No evidence of any active malignancy at this point in time. Atrial fibrillation with rapid ventricular response, converted into sinus rhythm post cardioversion and the patient remains on amiodarone 400 mg p.o. twice a day and metoprolol 75 mg twice a day and the patient is on anticoagulation with Eliquis. 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 Improved and the patient is on Flomax and the hematuria has recovered Plan: The patient was seen and evaluated Labs and medications reviewed Stable and on 2 L nasal cannula Titrate down the FiO2 as tolerated Cleared for discharge from the pulmonary standpoint Complete a prednisone taper Continue his home bronchodilators To follow-up with urology regarding PSA level Follow-up in our office in 1 week I have personally seen and examined the patient, performed the documentation and the assessment and plan as written. Number of minutes spent on the visit: 10.
[2023-12-29 16:07] LABS: Glucose,Whole Blood 200 mg/dL (70-110)
[2023-12-29 20:13] LABS: Glucose,Whole Blood 303 mg/dL (70-110)
[2023-12-30 00:11] LABS: Glucose,Whole Blood 317 mg/dL (70-110)
[2023-12-30 04:14] LABS: Glucose,Whole Blood 174 mg/dL (70-110)
[2023-12-30 06:14] LABS: Glucose,Whole Blood 92 mg/dL (70-110)
--- NOTE | 2023-12-30 06:32 | P.PN ---
Subjective Progress Note Date: 12/29/23 This is a 78-year-old male who was recently admitted with COPD exacerbation also found to have new onset atrial fibrillation and heart failure acute exacerbation. Multiple consultations following including pulmonary and cardiology. Patient continued on oxygen via nasal cannula will wean as tolerated. Patient continues on breathing treatments along with steroids. Continue monitoring blood sugars and will titrate dosing accordingly. Patient with generalized weakness and prolonged hospitalization evaluated by PT/OT therapy recommending rehab and patient and family are agreeable. Case management/social work following working on discharge planning Review of systems: Constitutional: No reports of fatigue, fever, or chills Cardiovascular: No reports of chest pain or palpitations Respiratory: No reports of worsening shortness of breath or cough GI: No reports of nausea, vomiting, or diarrhea : No reports of dysuria or retention, patient is voiding Neurovascular: reports of generalized weakness and difficulty ambulating Physical exam: Gen: This is a 78-year-old male who is awake, alert and oriented x 3, well- developed, well-nourished, elderly, obese HEENT: Head is atraumatic, normocephalic. Pupils equal, round. Sclerae is anicteric. NECK: Supple. No JVD. No lymphadenopathy. No thyromegaly. LUNGS: Diminished breath sounds bilaterally otherwise clear to auscultation. No wheezes, some coarse scattered rhonchi noted. No intercostal retractions. HEART: S1, S2 are muffled ABDOMEN: Soft. Obese bowel sounds are present. No masses. No tenderness. EXTREMITIES: No pedal edema. No calf tenderness. 1+ pitting edema noted bilateral lower extremities NEUROLOGICAL: Patient is awake, alert and oriented x3. Cranial nerves 2 through 12 are grossly intact. Diffusely weak Assessment: Chronic obstructive pulmonary disease acute exacerbation with acute hypoxic respiratory failure Atrial fibrillation with rvr, currently rate controlled right upper lobe lesion and possible distal pulmonary embolism Possible right upper lobe pneumonia versus scarring Chronic hypoxic respiratory failure Diabetes mellitus, type II, uncontrolled with hyperglycemia History of lung cancer, status post chemoradiation Obesity with BMI 37.1 GI prophylaxis DVT prophylaxis Full code Plan: Cardiology and pulmonary following and patient will continue on current medication regimen, continue telemetry monitoring currently sinus rhythm on the monitor. Patient with prolonged hospitalization has had progressive weakness and evaluated by PT/OT therapy recommending rehab and patient and family are agreeable. Case management consulted working on insurance verification as patient would like to avoid using VA benefits if possible. Patient does have Medicare as well. Patient will require insurance authorization which is currently pending excepting ECF. Continue with PT/OT therapy daily Continue monitoring Accu-Cheks ACHS and will continue with current regimen Possible discharge planning in the next 24 to 48 hours. The impression and plan of care has been dictated by Karissa Morales, Nurse Practitioner as directed. Dr. Jefferson MD I have performed a history and examination and MDM of this patient, discussed the same with the dictator, and agree with the dictator's assessment and plan as written ,documented as a scribe. Based on total visit time, I have performed more than 50% of the visit. Objective - Vital Signs Vital signs: Vital Signs Temp 97.3 F L 12/29/23 08:17 Pulse 65 12/29/23 13:35 Resp 20 12/29/23 13:35 BP 113/65 12/29/23 12:00 Pulse Ox 98 12/29/23 12:00 FiO2 Intake & Output 12/28/23 12/29/23 12/29/23 18:59 06:59 18:59 Intake Total 540 20 740 Output Total 950 2420 850 Balance -410 -2400 -110 Intake: IV 20 20 Invasive Line 2 20 20 Oral 540 720 Output: Urine 950 2420 850 Other: Voiding Method Urinal Urinal Urinal # Voids 2 # Bowel Movements 1 1 - Labs CBC & Chem 7: 12/29/23 10:01 12/29/23 10:01 Labs: Abnormal Lab Results - Last 24 Hours (Table) 12/28/23 12/28/23 12/29/23 Range/Units 16:21 20:10 00:04 RBC (4.30-5.90) m/uL Hgb (13.0-17.5) gm/dL Hct (39.0-53.0) % MCV (80.0-100.0) fL MCHC (31.0-37.0) g/dL RDW (11.5-15.5) % Plt Count (150-450) k/uL Neutrophils # (1.3-7.7) k/uL Lymphocytes # (1.0-4.8) k/uL Sodium (137-145) mmol/L BUN (9-20) mg/dL Creatinine (0.66-1.25) mg/dL Glucose (74-99) mg/dL POC Glucose (mg/dL) 275 H 389 H 246 H (70-110) mg/dL 12/29/23 12/29/23 12/29/23 Range/Units 04:21 10:01 10:01 RBC 2.87 L (4.30-5.90) m/uL Hgb 9.2 L (13.0-17.5) gm/dL Hct 29.8 L (39.0-53.0) % MCV 104.0 H (80.0-100.0) fL MCHC 30.8 L (31.0-37.0) g/dL RDW 16.9 H (11.5-15.5) % Plt Count 109 L (150-450) k/uL Neutrophils # 9.5 H (1.3-7.7) k/uL Lymphocytes # 0.1 L (1.0-4.8) k/uL Sodium 133 L (137-145) mmol/L BUN 51 H (9-20) mg/dL Creatinine 1.65 H (0.66-1.25) mg/dL Glucose 182 H (74-99) mg/dL POC Glucose (mg/dL) 62 L (70-110) mg/dL 12/29/23 Range/Units 11:41 RBC (4.30-5.90) m/uL Hgb (13.0-17.5) gm/dL Hct (39.0-53.0) % MCV (80.0-100.0) fL MCHC (31.0-37.0) g/dL RDW (11.5-15.5) % Plt Count (150-450) k/uL Neutrophils # (1.3-7.7) k/uL Lymphocytes # (1.0-4.8) k/uL Sodium (137-145) mmol/L BUN (9-20) mg/dL Creatinine (0.66-1.25) mg/dL Glucose (74-99) mg/dL POC Glucose (mg/dL) 271 H (70-110) mg/dL
[2023-12-30 08:00] LABS: Glucose,Whole Blood 97 mg/dL (70-110)
[2023-12-30 10:03] LABS: African American GFR (CKD) 50 (>60 ml/min/1.73 sqM); Anion Gap 6 mmol/L; Blood Urea Nitrogen 52 mg/dL (9-20); Calcium 8.5 mg/dL (8.4-10.2); Carbon Dioxide 25 mmol/L (22-30); Chloride 102 mmol/L (98-107); Glucose 113 mg/dL (74-99); Magnesium 1.7 mg/dL (1.6-2.3); Non-African American GFR(CKD) 43 (>60 ml/min/1.73 sqM); Potassium 4.6 mmol/L (3.5-5.1); Sodium 133 mmol/L (137-145)
[2023-12-30 10:48] LABS: Anisocytosis Slight; HCT 28.1 % (39.0-53.0); HGB 8.9 gm/dL (13.0-17.5); Hypochromasia Moderate; MCH 33.2 pg (25.0-35.0); MCHC 31.8 g/dL (31.0-37.0); MCV 104.6 fL (80.0-100.0); Macrocytosis Moderate; Mean Platelet Volume 9.3; Platelet Count 107 k/uL (150-450); RBC 2.68 m/uL (4.30-5.90); RDW 16.8 % (11.5-15.5); WBC 8.8 k/uL (3.8-10.6)
[2023-12-30 11:44] LABS: Glucose,Whole Blood 177 mg/dL (70-110)
[2023-12-30] MEDS: ACETAMINOPHEN TAB 325 MG TAB PO PRN (14:22)
[2023-12-30 14:41] LABS: Band Neutrophils % 2 %; Eosinophils # (M) 0.35 k/uL (0-0.7); Lymphocytes # (M) 0.26 k/uL (1.0-4.8); Metamyelocytes # (M) 0.09 k/uL (0); Metamyelocytes % 1 %; Myelocytes # (M) 0.18 k/uL (0); Myelocytes % 2 %; Neutrophils % (M) 82 %; Nucleated Red Blood Cells 0 /100 WBC (0-0); Rouleaux Present; Total Cells Counted 200
[2023-12-30 16:02] LABS: Glucose,Whole Blood 178 mg/dL (70-110)
--- NOTE | 2023-12-30 16:06 | P.PN ---
Subjective Progress Note Date: 12/30/23 Principal diagnosis: Acute exacerbation of COPD Patient is a 78-year-old white male with past medical history significant for lung cancer status post chemoradiation, COPD, former tobacco smoker quitting approximately 1 year ago, diabetes melitis, hypothyroidism, hypertension, hy perlipidemia, obesity, peripheral arterial disease, atrial fibrillation chronically anticoagulated on Eliquis, obstructive sleep apnea with home CPAP, among other comorbidities. Patient states that he was originally diagnosed with small cell lung cancer at [facility] October,. He is currently status post chemo and radiation treatments. He does follow with Dr. Kaiser from oncology. Most recent PET scan done 10/14/2023 did not show any new areas of abnormal hypermetabolic uptake to suggest active neoplastic recurrence. He does follow with a local hand sewer, Dr. Nirmala Gillespie. Patient states that his pulmonary status has significantly worsened over the last month and a half. He did have a brief hospitalization at [facility] reportedly last month. He has progressively become more short of breath, especially with exertion. States that he was told that he developed some radiation pneumonitis after his last radiation treatment. He is chronically oxygen dependent on 3 L home O2, but more recently increased his flow to 4 L/min. Yesterday, he got up as usual and started to make coffee. Had to use the bathroom, took his oxygen off, and went to the bathroom. He states that his nasal cannula does not reach this far. While in the bathroom he becomes severely short of breath. He called for his who put his CPAP machine on him. They then drove to [facility] where the patient was initially evaluated. While at the outside facility he did have a chest CTA which showed a very small distal right upper lobe filling defect consistent with small pulmonary embolism. Also, some likely post treatment changes of the right lung, with atelectasis and reticular changes in the right upper lobe. Superimposed diffuse groundglass opacities. Following these findings, the patient was transferred to [facility] late last night. Patient is currently sitting up in bed, on 4 L/min nasal cannula, in no acute distress. He endorses acute on chronic shortness of breath as described above. States he has been coughing more than normal over the last 3 days. No significant sputum production. Denies fevers. Denies sick contacts. Does admit substernal chest discomfort. Nonradiating. CBC on arrival to our facility: WBC count 7.8, hemoglobin 9.1, hematocrit 29.3, platelets 90,000. BMP drawn at our facility: Sodium 133, potassium 4.8, chloride 100, serum bicarb 10, BUN 29, creatinine 1.09, glucose 436. LFTs not elevated. Troponins were mildly elevated but are trending down, likely supply/demand mismatch, and are 0.047, 0.045, and 0.026 respectively. EKG demonstrates normal sinus rhythm without any acute ischemic changes noted. NT proBNP was significantly elevated at 5960. Patient's Eliquis has been restarted. Hemodynamics are stable. On today's evaluation of 12/22/2023, I am seeing the patient for a follow-up. Clinically improved compared to yesterday. Less bronchospastic and wheezy compared to yesterday. Still having some shortness of breath at rest. He is considerably improved compared to yesterday. Remains on bronchodilators. Remains on IV Solu-Medrol. Remains on oxygen 4 L/min nasal cannula. Remains on a combination performance of Pulmicort nebulized treatments and remains on Augmentin as an empiric antibiotic coverage. The blood work from today shows a WBC count of 9.2 with a hemoglobin 8.9 and a platelet count of 96. BUN is at 37 with a creatinine of 1.2 and a sodium levels at 131. The patient also has obstructive sleep apnea and he was able to bring in his CPAP unit which is an APAP unit set at a pressure of 6/15 cm of water. His treatment has been successful as the patient has been averaging around 10 hours of CPAP use per night and his AHI was down to 1 while on treatment the patient also feeds and oxygen 2 L through his CPAP unit. He remains on anticoagulation with Eliquis. 12/23/2023, the patient is being seen for a follow-up. The patient is doing well. Less short of breath compared to yesterday. Less bronchospastic and wheezy and utilizing his CPAP overnight. Blood sugar remains elevated and the patient is still on insulin drip for blood sugar control. Remains on IV Solu- Medrol dose of 60 mg every 6 hours. He is also empirically covered with Augmentin. He has developed some muscle cramps overnight. He is known to have muscle cramps on a chronic basis and the patient is drinking quinine water. BUN 37 with a creatinine 1.1 and a sodium levels at 133. Calcium level is at 8.3. Hemoglobin is 9.3 with a white cell count of 10.6. The patient remains on DuoNe b updrafts. The patient remains on Lasix 40 mg on a as needed basis and based on some increased edema and fluid overload, I am going to switch his Lasix to 40 mg on a daily basis and the first dose is to be given to him today. On 12/24/2023, seen the patient for a follow-up. The patient is doing well. Remains on IV Solu-Medrol. Remains on insulin drip for blood sugar control. No cramping of the body. Overnight, the patient issues with urinary retention. Michelle catheter was inserted and this was a traumatic insertion and is encountering some hematuria which is mild. Anticoagulation is still in progress. He is less short of breath compared to yesterday. Obese close 11.7 with a hemoglobin 9.3 and a platelet count of 103. His BUN is 49 with a creatinine of 1.2 and sodium is at 134 and the potassium level is 4.7. He has no other specific complaints for now. No chest pain. He clearly reports that his shortness of breath improving and the patient is currently on 4 L of oxygen by nasal cannula with a pulse ox of 98%. 12/25/2023, patient is being seen for a follow-up. Events from last night were noted. Noted the patient went into A-fib RVR. This made him quite unstable and short of breath. The patient was initially started on a Cardizem drip and he failed and his heart rate was quite tachycardic. Based on cardiology recommendation, the patient was cardioverted and a cardioversion was successful and the patient is currently back in normal sinus rhythm. Michelle catheter is in place and is having some limited hematuria. This is essentially clearing at this point in time. No significant shortness of breath. " Again wheezy and his respiratory status is back to his baseline. Blood sugars elevated and the patient remains on an insulin drip at 7 units an hour. Is cu rrently on 3 L of oxygen nasal cannula. He is on IV Lasix daily. He remains in a negative fluid balance of 1.8 L over the past 24 hours. The white cell count is at 10 with a hemoglobin 9.1 and a platelet count of 106. Sodium is 132, potassium is at 4.8, BUN is 54 with a creatinine of 1.3. Blood sugars are elevated. 12/26/2023, the patient is being seen for a follow-up. Comfortable on 3 L of oxygen by nasal cannula. The cardiac rhythm Remains sinus. No significant bronchospasm or wheezing. Afebrile. Blood sugars remain quite elevated and the patient will be placed on Levemir 30 units twice daily. Patient is on oral Lasix. The patient is also on oral prednisone. IV insulin drip has been discontinued. Labs are stable with a white cell count of 9.2, hemoglobin 9.8, platelet count of 114, BUN 57 with a creatinine of 1.2 and a sodium levels of 130. On 12/27/2023, the patient is resting comfortably in bed and currently is on 3 L of oxygen by nasal cannula. Oxygenation is improved. Chills exacerbation was also recovered. Patient is currently on DuoNeb updrafts and prednisone taper and currently receiving a dose of 40 mg p.o. daily. Cardiac rhythm is also sinus. He is on a combination of amiodarone 400 mg p.o. twice a day and metoprolol 75 mg p.o. twice daily. He remains on anticoagulation with Eliquis 5 mg p.o. twice a day. He is also on Levemir insulin 20 units twice daily and sliding scale coverage. He remains on Lasix 40 mg p.o. daily. He was moved out of the intensive care unit. Michelle catheter is in place and the plan is to keep the catheter for another 24 hours and remove it in the morning. The white cell count is at 10.3 with a hemoglobin 11.1 and a platelet count of 117. BUN is 47 with a creatinine of 1.27 and a sodium levels of 134. Awake and alert. No altered mentation. No other new complaints otherwise for now. The patient is seen today December 28, 2023 in follow-up on the selective care unit. He is awake and alert in no acute distress. Resting comfortably in bed. Denies any worsening shortness of breath, cough or congestion. He is maintaining good O2 saturations in the upper 90s on 2 L/min per nasal cannula. Has been afebrile. Hemodynamically stable. White count 7.9. Hemoglobin 9.2. Platelets 110. Sodium 133. Potassium 4.5. Bicarb 25. BUN 47. Creatinine 1.33. Glucose 116. He remains on bronchodilators. Remains on diuretics. Anticoagulated with Eliquis. The patient is seen today December 29, 2023 in follow-up on the selective care unit. He is currently sitting up in a chair. Awake and alert in no acute distress. Maintaining good O2 saturations in the 90s on 2 L/min per nasal cannula. He is afebrile. Hemodynamically stable.. He denies any worsening shortness of breath. White count 10.4. Hemoglobin 9.2. Platelets 109. Sodium 133. Potassium 4.5. Bicarb 28. BUN 51. Creatinine 1.65. Glucose 182. His PSA level is 6.55 concerning for recurrent prostate cancer. Urology is following. He is continued on bronchodilators, oral diuretics, prednisone taper. He remains on tamsulosin. Anticoagulated with Eliquis Patient was evaluated today on December 29, patient is feeling better, sitting at the bedside recliner, doing well, improving steadily, patient does have intermittent episodes of shortness of breath according to the on a regular basis, but overall, breathing easier, and does not seem to be in any distress, remains on 2 L nasal cannula. Placement in rehab is in progress. WBC count is 8.8 hemoglobin is 8.9 basic metabolic profile is normal creatinine is 1.53, improved compared to yesterday, but still off baseline which was 1.09 on admission Objective - Vital Signs Vital signs: Vital Signs Temp 97.5 F L 12/30/23 04:00 Pulse 72 12/30/23 15:52 Resp 17 12/30/23 15:52 BP 108/52 12/30/23 15:52 Pulse Ox 92 L 12/30/23 15:52 FiO2 Intake & Output 12/29/23 12/30/23 12/30/23 18:59 06:59 18:59 Intake Total 920 10 620 Output Total 1175 775 225 Balance -634 -953 395 Weight 124.2 kg Intake: IV 20 10 Invasive Line 2 20 10 Oral 900 620 Output: Urine 1175 775 225 Other: Voiding Method Urinal Urinal Urinal # Bowel Movements 1 - Exam GENERAL EXAM: 78-year-old white male on 2 L nasal cannula in no distress HEAD: Normocephalic and atraumatic EYES: Normal reaction of pupils, equal size. NOSE: Clear with pink turbinates. THROAT: No erythema or exudates. NECK: No masses, no JVD. CHEST: No chest wall deformity. LUNGS: Equal air entry clear bilaterally no rhonchi no wheezes CVS: S1 and S2 normal with no audible murmur, regular rhythm. No extra heart sounds ABDOMEN: No hepatosplenomegaly, active bowel sounds, no guarding or rigidity. SKIN: No rashes CENTRAL NERVOUS SYSTEM: Alert oriented x 3 no focal deficit EXTREMITIES: No clubbing edema or cyanosis - Labs CBC & Chem 7: 12/30/23 08:59 12/30/23 08:59 Labs: Abnormal Lab Results - Last 24 Hours (Table) 12/29/23 12/29/23 12/30/23 Range/Units 16:04 20:02 00:08 RBC (4.30-5.90) m/uL Hgb (13.0-17.5) gm/dL Hct (39.0-53.0) % MCV (80.0-100.0) fL RDW (11.5-15.5) % Plt Count (150-450) k/uL Lymphocytes # (Manual) (1.0-4.8) k/uL Metamyelocytes # (Man) (0) k/uL Myelocytes # (Manual) (0) k/uL Sodium (137-145) mmol/L BUN (9-20) mg/dL Creatinine (0.66-1.25) mg/dL Glucose (74-99) mg/dL POC Glucose (mg/dL) 200 H 303 H 317 H (70-110) mg/dL 12/30/23 12/30/23 12/30/23 Range/Units 04:13 08:59 08:59 RBC 2.68 L (4.30-5.90) m/uL Hgb 8.9 L (13.0-17.5) gm/dL Hct 28.1 L (39.0-53.0) % MCV 104.6 H (80.0-100.0) fL RDW 16.8 H (11.5-15.5) % Plt Count 107 L (150-450) k/uL Lymphocytes # (Manual) 0.26 L (1.0-4.8) k/uL Metamyelocytes # (Man) 0.09 H (0) k/uL Myelocytes # (Manual) 0.18 H (0) k/uL Sodium 133 L (137-145) mmol/L BUN 52 H (9-20) mg/dL Creatinine 1.53 H (0.66-1.25) mg/dL Glucose 113 H (74-99) mg/dL POC Glucose (mg/dL) 174 H (70-110) mg/dL 12/30/23 Range/Units 11:42 RBC (4.30-5.90) m/uL Hgb (13.0-17.5) gm/dL Hct (39.0-53.0) % MCV (80.0-100.0) fL RDW (11.5-15.5) % Plt Count (150-450) k/uL Lymphocytes # (Manual) (1.0-4.8) k/uL Metamyelocytes # (Man) (0) k/uL Myelocytes # (Manual) (0) k/uL Sodium (137-145) mmol/L BUN (9-20) mg/dL Creatinine (0.66-1.25) mg/dL Glucose (74-99) mg/dL POC Glucose (mg/dL) 177 H (70-110) mg/dL Assessment and Plan Assessment: Impression: Acute on chronic hypoxemic respiratory failure, currently on 2 L/min nasal cannula, to factorial Acute exacerbation of chronic obstructive pulmonary disease, improving and the patient is less short of breath, improved History of lung cancer, status post chemo/radiation, continues to follow-up with his oncologist outpatient, the patient has course radiation related pulmonary infiltrates involving the right perihilar area. No evidence of any active malignancy at this point in time. Atrial fibrillation with rapid ventricular response, converted into sinus rhythm post cardioversion and the patient remains on amiodarone 400 mg p.o. twice a day and metoprolol 75 mg twice a day and the patient is on anticoagulation with Eliquis. 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 Improved and the patient is on Flomax and the hematuria has recovered Recommendation: Continue present supportive care measures Continue oxygen and titrate accordingly Continue bronchodilators Discharge planning is in progress and possibly the patient will benefit from a rehab facility placement Continue the prednisone tapering on outpatient basis Continue to follow as long as inpatient. Time with Patient: Less than 30
[2023-12-30 20:04] LABS: Glucose,Whole Blood 280 mg/dL (70-110)
[2023-12-30] MEDS: NYSTATIN 100,000 UNIT/GM POWD 15 GM TOPICAL SCH (23:56)
[2023-12-31 00:18] LABS: Glucose,Whole Blood 165 mg/dL (70-110)
[2023-12-31 04:07] LABS: Glucose,Whole Blood 103 mg/dL (70-110)
--- NOTE | 2023-12-31 08:16 | P.PN ---
Subjective Progress Note Date: 12/30/23 This is a 78-year-old male who was recently admitted with COPD exacerbation also found to have new onset atrial fibrillation and heart failure acute exacerbation. Multiple consultations following including pulmonary and cardiology. Patient continued on oxygen via nasal cannula will wean as tolerated. Patient continues on breathing treatments along with steroids. Continue monitoring blood sugars and will titrate dosing accordingly. Patient with generalized weakness and prolonged hospitalization evaluated by PT/OT therapy recommending rehab and patient and family are agreeable. Case management/social work following working on discharge planning 12/30/2023 Patient is seen in follow-up this morning currently sitting up in the chair Reporting he is about two-person assist and extremely weak feeling and has had prolonged hospitalization. Patient and family are discussing the ECF as PT OT therapy recommending rehab. Working on financial issues. Patient is afebrile with no reports of worsening shortness of breath. Patient denies chest pain or palpitations. Patient continues with some lower extremity swelling although is improving and has been elevating while at rest. Recommend Deo wraps to bilateral lower extremities from the toes up to the knees. Continue with current medication regimen and will need outpatient follow-up with cardiology and pulmonary. Will discuss further with case management regarding discharge planning. Review of systems: Constitutional: No reports of fatigue, fever, or chills Cardiovascular: No reports of chest pain or palpitations Respiratory: No reports of worsening shortness of breath or cough GI: No reports of nausea, vomiting, or diarrhea : No reports of dysuria or retention, patient is voiding Neurovascular: reports of generalized weakness and difficulty ambulating Physical exam: Gen: This is a 78-year-old male who is awake, alert and oriented x 3, well- developed, well-nourished, elderly, obese HEENT: Head is atraumatic, normocephalic. Pupils equal, round. Sclerae is anicteric. NECK: Supple. No JVD. No lymphadenopathy. No thyromegaly. LUNGS: Diminished breath sounds bilaterally otherwise clear to auscultation. No wheezes, some coarse scattered rhonchi noted. No intercostal retractions. HEART: S1, S2 are muffled ABDOMEN: Soft. Obese bowel sounds are present. No masses. No tenderness. Mild scrotal tenderness with no redness noted EXTREMITIES: No pedal edema. No calf tenderness. 1+ pitting edema noted bilateral lower extremities NEUROLOGICAL: Patient is awake, alert and oriented x3. Cranial nerves 2 through 12 are grossly intact. Diffusely weak Assessment: Chronic obstructive pulmonary disease acute exacerbation with acute hypoxic respiratory failure Atrial fibrillation with rvr, currently rate controlled right upper lobe lesion and possible distal pulmonary embolism Possible right upper lobe pneumonia versus scarring Chronic hypoxic respiratory failure Diabetes mellitus, type II, uncontrolled with hyperglycemia History of lung cancer, status post chemoradiation Obesity with BMI 37.1 GI prophylaxis DVT prophylaxis Full code Plan: Cardiology and pulmonary following and patient will continue on current medication regimen, continue telemetry monitoring currently sinus rhythm on the monitor. Patient with prolonged hospitalization has had progressive weakness and evaluated by PT/OT therapy recommending rehab and patient and family are agreeable. Case management consulted working on insurance authorization and possible [id number] expenses to discuss further with family. Patient to continue with current medication regimen and supportive care Continue with PT/OT therapy daily Continue monitoring Accu-Cheks ACHS and will continue with current regimen Possible discharge planning in the next 24 to 48 hours. The impression and plan of care has been dictated by Karissa Morales, Nurse Practitioner as directed. Dr. Jefferson MD I have performed a history and examination and MDM of this patient, discussed the same with the dictator, and agree with the dictator's assessment and plan as written ,documented as a scribe. Based on total visit time, I have performed more than 50% of the visit. Objective - Vital Signs Vital signs: Vital Signs Temp 97.8 F 12/31/23 04:00 Pulse 76 12/31/23 04:00 Resp 18 12/31/23 04:00 BP 137/74 12/31/23 04:00 Pulse Ox 92 L 12/31/23 04:00 FiO2 Intake & Output 12/30/23 12/31/23 12/31/23 18:59 06:59 18:59 Intake Total 860 Output Total 450 300 Balance 410 -300 Intake: Oral 860 Output: Urine 450 300 Other: Voiding Method Urinal Urinal # Voids 1 # Bowel Movements 1 - Labs CBC & Chem 7: 12/30/23 08:59 12/30/23 08:59 Labs: Abnormal Lab Results - Last 24 Hours (Table) 12/30/23 12/30/23 12/30/23 Range/Units 08:59 08:59 11:42 RBC 2.68 L (4.30-5.90) m/uL Hgb 8.9 L (13.0-17.5) gm/dL Hct 28.1 L (39.0-53.0) % MCV 104.6 H (80.0-100.0) fL RDW 16.8 H (11.5-15.5) % Plt Count 107 L (150-450) k/uL Lymphocytes # (Manual) 0.26 L (1.0-4.8) k/uL Metamyelocytes # (Man) 0.09 H (0) k/uL Myelocytes # (Manual) 0.18 H (0) k/uL Sodium 133 L (137-145) mmol/L BUN 52 H (9-20) mg/dL Creatinine 1.53 H (0.66-1.25) mg/dL Glucose 113 H (74-99) mg/dL POC Glucose (mg/dL) 177 H (70-110) mg/dL 12/30/23 12/30/23 12/31/23 Range/Units 16:00 20:03 00:17 RBC (4.30-5.90) m/uL Hgb (13.0-17.5) gm/dL Hct (39.0-53.0) % MCV (80.0-100.0) fL RDW (11.5-15.5) % Plt Count (150-450) k/uL Lymphocytes # (Manual) (1.0-4.8) k/uL Metamyelocytes # (Man) (0) k/uL Myelocytes # (Manual) (0) k/uL Sodium (137-145) mmol/L BUN (9-20) mg/dL Creatinine (0.66-1.25) mg/dL Glucose (74-99) mg/dL POC Glucose (mg/dL) 178 H 280 H 165 H (70-110) mg/dL
[2023-12-31 08:27] LABS: Glucose,Whole Blood 125 mg/dL (70-110)
[2023-12-31 11:50] LABS: Glucose,Whole Blood 239 mg/dL (70-110)
[2023-12-31 16:27] LABS: Glucose,Whole Blood 300 mg/dL (70-110)
--- NOTE | 2023-12-31 16:34 | P.PN ---
Subjective Progress Note Date: 12/31/23 Principal diagnosis: Acute exacerbation of COPD Patient is a 78-year-old white male with past medical history significant for lung cancer status post chemoradiation, COPD, former tobacco smoker quitting approximately 1 year ago, diabetes melitis, hypothyroidism, hypertension, hy perlipidemia, obesity, peripheral arterial disease, atrial fibrillation chronically anticoagulated on Eliquis, obstructive sleep apnea with home CPAP, among other comorbidities. Patient states that he was originally diagnosed with small cell lung cancer at [facility] October,. He is currently status post chemo and radiation treatments. He does follow with Dr. Kaiser from oncology. Most recent PET scan done 10/14/2023 did not show any new areas of abnormal hypermetabolic uptake to suggest active neoplastic recurrence. He does follow with a local photographer lithographic, Dr. Nirmala Gillespie. Patient states that his pulmonary status has significantly worsened over the last month and a half. He did have a brief hospitalization at [facility] reportedly last month. He has progressively become more short of breath, especially with exertion. States that he was told that he developed some radiation pneumonitis after his last radiation treatment. He is chronically oxygen dependent on 3 L home O2, but more recently increased his flow to 4 L/min. Yesterday, he got up as usual and started to make coffee. Had to use the bathroom, took his oxygen off, and went to the bathroom. He states that his nasal cannula does not reach this far. While in the bathroom he becomes severely short of breath. He called for his who put his CPAP machine on him. They then drove to [facility] where the patient was initially evaluated. While at the outside facility he did have a chest CTA which showed a very small distal right upper lobe filling defect consistent with small pulmonary embolism. Also, some likely post treatment changes of the right lung, with atelectasis and reticular changes in the right upper lobe. Superimposed diffuse groundglass opacities. Following these findings, the patient was transferred to [facility] late last night. Patient is currently sitting up in bed, on 4 L/min nasal cannula, in no acute distress. He endorses acute on chronic shortness of breath as described above. States he has been coughing more than normal over the last 3 days. No significant sputum production. Denies fevers. Denies sick contacts. Does admit substernal chest discomfort. Nonradiating. CBC on arrival to our facility: WBC count 7.8, hemoglobin 9.1, hematocrit 29.3, platelets 90,000. BMP drawn at our facility: Sodium 133, potassium 4.8, chloride 100, serum bicarb 10, BUN 29, creatinine 1.09, glucose 436. LFTs not elevated. Troponins were mildly elevated but are trending down, likely supply/demand mismatch, and are 0.047, 0.045, and 0.026 respectively. EKG demonstrates normal sinus rhythm without any acute ischemic changes noted. NT proBNP was significantly elevated at 5960. Patient's Eliquis has been restarted. Hemodynamics are stable. On today's evaluation of 12/22/2023, I am seeing the patient for a follow-up. Clinically improved compared to yesterday. Less bronchospastic and wheezy compared to yesterday. Still having some shortness of breath at rest. He is considerably improved compared to yesterday. Remains on bronchodilators. Remains on IV Solu-Medrol. Remains on oxygen 4 L/min nasal cannula. Remains on a combination performance of Pulmicort nebulized treatments and remains on Augmentin as an empiric antibiotic coverage. The blood work from today shows a WBC count of 9.2 with a hemoglobin 8.9 and a platelet count of 96. BUN is at 37 with a creatinine of 1.2 and a sodium levels at 131. The patient also has obstructive sleep apnea and he was able to bring in his CPAP unit which is an APAP unit set at a pressure of 6/15 cm of water. His treatment has been successful as the patient has been averaging around 10 hours of CPAP use per night and his AHI was down to 1 while on treatment the patient also feeds and oxygen 2 L through his CPAP unit. He remains on anticoagulation with Eliquis. 12/23/2023, the patient is being seen for a follow-up. The patient is doing well. Less short of breath compared to yesterday. Less bronchospastic and wheezy and utilizing his CPAP overnight. Blood sugar remains elevated and the patient is still on insulin drip for blood sugar control. Remains on IV Solu- Medrol dose of 60 mg every 6 hours. He is also empirically covered with Augmentin. He has developed some muscle cramps overnight. He is known to have muscle cramps on a chronic basis and the patient is drinking quinine water. BUN 37 with a creatinine 1.1 and a sodium levels at 133. Calcium level is at 8.3. Hemoglobin is 9.3 with a white cell count of 10.6. The patient remains on DuoNe b updrafts. The patient remains on Lasix 40 mg on a as needed basis and based on some increased edema and fluid overload, I am going to switch his Lasix to 40 mg on a daily basis and the first dose is to be given to him today. On 12/24/2023, seen the patient for a follow-up. The patient is doing well. Remains on IV Solu-Medrol. Remains on insulin drip for blood sugar control. No cramping of the body. Overnight, the patient issues with urinary retention. Michelle catheter was inserted and this was a traumatic insertion and is encountering some hematuria which is mild. Anticoagulation is still in progress. He is less short of breath compared to yesterday. Obese close 11.7 with a hemoglobin 9.3 and a platelet count of 103. His BUN is 49 with a creatinine of 1.2 and sodium is at 134 and the potassium level is 4.7. He has no other specific complaints for now. No chest pain. He clearly reports that his shortness of breath improving and the patient is currently on 4 L of oxygen by nasal cannula with a pulse ox of 98%. 12/25/2023, patient is being seen for a follow-up. Events from last night were noted. Noted the patient went into A-fib RVR. This made him quite unstable and short of breath. The patient was initially started on a Cardizem drip and he failed and his heart rate was quite tachycardic. Based on cardiology recommendation, the patient was cardioverted and a cardioversion was successful and the patient is currently back in normal sinus rhythm. Michelle catheter is in place and is having some limited hematuria. This is essentially clearing at this point in time. No significant shortness of breath. " Again wheezy and his respiratory status is back to his baseline. Blood sugars elevated and the patient remains on an insulin drip at 7 units an hour. Is cu rrently on 3 L of oxygen nasal cannula. He is on IV Lasix daily. He remains in a negative fluid balance of 1.8 L over the past 24 hours. The white cell count is at 10 with a hemoglobin 9.1 and a platelet count of 106. Sodium is 132, potassium is at 4.8, BUN is 54 with a creatinine of 1.3. Blood sugars are elevated. 12/26/2023, the patient is being seen for a follow-up. Comfortable on 3 L of oxygen by nasal cannula. The cardiac rhythm Remains sinus. No significant bronchospasm or wheezing. Afebrile. Blood sugars remain quite elevated and the patient will be placed on Levemir 30 units twice daily. Patient is on oral Lasix. The patient is also on oral prednisone. IV insulin drip has been discontinued. Labs are stable with a white cell count of 9.2, hemoglobin 9.8, platelet count of 114, BUN 57 with a creatinine of 1.2 and a sodium levels of 130. On 12/27/2023, the patient is resting comfortably in bed and currently is on 3 L of oxygen by nasal cannula. Oxygenation is improved. Chills exacerbation was also recovered. Patient is currently on DuoNeb updrafts and prednisone taper and currently receiving a dose of 40 mg p.o. daily. Cardiac rhythm is also sinus. He is on a combination of amiodarone 400 mg p.o. twice a day and metoprolol 75 mg p.o. twice daily. He remains on anticoagulation with Eliquis 5 mg p.o. twice a day. He is also on Levemir insulin 20 units twice daily and sliding scale coverage. He remains on Lasix 40 mg p.o. daily. He was moved out of the intensive care unit. Mihcelle catheter is in place and the plan is to keep the catheter for another 24 hours and remove it in the morning. The white cell count is at 10.3 with a hemoglobin 11.1 and a platelet count of 117. BUN is 47 with a creatinine of 1.27 and a sodium levels of 134. Awake and alert. No altered mentation. No other new complaints otherwise for now. The patient is seen today December 28, 2023 in follow-up on the selective care unit. He is awake and alert in no acute distress. Resting comfortably in bed. Denies any worsening shortness of breath, cough or congestion. He is maintaining good O2 saturations in the upper 90s on 2 L/min per nasal cannula. Has been afebrile. Hemodynamically stable. White count 7.9. Hemoglobin 9.2. Platelets 110. Sodium 133. Potassium 4.5. Bicarb 25. BUN 47. Creatinine 1.33. Glucose 116. He remains on bronchodilators. Remains on diuretics. Anticoagulated with Eliquis. The patient is seen today December 29, 2023 in follow-up on the selective care unit. He is currently sitting up in a chair. Awake and alert in no acute distress. Maintaining good O2 saturations in the 90s on 2 L/min per nasal cannula. He is afebrile. Hemodynamically stable.. He denies any worsening shortness of breath. White count 10.4. Hemoglobin 9.2. Platelets 109. Sodium 133. Potassium 4.5. Bicarb 28. BUN 51. Creatinine 1.65. Glucose 182. His PSA level is 6.55 concerning for recurrent prostate cancer. Urology is following. He is continued on bronchodilators, oral diuretics, prednisone taper. He remains on tamsulosin. Anticoagulated with Eliquis Patient was evaluated today on December 29, patient is feeling better, sitting at the bedside recliner, doing well, improving steadily, patient does have intermittent episodes of shortness of breath according to the on a regular basis, but overall, breathing easier, and does not seem to be in any distress, remains on 2 L nasal cannula. Placement in rehab is in progress. WBC count is 8.8 hemoglobin is 8.9 basic metabolic profile is normal creatinine is 1.53, improved compared to yesterday, but still off baseline which was 1.09 on admission Patient was evaluated today on 12/31/2023, doing well, still waiting for placement, pulmonary tinajero the patient has hardly any pulmonary symptoms no cough no wheezing no shortness of breath. Patient is on 2 L nasal cannula with O2 sa ts of 94%. No labs were drawn today, patient may be considered for transfer to [facility] in [place]. In the meantime we are mostly waiting for placement Objective - Vital Signs Vital signs: Vital Signs Temp 97.2 F L 12/31/23 12:52 Pulse 70 12/31/23 15:52 Resp 18 12/31/23 12:52 BP 109/54 12/31/23 12:52 Pulse Ox 94 L 12/31/23 12:52 FiO2 Intake & Output 12/30/23 12/31/23 12/31/23 18:59 06:59 18:59 Intake Total 860 Output Total 450 300 425 Balance 410 -300 -425 Intake: Oral 860 Output: Urine 450 300 425 Other: Voiding Method Urinal Urinal Urinal # Voids 1 # Bowel Movements 1 0 - Exam GENERAL EXAM: 78-year-old white male on 2 L nasal cannula in no distress HEAD: Normocephalic and atraumatic EYES: Normal reaction of pupils, equal size. NOSE: Clear with pink turbinates. THROAT: No erythema or exudates. NECK: No masses, no JVD. CHEST: No chest wall deformity. LUNGS: Equal air entry clear bilaterally no rhonchi no wheezes CVS: S1 and S2 normal with no audible murmur, regular rhythm. No extra heart s ounds ABDOMEN: No hepatosplenomegaly, active bowel sounds, no guarding or rigidity. SKIN: No rashes CENTRAL NERVOUS SYSTEM: Alert oriented x 3 no focal deficit EXTREMITIES: No clubbing edema or cyanosis - Labs CBC & Chem 7: 12/30/23 08:59 12/30/23 08:59 Labs: Abnormal Lab Results - Last 24 Hours (Table) 12/30/23 12/31/23 12/31/23 Range/Units 20:03 00:17 08:25 POC Glucose (mg/dL) 280 H 165 H 125 H (70-110) mg/dL 12/31/23 12/31/23 Range/Units 11:46 16:24 POC Glucose (mg/dL) 239 H 300 H (70-110) mg/dL Assessment and Plan Assessment: Impression: Acute on chronic hypoxemic respiratory failure, currently on 2 L/min nasal cannula, to factorial Acute exacerbation of chronic obstructive pulmonary disease, improving and the patient is less short of breath, improved History of lung cancer, status post chemo/radiation, continues to follow-up with his oncologist outpatient, the patient has course radiation related pulmonary infiltrates involving the right perihilar area. No evidence of any active malignancy at this point in time. Atrial fibrillation with rapid ventricular response, converted into sinus rhythm post cardioversion and the patient remains on amiodarone 400 mg p.o. twice a day and metoprolol 75 mg twice a day and the patient is on anticoagulation with Eliquis. 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 Improved and the patient is on Flomax and the hematuria has recovered Recommendation: Continue present supportive care measures Continue oxygen Continue bronchodilators Will clear the patient for discharge to rehab facility once it is available. Continue the prednisone tapering on outpatient basis Patient to follow-up with Dr. Carter on outpatient basis postdischarge Continue to follow as long as inpatient. Time with Patient: Less than 30
[2023-12-31] MEDS ORDERED: Magnesium Replacement Protocol 1 EACH MISC MISCELLANE PRN (17:28)
--- NOTE | 2023-12-31 17:28 | P.PN ---
Subjective Progress Note Date: 12/31/23 This is a 78-year-old male who was recently admitted with COPD exacerbation also found to have new onset atrial fibrillation and heart failure acute exacerbation. Multiple consultations following including pulmonary and cardiology. Patient continued on oxygen via nasal cannula will wean as tolerated. Patient continues on breathing treatments along with steroids. Continue monitoring blood sugars and will titrate dosing accordingly. Patient with generalized weakness and prolonged hospitalization evaluated by PT/OT therapy recommending rehab and patient and family are agreeable. Case management/social work following working on discharge planning 12/30/2023 Patient is seen in follow-up this morning currently sitting up in the chair Reporting he is about two-person assist and extremely weak feeling and has had prolonged hospitalization. Patient and family are discussing the ECF as PT OT therapy recommending rehab. Working on financial issues. Patient is afebrile with no reports of worsening shortness of breath. Patient denies chest pain or palpitations. Patient continues with some lower extremity swelling although is improving and has been elevating while at rest. Recommend Deo wraps to bilateral lower extremities from the toes up to the knees. Continue with current medication regimen and will need outpatient follow-up with cardiology and pulmonary. Will discuss further with case management regarding discharge planning. 12/31/2023 Patient is seen and evaluated in follow-up with multiple consultations following. Patient discussed further with case management regarding discharge planning and rehab and [facility] is out of network and could cost upwards of possibly $5000 [id number]. Patient and family are agreeable to [facility] which is within network and currently awaiting insurance authorization. Patient is maintained on breathing treatments and will continue along with other current medications per cardiology and pulmonary. Patient blood sugars have been elevated and dropping in the mornings and will adjust medications accordingly. Continue monitoring Accu-Cheks before meals and at bedtime for tighter glycemic control. Review of systems: Constitutional: No reports of fatigue, fever, or chills Cardiovascular: No reports of chest pain or palpitations Respiratory: No reports of worsening shortness of breath or cough GI: No reports of nausea, vomiting, or diarrhea : No reports of dysuria or retention, patient is voiding Neurovascular: reports of generalized weakness and difficulty ambulating Physical exam: Gen: This is a 78-year-old male who is awake, alert and oriented x 3, well- developed, well-nourished, elderly, obese HEENT: Head is atraumatic, normocephalic. Pupils equal, round. Sclerae is anicteric. NECK: Supple. No JVD. No lymphadenopathy. No thyromegaly. LUNGS: Diminished breath sounds bilaterally otherwise clear to auscultation. No wheezes, some coarse scattered rhonchi noted. No intercostal retractions. HEART: S1, S2 are muffled ABDOMEN: Soft. Obese bowel sounds are present. No masses. No tenderness. Mild scrotal tenderness with no redness noted EXTREMITIES: No pedal edema. No calf tenderness. 1+ pitting edema noted bilateral lower extremities NEUROLOGICAL: Patient is awake, alert and oriented x3. Cranial nerves 2 through 12 are grossly intact. Diffusely weak Assessment: Chronic obstructive pulmonary disease acute exacerbation with acute hypoxic respiratory failure Atrial fibrillation with rvr, currently rate controlled right upper lobe lesion and possible distal pulmonary embolism Possible right upper lobe pneumonia versus scarring Chronic hypoxic respiratory failure Diabetes mellitus, type II, uncontrolled with hyperglycemia History of lung cancer, status post chemoradiation Obesity with BMI 37.1 GI prophylaxis DVT prophylaxis Full code Plan: Cardiology and pulmonary following and patient will continue on current medication regimen, continue telemetry monitoring currently sinus rhythm on the monitor. Patient with prolonged hospitalization has had progressive weakness and evaluated by PT/OT therapy recommending rehab and patient and family are agreeable. Case management consulted working on insurance authorization and have discussed further as [id number] may potentially be $5000 if going to [facility]. Patient and family are agreeable to [facility] which is within network. Authorization was submitted and continues to be pending at this time Patient to continue with current medication regimen and supportive care Continue with PT/OT therapy daily Continue monitoring Accu-Cheks ACHS and will continue with current regimen Possible discharge planning in the next 24 to 48 hours once insurance authorization has been obtained. The impression and plan of care has been dictated by Karissa Morales, Nurse Practitioner as directed. Dr. Jefferson MD I have performed a history and examination and MDM of this patient, discussed the same with the dictator, and agree with the dictator's assessment and plan as written ,documented as a scribe. Based on total visit time, I have performed more than 50% of the visit. Because of the issues here Objective - Vital Signs Vital signs: Vital Signs Temp 97.8 F 12/31/23 04:00 Pulse 76 12/31/23 04:00 Resp 18 12/31/23 04:00 BP 137/74 12/31/23 04:00 Pulse Ox 92 L 12/31/23 04:00 FiO2 Intake & Output 12/30/23 12/31/23 12/31/23 18:59 06:59 18:59 Intake Total 860 Output Total 450 300 Balance 410 -300 Intake: Oral 860 Output: Urine 450 300 Other: Voiding Method Urinal Urinal # Voids 1 # Bowel Movements 1 - Labs CBC & Chem 7: 12/30/23 08:59 12/30/23 08:59 Labs: Abnormal Lab Results - Last 24 Hours (Table) 12/30/23 12/30/23 12/30/23 Range/Units 08:59 08:59 11:42 RBC 2.68 L (4.30-5.90) m/uL Hgb 8.9 L (13.0-17.5) gm/dL Hct 28.1 L (39.0-53.0) % MCV 104.6 H (80.0-100.0) fL RDW 16.8 H (11.5-15.5) % Plt Count 107 L (150-450) k/uL Lymphocytes # (Manual) 0.26 L (1.0-4.8) k/uL Metamyelocytes # (Man) 0.09 H (0) k/uL Myelocytes # (Manual) 0.18 H (0) k/uL Sodium 133 L (137-145) mmol/L BUN 52 H (9-20) mg/dL Creatinine 1.53 H (0.66-1.25) mg/dL Glucose 113 H (74-99) mg/dL POC Glucose (mg/dL) 177 H (70-110) mg/dL 12/30/23 12/30/23 12/31/23 Range/Units 16:00 20:03 00:17 RBC (4.30-5.90) m/uL Hgb (13.0-17.5) gm/dL Hct (39.0-53.0) % MCV (80.0-100.0) fL RDW (11.5-15.5) % Plt Count (150-450) k/uL Lymphocytes # (Manual) (1.0-4.8) k/uL Metamyelocytes # (Man) (0) k/uL Myelocytes # (Manual) (0) k/uL Sodium (137-145) mmol/L BUN (9-20) mg/dL Creatinine (0.66-1.25) mg/dL Glucose (74-99) mg/dL POC Glucose (mg/dL) 178 H 280 H 165 H (70-110) mg/dL
[2023-12-31] MEDS ORDERED: MAGNESIUM SULFATE-D5W PMX 1 GM in DEXTROSE/WATER 1 100ML.BAG IVPB ONE (18:00)
[2023-12-31 20:12] LABS: Glucose,Whole Blood 437 mg/dL (70-110)
[2023-12-31] MEDS: INSULIN ASPART (NovoLOG) 100 UNIT/ML VIAL SQ ONE (21:29)
[2023-12-31] MEDS: INSULIN DETEMIR (LEVEMIR) 100 UNIT/ML SYR SQ SCH (22:43)
[2024-01-01 00:07] LABS: Glucose,Whole Blood 360 mg/dL (70-110)
[2024-01-01 04:42] LABS: African American GFR (CKD) 59 (>60 ml/min/1.73 sqM); Anion Gap 5 mmol/L; Blood Urea Nitrogen 40 mg/dL (9-20); Calcium 8.6 mg/dL (8.4-10.2); Carbon Dioxide 27 mmol/L (22-30); Chloride 99 mmol/L (98-107); Glucose 100 mg/dL (74-99); Non-African American GFR(CKD) 51 (>60 ml/min/1.73 sqM); Potassium 4.2 mmol/L (3.5-5.1); Sodium 131 mmol/L (137-145)
[2024-01-01 05:17] LABS: Glucose,Whole Blood 71 mg/dL (70-110)
[2024-01-01 06:17] LABS: Glucose,Whole Blood 88 mg/dL (70-110)
[2024-01-01] MEDS ORDERED: Magnesium Replacement Protocol 1 EACH MISC MISCELLANE PRN (09:16)
[2024-01-01 11:45] LABS: Glucose,Whole Blood 106 mg/dL (70-110)
[2024-01-01] MEDS: MAGNESIUM SULFATE-D5W PMX 1 GM in DEXTROSE/WATER 1 100ML.BAG IVPB ONE (12:47)
--- NOTE | 2024-01-01 13:07 | P.PN ---
Subjective Progress Note Date: 01/01/24 Principal diagnosis: Acute exacerbation of COPD Patient is a 78-year-old white male with past medical history significant for lung cancer status post chemoradiation, COPD, former tobacco smoker quitting approximately 1 year ago, diabetes melitis, hypothyroidism, hypertension, hy perlipidemia, obesity, peripheral arterial disease, atrial fibrillation chronically anticoagulated on Eliquis, obstructive sleep apnea with home CPAP, among other comorbidities. Patient states that he was originally diagnosed with small cell lung cancer at [facility] October,. He is currently status post chemo and radiation treatments. He does follow with Dr. Kaiser from oncology. Most recent PET scan done 10/14/2023 did not show any new areas of abnormal hypermetabolic uptake to suggest active neoplastic recurrence. He does follow with a local sole tier, Dr. Nirmala Gillespie. Patient states that his pulmonary status has significantly worsened over the last month and a half. He did have a brief hospitalization at [facility] reportedly last month. He has progressively become more short of breath, especially with exertion. States that he was told that he developed some radiation pneumonitis after his last radiation treatment. He is chronically oxygen dependent on 3 L home O2, but more recently increased his flow to 4 L/min. Yesterday, he got up as usual and started to make coffee. Had to use the bathroom, took his oxygen off, and went to the bathroom. He states that his nasal cannula does not reach this far. While in the bathroom he becomes severely short of breath. He called for his who put his CPAP machine on him. They then drove to [facility] where the patient was initially evaluated. While at the outside facility he did have a chest CTA which showed a very small distal right upper lobe filling defect consistent with small pulmonary embolism. Also, some likely post treatment changes of the right lung, with atelectasis and reticular changes in the right upper lobe. Superimposed diffuse groundglass opacities. Following these findings, the patient was transferred to [facility] late last night. Patient is currently sitting up in bed, on 4 L/min nasal cannula, in no acute distress. He endorses acute on chronic shortness of breath as described above. States he has been coughing more than normal over the last 3 days. No significant sputum production. Denies fevers. Denies sick contacts. Does admit substernal chest discomfort. Nonradiating. CBC on arrival to our facility: WBC count 7.8, hemoglobin 9.1, hematocrit 29.3, platelets 90,000. BMP drawn at our facility: Sodium 133, potassium 4.8, chloride 100, serum bicarb 10, BUN 29, creatinine 1.09, glucose 436. LFTs not elevated. Troponins were mildly elevated but are trending down, likely supply/demand mismatch, and are 0.047, 0.045, and 0.026 respectively. EKG demonstrates normal sinus rhythm without any acute ischemic changes noted. NT proBNP was significantly elevated at 5960. Patient's Eliquis has been restarted. Hemodynamics are stable. On today's evaluation of 12/22/2023, I am seeing the patient for a follow-up. Clinically improved compared to yesterday. Less bronchospastic and wheezy compared to yesterday. Still having some shortness of breath at rest. He is considerably improved compared to yesterday. Remains on bronchodilators. Remains on IV Solu-Medrol. Remains on oxygen 4 L/min nasal cannula. Remains on a combination performance of Pulmicort nebulized treatments and remains on Augmentin as an empiric antibiotic coverage. The blood work from today shows a WBC count of 9.2 with a hemoglobin 8.9 and a platelet count of 96. BUN is at 37 with a creatinine of 1.2 and a sodium levels at 131. The patient also has obstructive sleep apnea and he was able to bring in his CPAP unit which is an APAP unit set at a pressure of 6/15 cm of water. His treatment has been successful as the patient has been averaging around 10 hours of CPAP use per night and his AHI was down to 1 while on treatment the patient also feeds and oxygen 2 L through his CPAP unit. He remains on anticoagulation with Eliquis. 12/23/2023, the patient is being seen for a follow-up. The patient is doing well. Less short of breath compared to yesterday. Less bronchospastic and wheezy and utilizing his CPAP overnight. Blood sugar remains elevated and the patient is still on insulin drip for blood sugar control. Remains on IV Solu- Medrol dose of 60 mg every 6 hours. He is also empirically covered with Augmentin. He has developed some muscle cramps overnight. He is known to have muscle cramps on a chronic basis and the patient is drinking quinine water. BUN 37 with a creatinine 1.1 and a sodium levels at 133. Calcium level is at 8.3. Hemoglobin is 9.3 with a white cell count of 10.6. The patient remains on DuoNe b updrafts. The patient remains on Lasix 40 mg on a as needed basis and based on some increased edema and fluid overload, I am going to switch his Lasix to 40 mg on a daily basis and the first dose is to be given to him today. On 12/24/2023, seen the patient for a follow-up. The patient is doing well. Remains on IV Solu-Medrol. Remains on insulin drip for blood sugar control. No cramping of the body. Overnight, the patient issues with urinary retention. Michelle catheter was inserted and this was a traumatic insertion and is encountering some hematuria which is mild. Anticoagulation is still in progress. He is less short of breath compared to yesterday. Obese close 11.7 with a hemoglobin 9.3 and a platelet count of 103. His BUN is 49 with a creatinine of 1.2 and sodium is at 134 and the potassium level is 4.7. He has no other specific complaints for now. No chest pain. He clearly reports that his shortness of breath improving and the patient is currently on 4 L of oxygen by nasal cannula with a pulse ox of 98%. 12/25/2023, patient is being seen for a follow-up. Events from last night were noted. Noted the patient went into A-fib RVR. This made him quite unstable and short of breath. The patient was initially started on a Cardizem drip and he failed and his heart rate was quite tachycardic. Based on cardiology recommendation, the patient was cardioverted and a cardioversion was successful and the patient is currently back in normal sinus rhythm. Michelle catheter is in place and is having some limited hematuria. This is essentially clearing at this point in time. No significant shortness of breath. " Again wheezy and his respiratory status is back to his baseline. Blood sugars elevated and the patient remains on an insulin drip at 7 units an hour. Is cu rrently on 3 L of oxygen nasal cannula. He is on IV Lasix daily. He remains in a negative fluid balance of 1.8 L over the past 24 hours. The white cell count is at 10 with a hemoglobin 9.1 and a platelet count of 106. Sodium is 132, potassium is at 4.8, BUN is 54 with a creatinine of 1.3. Blood sugars are elevated. 12/26/2023, the patient is being seen for a follow-up. Comfortable on 3 L of oxygen by nasal cannula. The cardiac rhythm Remains sinus. No significant bronchospasm or wheezing. Afebrile. Blood sugars remain quite elevated and the patient will be placed on Levemir 30 units twice daily. Patient is on oral Lasix. The patient is also on oral prednisone. IV insulin drip has been discontinued. Labs are stable with a white cell count of 9.2, hemoglobin 9.8, platelet count of 114, BUN 57 with a creatinine of 1.2 and a sodium levels of 130. On 12/27/2023, the patient is resting comfortably in bed and currently is on 3 L of oxygen by nasal cannula. Oxygenation is improved. Chills exacerbation was also recovered. Patient is currently on DuoNeb updrafts and prednisone taper and currently receiving a dose of 40 mg p.o. daily. Cardiac rhythm is also sinus. He is on a combination of amiodarone 400 mg p.o. twice a day and metoprolol 75 mg p.o. twice daily. He remains on anticoagulation with Eliquis 5 mg p.o. twice a day. He is also on Levemir insulin 20 units twice daily and sliding scale coverage. He remains on Lasix 40 mg p.o. daily. He was moved out of the intensive care unit. Michelle catheter is in place and the plan is to keep the catheter for another 24 hours and remove it in the morning. The white cell count is at 10.3 with a hemoglobin 11.1 and a platelet count of 117. BUN is 47 with a creatinine of 1.27 and a sodium levels of 134. Awake and alert. No altered mentation. No other new complaints otherwise for now. The patient is seen today December 28, 2023 in follow-up on the selective care unit. He is awake and alert in no acute distress. Resting comfortably in bed. Denies any worsening shortness of breath, cough or congestion. He is maintaining good O2 saturations in the upper 90s on 2 L/min per nasal cannula. Has been afebrile. Hemodynamically stable. White count 7.9. Hemoglobin 9.2. Platelets 110. Sodium 133. Potassium 4.5. Bicarb 25. BUN 47. Creatinine 1.33. Glucose 116. He remains on bronchodilators. Remains on diuretics. Anticoagulated with Eliquis. The patient is seen today December 29, 2023 in follow-up on the selective care unit. He is currently sitting up in a chair. Awake and alert in no acute distress. Maintaining good O2 saturations in the 90s on 2 L/min per nasal cannula. He is afebrile. Hemodynamically stable.. He denies any worsening shortness of breath. White count 10.4. Hemoglobin 9.2. Platelets 109. Sodium 133. Potassium 4.5. Bicarb 28. BUN 51. Creatinine 1.65. Glucose 182. His PSA level is 6.55 concerning for recurrent prostate cancer. Urology is following. He is continued on bronchodilators, oral diuretics, prednisone taper. He remains on tamsulosin. Anticoagulated with Eliquis Patient was evaluated today on December 29, patient is feeling better, sitting at the bedside recliner, doing well, improving steadily, patient does have intermittent episodes of shortness of breath according to the on a regular basis, but overall, breathing easier, and does not seem to be in any distress, remains on 2 L nasal cannula. Placement in rehab is in progress. WBC count is 8.8 hemoglobin is 8.9 basic metabolic profile is normal creatinine is 1.53, improved compared to yesterday, but still off baseline which was 1.09 on admission Patient was evaluated today on 12/31/2023, doing well, still waiting for placement, pulmonary tinajero the patient has hardly any pulmonary symptoms no cough no wheezing no shortness of breath. Patient is on 2 L nasal cannula with O2 sa ts of 94%. No labs were drawn today, patient may be considered for transfer to [facility] in [place]. In the meantime we are mostly waiting for placement Patient was evaluated today on 01/01/2024, continues to do well, relatively asymptomatic, remains on oxygen at 2 L via nasal cannula and O2 sats is 95%. Patient is basically awaiting placement and waiting for authorization. Significant improvement noted in the last few days, patient is generally weak, he definitely would benefit from rehab placement Objective - Vital Signs Vital signs: Vital Signs Temp 98.0 F 01/01/24 08:00 Pulse 62 01/01/24 12:36 Resp 18 01/01/24 08:00 BP 106/68 01/01/24 08:00 Pulse Ox 95 01/01/24 08:00 FiO2 Intake & Output 12/31/23 01/01/24 01/01/24 18:59 06:59 18:59 Intake Total 480 Output Total 1225 1100 Balance -745 -1100 Intake: Oral 480 Output: Urine 1225 1100 Other: Voiding Method Urinal Urinal Urinal # Voids 2 # Bowel Movements 0 - Exam GENERAL EXAM: 78-year-old white male on 2 L nasal cannula in no distress HEAD: Normocephalic and atraumatic EYES: Normal reaction of pupils, equal size. NOSE: Clear with pink turbinates. THROAT: No erythema or exudates. NECK: No masses, no JVD. CHEST: No chest wall deformity. LUNGS: Equal air entry clear bilaterally no rhonchi no wheezes CVS: S1 and S2 normal with no audible murmur, regular rhythm. No extra heart sounds ABDOMEN: No hepatosplenomegaly, active bowel sounds, no guarding or rigidity. SKIN: No rashes CENTRAL NERVOUS SYSTEM: Alert oriented x 3 no focal deficit EXTREMITIES: No clubbing edema or cyanosis - Labs CBC & Chem 7: 12/30/23 08:59 01/01/24 03:12 Labs: Abnormal Lab Results - Last 24 Hours (Table) 12/31/23 12/31/23 01/01/24 Range/Units 16:24 20:11 00:05 Sodium (137-145) mmol/L BUN (9-20) mg/dL Creatinine (0.66-1.25) mg/dL Glucose (74-99) mg/dL POC Glucose (mg/dL) 300 H 437 H 360 H (70-110) mg/dL 01/01/24 Range/Units 03:12 Sodium 131 L (137-145) mmol/L BUN 40 H (9-20) mg/dL Creatinine 1.34 H (0.66-1.25) mg/dL Glucose 100 H (74-99) mg/dL POC Glucose (mg/dL) (70-110) mg/dL Assessment and Plan Assessment: Impression: Acute on chronic hypoxemic respiratory failure, currently on 2 L/min nasal cannula, multifactorial Acute exacerbation of chronic obstructive pulmonary disease, improved History of lung cancer, status post chemo/radiation, continues to follow-up with his oncologist outpatient, the patient has 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 No evidence of any active malignancy at this point in time. Atrial fibrillation with rapid ventricular response, converted into sinus rhythm post cardioversion and the patient remains on amiodarone 400 mg p.o. twice a day and metoprolol 75 mg twice a day and the patient is on anticoagulation with Eliquis. The current rhythm remained sinus Chronic hypoxemic respiratory failure, secondary to above Elevated troponins, trending down, not consistent with ACS History of paroxysmal atrial fibrillation, currently normal sinus rhythm, chronically anticoagulated on Eliquis Diabetes mellitus type 2 with steroid-induced hyperglycemia currently off insuli n drip for blood sugar control currently on Levemir insulin Hypertension History of hyperlipidemia History of hypothyroidism History of peripheral arterial disease Bicytopenia, with thrombocytopenia and anemia, possibly chronic and no overt signs of acute blood loss History of prostate cancer status postradiation, recent PSA elevated at 6.55, to be followed up in the outpatient setting Obstructive sleep apnea with home CPAP Obesity, with a BMI of 35.5 kg/m Former tobacco dependence, quit smoking December 2022 Obstructive uropathy post Michelle catheter insertion. Improved and the patient is on Flomax and the hematuria has recovered Recommendation: Awaiting authorization for placement in rehab facility. Continue present supportive care measures Continue oxygen Continue bronchodilators Cleared from our perspective once a bed is available to be transferred to rehab. Continue the prednisone tapering on outpatient basis Patient to follow-up with Dr. Carter on outpatient basis postdischarge Continue to follow as long as inpatient. Time with Patient: Less than 30
[2024-01-01 16:19] LABS: Glucose,Whole Blood 208 mg/dL (70-110)
[2024-01-01] MEDS: FLUCONAZOLE 100 MG TAB PO ONE (17:16)
[2024-01-01 20:03] LABS: Glucose,Whole Blood 375 mg/dL (70-110)
--- NOTE | 2024-01-01 22:40 | PN ---
PROGRESS NOTE DATE OF SERVICE: 01/01/2024 SUBJECTIVE: This is a 78-year-old gentleman admitted with COPD acute exacerbation, atrial fibrillation, is awaiting for possible rehab placement. The patient is also complaining of cramping of both hands. The patient received magnesium. Calcium was low slightly in the beginning, but currently is normal. PAST MEDICAL HISTORY: Reviewed. The patient also has some scrotal lesions. PAST MEDICAL HISTORY: Reviewed. REVIEW OF SYSTEMS: A 14-point review is negative except as mentioned earlier. CURRENT MEDICATIONS: Include DuoNeb. PHYSICAL EXAMINATION: VITAL SIGNS: Pulse is 61, blood pressure 105/53, respirations 18. HEENT: Conjunctivae normal. NECK: No JVD. CARDIOVASCULAR: S1, S2. RESPIRATIONS: Breath sounds diminished at the bases. Bilateral scattered rhonchi and crackles. Expiratory wheezing. ABDOMEN: Soft. LEGS: Bilateral leg edema. Scrotal swelling present. LABORATORY DATA: Creatinine 1.34. ASSESSMENT: 1. Chronic obstructive pulmonary disease acute exacerbation with acute hypoxic respiratory failure. 2. Possible acute cor pulmonale. 3. Atrial fibrillation with rapid ventricular rate, controlled. 4. Bilateral hand spasms. 5. Right upper lobe lesion, possibly distal pulmonary embolism. 6. Possible right upper lobe pneumonia versus scarring. 7. Chronic hypoxic respiratory failure. 8. Diabetes mellitus, type 2. 9. History of lung cancer, status post chemoradiation. 10.Obesity with body mass index 37.1. 11.Gait dysfunction. 12.Multiple complex medical issues. 13.Scrotal edema. RECOMMENDATIONS AND DISCUSSION: I recommend to continue current management and continue symptomatic treatment. Otherwise, at this time, local treatment for the scrotal edema. I would recommend a course of Diflucan and the QTc was 407 milliseconds. We will continue to monitor. Continue rest of medications. Replace magnesium. Guarded prognosis. Further recommendations to follow. See orders for further details. MMODL / IJN: [id number] /
[2024-01-02 00:17] LABS: Glucose,Whole Blood 247 mg/dL (70-110)
[2024-01-02 00:30] LABS: Glucose,Whole Blood >600 mg/dL (70-110)
[2024-01-02 00:31] LABS: Glucose,Whole Blood 247 mg/dL (70-110)
[2024-01-02 04:10] LABS: Glucose,Whole Blood 186 mg/dL (70-110)
[2024-01-02 06:15] LABS: Glucose,Whole Blood 96 mg/dL (70-110)
[2024-01-02] MEDS: FLUCONAZOLE 100 MG TAB PO SCH (07:54)
[2024-01-02 09:39] LABS: ALT 25 U/L (10-49); AST 15 U/L (14-35); Albumin/Globulin Ratio 1.58 Ratio (1.60-3.17); Alkaline Phosphatase 69 U/L (41-126); Blood Urea Nitrogen 38.4 mg/dL (9.0-27.0); Calcium 8.8 mg/dL (8.7-10.3); Chloride 98 mmol/L (96-109); Globulin 1.9 g/dL (1.6-3.3); Glucose 97 mg/dL (70-110); Magnesium 1.8 mg/dL (1.5-2.4); Potassium 4.2 mmol/L (3.5-5.5); Sodium 137 mmol/L (135-145); Total Bilirubin 0.2 mg/dL (0.3-1.2); Total Protein 4.9 g/dL (6.2-8.2)
[2024-01-02 10:21] LABS: Basophils # (A) 0.02 X 10*3/uL (0.00-0.10); Basophils % (A) 0.3 %; Eosinophils # (A) 0.07 X 10*3/uL (0.04-0.35); Eosinophils % (A) 1.1 %; HCT 24.6 % (39.6-50.0); HGB 7.6 g/dL (13.0-17.0); Lymphocytes # (A) 0.16 X 10*3/uL (0.90-5.00); Lymphocytes % (A) 2.6 %; MCH 31.5 pg (27.0-32.0); MCHC 30.9 g/dL (32.0-37.0); MCV 102.1 FL (80.0-97.0); Mean Platelet Volume 10.1 FL (9.5-12.2); Monocytes % (A) 4.8 %; NRBC Per 100 WBC 0 X 10*3/uL (0.00-0.01); Neutrophils # (A) 5.38 X 10*3/uL (1.80-7.70); Neutrophils % (A) 86.2 %; Platelet Count 90 X 10*3/uL (140-440); RBC 2.41 X 10*6/uL (4.40-5.60); RDW 16.6 % (11.5-14.5); WBC 6.24 X 10*3/uL (4.50-10.00)
[2024-01-02 11:25] LABS: Glucose,Whole Blood 232 mg/dL (70-110)
[2024-01-02] MEDS: MAGNESIUM SULFATE-D5W PMX 1 GM in DEXTROSE/WATER 1 100ML.BAG IVPB ONE (12:11)
--- NOTE | 2024-01-02 14:28 | P.PN ---
Subjective Progress Note Date: 01/02/24 Patient is a 78-year-old white male with past medical history significant for lung cancer status post chemoradiation, COPD, former tobacco smoker quitting approximately 1 year ago, diabetes melitis, hypothyroidism, hypertension, hyperlipidemia, obesity, peripheral arterial disease, atrial fibrillation chr onically anticoagulated on Eliquis, obstructive sleep apnea with home CPAP, among other comorbidities. Patient states that he was originally diagnosed with small cell lung cancer at [facility] October,. He is currently status post chemo and radiation treatments. He does follow with Dr. Kaiser from oncology. Most recent PET scan done 10/14/2023 did not show any new areas of abnormal hypermetabolic uptake to suggest active neoplastic recurrence. He does follow with a local [employer] [facility], Dr. Nirmala Gillespie. Patient states that his pulmonary status has significantly worsened over the last month and a half. He did have a brief hospitalization at [facility] reportedly last month. He has progressively become more short of breath, especially with exertion. States that he was told that he developed some radiation pneumonitis after his last radiation treatment. He is chronically oxygen dependent on 3 L home O2, but more recently increased his flow to 4 L/min. Yesterday, he got up as usual and started to make coffee. Had to use the bathroom, took his oxygen off, and went to the bathroom. He states that his nasal cannula does not reach this far. While in the bathroom he becomes severely short of breath. He called for his who put his CPAP machine on him. They then drove to [facility] where the patient was initially evaluated. While at the outside facility he did have a chest CTA which showed a very small distal right upper lobe filling defect consistent with small pulmonary embolism. Also, some likely post treatment changes of the right lung, with atelectasis and reticular changes in the right upper lobe. Superimposed diffuse groundglass opacities. Following these findings, the patient was transferred to [facility] late last night. Patient is currently sitting up in bed, on 4 L/min nasal cannula, in no acute distress. He endorses acute on chronic shortness of breath as described above. States he has been coughing more than normal over the last 3 days. No significant sputum production. Denies fevers. Denies sick contacts. Does admit substernal chest discomfort. Nonradiating. CBC on arrival to our facility: WBC count 7.8, hemoglobin 9.1, hematocrit 29.3, platelets 90,000. BMP drawn at our facility: Sodium 133, potassium 4.8, chloride 100, serum bicarb 10, BUN 29, creatinine 1.09, glucose 436. LFTs not elevated. Troponins were mildly elevated but are trending down, likely supply/demand mismatch, and are 0.047, 0.045, and 0.026 respectively. EKG demonstrates normal sinus rhythm without any acute ischemic changes noted. NT proBNP was significantly elevated at 5960. Patient's Eliquis has been restarted. Hemodynamics are stable. On today's evaluation of 12/22/2023, I am seeing the patient for a follow-up. Clinically improved compared to yesterday. Less bronchospastic and wheezy compared to yesterday. Still having some shortness of breath at rest. He is considerably improved compared to yesterday. Remains on bronchodilators. Remains on IV Solu-Medrol. Remains on oxygen 4 L/min nasal cannula. Remains on a combination performance of Pulmicort nebulized treatments and remains on Augmentin as an empiric antibiotic coverage. The blood work from today shows a WBC count of 9.2 with a hemoglobin 8.9 and a platelet count of 96. BUN is at 37 with a creatinine of 1.2 and a sodium levels at 131. The patient also has obstructive sleep apnea and he was able to bring in his CPAP unit which is an APAP unit set at a pressure of 6/15 cm of water. His treatment has been successful as the patient has been averaging around 10 hours of CPAP use per night and his AHI was down to 1 while on treatment the patient also feeds and oxygen 2 L through his CPAP unit. He remains on anticoagulation with Eliquis. 12/23/2023, the patient is being seen for a follow-up. The patient is doing we ll. Less short of breath compared to yesterday. Less bronchospastic and wheezy and utilizing his CPAP overnight. Blood sugar remains elevated and the patient is still on insulin drip for blood sugar control. Remains on IV Solu-Medrol dose of 60 mg every 6 hours. He is also empirically covered with Augmentin. He has developed some muscle cramps overnight. He is known to have muscle cramps on a chronic basis and the patient is drinking quinine water. BUN 37 with a creatinine 1.1 and a sodium levels at 133. Calcium level is at 8.3. Hemoglobin is 9.3 with a white cell count of 10.6. The patient remains on DuoNeb updrafts. The patient remains on Lasix 40 mg on a as needed basis and based on some increased edema and fluid overload, I am going to switch his Lasix to 40 mg on a daily basis and the first dose is to be given to him today. On 12/24/2023, seen the patient for a follow-up. The patient is doing well. Remains on IV Solu-Medrol. Remains on insulin drip for blood sugar control. No cramping of the body. Overnight, the patient issues with urinary retention. Michelle catheter was inserted and this was a traumatic insertion and is encountering some hematuria which is mild. Anticoagulation is still in progress. He is less short of breath compared to yesterday. Obese close 11.7 with a hemoglobin 9.3 and a platelet count of 103. His BUN is 49 with a creatinine of 1.2 and sodium is at 134 and the potassium level is 4.7. He has no other specific complaints for now. No chest pain. He clearly reports that his shortness of breath improving and the patient is currently on 4 L of oxygen by nasal cannula with a pulse ox of 98%. 12/25/2023, patient is being seen for a follow-up. Events from last night were noted. Noted the patient went into A-fib RVR. This made him quite unstable and short of breath. The patient was initially started on a Cardizem drip and he failed and his heart rate was quite tachycardic. Based on cardiology recommendation, the patient was cardioverted and a cardioversion was successful and the patient is currently back in normal sinus rhythm. Michelle catheter is in place and is having some limited hematuria. This is essentially clearing at this point in time. No significant shortness of breath. " Again wheezy and his respiratory status is back to his baseline. Blood sugars elevated and the patient remains on an insulin drip at 7 units an hour. Is currently on 3 L of oxygen nasal cannula. He is on IV Lasix daily. He remains in a negative fluid balance of 1.8 L over the past 24 hours. The white cell count is at 10 with a hemoglobin 9.1 and a platelet count of 106. Sodium is 132, potassium is at 4.8, BUN is 54 with a creatinine of 1.3. Blood sugars are elevated. 12/26/2023, the patient is being seen for a follow-up. Comfortable on 3 L of oxygen by nasal cannula. The cardiac rhythm Remains sinus. No significant bronchospasm or wheezing. Afebrile. Blood sugars remain quite elevated and the patient will be placed on Levemir 30 units twice daily. Patient is on oral Lasix. The patient is also on oral prednisone. IV insulin drip has been discontinued. Labs are stable with a white cell count of 9.2, hemoglobin 9.8, platelet count of 114, BUN 57 with a creatinine of 1.2 and a sodium levels of 130. On 12/27/2023, the patient is resting comfortably in bed and currently is on 3 L of oxygen by nasal cannula. Oxygenation is improved. Chills exacerbation was also recovered. Patient is currently on DuoNeb updrafts and prednisone taper and currently receiving a dose of 40 mg p.o. daily. Cardiac rhythm is also sinus. He is on a combination of amiodarone 400 mg p.o. twice a day and metoprolol 75 mg p.o. twice daily. He remains on anticoagulation with Eliquis 5 mg p.o. twice a day. He is also on Levemir insulin 20 units twice daily and sliding scale coverage. He remains on Lasix 40 mg p.o. daily. He was moved out of the intensive care unit. Michelle catheter is in place and the plan is to keep the catheter for another 24 hours and remove it in the morning. The white cell count is at 10.3 with a hemoglobin 11.1 and a platelet count of 117. BUN is 47 with a creatinine of 1.27 and a sodium levels of 134. Awake and alert. No altered mentation. No other new complaints otherwise for now. The patient is seen today December 28, 2023 in follow-up on the selective care unit. He is awake and alert in no acute distress. Resting comfortably in bed. Denies any worsening shortness of breath, cough or congestion. He is maintaining good O2 saturations in the upper 90s on 2 L/min per nasal cannula. Has been afebrile. Hemodynamically stable. White count 7.9. Hemoglobin 9.2. Platelets 110. Sodium 133. Potassium 4.5. Bicarb 25. BUN 47. Creatinine 1.33. Glucose 116. He remains on bronchodilators. Remains on diuretics. Anticoagulated with Eliquis. The patient is seen today December 29, 2023 in follow-up on the selective care unit. He is currently sitting up in a chair. Awake and alert in no acute distress. Maintaining good O2 saturations in the 90s on 2 L/min per nasal cannula. He is afebrile. Hemodynamically stable.. He denies any worsening shortness of breath. White count 10.4. Hemoglobin 9.2. Platelets 109. Sodium 133. Potassium 4.5. Bicarb 28. BUN 51. Creatinine 1.65. Glucose 182. His PSA level is 6.55 concerning for recurrent prostate cancer. Urology is following. He is continued on bronchodilators, oral diuretics, prednisone taper. He remains on tamsulosin. Anticoagulated with Eliquis The patient is seen today January 02, 2024 in follow-up on the regular medical floor. He is resting in bed. Awake and alert in no acute distress. He is maintaining good O2 saturations in the 90s on 2 L/min per nasal cannula. He is afebrile. Hemodynamically stable. White count 6.2. Hemoglobin 7.6. Platelets 90,000. Sodium 137. Potassium 4.2. Bicarb 27. BUN 38. Creatinine 1.5. Glucose 97. He is continued on bronchodilators. Anticoagulated with Eliquis. Remains on oral diuretics. Currently net -1.9 L balance. Objective - Vital Signs Vital signs: Vital Signs Temp 97.3 F L 01/02/24 13:37 Pulse 80 01/02/24 13:37 Resp 18 01/02/24 13:37 BP 112/63 01/02/24 13:37 Pulse Ox 93 L 01/02/24 13:37 FiO2 Intake & Output 01/01/24 01/02/24 01/02/24 18:59 06:59 18:59 Intake Total 480 Output Total 925 1450 1200 Balance -445 1450 -1200 Intake: Oral 480 Output: Urine 925 1450 1200 Other: Voiding Method Urinal External Catheter External Catheter - Exam GENERAL EXAM: Alert, 78-year-old obese male, resting in bed, in no distress. Currently on 2 L nasal cannula HEAD: Normocephalic and atraumatic EYES: Normal reaction of pupils, equal size. NOSE: Clear with pink turbinates. THROAT: No erythema or exudates. NECK: No masses, no JVD. CHEST: No chest wall deformity. LUNGS: Equal air entry with faint and expiratory wheezes and mild inspiratory crackles at the right base. CVS: S1 and S2 normal with no audible murmur, regular rhythm. No extra heart sounds ABDOMEN: No hepatosplenomegaly, active bowel sounds, no guarding or rigidity. SPINE: No scoliosis or deformity SKIN: No rashes CENTRAL NERVOUS SYSTEM: No focal deficits, tone is normal in all 4 extremities. EXTREMITIES: There is no peripheral edema, clubbing, or cyanosis. Peripheral pulses are intact. - Labs CBC & Chem 7: 01/02/24 04:40 01/02/24 04:40 Labs: Abnormal Lab Results - Last 24 Hours (Table) 01/01/24 01/01/24 01/02/24 Range/Units 16:16 20:01 00:15 RBC (4.40-5.60) X 10*6/uL Hgb (13.0-17.0) g/dL Hct (39.6-50.0) % MCV (80.0-97.0) FL MCHC (32.0-37.0) g/dL RDW (11.5-14.5) % Plt Count (140-440) X 10*3/uL Immature Gran # (0.00-0.04) X 10*3/uL Lymphocytes # (0.90-5.00) X 10*3/uL BUN (9.0-27.0) mg/dL Est GFR (CKD-EPI) (>=60) BUN/Creatinine Ratio (12.00-20.00) Ratio POC Glucose (mg/dL) 208 H 375 H 247 H (70-110) mg/dL Total Bilirubin (0.3-1.2) mg/dL Total Protein (6.2-8.2) g/dL Albumin (3.8-4.9) g/dL Albumin/Globulin Ratio (1.60-3.17) Ratio 01/02/24 01/02/24 01/02/24 Range/Units 00:28 00:30 04:09 RBC (4.40-5.60) X 10*6/uL Hgb (13.0-17.0) g/dL Hct (39.6-50.0) % MCV (80.0-97.0) FL MCHC (32.0-37.0) g/dL RDW (11.5-14.5) % Plt Count (140-440) X 10*3/uL Immature Gran # (0.00-0.04) X 10*3/uL Lymphocytes # (0.90-5.00) X 10*3/uL BUN (9.0-27.0) mg/dL Est GFR (CKD-EPI) (>=60) BUN/Creatinine Ratio (12.00-20.00) Ratio POC Glucose (mg/dL) >600 H* 247 H 186 H (70-110) mg/dL Total Bilirubin (0.3-1.2) mg/dL Total Protein (6.2-8.2) g/dL Albumin (3.8-4.9) g/dL Albumin/Globulin Ratio (1.60-3.17) Ratio 01/02/24 01/02/24 01/02/24 Range/Units 04:40 04:40 11:24 RBC 2.41 L (4.40-5.60) X 10*6/uL Hgb 7.6 L (13.0-17.0) g/dL Hct 24.6 L (39.6-50.0) % MCV 102.1 H (80.0-97.0) FL MCHC 30.9 L (32.0-37.0) g/dL RDW 16.6 H (11.5-14.5) % Plt Count 90 L (140-440) X 10*3/uL Immature Gran # 0.31 H (0.00-0.04) X 10*3/uL Lymphocytes # 0.16 L (0.90-5.00) X 10*3/uL BUN 38.4 H (9.0-27.0) mg/dL Est GFR (CKD-EPI) 48 L (>=60) BUN/Creatinine Ratio 25.60 H (12.00-20.00) Ratio POC Glucose (mg/dL) 232 H (70-110) mg/dL Total Bilirubin 0.2 L (0.3-1.2) mg/dL Total Protein 4.9 L (6.2-8.2) g/dL Albumin 3.0 L (3.8-4.9) g/dL Albumin/Globulin Ratio 1.58 L (1.60-3.17) Ratio Assessment and Plan Assessment: Acute on chronic hypoxemic respiratory failure, chest CTA from outside facility was noted to demonstrate a right upper lobe distal small filling defect consistent with pulmonary embolism. When correlating with patient's past medic al history, there was also some likely post treatment changes in the right lung. Also, noted diffuse groundglass opacities, superimposed pulmonary edema was not excluded. Overall impression that the patient has COPD exacerbation. Patient responded nicely to bronchodilators and steroids and his overall pulmonary status is improved and is currently on 2 L O2 nasal cannula. The patient is currently on a prednisone burst taper starting with 40 mg p.o. daily. Remains on bronchodilators. Acute exacerbation of chronic obstructive pulmonary disease, improved History of lung cancer, status post chemo/radiation, continues to follow-up with his oncologist outpatient, the patient has course radiation related pulmonary infiltrates involving the right perihilar area. No evidence of any active m alignancy at this point in time. Atrial fibrillation with rapid ventricular response, converted into sinus rhythm post cardioversion and the patient remains on amiodarone 400 mg p.o. twice a day and metoprolol 75 mg twice a day and the patient is on anticoagulation with Eliquis. 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 Improved and the patient is on Flomax and the hematuria has recovered Plan: The patient was seen and evaluated Labs and medications reviewed Stable and on 2 L nasal cannula Complete a prednisone taper Continue his home bronchodilators To follow-up with urology regarding PSA level Awaiting subacute rehabilitation placement Follow-up in our office in 1 week I have personally seen and examined the patient, performed the documentation and the assessment and plan as written. Number of minutes spent on the visit: 10.
[2024-01-02 16:38] LABS: Glucose,Whole Blood 271 mg/dL (70-110)
[2024-01-02] MEDS: MAGNESIUM OXIDE 400 MG TAB PO SCH (17:11)
[2024-01-02 22:03] LABS: Glucose,Whole Blood 482 mg/dL (70-110)
[2024-01-03] LABS: Glucose,Whole Blood 323 mg/dL (70-110)
--- NOTE | 2024-01-03 03:50 | PN ---
PROGRESS NOTE DATE OF SERVICE: 01/02/2024 SUBJECTIVE: This 78-year-old gentleman admitted with COPD acute exacerbation and atrial fibrillation. The patient is evaluated for possible ECF rehab. The patient also complains of cramping of both hands, and magnesium has been replaced. Today's magnesium is 1.8. PAST MEDICAL HISTORY: Reviewed. REVIEW OF SYSTEMS: A 14-point review is negative. CURRENT MEDICATIONS: Reviewed include DuoNeb, dose and rest of medications noted. OBJECTIVE: VITAL SIGNS: Pulse 68, blood pressure 150/61, respirations 18. CHEST: Clear to auscultation. CARDIOVASCULAR: S1, S2. ABDOMEN: Soft. NERVOUS SYSTEM: Nonfocal. LABORATORY DATA: Hemoglobin 7.6. ASSESSMENT: 1. Chronic obstructive pulmonary disease exacerbation with acute hypoxic respiratory failure. 2. Possible acute cor pulmonale. 3. Atrial fibrillation, rapid ventricular rate, controlled. 4. Bilateral hand spasms with hypomagnesemia. 5. Right upper lobe lesion, possibly distal pulmonary embolism. 6. Anemia, multifactorial, symptomatic. 7. Possible right upper lobe pneumonia versus scarring. 8. Chronic hypoxic respiratory failure. 9. Diabetes mellitus type 2. 10.History of lung cancer, status post chemoradiation. 11.Obesity with body mass index of 37.0. 12.Multiple complex medical issues. RECOMMENDATIONS: Recommended to continue current management, continue symptomatic treatment. At this time, I recommended 1 unit transfusion for symptomatic anemia, medication, supplementation. The patient is on magnesium 200 b.i.d., I will increase to 200 t.i.d. and continue to monitor. Otherwise, prognosis extremely guarded. PT OT evaluation, possible ECF rehab. Discussed with family. Further recommendations to follow. MMODL / IJN: [id number] /
[2024-01-03 04:22] LABS: Glucose,Whole Blood 113 mg/dL (70-110)
[2024-01-03 08:24] LABS: Glucose,Whole Blood 154 mg/dL (70-110)
[2024-01-03 12:00] LABS: Glucose,Whole Blood 143 mg/dL (70-110)
--- NOTE | 2024-01-03 13:42 | P.DS ---
Providers Date of admission: 12/20/23 20:39 Expected date of discharge: 01/03/24 Attending physician: Howard Huang MD Consults: 12/21/23 04:36 Consult Physician Routine Consulting Provider: Frankie Carter Consult Reason/Comments: PE Do you want consulting provider notified?: Yes, Notify in am 12/24/23 16:36 Consult Physician Urgent Consulting Provider: Carlos Pandey Consult Reason/Comments: urinary retention, hematuria Do you want consulting provider notified?: Yes 12/25/23 00:09 Consult Physician Routine Consulting Provider: Frankie Carter Consult Reason/Comments: a fib rvr Do you want consulting provider notified?: Yes, Notify in am Primary care physician: Landen Wilson MD Hospital Course: Final diagnosis Chronic obstructive pulmonary disease acute exacerbation with acute hypoxic respiratory failure Atrial fibrillation with rvr, currently rate controlled right upper lobe lesion and possible distal pulmonary embolism Possible right upper lobe pneumonia versus scarring Chronic hypoxic respiratory failure Diabetes mellitus, type II, uncontrolled with hyperglycemia History of lung cancer, status post chemoradiation Obesity with BMI 37.1 GI prophylaxis DVT prophylaxis Full code Discharge disposition Patient is being discharged in a stable condition with guarded prognosis to [facility]. Patient will follow-up with Dr. Waylon Wilson in the outpatient setting upon discharge. Patient is to continue with close outpatient follow-up with cardiology, urology, pulmonary as scheduled. Total time taken is greater than 35 minutes. Hospital course This is a 78-year-old male who was recently admitted with shortness of breath COPD exacerbation along with atrial fibrillation with RVR new onset. Patient evaluated by multiple medical consultations including pulmonary and concerns of right upper lobe lesion which patient will need outpatient follow-up with pulmonary. Patient has had increased weakness with prolonged hospitalization and evaluated by physical therapy recommending rehab. Patient required insurance authorization which has been obtained and patient will be going to [facility]. Please refer to other consultation notes for further HPI. Patient will need outpatient follow-up with cardiology, pulmonary, and urology outpatient. Currently no reports of chest pain, no worsening shortness of breath, or palpitations. Patient is afebrile. No reports of nausea or vomiting and patient is tolerating diet. Patient will be going to [facility] today. Guarded prognosis and high risk for readmission Physical exam: Gen: This is a 78-year-old male who is awake, alert and oriented x 3, well- developed, elderly appearing, ill-appearing, obese HEENT: Head is atraumatic, normocephalic. Pupils equal, round. Sclerae is anicteric. NECK: Supple. No JVD. No lymphadenopathy. No thyromegaly. LUNGS: Diminished breath sounds bilaterally with some scattered rhonchi. No intercostal retractions. HEART: S1, S2 are muffled, irregular ABDOMEN: Soft. Obese bowel sounds are present. No masses. No tenderness. EXTREMITIES: No pedal edema. No calf tenderness. Mild lower extremity edema noted NEUROLOGICAL: Patient is awake, alert and oriented x3. Cranial nerves 2 through 12 are grossly intact. Diffusely weak Please refer to medication reconciliation sheet for a list of medications. The impression and plan of care has been dictated by Karissa Morales, Nurse Practitioner as directed. Dr. Jefferson MD I have performed a history and examination and MDM of this patient, discussed the same with the dictator, and agree with the dictator's assessment and plan as written ,documented as a scribe. Based on total visit time, I have performed more than 50% of the visit. Patient Condition at Discharge: Fair Plan - Discharge Summary Discharge Rx Participant: No New Discharge Prescriptions: New Amiodarone [Cordarone] 400 mg PO BID tab Fluconazole [Diflucan] 100 mg PO DAILY 7 Days #7 tab Ipratropium-Albuterol Nebulize [Duoneb 0.5 mg-3 mg/3 ml Soln] 3 ml INHALATION RT-QID each Cyclobenzaprine [Flexeril] 10 mg PO Q8HR PRN tab PRN Reason: Muscle Spasm Insulin Detemir (Levemir) [Levemir] 15 unit SQ BID@0700,2100 each Melatonin 5 mg PO HS PRN tab PRN Reason: Insomnia Acetaminophen Tab [Tylenol] 650 mg PO Q6HR PRN tab PRN Reason: Fever And/ Or Pain Apixaban [Eliquis] 5 mg PO BID tab Tamsulosin [Flomax] 0.4 mg PO PC-BRKFST cap Isosorbide Mononitrate ER [Imdur] 30 mg PO DAILY tab Nystatin 100,000 Unit/gm Powd [Mycostatin Powder] 1 applic TOPICAL BID each INSULIN ASPART (NovoLOG) [NovoLOG (formulary)] 0 unit SQ Q4H each HYDROcodone/APAP 5-325MG [Luning 5-325] 1 tab PO Q6HR PRN #4 tab PRN Reason: Pain Continue metFORMIN HCL [Glucophage] 1,000 mg PO DIRECTED Omeprazole 20 mg PO Q48H Cholecalciferol [Vitamin D3 (125 Mcg = 5000 Iu)] 125 mcg PO DAILY Ferrous Gluconate 324 mg PO HS Magnesium Chloride [Nu-Mag] 214.5 mg PO BID Montelukast [Singulair] 10 mg PO HS hydrALAZINE HCL [Apresoline] 10 mg PO DAILY PRN PRN Reason: BP 150/90 OR GREATER Levothyroxine Sodium [Synthroid] 150 mcg PO DAILY Vitamin E (Dl,Tocopheryl Acet) [Vitamin E (400 Iu = 180 mg)] 400 unit PO DAILY lisinopriL 40 mg PO DAILY Atorvastatin Calcium [Lipitor] 80 mg PO HS Furosemide [Lasix] 40 mg PO DAILY PRN PRN Reason: Edema Budesonide [Pulmicort] 0.5 mg INHALATION RT-BID Ipratropium-Albuterol Nebulize [Duoneb 0.5 mg-3 mg/3 ml Soln] 3 ml INHALATION RT-QID PRN PRN Reason: Shortness Of Breath Metoprolol Tartrate [Lopressor] 75 mg PO BID hydrALAZINE HCL [Apresoline] 10 mg PO BID Cyanocobalamin (Vitamin B-12) [Vitamin B-12] 1,000 mcg PO DAILY Potassium Chloride ER [K-Dur 20] 20 meq PO DAILY PRN PRN Reason: EDEMA/WITH LASIX Albuterol Inhaler [Ventolin Hfa Inhaler] 1 - 2 puff INHALATION RT-Q4H PRN PRN Reason: Shortness Of Breath predniSONE See Taper PO DIRECTED allopurinoL [Zyloprim] 200 mg PO DAILY allopurinoL [Zyloprim] 100 mg PO HS Lidocaine 5% Patch [Lidoderm 5% Patch] 1 patch TOPICAL DIRECTED Discontinued Aspirin [Adult Low Dose Aspirin EC] 81 mg PO DAILY Apixaban [Eliquis] 5 mg PO Q12H Insulin Lispro [humaLOG Kwikpen] See Protocol SQ AC-TID PRN MDD 30 units PRN Reason: high blood sugar Insulin Glargine,Hum.rec.anlog [Lantus Solostar Pen] 10 units SQ HS Discharge Medication List Omeprazole 20 mg PO Q48H 11/30/18 [History] metFORMIN HCL [Glucophage] 1,000 mg PO DIRECTED 11/30/18 [History] Cholecalciferol [Vitamin D3 (125 Mcg = 5000 Iu)] 125 mcg PO DAILY 03/18/23 [History] Ferrous Gluconate 324 mg PO HS 03/18/23 [History] Albuterol Inhaler [Ventolin Hfa Inhaler] 1 - 2 puff INHALATION RT-Q4H PRN 12/20/23 [History] Atorvastatin Calcium [Lipitor] 80 mg PO HS 12/20/23 [History] Budesonide [Pulmicort] 0.5 mg INHALATION RT-BID 12/20/23 [History] Cyanocobalamin (Vitamin B-12) [Vitamin B-12] 1,000 mcg PO DAILY 12/20/23 [History] Furosemide [Lasix] 40 mg PO DAILY PRN 12/20/23 [History] Ipratropium-Albuterol Nebulize [Duoneb 0.5 mg-3 mg/3 ml Soln] 3 ml INHALATION RT-QID PRN 12/20/23 [History] Levothyroxine Sodium [Synthroid] 150 mcg PO DAILY 12/20/23 [History] Lidocaine 5% Patch [Lidoderm 5% Patch] 1 patch TOPICAL DIRECTED 12/20/23 [History] Magnesium Chloride [Nu-Mag] 214.5 mg PO BID 12/20/23 [History] Metoprolol Tartrate [Lopressor] 75 mg PO BID 12/20/23 [History] Montelukast [Singulair] 10 mg PO HS 12/20/23 [History] Potassium Chloride ER [K-Dur 20] 20 meq PO DAILY PRN 12/20/23 [History] Vitamin E (Dl,Tocopheryl Acet) [Vitamin E (400 Iu = 180 mg)] 400 unit PO DAILY 12/20/23 [History] allopurinoL [Zyloprim] 100 mg PO HS 12/20/23 [History] allopurinoL [Zyloprim] 200 mg PO DAILY 12/20/23 [History] hydrALAZINE HCL [Apresoline] 10 mg PO BID 12/20/23 [History] hydrALAZINE HCL [Apresoline] 10 mg PO DAILY PRN 12/20/23 [History] lisinopriL 40 mg PO DAILY 12/20/23 [History] predniSONE See Taper PO DIRECTED 12/20/23 [History] Acetaminophen Tab [Tylenol] 650 mg PO Q6HR PRN tab 01/03/24 [Rx] Amiodarone [Cordarone] 400 mg PO BID tab 01/03/24 [Rx] Apixaban [Eliquis] 5 mg PO BID tab 01/03/24 [Rx] Cyclobenzaprine [Flexeril] 10 mg PO Q8HR PRN tab 01/03/24 [Rx] Fluconazole [Diflucan] 100 mg PO DAILY 7 Days #7 tab 01/03/24 [Rx] HYDROcodone/APAP 5-325MG [Luning 5-325] 1 tab PO Q6HR PRN #4 tab 01/03/24 [Rx] INSULIN ASPART (NovoLOG) [NovoLOG (formulary)] 0 unit SQ Q4H each 01/03/24 [Rx] Insulin Detemir (Levemir) [Levemir] 15 unit SQ BID@0700,2100 each 01/03/24 [Rx] Ipratropium-Albuterol Nebulize [Duoneb 0.5 mg-3 mg/3 ml Soln] 3 ml INHALATION RT-QID each 01/03/24 [Rx] Isosorbide Mononitrate ER [Imdur] 30 mg PO DAILY tab 01/03/24 [Rx] Melatonin 5 mg PO HS PRN tab 01/03/24 [Rx] Nystatin 100,000 Unit/gm Powd [Mycostatin Powder] 1 applic TOPICAL BID each 01/03/24 [Rx] Tamsulosin [Flomax] 0.4 mg PO PC-BRKFST cap 01/03/24 [Rx] Follow up Appointment(s)/Referral(s): Garry Patel MD [STAFF PHYSICIAN] - 3 Weeks Landen Wilson MD [Primary Care Provider] - 1-2 days Guillermo Gillespie MD [STAFF PHYSICIAN] - 1 Week Frankie Carter MD [STAFF PHYSICIAN] - As Needed (lung doctor ) Activity/Diet/Wound Care/Special Instructions: Patient is going to [facility] Activity as tolerated Follow-up with urology outpatient Follow-up with cardiology outpatient Follow-up with pulmonary outpatient Continue taking medications as prescribed Continue diabetic heart healthy diet Continue monitoring blood sugars ACHS and use sliding scale and long-acting NovoLog sliding scale 0-150 equals 0 units 151-200 equals 2 units 201-250 equals 4 units 251-300 equals 6 units 301-350 equals 8 units 351-400 equals 10 units Please notify provider if blood sugar is 400 or above Discharge Disposition: TRANSFER TO SNF/ECF
--- NOTE | 2024-01-03 14:10 | P.PN ---
Subjective Progress Note Date: 01/03/24 Patient is a 78-year-old white male with past medical history significant for lung cancer status post chemoradiation, COPD, former tobacco smoker quitting approximately 1 year ago, diabetes melitis, hypothyroidism, hypertension, hyperlipidemia, obesity, peripheral arterial disease, atrial fibrillation chr onically anticoagulated on Eliquis, obstructive sleep apnea with home CPAP, among other comorbidities. Patient states that he was originally diagnosed with small cell lung cancer at [facility] October,. He is currently status post chemo and radiation treatments. He does follow with Dr. Kaiser from oncology. Most recent PET scan done 10/14/2023 did not show any new areas of abnormal hypermetabolic uptake to suggest active neoplastic recurrence. He does follow with a local opinion polls survey worker, Dr. Nirmala Gillespie. Patient states that his pulmonary status has significantly worsened over the last month and a half. He did have a brief hospitalization at [facility] reportedly last month. He has progressively become more short of breath, especially with exertion. States that he was told that he developed some radiation pneumonitis after his last radiation treatment. He is chronically oxygen dependent on 3 L home O2, but more recently increased his flow to 4 L/min. Yesterday, he got up as usual and started to make coffee. Had to use the bathroom, took his oxygen off, and went to the bathroom. He states that his nasal cannula does not reach this far. While in the bathroom he becomes severely short of breath. He called for his who put his CPAP machine on him. They then drove to [facility] where the patient was initially evaluated. While at the outside facility he did have a chest CTA which showed a very small distal right upper lobe filling defect consistent with small pulmonary embolism. Also, some likely post treatment changes of the right lung, with atelectasis and reticular changes in the right upper lobe. Superimposed diffuse groundglass opacities. Following these findings, the patient was transferred to [facility] late last night. Patient is currently sitting up in bed, on 4 L/min nasal cannula, in no acute distress. He endorses acute on chronic shortness of breath as described above. States he has been coughing more than normal over the last 3 days. No significant sputum production. Denies fevers. Denies sick contacts. Does admit substernal chest discomfort. Nonradiating. CBC on arrival to our facility: WBC count 7.8, hemoglobin 9.1, hematocrit 29.3, platelets 90,000. BMP drawn at our facility: Sodium 133, potassium 4.8, chloride 100, serum bicarb 10, BUN 29, creatinine 1.09, glucose 436. LFTs not elevated. Troponins were mildly elevated but are trending down, likely supply/demand mismatch, and are 0.047, 0.045, and 0.026 respectively. EKG demonstrates normal sinus rhythm without any acute ischemic changes noted. NT proBNP was significantly elevated at 5960. Patient's Eliquis has been restarted. Hemodynamics are stable. On today's evaluation of 12/22/2023, I am seeing the patient for a follow-up. Clinically improved compared to yesterday. Less bronchospastic and wheezy compared to yesterday. Still having some shortness of breath at rest. He is considerably improved compared to yesterday. Remains on bronchodilators. Remains on IV Solu-Medrol. Remains on oxygen 4 L/min nasal cannula. Remains on a combination performance of Pulmicort nebulized treatments and remains on Augmentin as an empiric antibiotic coverage. The blood work from today shows a WBC count of 9.2 with a hemoglobin 8.9 and a platelet count of 96. BUN is at 37 with a creatinine of 1.2 and a sodium levels at 131. The patient also has obstructive sleep apnea and he was able to bring in his CPAP unit which is an APAP unit set at a pressure of 6/15 cm of water. His treatment has been successful as the patient has been averaging around 10 hours of CPAP use per night and his AHI was down to 1 while on treatment the patient also feeds and oxygen 2 L through his CPAP unit. He remains on anticoagulation with Eliquis. 12/23/2023, the patient is being seen for a follow-up. The patient is doing we ll. Less short of breath compared to yesterday. Less bronchospastic and wheezy and utilizing his CPAP overnight. Blood sugar remains elevated and the patient is still on insulin drip for blood sugar control. Remains on IV Solu-Medrol dose of 60 mg every 6 hours. He is also empirically covered with Augmentin. He has developed some muscle cramps overnight. He is known to have muscle cramps on a chronic basis and the patient is drinking quinine water. BUN 37 with a creatinine 1.1 and a sodium levels at 133. Calcium level is at 8.3. Hemoglobin is 9.3 with a white cell count of 10.6. The patient remains on DuoNeb updrafts. The patient remains on Lasix 40 mg on a as needed basis and based on some increased edema and fluid overload, I am going to switch his Lasix to 40 mg on a daily basis and the first dose is to be given to him today. On 12/24/2023, seen the patient for a follow-up. The patient is doing well. Remains on IV Solu-Medrol. Remains on insulin drip for blood sugar control. No cramping of the body. Overnight, the patient issues with urinary retention. Michelle catheter was inserted and this was a traumatic insertion and is encountering some hematuria which is mild. Anticoagulation is still in progress. He is less short of breath compared to yesterday. Obese close 11.7 with a hemoglobin 9.3 and a platelet count of 103. His BUN is 49 with a creatinine of 1.2 and sodium is at 134 and the potassium level is 4.7. He has no other specific complaints for now. No chest pain. He clearly reports that his shortness of breath improving and the patient is currently on 4 L of oxygen by nasal cannula with a pulse ox of 98%. 12/25/2023, patient is being seen for a follow-up. Events from last night were noted. Noted the patient went into A-fib RVR. This made him quite unstable and short of breath. The patient was initially started on a Cardizem drip and he failed and his heart rate was quite tachycardic. Based on cardiology recommendation, the patient was cardioverted and a cardioversion was successful and the patient is currently back in normal sinus rhythm. Michelle catheter is in place and is having some limited hematuria. This is essentially clearing at this point in time. No significant shortness of breath. " Again wheezy and his respiratory status is back to his baseline. Blood sugars elevated and the patient remains on an insulin drip at 7 units an hour. Is currently on 3 L of oxygen nasal cannula. He is on IV Lasix daily. He remains in a negative fluid balance of 1.8 L over the past 24 hours. The white cell count is at 10 with a hemoglobin 9.1 and a platelet count of 106. Sodium is 132, potassium is at 4.8, BUN is 54 with a creatinine of 1.3. Blood sugars are elevated. 12/26/2023, the patient is being seen for a follow-up. Comfortable on 3 L of oxygen by nasal cannula. The cardiac rhythm Remains sinus. No significant bronchospasm or wheezing. Afebrile. Blood sugars remain quite elevated and the patient will be placed on Levemir 30 units twice daily. Patient is on oral Lasix. The patient is also on oral prednisone. IV insulin drip has been discontinued. Labs are stable with a white cell count of 9.2, hemoglobin 9.8, platelet count of 114, BUN 57 with a creatinine of 1.2 and a sodium levels of 130. On 12/27/2023, the patient is resting comfortably in bed and currently is on 3 L of oxygen by nasal cannula. Oxygenation is improved. Chills exacerbation was also recovered. Patient is currently on DuoNeb updrafts and prednisone taper and currently receiving a dose of 40 mg p.o. daily. Cardiac rhythm is also sinus. He is on a combination of amiodarone 400 mg p.o. twice a day and metoprolol 75 mg p.o. twice daily. He remains on anticoagulation with Eliquis 5 mg p.o. twice a day. He is also on Levemir insulin 20 units twice daily and sliding scale coverage. He remains on Lasix 40 mg p.o. daily. He was moved out of the intensive care unit. Michelle catheter is in place and the plan is to keep the catheter for another 24 hours and remove it in the morning. The white cell count is at 10.3 with a hemoglobin 11.1 and a platelet count of 117. BUN is 47 with a creatinine of 1.27 and a sodium levels of 134. Awake and alert. No altered mentation. No other new complaints otherwise for now. The patient is seen today December 28, 2023 in follow-up on the selective care unit. He is awake and alert in no acute distress. Resting comfortably in bed. Denies any worsening shortness of breath, cough or congestion. He is maintaining good O2 saturations in the upper 90s on 2 L/min per nasal cannula. Has been afebrile. Hemodynamically stable. White count 7.9. Hemoglobin 9.2. Platelets 110. Sodium 133. Potassium 4.5. Bicarb 25. BUN 47. Creatinine 1.33. Glucose 116. He remains on bronchodilators. Remains on diuretics. Anticoagulated with Eliquis. The patient is seen today December 29, 2023 in follow-up on the selective care unit. He is currently sitting up in a chair. Awake and alert in no acute distress. Maintaining good O2 saturations in the 90s on 2 L/min per nasal cannula. He is afebrile. Hemodynamically stable.. He denies any worsening shortness of breath. White count 10.4. Hemoglobin 9.2. Platelets 109. Sodium 133. Potassium 4.5. Bicarb 28. BUN 51. Creatinine 1.65. Glucose 182. His PSA level is 6.55 concerning for recurrent prostate cancer. Urology is following. He is continued on bronchodilators, oral diuretics, prednisone taper. He remains on tamsulosin. Anticoagulated with Eliquis The patient is seen today January 02, 2024 in follow-up on the regular medical floor. He is resting in bed. Awake and alert in no acute distress. He is maintaining good O2 saturations in the 90s on 2 L/min per nasal cannula. He is afebrile. Hemodynamically stable. White count 6.2. Hemoglobin 7.6. Platelets 90,000. Sodium 137. Potassium 4.2. Bicarb 27. BUN 38. Creatinine 1.5. Glucose 97. He is continued on bronchodilators. Anticoagulated with Eliquis. Remains on oral diuretics. Currently net -1.9 L balance. The patient is seen today January 03, 2024 in follow-up on the regular medical floor. He is awake and alert in no acute distress. Maintaining O2 saturations in the 90s on 3 L/min per nasal cannula. No IV fluids. He denies any worsening shortness of breath, cough or congestion. Glucose 154. He is continued on bronchodilators. Anticoagulated with Eliquis. Remains on oral diuretics. Currently with a -3.2 L output. Objective - Vital Signs Vital signs: Vital Signs Temp 97.3 F L 01/03/24 07:30 Pulse 72 01/03/24 10:01 Resp 16 01/03/24 10:01 BP 164/76 01/03/24 07:30 Pulse Ox 93 L 06/03/24 07:30 FiO2 Intake & Output 01/02/24 01/03/24 01/03/24 18:59 06:59 18:59 Output Total 2550 700 Balance -2550 -700 Output: Urine 2550 700 Other: Voiding Method External Catheter External Catheter # Bowel Movements 1 - Exam GENERAL EXAM: Alert, pleasant 78-year-old male, in no distress. Currently on 3 L nasal cannula HEAD: Normocephalic and atraumatic EYES: Normal reaction of pupils, equal size. NOSE: Clear with pink turbinates. THROAT: No erythema or exudates. NECK: No masses, no JVD. CHEST: No chest wall deformity. LUNGS: Equal air entry with faint and expiratory wheezes and mild inspiratory crackles at the right base. CVS: S1 and S2 normal with no audible murmur, regular rhythm. No extra heart sounds ABDOMEN: No hepatosplenomegaly, active bowel sounds, no guarding or rigidity. SPINE: No scoliosis or deformity SKIN: No rashes CENTRAL NERVOUS SYSTEM: No focal deficits, tone is normal in all 4 extremities. EXTREMITIES: There is no peripheral edema, clubbing, or cyanosis. Peripheral pulses are intact. - Labs CBC & Chem 7: 01/02/24 04:40 01/02/24 04:40 Labs: Abnormal Lab Results - Last 24 Hours (Table) 01/02/24 01/02/24 01/02/24 Range/Units 16:36 22:01 23:59 POC Glucose (mg/dL) 271 H 482 H 323 H (70-110) mg/dL 01/03/24 01/03/24 01/03/24 Range/Units 04:20 08:22 11:59 POC Glucose (mg/dL) 113 H 154 H 143 H (70-110) mg/dL Assessment and Plan Assessment: Acute on chronic hypoxemic respiratory failure, chest CTA from outside facility was noted to demonstrate a right upper lobe distal small filling defect consistent with pulmonary embolism. When correlating with patient's past medical history, there was also some likely post treatment changes in the right lung. Also, noted diffuse groundglass opacities, superimposed pulmonary edema was not excluded. Overall impression that the patient has COPD exacerbation. Patient responded nicely to bronchodilators and steroids and his overall pulmonary status is improved and is currently on 2 L O2 nasal cannula. The patient is currently on a prednisone burst taper starting with 40 mg p.o. daily. Remains on bronchodilators. Acute exacerbation of chronic obstructive pulmonary disease, improved History of lung cancer, status post chemo/radiation, continues to follow-up with his oncologist outpatient, the patient has course radiation related pulmonary infiltrates involving the right perihilar area. No evidence of any active malignancy at this point in time. Atrial fibrillation with rapid ventricular response, converted into sinus rhythm post cardioversion and the patient remains on amiodarone 400 mg p.o. twice a day and metoprolol 75 mg twice a day and the patient is on anticoagulation with Eliquis. 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 Improved and the patient is on Flomax and the hematuria has recovered Plan: The patient was seen and evaluated Labs and medications reviewed Stable and on 3 L nasal cannula Complete a prednisone taper Continue his home bronchodilators Plan is to discharge to [facility] Follow-up in our office in 1 week I have personally seen and examined the patient, performed the documentation and the assessment and plan as written. Number of minutes spent on the visit: 10.
[2024-01-03 14:19] VITALS: BP 120/64; RESP 19; TEMP 97.4
[2024-01-03 15:08] VITALS: PULSE 72
--- NOTE | 2024-01-04 22:47 | CDI ---
Documentation Clarification Form Date: 01/04/2024 10:32:05 PM From: Debra Frank Phone: Admit Date: 12/20/2023 08:39:00 PM Patient Name: Benja Guzman Visit Number: [id number] Discharge Date: 01/03/2024 03:30:00 PM ATTENTION: The Clinical Documentation Specialists (CDI) and [facility] Coding Staff appreciate your assistance in clarifying documentation. Please respond to the clarification below the line at the bottom and electronically sign. The CDI & [facility] Coding staff will review the response and follow-up if needed. Please note: Queries are made part of the Legal Health Record. If you have any questions, please contact the author of this message via ITS. Dr. Melchor Hidalgo Your patient has the documented diagnosis of exacerbation ofCHF per Consult Note 12/23. Additional information regarding the type of CHF is requested. History/Risk Factors: 78yo M, AECOPD, ACHRF, PNA, DMII whyperglycemia, Hx lung & prostate Cx sp chemoradiation, obesity, fluid overload Clinical Indicators: VS/Pulse OX: 98 BNP: 5960 Echocardiogram Results: LV EF 55-60%; moderate to severely increased LV wall thickness;moderatelydilatedleft atrium; mildAS; mildTR; trace to mildMR; Chest x ray: The heart size is normal. The pulmonary vasculature is somewhat prominent. There is a focalinfiltrate in the RUL. LLL diffuse infiltrateis present. Correlate forpneumonia. Treatment: Continue with Lasix 40 mg daily and other cardiac medications In your professional opinion, can you please clarify the type of CHF if known? [ ] Acute on Chronic Systolic Heart Failure (reduced EF) [ ] Acute on Chronic Diastolic Heart Failure (preserved EF) [ ] Acute on Chronic Heart Failure Systolic & Diastolic Heart Failure [ ] Other, please specify [ ] Unable to determine (Template Last Revised: September 2020) MTDD
--- NOTE | 2024-01-05 21:20 | CDI ---
Documentation Clarification Form Date: 01/05/2024 09:16:29 PM From: Debra Frank Phone: Admit Date: 12/20/2023 08:39:00 PM Patient Name: Benja Guzman Visit Number: [id number] Discharge Date: 01/03/2024 03:30:00 PM ATTENTION: The Clinical Documentation Specialists (CDI) and [facility] Coding Staff appreciate your assistance in clarifying documentation. Please respond to the clarification below the line at the bottom and electronically sign. The CDI & [facility] Coding staff will review the response and follow-up if needed. Please note: Queries are made part of the Legal Health Record. If you have any questions, please contact the author of this message via ITS. Dr. Melchor Hidalgo Thank you for acknowledging the previous query; however, it lacked a response. Your patient has the documented diagnosis of exacerbation ofCHFper Consult Note 12/23. Additional information regarding the type ofCHFis requested. History/Risk Factors: 78yo M,AECOPD, ACHRF,PNA,DMIIwhyperglycemia, Hx lung & prostate Cx sp chemoradiation,obesity,fluid overload Clinical Indicators: VS/Pulse OX: 98 BNP: 5960 EchocardiogramResults: LV EF 55-60%; moderate to severely increased LV wall thickness; moderatelydilatedleft atrium; mildAS; mildTR; trace to mildMR; Chest x ray: The heart sizeis normal. The pulmonary vasculature is somewhat prominent. There is a focalinfiltratein the RUL. LLL diffuseinfiltrateis present. Correlate forpneumonia. Treatment: Continue with Lasix 40 mg daily and other cardiac medications In your professional opinion, can you please clarify the type ofCHFif known? [ ]Acute on Chronic Systolic Heart Failure(reducedEF) [ x]Acute on Chronic Diastolic Heart Failure(preserved EF) [ ]Acute on Chronic Heart Failure SystolicDiastolic Heart Failure [ ] Other, please specify [ ] Unable to determine (Template LastRevised: September 2020) MTDD
== END 2024-01-03 15:30 | DRG 189 ==
LOC: EC 18:46 → 3SCARD 20:39 → 2SICU 12-24 23:11 → 3SCARD 12-26 22:39 → 4SSUR 01-01 16:35
PROVIDERS: ADMIT Internal Medicine; ATTEND Internal Medicine
DX: J96.21 Acute and chronic respiratory failure with hypoxia (principal); I26.99 Other pulmonary embolism without acute cor pulmonale; I26.09 Other pulmonary embolism with acute cor pulmonale; I50.33 Acute on chronic diastolic (congestive) heart failure; I21.A1 Myocardial infarction type 2; T83.83XA Hemorrhage due to genitourinary prosthetic devices, implants and grafts, initial encounter; J70.0 Acute pulmonary manifestations due to radiation; J44.1 Chronic obstructive pulmonary disease with (acute) exacerbation; I48.92 Unspecified atrial flutter; D69.6 Thrombocytopenia, unspecified; E11.51 Type 2 diabetes mellitus with diabetic peripheral angiopathy without gangrene; E11.65 Type 2 diabetes mellitus with hyperglycemia; I48.0 Paroxysmal atrial fibrillation; Z79.4 Long term (current) use of insulin; Z99.81 Dependence on supplemental oxygen; E03.9 Hypothyroidism, unspecified; E66.9 Obesity, unspecified; N50.89 Other specified disorders of the male genital organs; E78.5 Hyperlipidemia, unspecified; E83.42 Hypomagnesemia; J98.4 Other disorders of lung; T38.0X5A Adverse effect of glucocorticoids and synthetic analogues, initial encounter; N39.43 Post-void dribbling; D64.89 Other specified anemias; N13.9 Obstructive and reflux uropathy, unspecified; D75.89 Other specified diseases of blood and blood-forming organs; G47.33 Obstructive sleep apnea (adult) (pediatric); R25.2 Cramp and spasm; N62 Hypertrophy of breast; R39.11 Hesitancy of micturition; R31.9 Hematuria, unspecified; R26.9 Unspecified abnormalities of gait and mobility; Y73.1 Therapeutic (nonsurgical) and rehabilitative gastroenterology and urology devices associated with adverse incidents; Y84.2 Radiological procedure and radiotherapy as the cause of abnormal reaction of the patient, or of later complication, without mention of misadventure at the time of the procedure; Z68.37 Body mass index [BMI] 37.0-37.9, adult; Z87.891 Personal history of nicotine dependence; Z92.3 Personal history of irradiation; Z85.118 Personal history of other malignant neoplasm of bronchus and lung; Z79.01 Long term (current) use of anticoagulants; Z85.46 Personal history of malignant neoplasm of prostate; Z79.899 Other long term (current) drug therapy; Z79.82 Long term (current) use of aspirin; Z79.84 Long term (current) use of oral hypoglycemic drugs; Z79.890 Hormone replacement therapy; Z92.21 Personal history of antineoplastic chemotherapy; Z59.86 Financial insecurity
CPT/HCPCS: 36415; 71045; 80048; 80051; 80053; 81001; 83036; 83605; 83735; 83880; 84145; 84484; 85025; 85610; 85730; 93005; 93306; 93970; 94640; 94660; 94760; 96374; 96376; 99285

== ENCOUNTER 2024-01-30 20:29 | Inpatient (IN) | payer OTHER, MEDICARE ==
--- NOTE | 2024-01-30 20:33 | ED ---
Recheck HPI - General Stated Complaint: Sepsis Time Seen by Provider: 01/30/24 20:31 Source: RN notes reviewed, old records reviewed Mode of arrival: EMS Limitations: altered mental status, physical limitation - History of Present Illness Initial Comments: This is a 78-year-old male who is excepted in transfer from outpatient hospice for sepsis UTI with recent inpatient prolonged hospitalization here in this emergency department. Patient is unable to provide history secondary to significant distress patient is complaining of neck pain severe weakness and long medical history MD Complaint: other (Excepted in transfer for UTI. Failure of outpatient treatment) -: days(s) Returns Today for: needs IV antibiotics Symptoms Since Prior Visit: worsening pain, worsening swelling Context: planned re-check, called for abnormal lab result Associated Symptoms: nausea Treatments Prior to Arrival: Given Antibiotics on, Given Pain Meds on - Related Data Home Medications Medication Instructions Recorded Confirmed Omeprazole 20 mg PO Q48H 11/30/18 01/31/24 metFORMIN HCL [Glucophage] 1,000 mg PO BID 11/30/18 01/31/24 Cholecalciferol [Vitamin D3 (125 125 mcg PO DAILY 03/18/23 01/31/24 Mcg = 5000 Iu)] Albuterol Inhaler [Ventolin Hfa 1 - 2 puff INHALATION RT-Q4H PRN 12/20/23 01/31/24 Inhaler] Atorvastatin Calcium [Lipitor] 80 mg PO HS 12/20/23 01/31/24 Budesonide [Pulmicort] 0.5 mg INHALATION RT-BID 12/20/23 01/31/24 Cyanocobalamin (Vitamin B-12) 1,000 mcg PO DAILY 12/20/23 01/31/24 [Vitamin B-12] Levothyroxine Sodium [Synthroid] 150 mcg PO DAILY 12/20/23 01/31/24 Montelukast [Singulair] 10 mg PO HS 12/20/23 01/31/24 Vitamin E (Dl,Tocopheryl Acet) 400 unit PO DAILY 12/20/23 01/31/24 [Vitamin E (400 Iu = 180 mg)] allopurinoL [Zyloprim] 100 mg PO HS 12/20/23 01/31/24 allopurinoL [Zyloprim] 200 mg PO DAILY 12/20/23 01/31/24 hydrALAZINE HCL [Apresoline] 10 mg PO BID 12/20/23 01/31/24 lisinopriL 40 mg PO DAILY 12/20/23 01/31/24 Amiodarone [Cordarone] 200 mg PO BID 01/31/24 01/31/24 Ferrous Sulfate [Feosol] 325 mg PO HS 01/31/24 01/31/24 Furosemide [Lasix] 20 mg PO DAILY 01/31/24 01/31/24 Furosemide [Lasix] 20 mg PO DAILY PRN 01/31/24 01/31/24 INSULIN LISPRO (HumaLOG) [humaLOG] See Protocol SQ DAILY 01/31/24 01/31/24 Ibuprofen [Motrin Ib] 200 mg PO Q8H PRN 01/31/24 01/31/24 Insulin Glargine-Yfgn [Semglee 15 unit SQ BID@0900,1700 01/31/24 01/31/24 (Yfgn) Pen] Lidocaine 4% Patch 1 patch TOPICAL DAILY 01/31/24 01/31/24 Loperamide [Imodium] 2 - 4 mg PO Q2H PRN 01/31/24 01/31/24 Metoprolol Tartrate [Lopressor] 50 mg PO BID 01/31/24 01/31/24 Potassium Chloride [Klor-Con M10] 10 meq PO DAILY 01/31/24 01/31/24 Slow-Mag Muscle/Heart 1 tab PO TID@0900,1300,2100 01/31/24 01/31/24 bisacodyL [Dulcolax] 10 mg RECTAL BID PRN 01/31/24 01/31/24 guaiFENesin [guaiFENesin Oral 200 mg PO Q4H PRN 01/31/24 01/31/24 Solution] Previous Rx's Medication Instructions Recorded Acetaminophen Tab [Tylenol] 650 mg PO Q6HR PRN tab MDD 4000 mg 01/03/24 Apixaban [Eliquis] 5 mg PO BID tab 01/03/24 Cyclobenzaprine [Flexeril] 10 mg PO Q8HR PRN tab 01/03/24 HYDROcodone/APAP 5-325MG [[place] 1 tab PO Q6HR PRN #4 tab 01/03/24 5-325] Ipratropium-Albuterol Nebulize 3 ml INHALATION RT-QID each 01/03/24 [Duoneb 0.5 mg-3 mg/3 ml Soln] Isosorbide Mononitrate ER [Imdur] 30 mg PO DAILY tab 01/03/24 Melatonin 5 mg PO HS PRN tab 01/03/24 Tamsulosin [Flomax] 0.4 mg PO PC-BRKFST cap 01/03/24 Allergies Allergy/AdvReac Type Severity Reaction Status Date / Time No Known Allergies Allergy Verified 01/31/24 10:26 Review of Systems ROS Statement: Those systems with pertinent positive or pertinent negative responses have been documented in the HPI. ROS Other: All systems not noted in ROS Statement are negative. Past Medical History Past Medical History: Atrial Fibrillation, Asthma, Cancer, Diabetes Mellitus, GERD/Reflux, Hyperlipidemia, Hypertension, Prostate Disorder, Sleep Apnea/CPAP/BIPAP, Thyroid Disorder, Vascular Disorder Additional Past Medical History / Comment(s): DM type II, prostate cancer 2018 with radiation & brachytherapy. kidney stones x1. pseudogout. hx of bowel obstrution with surgery and multiple bowel obstruction since (no surgery). bilateral bifemoral bypass for calcifications (2005). sleep apnea with c-pap machine. hx anemia. Lung cancer with radation tx (last tx 02/08/23), and chemo tx (last 03/04/23). constipation & diarrhea. Pt has been receiving hydration tx at [facility] - states his left hand is swollen and painful and th ey may go to ER to check (previous IV site). Pt has Loop Recorder. History of Any Multi-Drug Resistant Organisms: None Reported Past Surgical History: Appendectomy, Bowel Resection, Orthopedic Surgery Additional Past Surgical History / Comment(s): bowel resection, bi-femoral bypass for calcifications, left shoulder surgery, left knee surgery, Loop recorder, bronchoscopy with bx. Past Anesthesia/Blood Transfusion Reactions: Previous Problems w/ Anesthesia Additional Past Anesthesia/Blood Transfusion Reaction / Comment(s): difficulty waking up. Smoking Status: Former smoker - Past Family History Father Additional Family Medical History / Comment(s): alzheimers Mother Family Medical History: Renal Disease Additional Family Medical History / Comment(s): kidney failure General Exam General appearance: alert, anxious, in distress Head exam: Present: atraumatic, normocephalic, normal inspection Eye exam: Present: normal appearance, PERRL, EOMI. Absent: scleral icterus, conjunctival injection, periorbital swelling ENT exam: Present: normal exam, mucous membranes moist Neck exam: Present: normal inspection. Absent: tenderness, meningismus, lymphadenopathy Respiratory exam: Present: normal lung sounds bilaterally. Absent: respiratory distress, wheezes, rales, rhonchi, stridor Cardiovascular Exam: Present: regular rate, normal rhythm, normal heart sounds. Absent: systolic murmur, diastolic murmur, rubs, gallop, clicks GI/Abdominal exam: Present: soft, normal bowel sounds. Absent: distended, tenderness, guarding, rebound, rigid Extremities exam: Present: normal inspection, full ROM, normal capillary refill. Absent: tenderness, pedal edema, joint swelling, calf tenderness Back exam: Present: normal inspection Neurological exam: Present: alert, oriented X3, CN II-XII intact Psychiatric exam: Present: normal affect, normal mood Skin exam: Present: warm, dry, intact, normal color. Absent: rash Course Vital Signs 01/30/24 01/30/24 01/30/24 20:37 22:32 23:30 Temperature 98.5 F 97.2 F L Pulse Rate 73 70 Pulse Rate [ 71 Pulse Oximetery ] Respiratory 20 20 20 Rate Blood Pressure 92/43 95/43 Blood Pressure 133/67 [Right Arm] O2 Sat by Pulse 96 97 94 L Oximetry - Reevaluation(s) Reevaluation #1: 01/30/24 20:42 Medical records reviewed Reevaluation #2: 01/30/24 20:42 Patient symptoms unchanged Reevaluation #3: 01/30/24 20:42 Patient informed of results and questions answered Reevaluation #4: 01/30/24 20:42 Was pt. sent in by a medical professional or institution (, PA, SOFTWARE IMPLEMENTATION SPECIALIST, urgent care, hospital, or senior living...) When possible be specific @ -no Did you speak to anyone other than the patient for history (EMS, parent, family, police, friend...)? What history was obtained from this source @ -no Did you review nursing and triage notes (agree or disagree)? Why? @ -agree Are old charts reviewed (outside hosp., previous admission, EMS record, old EKG, old radiological studies, urgent care reports/EKG's, senior living records)? Report findings @ -yes Differential Diagnosis (chest pain, altered mental status, abdominal pain women, abdominal pain men, vaginal bleeding, weakness, fever, dyspnea, syncope, headache, dizziness, GI bleed, back pain, seizure, CVA, palpatations, mental health, musculoskeletal)? @ -prior EKG interpreted by me (3pts min.). @ -yes X-rays interpreted by me (1pt min.). @ -yes negative for acute disease CT interpreted by me (1pt min.). @ -no U/S interpreted by me (1pt. min.). @ -no What testing was considered but not performed or refused? (CT, X-rays, U/S, labs)? Why? @ -none What meds were considered but not given or refused? Why? @ -none Did you discuss the management of the patient with other professionals (professionals i.e. , PA, SOFTWARE IMPLEMENTATION SPECIALIST, lab, RT, psych nurse, social work job titles, lawyers, teacher, toxics program officer, rehabilitation case coordinator)? Give summary @ -no Was smoking cessation discussed for >3mins.? @ -no Was critical care preformed (if so, how long)? @ -no Were there social determinants of health that impacted care today? How? (Homelessness, low income, unemployed, alcoholism, drug addiction, transport ation, low edu. Level, literacy, decrease access to med. care, snf, rehab)? @ -none Was there de-escalation of care discussed even if they declined (Discuss DNR or withdrawal of care, Hospice)? DNR status @ -no What co-morbidities impacted this encounter? (DM, HTN, Smoking, COPD, CAD, Cancer, CVA, ARF, Chemo, Hep., AIDS, mental health diagnosis, sleep apnea, morbid obesity)? @ -none Was patient admitted / discharged? Hospital course, mention meds given and route, prescriptions, significant lab abnormalities, going to OR and other pertinent info. @ -78 male excepted in transfer for UTI weakness and possibility of sepsis recent prolonged inpatient hospitalization here at this hospital, patient is not doing well as an outpatient complaining of weakness and neck pain here in the ER Admitted Undiagnosed new problem with uncertain prognosis? @ -no Drug Therapy requiring intensive monitoring for toxicity (Heparin, Nitro, Insulin, Cardizem)? @ -no Were any procedures done? @ -no Diagnosis/symptom? @ -Weakness UTI neck pain Acute, or Chronic, or Acute on Chronic? @ -Acute Uncomplicated (without systemic symptoms) or Complicated (systemic symptoms)? @ -Complicated Side effects of treatment? @ -no Exacerbation, Progression, or Severe Exacerbation? @ -exacerbation Poses a threat to life or bodily function? How? (Chest pain, USA, AR, pneumonia, PE, COPD, DKA, ARF, appy, cholecystitis, CVA, Diverticulitis, Homicidal, Suicidal, threat to staff... and all critical care pts) @ -yes extremes of age and strong morbid conditions Reevaluation #5: Differential Weakness: Hypoglycemia, shock, sepsis, hyponatremia, anemia, infection, AR, ETOH, adverse medicine reaction, overdose, stroke, this is not meant to be an all-inclusive list. - Consultations Consultation #1: Spoke with [facility] who agrees to admit this patient Medical Decision Making - Lab Data Result diagrams: 02/03/24 19:56 02/03/24 18:39 - EKG Data -: EKG Interpreted by Me (EKG is sinus 74 AL 187 QRS 104 QTc 427) Disposition Clinical Impression: Acute exacerbation of chronic obstructive pulmonary disease, Sepsis, REYNA (acute kidney injury), Weakness, Small cell lung cancer Disposition: ADMITTED IP TO THIS HOSP Condition: Serious Is patient prescribed a controlled substance at d/c from ED?: No Time of Disposition: 21:00
[2024-01-30] MEDS ORDERED: NALOXONE 0.4 MG/ML 1 ML VIAL IV PRN (20:37)
[2024-01-30 22:18] LABS: Anisocytosis Slight; HCT 28.4 % (39.0-53.0); HGB 9.2 gm/dL (13.0-17.5); Hypochromasia Slight; MCH 33.3 pg (25.0-35.0); MCHC 32.6 g/dL (31.0-37.0); MCV 102.2 fL (80.0-100.0); Macrocytosis Moderate; Mean Platelet Volume 9.5; Poikilocytosis Slight; RBC 2.77 m/uL (4.30-5.90); RDW 19.3 % (11.5-15.5); WBC 7.9 k/uL (3.8-10.6)
[2024-01-30 22:23] LABS: ALT 19 U/L (4-49); AST 17 U/L (17-59); African American GFR (CKD) 38 (>60 ml/min/1.73 sqM); Albumin 2.9 g/dL (3.5-5.0); Alkaline Phosphatase 45 U/L (38-126); Anion Gap 6 mmol/L; Blood Urea Nitrogen 53 mg/dL (9-20); Calcium 8.5 mg/dL (8.4-10.2); Carbon Dioxide 18 mmol/L (22-30); Chloride 111 mmol/L (98-107); Glucose 107 mg/dL (74-99); Magnesium 1.9 mg/dL (1.6-2.3); Non-African American GFR(CKD) 33 (>60 ml/min/1.73 sqM); Phosphorus 3.2 mg/dL (2.5-4.5); Potassium 5.9 mmol/L (3.5-5.1); Sodium 135 mmol/L (137-145); Total Bilirubin 0.5 mg/dL (0.2-1.3); Total Protein 5.2 g/dL (6.3-8.2)
[2024-01-30 22:33] LABS: INR 1.2 (<1.2); Partial Thromboplastin Time 24.2 sec (22.0-30.0); Prothrombin Time 12.3 sec (10.0-12.5)
[2024-01-30] MEDS: SODIUM CHLORIDE 0.9% 1,000 ML IV SCH (22:58)
[2024-01-30] MEDS: PIPERACILLIN-TAZOBACTAM 3.375 GM in SODIUM CHLORIDE 0.9% 100 ML IVPB STA (22:58)
[2024-01-30] MEDS: SODIUM CHLORIDE 0.9% 500 ML 500 ML IV STA (22:58)
[2024-01-31] MEDS: PIPERACILLIN-TAZOBACTAM 3.375 GM in SODIUM CHLORIDE 0.9% 100 ML IVPB SCH (00:20)
--- NOTE | 2024-01-31 00:29 | XR ---
EXAMINATION TYPE: XR chest 1V portable DATE OF EXAM: 01/31/2024 CLINICAL HISTORY: Difficulty breathing progress study. TECHNIQUE: Single AP portable upright view of the chest is obtained. COMPARISON: Chest x-ray from December 26, 2023 and older studies. FINDINGS: Increasing reticular and reticular nodular increased markings bilaterally. Persistent righ t suprahilar opacity. Persistent mild cardiomegaly and overlying loop recorder. Osseous structures ar e intact. IMPRESSION: Cardiomegaly with chronic right suprahilar consolidation and/or atelectasis redemonstrate d. There is worsening reticular and reticulonodular opacities consistent with edema and/or infiltrate s bilaterally. Correlate clinically. Atypical infection versus fluid overload state needs to be consi dered.
[2024-01-31 00:34] LABS: Band Neutrophils % 2 %; Lymphocytes # (M) 0.55 k/uL (1.0-4.8); Metamyelocytes # (M) 0.16 k/uL (0); Metamyelocytes % 2 %; Monocytes # (M) 0.16 k/uL (0-1.0); Myelocytes # (M) 0.24 k/uL (0); Myelocytes % 3 %; Neutrophils % (M) 85 %; Nucleated Red Blood Cells 0 /100 WBC (0-0); Total Cells Counted 200
[2024-01-31 00:39] LABS: Platelet Count 63 k/uL (150-450)
[2024-01-31 00:57] LABS: Crenated RBC Present; Ovalocytes Present
[2024-01-31] MEDS: SODIUM ZIRCONIUM CYCLOSILICATE 10 GM PACKET PO ONE (05:01)
--- NOTE | 2024-01-31 05:04 | P.CNPUL ---
History of Present Illness Consult date: 01/31/24 Requesting physician: Claudio Campos Reason for consult: other (Acute on chronic hypoxemic respiratory failure) Chief complaint: Abnormal labs History of present illness: Patient is a 78-year-old white male with past medical history significant for small cell lung cancer status/post chemoradiation, COPD, former tobacco smoker, diabetes mellitus, hypertension, hypothyroidism, hypertension, hyperlipidemia, obesity, peripheral arterial disease, atrial fibrillation with previous cardioversion, chronically anticoagulant Eliquis, obstructive sleep apnea with home CPAP, among other comorbidities. Patient reportedly had some abnormal labs, and was sent in from his rehab facility at [facility] for evaluation. Patient's primary complaint is posterior neck pain that is worse when sitting up in bed. Denies any radiculopathy like symptoms. No upper extremity weakness. States that he is currently seeing a chiropractor outpatient. Admits significant bilateral lower extremity weakness, and he can no longer walk without a lot of assistance. States that he is limited in what he can do at rehab at [facility]. Patient denies any worsening of his chronic shortness of breath. Denies any fevers, coughing, sputum production, hemoptysis, chest pain. States his breathing is actually improved since his most recent hospitalization. He chronically wears 3 L of home oxygen. Of note, he had a recent hospitalization December 2023 for suspected COPD exacerbation. While inpatient, patient had an episode of symptomatic A-fib RVR, and is status post successful cardioversion. He is anticoagulated on Eliquis. Echocardiogram done this previous admission estimates a preserved left ventricular ejection fraction of 55 to 60% as well as moderate to severe LVH, as well as mild valvular heart disease. Chest x-ray shows cardiomegaly with increased reticular and reticulonodular opacities consis tent with edema and/or infiltrates bilaterally. There is a chronic right suprahilar consolidation/posttreatment changes. Patient does have history of small cell lung cancer and has underwent previous chemoradiation. Most recent PET scan done 10/15/2023 did not show any evidence of disease recurrence. Patient was empirically placed on Zosyn in the emergency department. CBC: WBC count 7.9, hemoglobin 9.2, hematocrit 28.4, platelets 63,000. CMP: Sodium 135, potassium 5.9, chloride 111, serum bicarb 18, BUN 53, creatinine 1.92, glucose 107. Lactic acid level 2.5. Troponin less than 0.012. NT proBNP 4910. EKG demonstrating sinus rhythm with a rate of 74 bpm, no obvious acute ischemic pj nges. Afebrile. Vital signs are stable. Review of Systems REVIEW OF SYSTEMS: CONSTITUTIONAL: Denies any recent significant weight loss or weight gain. EYES: Denies change in vision. EARS, NOSE, MOUTH, THROAT: Denies headaches, denies sore throat. CARDIOVASCULAR: Denies chest pain, palpitations or syncopal episodes. RESPIRATORY: See HPI GASTROINTESTINAL: Denies change in appetite, abdominal pain, nausea and vomiting, or diarrhea GENITOURINARY: Denies hematuria, denies infections. MUSKULOSKELETAL: Admits cervical level neck pain without any radiculopathy symptoms. No upper extremity weakness, radiating pain, numbness or tingling. Lower extremities are generally weak. He has been working with PT/OT at his rehab facility INTEGUMENTARY: Denies rash, denies eczema. NEUROLOGICAL: Denies recent memory loss, no recent seizure activity. PSYCHIATRIC: Denies anxiety, denies depression. HEMATOLOGIC/LYMPHATIC: Denies anemia, denies enlarged lymph node Past Medical History Past Medical History: Atrial Fibrillation, Asthma, Cancer, Diabetes Mellitus, GERD/Reflux, Hyperlipidemia, Hypertension, Prostate Disorder, Sleep Apnea/ CPAP/BIPAP, Thyroid Disorder, Vascular Disorder Additional Past Medical History / Comment(s): DM type II, prostate cancer 2018 with radiation & brachytherapy. kidney stones x1. pseudogout. hx of bowel obstrution with surgery and multiple bowel obstruction since (no surgery). bilateral bifemoral bypass for calcifications (2005). sleep apnea with c-pap machine. hx anemia. Lung cancer with radation tx (last tx 02/08/23), and chemo tx (last 03/04/23). constipation & diarrhea. History of Any Multi-Drug Resistant Organisms: None Reported Past Surgical History: Appendectomy, Bowel Resection, Orthopedic Surgery Additional Past Surgical History / Comment(s): bowel resection, bi-femoral bypass for calcifications, left shoulder surgery, left knee surgery, Loop recorder, bronchoscopy with bx. Past Anesthesia/Blood Transfusion Reactions: Previous Problems w/ Anesthesia Additional Past Anesthesia/Blood Transfusion Reaction / Comment(s): difficulty waking up. Past Psychological History: No Psychological Hx Reported Smoking Status: Former smoker Past Alcohol Use History: None Reported Additional Past Alcohol Use History / Comment(s): quit smoking december 2022, hx of 1 ppd Past Drug Use History: None Reported - Past Family History Father Additional Family Medical History / Comment(s): alzheimers Mother Family Medical History: Renal Disease Additional Family Medical History / Comment(s): kidney failure Medications and Allergies Home Medications Medication Instructions Recorded Confirmed Type Omeprazole 20 mg PO Q48H 11/30/18 01/31/24 History metFORMIN HCL [Glucophage] 1,000 mg PO BID 11/30/18 01/31/24 History Cholecalciferol [Vitamin D3 (125 125 mcg PO DAILY 03/18/23 01/31/24 History Mcg = 5000 Iu)] Albuterol Inhaler [Ventolin Hfa 1 - 2 puff INHALATION RT-Q4H PRN 12/20/23 01/31/24 History Inhaler] Atorvastatin Calcium [Lipitor] 80 mg PO HS 12/20/23 01/31/24 History Budesonide [Pulmicort] 0.5 mg INHALATION RT-BID 12/20/23 01/31/24 History Cyanocobalamin (Vitamin B-12) 1,000 mcg PO DAILY 12/20/23 01/31/24 History [Vitamin B-12] Levothyroxine Sodium [Synthroid] 150 mcg PO DAILY 12/20/23 01/31/24 History Montelukast [Singulair] 10 mg PO HS 12/20/23 01/31/24 History Vitamin E (Dl,Tocopheryl Acet) 400 unit PO DAILY 12/20/23 01/31/24 History [Vitamin E (400 Iu = 180 mg)] allopurinoL [Zyloprim] 100 mg PO HS 12/20/23 01/31/24 History allopurinoL [Zyloprim] 200 mg PO DAILY 12/20/23 01/31/24 History hydrALAZINE HCL [Apresoline] 10 mg PO BID 12/20/23 01/31/24 History lisinopriL 40 mg PO DAILY 12/20/23 01/31/24 History Acetaminophen Tab [Tylenol] 650 mg PO Q6HR PRN tab MDD 4000 mg 01/03/24 01/31/24 Rx Apixaban [Eliquis] 5 mg PO BID tab 01/03/24 01/31/24 Rx Cyclobenzaprine [Flexeril] 10 mg PO Q8HR PRN tab 01/03/24 01/31/24 Rx HYDROcodone/APAP 5-325MG [[place] 1 tab PO Q6HR PRN #4 tab 01/03/24 01/31/24 Rx 5-325] Ipratropium-Albuterol Nebulize 3 ml INHALATION RT-QID each 01/03/24 01/31/24 Rx [Duoneb 0.5 mg-3 mg/3 ml Soln] Isosorbide Mononitrate ER [Imdur] 30 mg PO DAILY tab 01/03/24 01/31/24 Rx Melatonin 5 mg PO HS PRN tab 01/03/24 01/31/24 Rx Tamsulosin [Flomax] 0.4 mg PO PC-BRKFST cap 01/03/24 01/31/24 Rx Amiodarone [Cordarone] 200 mg PO BID 01/31/24 01/31/24 History Ferrous Sulfate [Feosol] 325 mg PO HS 01/31/24 01/31/24 History Furosemide [Lasix] 20 mg PO DAILY 01/31/24 01/31/24 History Furosemide [Lasix] 20 mg PO DAILY PRN 01/31/24 01/31/24 History INSULIN LISPRO (HumaLOG) [humaLOG] See Protocol SQ DAILY 01/31/24 01/31/24 History Ibuprofen [Motrin Ib] 200 mg PO Q8H PRN 01/31/24 01/31/24 History Insulin Glargine-Yfgn [Semglee 15 unit SQ BID@0900,1700 01/31/24 01/31/24 History (Yfgn) Pen] Lidocaine 4% Patch 1 patch TOPICAL DAILY 01/31/24 01/31/24 History Loperamide [Imodium] 2 - 4 mg PO Q2H PRN 01/31/24 01/31/24 History Metoprolol Tartrate [Lopressor] 50 mg PO BID 01/31/24 01/31/24 History Potassium Chloride [Klor-Con M10] 10 meq PO DAILY 01/31/24 01/31/24 History Slow-Mag Muscle/Heart 1 tab PO TID@0900,1300,2100 01/31/24 01/31/24 History bisacodyL [Dulcolax] 10 mg RECTAL BID PRN 01/31/24 01/31/24 History guaiFENesin [guaiFENesin Oral 200 mg PO Q4H PRN 01/31/24 01/31/24 History Solution] Allergies Allergy/AdvReac Type Severity Reaction Status Date / Time No Known Allergies Allergy Verified 01/31/24 10:26 Physical Exam Vitals: Vital Signs Temp Pulse Pulse Resp BP BP Pulse Ox 01/30/24 23:30 97.2 F L 71 20 133/67 94 L 01/30/24 22:32 70 20 95/43 97 01/30/24 20:37 98.5 F 73 20 92/43 96 Intake and Output 01/30/24 01/30/24 01/31/24 14:59 22:59 06:59 Output Total 200 Balance -200 Output: Urine 200 Other: Voiding Method Urinal Weight 115.212 kg 115.212 kg GENERAL EXAM: Alert, 78-year-old white male, comfortable in no apparent distress. HEAD: Normocephalic and atraumatic EYES: Normal reaction of pupils, equal size. NOSE: Clear with pink turbinates. THROAT: No erythema or exudates. NECK: No masses, no JVD. CHEST: No chest wall deformity. LUNGS: Equal air entry with bibasilar inspiratory crackles. 4 L/min nasal ca nnula. SpO2 94%. No conversational dyspnea or accessory muscle use.. CVS: S1 and S2 normal with soft systolic murmur, regular rhythm. No extra heart sounds ABDOMEN: No hepatosplenomegaly, active bowel sounds, no guarding or rigidity. SPINE: No scoliosis or deformity SKIN: No rashes CENTRAL NERVOUS SYSTEM: No focal deficits, tone is normal in all 4 extremities. EXTREMITIES: There is no peripheral edema, clubbing, or cyanosis. Peripheral pulses are intact. Results - Laboratory Findings CBC and BMP: 01/31/24 06:43 01/31/24 06:43 PT/INR, D-dimer PT 12.3 sec (10.0-12.5) 01/30/24 20:57 INR 1.2 (<1.2) H 01/30/24 20:57 Abnormal lab findings: Abnormal Labs 01/30/24 01/30/24 01/30/24 20:57 20:57 20:57 RBC 2.77 L Hgb 9.2 L Hct 28.4 L MCV 102.2 H RDW 19.3 H Plt Count 63 L Lymphocytes # (Manual) 0.55 L Metamyelocytes # (Man) 0.16 H Myelocytes # (Manual) 0.24 H INR 1.2 H Sodium 135 L Potassium 5.9 H Chloride 111 H Carbon Dioxide 18 L BUN 53 H Creatinine 1.92 H Glucose 107 H Plasma Lactic Acid Pantera Total Protein 5.2 L Albumin 2.9 L 01/30/24 20:57 RBC Hgb Hct MCV RDW Plt Count Lymphocytes # (Manual) Metamyelocytes # (Man) Myelocytes # (Manual) INR Sodium Potassium Chloride Carbon Dioxide BUN Creatinine Glucose Plasma Lactic Acid Pantera 2.5 H* Total Protein Albumin - Diagnostic Findings Chest x-ray: image reviewed Assessment and Plan Assessment: Acute on chronic hypoxemic respiratory failure, currently on 4 L/min nasal cannula, possibly secondary to an exacerbation of diastolic congestive heart failure, Chest x-ray shows cardiomegaly with increased reticular and reticulonodular opacities consistent with edema and/or infiltrates bilaterally. There are chronic posttreatment changes in the right lung. Echocardiogram done on a recent previous admission estimates a preserved left ventricular ejection fraction of 55 to 60% as well as moderate to severe LVH, as well as, mild valvul ar heart disease. Chronic obstructive pulmonary disease, stable History of small cell lung cancer, status post chemo/radiation, follows up outpatient with oncologist. Most recent PET scan done 10/15/2023 did not show any evidence of disease recurrence. Chronic hypoxemic respiratory failure, secondary to above Acute on chronic kidney disease Hyperkalemia, secondary to above, treated with a dose of Lokelma by nephrology who is managing Bicytopenia, with thrombocytopenia and anemia, no overt signs of acute blood loss History of paroxysmal atrial fibrillation, status post previous cardioversion, currently normal sinus rhythm Diabetes mellitus type 2 Hypertension History of hyperlipidemia History of hypothyroidism History of peripheral arterial disease History of prostate cancer status post radiation History of urinary retention Obstructive sleep apnea with home CPAP Obesity, with a BMI of 33.5 kg/m Former tobacco dependence, quit smoking December 2022 Chronic stage III kidney disease Plan: Patient's medications, labs, imaging improved Currently on 4 L/min nasal cannula, may wean to maintain oxygen saturation of 90% or greater Patient encouraged to have home APAP unit brought in if possible for use at night. Start Lasix 40 mg twice daily Patient was empirically placed on Zosyn in the emergency department. Check procalcitonin level. Check Cepheid 4 Plex COPD seems stable on my evaluation, continue maintenance DuoNebs mutfyv-cry-optnr and budesonide inhalation Repeat labs are in for this morning Will continue to follow, and further recommendations are forthcoming I have personally seen and examined the patient, performed the documentation and the assessment and plan as written. Number of minutes spent on the visit:20 This is a joint evaluation is being done along with the nurse practitioner. The patient was seen in consultation and a joint evaluation this evaluation was done more than 30 minutes. The patient is morbidly obese. He has COPD and small cell lung cancer treated with a combination of chemoradiation therapy and the most recent PET scan showed no evidence of any residual disease. He has diabetes mellitus type 2, hypertension, hyperlipidemia, hypothyroidism and peripheral vascular disease and chronic atrial fibrillation with previous cardioversion when he has been maintained on anticoagulation with Eliquis. He had a prolonged hospitalization approximately a month ago and following that the patient was transferred to rehabilitation and [place]. His rehabilitation. As the patient was unable to participate in any activities and he remains essentially bedridden. He continues to complain of neck pain. Continues to complain of extensive motor weakness in all 4 extremities legs more than arms. At times, he is noted to be also quite lethargic. Occasional confusion. No evidence of any INSURANCE EXAMINER metastases based on the CAT scan of the brain. The patient was being seen by pain management regarding his neck pain. Will consult spine surgery and neurology to further investigate his generalized motor weakness which is predominantly in his lower extremities. No evidence of any skeletal metastases. Overall respiratory status is stable. No clear signs of any infection for now. White cell count of 7.6. Chest x-ray findings are consistent with postradiation changes in the right lung and an underlying pneumonia is doubtful. Will continue to follow. Time with Patient: Greater than 30
[2024-01-31 06:30] LABS: Glucose,Whole Blood 170 mg/dL (70-110)
[2024-01-31 07:36] LABS: Anisocytosis Slight; HCT 25.7 % (39.0-53.0); HGB 8.4 gm/dL (13.0-17.5); Hypochromasia Slight; MCH 33.6 pg (25.0-35.0); MCHC 32.9 g/dL (31.0-37.0); MCV 102.3 fL (80.0-100.0); Macrocytosis Moderate; Poikilocytosis Slight; RBC 2.51 m/uL (4.30-5.90); RDW 19.4 % (11.5-15.5); WBC 7.6 k/uL (3.8-10.6)
[2024-01-31 07:50] LABS: ALT 19 U/L (4-49); AST 17 U/L (17-59); African American GFR (CKD) 47 (>60 ml/min/1.73 sqM); Alkaline Phosphatase 48 U/L (38-126); Anion Gap 5 mmol/L; Blood Urea Nitrogen 46 mg/dL (9-20); Calcium 8.3 mg/dL (8.4-10.2); Carbon Dioxide 19 mmol/L (22-30); Chloride 113 mmol/L (98-107); Glucose 80 mg/dL (74-99); Magnesium 1.8 mg/dL (1.6-2.3); Non-African American GFR(CKD) 41 (>60 ml/min/1.73 sqM); Phosphorus 3.2 mg/dL (2.5-4.5); Potassium 4.7 mmol/L (3.5-5.1); Sodium 137 mmol/L (137-145); Total Bilirubin 0.5 mg/dL (0.2-1.3); Total Protein 5.2 g/dL (6.3-8.2)
[2024-01-31] MEDS: BUDESONIDE 0.5 MG/2 ML NEBU INHALATION SCH (07:54)
[2024-01-31] MEDS: IPRATROPIUM-ALBUTEROL 3 ML NEB INHALATION SCH (07:54)
[2024-01-31 07:58] LABS: Platelet Count 61 k/uL (150-450)
[2024-01-31] MEDS: FUROSEMIDE 10 MG/ML 4 ML VIAL IV SCH (09:03)
[2024-01-31] MEDS: METOPROLOL TARTRATE 25 MG TAB PO SCH (09:03)
[2024-01-31] MEDS: PANTOPRAZOLE 40 MG/10 ML VIAL IV SCH (09:03)
[2024-01-31 10:48] LABS: Reticulocyte % 4.4 % (0.5-2.0)
--- NOTE | 2024-01-31 10:48 | P.NPCON ---
History of Present Illness - Reason for Consult acute renal failure, chronic renal failure - History of Present Illness Reason for consultation: Acute kidney injury on chronic kidney disease History of present illness: Patient is a 78-year-old male seen in renal consultation for acute kidney injury on chronic kidney disease. Patient has chronic kidney disease stage IIIb with baseline creatinine 1.3-1.5. Creatinine was 1.92 on admission and is 1.61 today. Patient came to the hospital due to generalized weakness and shortness of breath. Patient states he has been feeling progressively weaker and is now unable to walk. Patient does admit to history of lung cancer. Patient denies any gross hematuria or dysuria. Patient was noted to have urinary retention and currently has a Michelle catheter. He denies history of coronary artery disease. Patient has longstanding history of diabetes. He does admit to chronic diarrhea. Oral intake has been good. No vomiting. Chest x-ray suggestive of pneumonia versus fluid overload state. He is currently on IV Lasix 40 mg twice daily. He also received a liter of normal saline bolus in the ER. Receiving antibiotics for pneumonia as well. Denies fever or chills. Potassium was 5.9 on admission and is 4.7 today. Lisinopril was held. Vital signs are stable. General: No acute distress. HEENT: Head exam is unremarkable. On nasal cannula. LUNGS: No audible rhonchi or wheezes. HEART: Rate and Rhythm are regular. ABDOMEN: Nontender. EXTREMITITES: No edema. Past Medical History Past Medical History: Atrial Fibrillation, Asthma, Cancer, Diabetes Mellitus, GERD/Reflux, Hyperlipidemia, Hypertension, Prostate Disorder, Sleep Apnea/CPAP/BIPAP, Thyroid Disorder, Vascular Disorder Additional Past Medical History / Comment(s): DM type II, prostate cancer 2018 with radiation & brachytherapy. kidney stones x1. pseudogout. hx of bowel obstrution with surgery and multiple bowel obstruction since (no surgery). bilateral bifemoral bypass for calcifications (2005). sleep apnea with c-pap machine. hx anemia. Lung cancer with radation tx (last tx 02/08/23), and chemo tx (last 03/04/23). constipation & diarrhea. History of Any Multi-Drug Resistant Organisms: None Reported Past Surgical History: Appendectomy, Bowel Resection, Orthopedic Surgery Additional Past Surgical History / Comment(s): bowel resection, bi-femoral bypass for calcifications, left shoulder surgery, left knee surgery, Loop recorder, bronchoscopy with bx. Past Anesthesia/Blood Transfusion Reactions: Previous Problems w/ Anesthesia Additional Past Anesthesia/Blood Transfusion Reaction / Comment(s): difficulty waking up. Past Psychological History: No Psychological Hx Reported Smoking Status: Former smoker Past Alcohol Use History: None Reported Additional Past Alcohol Use History / Comment(s): quit smoking december 2022, hx of 1 ppd Past Drug Use History: None Reported - Past Family History Father Additional Family Medical History / Comment(s): alzheimers Mother Family Medical History: Renal Disease Additional Family Medical History / Comment(s): kidney failure Medications and Allergies Home Medications Medication Instructions Recorded Confirmed Type Omeprazole 20 mg PO Q48H 11/30/18 01/31/24 History metFORMIN HCL [Glucophage] 1,000 mg PO DIRECTED 11/30/18 01/31/24 History Cholecalciferol [Vitamin D3 (125 125 mcg PO DAILY 03/18/23 01/31/24 History Mcg = 5000 Iu)] Ferrous Gluconate 324 mg PO HS 03/18/23 01/31/24 History Albuterol Inhaler [Ventolin Hfa 1 - 2 puff INHALATION RT-Q4H PRN 12/20/23 01/31/24 History Inhaler] Atorvastatin Calcium [Lipitor] 80 mg PO HS 12/20/23 01/31/24 History Budesonide [Pulmicort] 0.5 mg INHALATION RT-BID 12/20/23 01/31/24 History Cyanocobalamin (Vitamin B-12) 1,000 mcg PO DAILY 12/20/23 01/31/24 History [Vitamin B-12] Furosemide [Lasix] 40 mg PO DAILY PRN 12/20/23 01/31/24 History Ipratropium-Albuterol Nebulize 3 ml INHALATION RT-QID PRN 12/20/23 01/31/24 History [Duoneb 0.5 mg-3 mg/3 ml Soln] Levothyroxine Sodium [Synthroid] 150 mcg PO DAILY 12/20/23 01/31/24 History Lidocaine 5% Patch [Lidoderm 5% 1 patch TOPICAL DIRECTED 12/20/23 01/31/24 History Patch] Magnesium Chloride [Nu-Mag] 214.5 mg PO BID 12/20/23 01/31/24 History Metoprolol Tartrate [Lopressor] 75 mg PO BID 12/20/23 01/31/24 History Montelukast [Singulair] 10 mg PO HS 12/20/23 01/31/24 History Potassium Chloride ER [K-Dur 20] 20 meq PO DAILY PRN 12/20/23 01/31/24 History Vitamin E (Dl,Tocopheryl Acet) 400 unit PO DAILY 12/20/23 01/31/24 History [Vitamin E (400 Iu = 180 mg)] allopurinoL [Zyloprim] 100 mg PO HS 12/20/23 01/31/24 History allopurinoL [Zyloprim] 200 mg PO DAILY 12/20/23 01/31/24 History hydrALAZINE HCL [Apresoline] 10 mg PO BID 12/20/23 01/31/24 History hydrALAZINE HCL [Apresoline] 10 mg PO DAILY PRN 12/20/23 01/31/24 History lisinopriL 40 mg PO DAILY 12/20/23 01/31/24 History Acetaminophen Tab [Tylenol] 650 mg PO Q6HR PRN tab 01/03/24 01/31/24 Rx Amiodarone [Cordarone] 400 mg PO BID tab 01/03/24 01/31/24 Rx Apixaban [Eliquis] 5 mg PO BID tab 01/03/24 01/31/24 Rx Cyclobenzaprine [Flexeril] 10 mg PO Q8HR PRN tab 01/03/24 01/31/24 Rx Fluconazole [Diflucan] 100 mg PO DAILY 7 Days #7 tab 01/03/24 01/31/24 Rx HYDROcodone/APAP 5-325MG [[place] 1 tab PO Q6HR PRN #4 tab 01/03/24 01/31/24 Rx 5-325] INSULIN ASPART (NovoLOG) [NovoLOG 0 unit SQ Q4H each 01/03/24 01/31/24 Rx (formulary)] Insulin Detemir (Levemir) [Levemir] 15 unit SQ BID@0700,2100 each 01/03/24 01/31/24 Rx Ipratropium-Albuterol Nebulize 3 ml INHALATION RT-QID each 01/03/24 01/31/24 Rx [Duoneb 0.5 mg-3 mg/3 ml Soln] Isosorbide Mononitrate ER [Imdur] 30 mg PO DAILY tab 01/03/24 01/31/24 Rx Melatonin 5 mg PO HS PRN tab 01/03/24 01/31/24 Rx Nystatin 100,000 Unit/gm Powd 1 applic TOPICAL BID each 01/03/24 01/31/24 Rx [Mycostatin Powder] Tamsulosin [Flomax] 0.4 mg PO PC-BRKFST cap 01/03/24 01/31/24 Rx predniSONE 10 mg PO DIRECTED #30 tab 01/03/24 01/31/24 Rx Allergies Allergy/AdvReac Type Severity Reaction Status Date / Time No Known Allergies Allergy Verified 01/31/24 10:26 Physical Exam Vitals: Vital Signs Temp Pulse Pulse Resp BP BP Pulse Ox 01/31/24 09:11 97.4 F L 90 18 93/55 92 L 01/31/24 08:11 84 01/31/24 07:54 82 98 01/31/24 04:00 96.7 F L 75 18 117/68 96 01/30/24 23:30 97.2 F L 71 20 133/67 94 L 01/30/24 22:32 70 20 95/43 97 01/30/24 20:37 98.5 F 73 20 92/43 96 Intake and Output 01/30/24 01/31/24 01/31/24 22:59 06:59 14:59 Output Total 850 Balance -850 Output: Urine 850 Other: Voiding Method Urinal Weight 115.212 kg 120.5 kg Results - Lab Results Most recent lab results Calcium 8.3 mg/dL (8.4-10.2) L 01/31/24 06:43 Phosphorus 3.2 mg/dL (2.5-4.5) 01/31/24 06:43 Magnesium 1.8 mg/dL (1.6-2.3) 01/31/24 06:43 01/31/24 06:43 01/31/24 06:43 Assessment and Plan Plan: Assessment: 1. Acute kidney injury secondary to urinary retention and component of cardiorenal syndrome. Creatinine 1.9 on admission and is 1.6 today. 2. Chronic kidney disease stage IIIb with baseline creatinine 1.3-1.5 secondary to nephrosclerosis. 3. Acute on chronic diastolic CHF. 4. Hyperkalemia secondary to acute kidney injury, urinary retention and acidosis. Improved. 5. Urinary retention. Has Michelle catheter. 6. Diabetes mellitus. 7. Anemia of chronic kidney disease. Rule out iron deficiency. Also noted to be thrombocytopenic. Hemolytic workup pending. Oncology consulted. 8. History of small cell lung cancer status post chemo and radiation. 9. Metabolic acidosis secondary to acute kidney injury and IV fluids. Plan: Decrease frequency of Lasix to 40 mg IV once daily. Add Flomax. Encouraged oral intake. Avoid nephrotoxins. Continue to monitor renal function and urine output. Check UA. Check renal ultrasound. Add oral bicarb. Thank you for the consultation. I will continue to follow the patient with you during his hospital stay.
[2024-01-31 10:49] LABS: Bilirubin, Delta 0.4 mg/dL (0.0-0.2); Bilirubin,Unconjugated 0.1 mg/dL (0.0-1.1); Total Bilirubin 0.5 mg/dL (0.2-1.3)
[2024-01-31 11:29] LABS: INR 1.1 (<1.2); Prothrombin Time 12.1 sec (10.0-12.5)
[2024-01-31 11:41] LABS: Band Neutrophils % 2 %; Eosinophils # (M) 0.08 k/uL (0-0.7); Lymphocytes # (M) 0.46 k/uL (1.0-4.8); Monocytes # (M) 0.15 k/uL (0-1.0); Neutrophils % (M) 89 %; Nucleated Red Blood Cells 0 /100 WBC (0-0); Total Cells Counted 100
[2024-01-31 12:04] LABS: Appearance,Urine Clear (Clear); Bilirubin,Urine Negative (Negative); Blood,Urine Trace (Negative); Color,Urine Colorless; Glucose,Urine (UA) Negative (Negative); Ketones,Urine Negative (Negative); Leukocyte Esterase,Urine Negative (Negative); Mucus,Urine Rare /hpf; Nitrite,Urine Negative (Negative); Protein,Urine Negative (Negative); RBC,Urine 3 /hpf (0-5); Specific Gravity,Urine 1.007 (1.001-1.035); Urobilinogen,Urine <2.0 mg/dL (<2.0); WBC,Urine 2 /hpf (0-5)
--- NOTE | 2024-01-31 12:07 | P.PAINPG ---
Objective - Vital Signs Vital signs: Vital Signs Temp 97.4 F L 01/31/24 09:11 Pulse 88 01/31/24 11:47 Resp 18 01/31/24 09:15 BP 93/55 01/31/24 09:11 Pulse Ox 92 L 01/31/24 09:11 FiO2 Intake & Output 01/30/24 01/31/24 01/31/24 18:59 06:59 18:59 Output Total 850 Balance -850 Weight 120.5 kg Output: Urine 850 Other: Voiding Method Urinal Indwelling Catheter - Labs CBC & Chem 7: 01/31/24 06:43 01/31/24 06:43 Labs: Abnormal Lab Results - Last 24 Hours (Table) 01/30/24 01/30/24 01/30/24 Range/Units 20:57 20:57 20:57 RBC 2.77 L (4.30-5.90) m/uL Hgb 9.2 L (13.0-17.5) gm/dL Hct 28.4 L (39.0-53.0) % MCV 102.2 H (80.0-100.0) fL RDW 19.3 H (11.5-15.5) % Plt Count 63 L (150-450) k/uL Lymphocytes # (Manual) 0.55 L (1.0-4.8) k/uL Metamyelocytes # (Man) 0.16 H (0) k/uL Myelocytes # (Manual) 0.24 H (0) k/uL Retic Count (0.5-2.0) % INR 1.2 H (<1.2) D-Dimer (<0.60) mg/L FEU Sodium 135 L (137-145) mmol/L Potassium 5.9 H (3.5-5.1) mmol/L Chloride 111 H (98-107) mmol/L Carbon Dioxide 18 L (22-30) mmol/L BUN 53 H (9-20) mg/dL Creatinine 1.92 H (0.66-1.25) mg/dL Glucose 107 H (74-99) mg/dL POC Glucose (mg/dL) (70-110) mg/dL Plasma Lactic Acid Pantera (0.7-2.0) mmol/L Calcium (8.4-10.2) mg/dL Delta Bilirubin (0.0-0.2) mg/dL Lactate Dehydrogenase (120-246) U/L C-Reactive Protein (<1.0) mg/dL Total Protein 5.2 L (6.3-8.2) g/dL Albumin 2.9 L (3.5-5.0) g/dL Procalcitonin (0.02-0.09) ng/mL 01/30/24 01/31/24 01/31/24 Range/Units 20:57 00:19 06:28 RBC (4.30-5.90) m/uL Hgb (13.0-17.5) gm/dL Hct (39.0-53.0) % MCV (80.0-100.0) fL RDW (11.5-15.5) % Plt Count (150-450) k/uL Lymphocytes # (Manual) (1.0-4.8) k/uL Metamyelocytes # (Man) (0) k/uL Myelocytes # (Manual) (0) k/uL Retic Count (0.5-2.0) % INR (<1.2) D-Dimer (<0.60) mg/L FEU Sodium (137-145) mmol/L Potassium (3.5-5.1) mmol/L Chloride (98-107) mmol/L Carbon Dioxide (22-30) mmol/L BUN (9-20) mg/dL Creatinine (0.66-1.25) mg/dL Glucose (74-99) mg/dL POC Glucose (mg/dL) 170 H (70-110) mg/dL Plasma Lactic Acid Pantera 2.5 H* (0.7-2.0) mmol/L Calcium (8.4-10.2) mg/dL Delta Bilirubin (0.0-0.2) mg/dL Lactate Dehydrogenase (120-246) U/L C-Reactive Protein (<1.0) mg/dL Total Protein (6.3-8.2) g/dL Albumin (3.5-5.0) g/dL Procalcitonin 0.13 H (0.02-0.09) ng/mL 01/31/24 01/31/24 01/31/24 Range/Units 06:43 06:43 10:08 RBC 2.51 L (4.30-5.90) m/uL Hgb 8.4 L (13.0-17.5) gm/dL Hct 25.7 L (39.0-53.0) % MCV 102.3 H (80.0-100.0) fL RDW 19.4 H (11.5-15.5) % Plt Count 61 L (150-450) k/uL Lymphocytes # (Manual) 0.46 L (1.0-4.8) k/uL Metamyelocytes # (Man) (0) k/uL Myelocytes # (Manual) (0) k/uL Retic Count (0.5-2.0) % INR (<1.2) D-Dimer 0.65 H (<0.60) mg/L FEU Sodium (137-145) mmol/L Potassium (3.5-5.1) mmol/L Chloride 113 H (98-107) mmol/L Carbon Dioxide 19 L (22-30) mmol/L BUN 46 H (9-20) mg/dL Creatinine 1.61 H (0.66-1.25) mg/dL Glucose (74-99) mg/dL POC Glucose (mg/dL) (70-110) mg/dL Plasma Lactic Acid Pantera (0.7-2.0) mmol/L Calcium 8.3 L (8.4-10.2) mg/dL Delta Bilirubin (0.0-0.2) mg/dL Lactate Dehydrogenase (120-246) U/L C-Reactive Protein (<1.0) mg/dL Total Protein 5.2 L (6.3-8.2) g/dL Albumin 3.0 L (3.5-5.0) g/dL Procalcitonin (0.02-0.09) ng/mL 01/31/24 01/31/24 Range/Units 10:08 10:08 RBC (4.30-5.90) m/uL Hgb (13.0-17.5) gm/dL Hct (39.0-53.0) % MCV (80.0-100.0) fL RDW (11.5-15.5) % Plt Count (150-450) k/uL Lymphocytes # (Manual) (1.0-4.8) k/uL Metamyelocytes # (Man) (0) k/uL Myelocytes # (Manual) (0) k/uL Retic Count 4.4 H (0.5-2.0) % INR (<1.2) D-Dimer (<0.60) mg/L FEU Sodium (137-145) mmol/L Potassium (3.5-5.1) mmol/L Chloride (98-107) mmol/L Carbon Dioxide (22-30) mmol/L BUN (9-20) mg/dL Creatinine (0.66-1.25) mg/dL Glucose (74-99) mg/dL POC Glucose (mg/dL) (70-110) mg/dL Plasma Lactic Acid Pantera (0.7-2.0) mmol/L Calcium (8.4-10.2) mg/dL Delta Bilirubin 0.4 H (0.0-0.2) mg/dL Lactate Dehydrogenase 394 H (120-246) U/L C-Reactive Protein 2.0 H (<1.0) mg/dL Total Protein (6.3-8.2) g/dL Albumin (3.5-5.0) g/dL Procalcitonin (0.02-0.09) ng/mL PQRS Measure Charge Sheet Comment: HISTORY OF PRESENT ILLNESS: A 78 yr old inpatient male as a referral from Dr Campos presents today w severe and chronic neck pain secondary to DDD, spondylosis and facet arthropathy without myelopathy for evaluation. Pt states pain level is provoked at 5 /10 in intensity, constant, localized in the cervical spine, predominantly axial, achy in character w occasional shooting pain towards the BL shoulders. Pain is provoked by movement. Pain is alleviated by medications (Benedict 5/325mg q6h prn, MS IR 4mg IVP q4h prn), repositioning and rest . He is currently on IV antibiotics for possible sepsis. PMH: OA, aFib, Asthma, Lung CA, Prostate CA, IDDM II, GERD, Hyperlipidemia, HTN, BPH, TONY, Hypothyroidism, PVD, CKD IIIb, Pseudogout PSH: Lung CA (2022), Prostate CA (2017), Radiation & Chemotherapy, Nephrolithiasis, SB Resection, BL Bifemoral Bypass (2005), Appendectomy, L Shoulder Surgery, L Knee Surgery, Bronchoscopy w Biopsy SH: Former tobacco user, No ETOH use, No illicit drug use FH: Fa- Alzheimer's Dementia. Mo- CKD All: See list Meds: See list REVIEW OF ORGAN SYSTEMS: CONSTITUTIONAL: No fevers or chills. No recent weight loss. NEUROLOGICAL: + numbness and tingling along the distal extremities. No seizure disorders or headaches. MUSCULOSKELETAL: + pain PSYCHIATRIC: Denies current depression or suicidal thoughts. Physical Examinations : Constitutional : Cooperative , not in acute distress . Neurologic : Cranial nerve II to XII intact. No focal neurological deficits. Psychiatric : alert & oriented x 3. Matching mood & appropriate affect. Judgment & insight intact. Musculoskeletal : Cervical Spine Motor strength in the deltoid and biceps: Normal right side. Normal Left side Motor strength biceps and the wrist extensors: Normal right side . Normal left side Motor strength in the triceps muscle: Normal right side. Normal left side Deep tendon reflexes: Normal at the biceps. Normal at Brachioradialis. Normal at triceps Vertebral body tenderness to deep palpation over C5, C6, C7 Cervical facet loading test: positive bilaterally Spurling test: positive bilaterally Neck distraction test: positive bilaterally Glenda sign: positive bilaterally Lumbar spine Motor strength lower extremities ,thigh and legs 5/5 Right side , 5/5 Left side Deep tendon reflexes : Normal Knee Jerk. Normal Ankle Jerk Vertebral body tenderness over Fierro Test positive Lumbar facet Loading Test: positive Right / positive Left Range of motion of the lumbar spine Flexion 30 degrees, extension 10 degrees Straight Leg Raise test: Left/ Right positive at degrees Michaelle test: positive right / positive left. Severe tenderness over the Sacroiliac joint on the Right / Left sides Gaenslen test: positive bilaterally Seated flexion test: positive bilaterally. Sacral spine : Severe tenderness over the Sacroiliac joint: right side / left side Range of motion: Flexion of the lumbar spine <60 degrees Range of motion: Extension of the lumbar spine <20 degrees Gaenslen's Test positive Michaelle test: positive right side / left side Thigh Thrust Test Sacral Thrust Test Imaging: None on file Assessment/ Plan : Cervical DDD Will order cervical x ray M50.30. Pt is currently on antibiotics and not a can didate for ESIs at this time. Pain is managed w current therapy. Continue to avoid nephrotoxic medications at this time. May follow up at the pain clinic on an outpatient basis. All questions answered. I have spent greater than 30 minutes on patient care today. Dr Liu was available by phone for the evaluation of this patient. The time was used to review the medical records including relevant urine studies and Prescription history (MAPs), review of the available imaging, evaluation and examination of the patient, coordination of care with the medical staff and if applicable referring physicians, as well as creation of the medical record - Pain Location Generalized Non-Pharmacological Interventions: Darkened Room, Distraction, Position/Reposition Pharmacological Interventions: Discuss Pain Med Options PQRS Narrative: Smoking Status Current every day smoker Blood Pressure [Right Arm] 93/55 Blood Pressure 95/43 Pain Intensity [Generalized] 5 Pain Intensity 2 Scale Used Numeric (1 - 10) Home Medications: Ambulatory Orders Omeprazole 20 mg PO Q48H 11/30/18 metFORMIN HCL [Glucophage] 1,000 mg PO BID 11/30/18 Cholecalciferol [Vitamin D3 (125 Mcg = 5000 Iu)] 125 mcg PO DAILY 03/18/23 Albuterol Inhaler [Ventolin Hfa Inhaler] 1 - 2 puff INHALATION RT-Q4H PRN 12/20/23 Atorvastatin Calcium [Lipitor] 80 mg PO HS 12/20/23 Budesonide [Pulmicort] 0.5 mg INHALATION RT-BID 12/20/23 Cyanocobalamin (Vitamin B-12) [Vitamin B-12] 1,000 mcg PO DAILY 12/20/23 Levothyroxine Sodium [Synthroid] 150 mcg PO DAILY 12/20/23 Montelukast [Singulair] 10 mg PO HS 12/20/23 Vitamin E (Dl,Tocopheryl Acet) [Vitamin E (400 Iu = 180 mg)] 400 unit PO DAILY 12/20/23 allopurinoL [Zyloprim] 100 mg PO HS 12/20/23 allopurinoL [Zyloprim] 200 mg PO DAILY 12/20/23 hydrALAZINE HCL [Apresoline] 10 mg PO BID 12/20/23 lisinopriL 40 mg PO DAILY 12/20/23 Acetaminophen Tab [Tylenol] 650 mg PO Q6HR PRN tab MDD 4000 mg 01/03/24 Apixaban [Eliquis] 5 mg PO BID tab 01/03/24 Cyclobenzaprine [Flexeril] 10 mg PO Q8HR PRN tab 01/03/24 HYDROcodone/APAP 5-325MG [Benedict 5-325] 1 tab PO Q6HR PRN #4 tab 01/03/24 Ipratropium-Albuterol Nebulize [Duoneb 0.5 mg-3 mg/3 ml Soln] 3 ml INHALATION RT-QID each 01/03/24 Isosorbide Mononitrate ER [Imdur] 30 mg PO DAILY tab 01/03/24 Melatonin 5 mg PO HS PRN tab 01/03/24 Tamsulosin [Flomax] 0.4 mg PO PC-BRKFST cap 01/03/24 Amiodarone [Cordarone] 200 mg PO BID 01/31/24 Ferrous Sulfate [Feosol] 325 mg PO HS 01/31/24 Furosemide [Lasix] 20 mg PO DAILY 01/31/24 Furosemide [Lasix] 20 mg PO DAILY PRN 01/31/24 INSULIN LISPRO (HumaLOG) [humaLOG] See Protocol SQ DAILY 01/31/24 Ibuprofen [Motrin Ib] 200 mg PO Q8H PRN 01/31/24 Insulin Glargine-Yfgn [Semglee (Yfgn) Pen] 15 unit SQ BID@0900,1700 01/31/24 Lidocaine 4% Patch 1 patch TOPICAL DAILY 01/31/24 Loperamide [Imodium] 2 - 4 mg PO Q2H PRN 01/31/24 Metoprolol Tartrate [Lopressor] 50 mg PO BID 01/31/24 Potassium Chloride [Klor-Con M10] 10 meq PO DAILY 01/31/24 Slow-Mag Muscle/Heart 1 tab PO TID@0900,1300,2100 01/31/24 bisacodyL [Dulcolax] 10 mg RECTAL BID PRN 01/31/24 guaiFENesin [guaiFENesin Oral Solution] 200 mg PO Q4H PRN 01/31/24 Controlled Substance Measures - Controlled Substance Measures Is patient prescribed a controlled substance at discharge?: No
--- NOTE | 2024-01-31 12:16 | US ---
EXAMINATION TYPE: US kidneys/renal and bladder DATE OF EXAM: 01/31/2024 COMPARISON: PET scan CLINICAL INDICATION: Male, 78 years old with history of ; REYNA EXAM MEASUREMENTS: Right Kidney: 10.4 x 5.8 x 5.6 cm Left Kidney: 11.8 x 7.2 x 6.1 cm Right Kidney: No evidence of hydronephrosis. Some minimal perinephric edema anteriorly is nonspecific and may be seen with senescent change or chronic kidney disease. Left Kidney: No evidence of hydronephrosis. Difficult to visualize due to overlying bowel content, la rge pt body habitus, and pt immobile Bladder: Non-visualized, Pt has cath in place IMPRESSION: No hydronephrosis. Limited detailed assessment due to patient condition.
[2024-01-31] MEDS: TAMSULOSIN 0.4 MG CAP.ER.24H PO SCH (12:18)
[2024-01-31] MEDS: SODIUM BICARBONATE TAB 650 MG TAB PO SCH (12:18)
[2024-01-31] MEDS ORDERED: ALBUTEROL NEBULIZED 2.5 MG/3 ML INHALATION PRN (13:31)
--- NOTE | 2024-01-31 13:34 | P.HPIM ---
History of Present Illness H&P Date: 01/31/24 History of present illness; patient is a 78-year-old gentleman past medical history significant for small cell lung cancer status/post chemoradiation, COPD, former tobacco smoker, diabetes mellitus, hypertension, hypothyroidism, hypertension, hyperlipidemia, obesity, peripheral arterial disease, atrial fibrillation with previous cardioversion who presented to the ER for abnormal labs. Patient is currently a resident of [facility]. Patient stated that he has been having increased weakness of lower extremity for the last few days. Patient also complaining of neck pain. Patient has history of COPD and is short of breath at rest at baseline. There is no complaint of fever or chills. Denies any chest pain. No complaint of palpitation. Denies any orthopnea or PND. Initial lab work done in the ER showed WBC 9.9, hemoglobin 9.2, platelet count 63, sodium 135, potassium 5.9, BUN 53, creatinine 1.92 glucose 107, lactate 2.5 Influenza A not detected Influenza B not detected RSV not detected COVID-19 not detected EKG done in the ER showed heart rate of 74 , no ST segment elevation or depression seen, no T-wave inversions seen. Chest x-ray done in the ER cardiomegaly with chronic right suprahilar consolidation, atelectasis redemonstrated. There is worsening reticular and reticulonodular opacities consistent with edema Patient admitted to internal medicine service REVIEW OF SYSTEMS: CONSTITUTIONAL: No fever, no malaise, no fatigue. HEENT: No recent visual problems or hearing problems. Denied any sore throat. CARDIOVASCULAR: As mentioned above PULMONARY: As mentioned above GASTROINTESTINAL: No diarrhea, no nausea, no vomiting, no abdominal pain. NEUROLOGICAL: No headaches, no weakness, no numbness. HEMATOLOGICAL: Denies any bleeding or petechiae. GENITOURINARY: Denies any burning micturition, frequency, or urgency. MUSCULOSKELETAL/RHEUMATOLOGICAL: Denies any joint pain, swelling, or any muscle pain. ENDOCRINE: Denies any polyuria or polydipsia. The rest of the 14-point review of systems is negative. PHYSICAL EXAMINATION: GENERAL: The patient is alert and oriented x3, not in any acute distress. Well developed, well nourished. HEENT: Pupils are round and equally reacting to light. EOMI. No scleral icterus. No conjunctival pallor. Normocephalic, atraumatic. No pharyngeal erythema. No thyromegaly. CARDIOVASCULAR: S1 and S2 present. No murmurs, rubs, or gallops. PULMONARY: Chest is clear to auscultation, no wheezing or crackles. ABDOMEN: Soft, nontender, nondistended, normoactive bowel sounds. No palpable organomegaly. MUSCULOSKELETAL: No joint swelling or deformity. EXTREMITIES: No cyanosis, clubbing, or pedal edema. NEUROLOGICAL: Gross neurological examination did not reveal any focal deficits. SKIN: No rashes. Assessment and plan Acute on chronic hypoxic respiratory Failure Acute on chronic diastolic CHF REYNA Hyperkalemia Hyponatremia Thrombocytopenia Acute on chronic kidney disease Bicytopenia, with thrombocytopenia and anemia, no overt signs of acute blood loss History of paroxysmal atrial fibrillation, status post previous cardioversion, currently normal sinus rhythm Diabetes mellitus type 2 Hypertension History of hyperlipidemia History of hypothyroidism History of peripheral arterial disease History of prostate cancer status post radiation History of urinary retention Obstructive sleep apnea with home CPAP Monitor vital signs Monitor CBC Monitor CMP Continue telemetry monitoring Avoid nephrotoxic agent Strict I's and O's Daily weights Continue IV Lasix Ordered iron profile, LDH, Ordered CRP, ESR, Pro-Jose Juan Ordered bladder scan Patient was started empirically on IV Zosyn Continue breathing treatments Consulted pulmonology Consult nephrology Consult hematology oncology Labs and medication were reviewed.. Continue same treatment. Continue with symptomatic treatment. Resume home medication. Monitor labs and vitals. DVT and GI prophylaxis. Further recommendations as per clinical course of the patient Dictation was produced using [employer] dictation software. please excuse any grammatical, word or spelling errors. Past Medical History Past Medical History: Atrial Fibrillation, Asthma, Cancer, Diabetes Mellitus, GERD/Reflux, Hyperlipidemia, Hypertension, Prostate Disorder, Sleep Apnea/CPAP/BIPAP, Thyroid Disorder, Vascular Disorder Additional Past Medical History / Comment(s): DM type II, prostate cancer 2018 with radiation & brachytherapy. kidney stones x1. pseudogout. hx of bowel obstrution with surgery and multiple bowel obstruction since (no surgery). bilateral bifemoral bypass for calcifications (2005). sleep apnea with c-pap machine. hx anemia. Lung cancer with radation tx (last tx 02/08/23), and chemo tx (last 03/04/23). constipation & diarrhea. History of Any Multi-Drug Resistant Organisms: None Reported Past Surgical History: Appendectomy, Bowel Resection, Orthopedic Surgery Additional Past Surgical History / Comment(s): bowel resection, bi-femoral bypass for calcifications, left shoulder surgery, left knee surgery, Loop recor therese, bronchoscopy with bx. Past Anesthesia/Blood Transfusion Reactions: Previous Problems w/ Anesthesia Additional Past Anesthesia/Blood Transfusion Reaction / Comment(s): difficulty waking up. Past Psychological History: No Psychological Hx Reported Smoking Status: Former smoker Past Alcohol Use History: None Reported Additional Past Alcohol Use History / Comment(s): quit smoking december 2022, hx of 1 ppd Past Drug Use History: None Reported - Past Family History Father Additional Family Medical History / Comment(s): alzheimers Mother Family Medical History: Renal Disease Additional Family Medical History / Comment(s): kidney failure Medications and Allergies Home Medications Medication Instructions Recorded Confirmed Type Omeprazole 20 mg PO Q48H 11/30/18 01/31/24 History metFORMIN HCL [Glucophage] 1,000 mg PO DIRECTED 11/30/18 01/31/24 History Cholecalciferol [Vitamin D3 (125 125 mcg PO DAILY 03/18/23 01/31/24 History Mcg = 5000 Iu)] Ferrous Gluconate 324 mg PO HS 03/18/23 01/31/24 History Albuterol Inhaler [Ventolin Hfa 1 - 2 puff INHALATION RT-Q4H PRN 12/20/23 01/31/24 History Inhaler] Atorvastatin Calcium [Lipitor] 80 mg PO HS 12/20/23 01/31/24 History Budesonide [Pulmicort] 0.5 mg INHALATION RT-BID 12/20/23 01/31/24 History Cyanocobalamin (Vitamin B-12) 1,000 mcg PO DAILY 12/20/23 01/31/24 History [Vitamin B-12] Furosemide [Lasix] 40 mg PO DAILY PRN 12/20/23 01/31/24 History Ipratropium-Albuterol Nebulize 3 ml INHALATION RT-QID PRN 12/20/23 01/31/24 History [Duoneb 0.5 mg-3 mg/3 ml Soln] Levothyroxine Sodium [Synthroid] 150 mcg PO DAILY 12/20/23 01/31/24 History Lidocaine 5% Patch [Lidoderm 5% 1 patch TOPICAL DIRECTED 12/20/23 01/31/24 History Patch] Magnesium Chloride [Nu-Mag] 214.5 mg PO BID 12/20/23 01/31/24 History Metoprolol Tartrate [Lopressor] 75 mg PO BID 12/20/23 01/31/24 History Montelukast [Singulair] 10 mg PO HS 12/20/23 01/31/24 History Potassium Chloride ER [K-Dur 20] 20 meq PO DAILY PRN 12/20/23 01/31/24 History Vitamin E (Dl,Tocopheryl Acet) 400 unit PO DAILY 12/20/23 01/31/24 History [Vitamin E (400 Iu = 180 mg)] allopurinoL [Zyloprim] 100 mg PO HS 12/20/23 01/31/24 History allopurinoL [Zyloprim] 200 mg PO DAILY 12/20/23 01/31/24 History hydrALAZINE HCL [Apresoline] 10 mg PO BID 12/20/23 01/31/24 History hydrALAZINE HCL [Apresoline] 10 mg PO DAILY PRN 12/20/23 01/31/24 History lisinopriL 40 mg PO DAILY 12/20/23 01/31/24 History Acetaminophen Tab [Tylenol] 650 mg PO Q6HR PRN tab 01/03/24 01/31/24 Rx Amiodarone [Cordarone] 400 mg PO BID tab 01/03/24 01/31/24 Rx Apixaban [Eliquis] 5 mg PO BID tab 01/03/24 01/31/24 Rx Cyclobenzaprine [Flexeril] 10 mg PO Q8HR PRN tab 01/03/24 01/31/24 Rx Fluconazole [Diflucan] 100 mg PO DAILY 7 Days #7 tab 01/03/24 01/31/24 Rx HYDROcodone/APAP 5-325MG [[place] 1 tab PO Q6HR PRN #4 tab 01/03/24 01/31/24 Rx 5-325] INSULIN ASPART (NovoLOG) [NovoLOG 0 unit SQ Q4H each 01/03/24 01/31/24 Rx (formulary)] Insulin Detemir (Levemir) [Levemir] 15 unit SQ BID@0700,2100 each 01/03/24 01/31/24 Rx Ipratropium-Albuterol Nebulize 3 ml INHALATION RT-QID each 01/03/24 01/31/24 Rx [Duoneb 0.5 mg-3 mg/3 ml Soln] Isosorbide Mononitrate ER [Imdur] 30 mg PO DAILY tab 01/03/24 01/31/24 Rx Melatonin 5 mg PO HS PRN tab 01/03/24 01/31/24 Rx Nystatin 100,000 Unit/gm Powd 1 applic TOPICAL BID each 01/03/24 01/31/24 Rx [Mycostatin Powder] Tamsulosin [Flomax] 0.4 mg PO PC-BRKFST cap 01/03/24 01/31/24 Rx predniSONE 10 mg PO DIRECTED #30 tab 01/03/24 01/31/24 Rx Allergies Allergy/AdvReac Type Severity Reaction Status Date / Time No Known Allergies Allergy Verified 12/20/23 19:15 Physical Exam Vitals: Vital Signs Temp Pulse Pulse Resp BP BP Pulse Ox 01/31/24 09:11 97.4 F L 90 18 93/55 92 L 01/31/24 08:11 84 01/31/24 07:54 82 98 01/31/24 04:00 96.7 F L 75 18 117/68 96 01/30/24 23:30 97.2 F L 71 20 133/67 94 L 01/30/24 22:32 70 20 95/43 97 01/30/24 20:37 98.5 F 73 20 92/43 96 Intake and Output 01/30/24 01/31/24 01/31/24 22:59 06:59 14:59 Output Total 850 Balance -850 Output: Urine 850 Other: Voiding Method Urinal Weight 115.212 kg 120.5 kg Results CBC & Chem 7: 01/31/24 06:43 01/31/24 06:43 Labs: Abnormal Lab Results - Last 24 Hours (Table) 01/30/24 01/30/24 01/30/24 Range/Units 20:57 20:57 20:57 RBC 2.77 L (4.30-5.90) m/uL Hgb 9.2 L (13.0-17.5) gm/dL Hct 28.4 L (39.0-53.0) % MCV 102.2 H (80.0-100.0) fL RDW 19.3 H (11.5-15.5) % Plt Count 63 L (150-450) k/uL Lymphocytes # (Manual) 0.55 L (1.0-4.8) k/uL Metamyelocytes # (Man) 0.16 H (0) k/uL Myelocytes # (Manual) 0.24 H (0) k/uL INR 1.2 H (<1.2) Sodium 135 L (137-145) mmol/L Potassium 5.9 H (3.5-5.1) mmol/L Chloride 111 H (98-107) mmol/L Carbon Dioxide 18 L (22-30) mmol/L BUN 53 H (9-20) mg/dL Creatinine 1.92 H (0.66-1.25) mg/dL Glucose 107 H (74-99) mg/dL POC Glucose (mg/dL) (70-110) mg/dL Plasma Lactic Acid Pantera (0.7-2.0) mmol/L Calcium (8.4-10.2) mg/dL Total Protein 5.2 L (6.3-8.2) g/dL Albumin 2.9 L (3.5-5.0) g/dL 01/30/24 01/31/24 01/31/24 Range/Units 20:57 06:28 06:43 RBC 2.51 L (4.30-5.90) m/uL Hgb 8.4 L (13.0-17.5) gm/dL Hct 25.7 L (39.0-53.0) % MCV 102.3 H (80.0-100.0) fL RDW 19.4 H (11.5-15.5) % Plt Count 61 L (150-450) k/uL Lymphocytes # (Manual) (1.0-4.8) k/uL Metamyelocytes # (Man) (0) k/uL Myelocytes # (Manual) (0) k/uL INR (<1.2) Sodium (137-145) mmol/L Potassium (3.5-5.1) mmol/L Chloride (98-107) mmol/L Carbon Dioxide (22-30) mmol/L BUN (9-20) mg/dL Creatinine (0.66-1.25) mg/dL Glucose (74-99) mg/dL POC Glucose (mg/dL) 170 H (70-110) mg/dL Plasma Lactic Acid Pantera 2.5 H* (0.7-2.0) mmol/L Calcium (8.4-10.2) mg/dL Total Protein (6.3-8.2) g/dL Albumin (3.5-5.0) g/dL 01/31/24 Range/Units 06:43 RBC (4.30-5.90) m/uL Hgb (13.0-17.5) gm/dL Hct (39.0-53.0) % MCV (80.0-100.0) fL RDW (11.5-15.5) % Plt Count (150-450) k/uL Lymphocytes # (Manual) (1.0-4.8) k/uL Metamyelocytes # (Man) (0) k/uL Myelocytes # (Manual) (0) k/uL INR (<1.2) Sodium (137-145) mmol/L Potassium (3.5-5.1) mmol/L Chloride 113 H (98-107) mmol/L Carbon Dioxide 19 L (22-30) mmol/L BUN 46 H (9-20) mg/dL Creatinine 1.61 H (0.66-1.25) mg/dL Glucose (74-99) mg/dL POC Glucose (mg/dL) (70-110) mg/dL Plasma Lactic Acid Pantera (0.7-2.0) mmol/L Calcium 8.3 L (8.4-10.2) mg/dL Total Protein 5.2 L (6.3-8.2) g/dL Albumin 3.0 L (3.5-5.0) g/dL Thrombosis Risk Factor Assmnt - Choose All That Apply Each Factor Represents 1 point: Abnormal pulmonary function (COPD), Medical pt on bed rest, Obesity (BMI >25), Swollen legs (current) Each Risk Factor Represents 2 Points: Patient confined to bed Each Risk Factor Represents 3 Points: Age 75 years or older, Heparin-induced thrombocytopenia (HIT) Thrombosis Risk Factor Assessment Total Risk Factor Score: 12 Thrombosis Risk Factor Assessment Level: High Risk
[2024-01-31] MEDS ORDERED: NON FORMULARY DRUG (Omeprazole [Omeprazole] 20 MG Capsule.Dr) PO SCH (13:45)
--- NOTE | 2024-01-31 14:55 | P.CONS ---
History of Present Illness - Reason for Consult Consult date: 01/31/24 known Requesting physician: Claudio Campos - Chief Complaint REYNA, spesis - History of Present Illness Mr Guzman is a pleasant white male, with multiple medical problems. The patient has a long-standing history of smoking, about a pack and a half a day for about 60 years. Patient had routine low-dose screening CT of the chest on 10/05/22. This showed 2 suspicious nodules in the right lung, 1.8 cm in the RUL and another smaller in the RLL. The patient then had a PET scan showing the larger RUL nodule to be a metabolic. A smaller 1.7 cm nodule in the upper RLL had an SUV of 6.35. There were some adjacent small nodules, that were also a metabolic. There was a 1.1 cm right hilar node that was hypermetabolic with SUV 4.18. The patient was initially seen by radiation oncology and appropriately determined not to be a candidate for SB RT given concern for hilar node involvement. MRI of the brain on 11/27/22 was negative for metastasis. He was referred to IR for CT-guided biopsy, but the lesion was not felt to be accessible. He was therefore referred to thoracic surgery. 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 Lymph node aspirates, as well as BAL were negative for malignancy. The patient was therefore referred back to radiation oncology and was then referred here. He refused his initial appointment, as he stated that he wanted to follow-up with the surgeon first to get his biopsy results and the surgeon's recommendations. He was therefore seen for his initial consultation on 01/01/23. The patient had a prior history of localized prostate cancer, treated with external beam radiation, and brachytherapy in 2018. He states that he quit smoking at the time of his diagnosis. 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 He denies any knowledge of any CKD related to his diabetes. He states that he does have early COPD. Endurance, on walking is somewhat limited, more so because of claudication in his lower extremities. the patient was recommended concurrent chemoradiation. he started chemotherapy on 01/11/23. Due to the national shortage of [place] drugs, he received carbo plus TELEPHONE OPERATOR for cycle 1, and cisplatin plus TELEPHONE OPERATOR for cycle 2. He completed concurrent chemotherapy on 02/05/23, and radiation on 02/08/23-he required treatment delay, dose reduction to get through Tx. treatment follow-up PET scan 10/15/2023 showed no evidence of disease recurrence. The CT did not show any evidence of inflammation in the lung parenchyma. He has been following with a student support services director in [place]. Diagnosed with COPD and pulmonary fibrosis. He has been on and off prednisone for the same and including concerns for any possible radiation pneumonitis-but again, no evidence on imaging of ongoing inflammation in the lung parenchyma makes pneumonitis less likely. Whenever he is being tapered off steroids his respiratory symptoms-shortness of breath cough, suspicions for infection-recur rapidly. He was most recently placed on 60 mg daily last week for persistent resp symptoms. He did not improve this time. He has had no fevers since admission, blood pressure has consistently been low, Hgb 8.4, hematocrit 25.7, platelet count 61,000 BUN 46 creatinine 1.61 Last seen in [facility] 10/21/23. When seen today patient has complaints of pain in his neck, he has had injections for this in the past. Patient's family is complaining that patient has been unable to walk since his last hospital visit last month. Review of Systems 14 point ROS is neg except as stated in HPI Past Medical History Past Medical History: Atrial Fibrillation, Asthma, Cancer, Diabetes Mellitus, GERD/Reflux, Hyperlipidemia, Hypertension, Prostate Disorder, Sleep Apnea/CPAP/BIPAP, Thyroid Disorder, Vascular Disorder Additional Past Medical History / Comment(s): DM type II, prostate cancer 2018 with radiation & brachytherapy. kidney stones x1. pseudogout. hx of bowel obstrution with surgery and multiple bowel obstruction since (no surgery). bilateral bifemoral bypass for calcifications (2005). sleep apnea with c-pap machine. hx anemia. Lung cancer with radation tx (last tx 02/08/23), and chemo tx (last 03/04/23). constipation & diarrhea. History of Any Multi-Drug Resistant Organisms: None Reported Past Surgical History: Appendectomy, Bowel Resection, Orthopedic Surgery Additional Past Surgical History / Comment(s): bowel resection, bi-femoral bypass for calcifications, left shoulder surgery, left knee surgery, Loop recorder, bronchoscopy with bx. Past Anesthesia/Blood Transfusion Reactions: Previous Problems w/ Anesthesia Additional Past Anesthesia/Blood Transfusion Reaction / Comm: difficulty waking up. Past Psychological History: No Psychological Hx Reported Smoking Status: Former smoker Past Alcohol Use History: None Reported Additional Past Alcohol Use History / Comment(s): quit smoking december 2022, hx of 1 ppd Past Drug Use History: None Reported - Past Family History Father Additional Family Medical History / Comment(s): alzheimers Mother Family Medical History: Renal Disease Additional Family Medical History / Comment(s): kidney failure Medications and Allergies Home Medications Medication Instructions Recorded Confirmed Type Omeprazole 20 mg PO Q48H 11/30/18 01/31/24 History metFORMIN HCL [Glucophage] 1,000 mg PO BID 11/30/18 01/31/24 History Cholecalciferol [Vitamin D3 (125 125 mcg PO DAILY 03/18/23 01/31/24 History Mcg = 5000 Iu)] Albuterol Inhaler [Ventolin Hfa 1 - 2 puff INHALATION RT-Q4H PRN 12/20/23 01/31/24 History Inhaler] Atorvastatin Calcium [Lipitor] 80 mg PO HS 12/20/23 01/31/24 History Budesonide [Pulmicort] 0.5 mg INHALATION RT-BID 12/20/23 01/31/24 History Cyanocobalamin (Vitamin B-12) 1,000 mcg PO DAILY 12/20/23 01/31/24 History [Vitamin B-12] Levothyroxine Sodium [Synthroid] 150 mcg PO DAILY 12/20/23 01/31/24 History Montelukast [Singulair] 10 mg PO HS 12/20/23 01/31/24 History Vitamin E (Dl,Tocopheryl Acet) 400 unit PO DAILY 12/20/23 01/31/24 History [Vitamin E (400 Iu = 180 mg)] allopurinoL [Zyloprim] 100 mg PO HS 12/20/23 01/31/24 History allopurinoL [Zyloprim] 200 mg PO DAILY 12/20/23 01/31/24 History hydrALAZINE HCL [Apresoline] 10 mg PO BID 12/20/23 01/31/24 History lisinopriL 40 mg PO DAILY 12/20/23 01/31/24 History Acetaminophen Tab [Tylenol] 650 mg PO Q6HR PRN tab MDD 4000 mg 01/03/24 01/31/24 Rx Apixaban [Eliquis] 5 mg PO BID tab 01/03/24 01/31/24 Rx Cyclobenzaprine [Flexeril] 10 mg PO Q8HR PRN tab 01/03/24 01/31/24 Rx HYDROcodone/APAP 5-325MG [Bulan 1 tab PO Q6HR PRN #4 tab 01/03/24 01/31/24 Rx 5-325] Ipratropium-Albuterol Nebulize 3 ml INHALATION RT-QID each 01/03/24 01/31/24 Rx [Duoneb 0.5 mg-3 mg/3 ml Soln] Isosorbide Mononitrate ER [Imdur] 30 mg PO DAILY tab 01/03/24 01/31/24 Rx Melatonin 5 mg PO HS PRN tab 01/03/24 01/31/24 Rx Tamsulosin [Flomax] 0.4 mg PO PC-BRKFST cap 01/03/24 01/31/24 Rx Amiodarone [Cordarone] 200 mg PO BID 01/31/24 01/31/24 History Ferrous Sulfate [Feosol] 325 mg PO HS 01/31/24 01/31/24 History Furosemide [Lasix] 20 mg PO DAILY 01/31/24 01/31/24 History Furosemide [Lasix] 20 mg PO DAILY PRN 01/31/24 01/31/24 History INSULIN LISPRO (HumaLOG) [humaLOG] See Protocol SQ DAILY 01/31/24 01/31/24 History Ibuprofen [Motrin Ib] 200 mg PO Q8H PRN 01/31/24 01/31/24 History Insulin Glargine-Yfgn [Semglee 15 unit SQ BID@0900,1700 01/31/24 01/31/24 History (Yfgn) Pen] Lidocaine 4% Patch 1 patch TOPICAL DAILY 01/31/24 01/31/24 History Loperamide [Imodium] 2 - 4 mg PO Q2H PRN 01/31/24 01/31/24 History Metoprolol Tartrate [Lopressor] 50 mg PO BID 01/31/24 01/31/24 History Potassium Chloride [Klor-Con M10] 10 meq PO DAILY 01/31/24 01/31/24 History Slow-Mag Muscle/Heart 1 tab PO TID@0900,1300,2100 01/31/24 01/31/24 History bisacodyL [Dulcolax] 10 mg RECTAL BID PRN 01/31/24 01/31/24 History guaiFENesin [guaiFENesin Oral 200 mg PO Q4H PRN 01/31/24 01/31/24 History Solution] Allergies Allergy/AdvReac Type Severity Reaction Status Date / Time No Known Allergies Allergy Verified 01/31/24 10:26 Physical Exam Vitals: Vital Signs Temp Pulse Pulse Resp BP BP Pulse Ox 01/31/24 08:11 84 01/31/24 07:54 82 98 01/31/24 04:00 96.7 F L 75 18 117/68 96 01/30/24 23:30 97.2 F L 71 20 133/67 94 L 01/30/24 22:32 70 20 95/43 97 01/30/24 20:37 98.5 F 73 20 92/43 96 Intake and Output 01/30/24 01/31/24 01/31/24 22:59 06:59 14:59 Output Total 850 Balance -850 Output: Urine 850 Other: Voiding Method Urinal Weight 115.212 kg 120.5 kg - Constitutional General appearance: cooperative, no acute distress, obese - EENT Eyes: anicteric sclerae, EOMI ENT: hearing grossly normal - Respiratory Respiratory: bilateral: diminished, rales (bilateral bases) - Cardiovascular Rhythm: regular Abnormal Heart Sounds: no systolic murmur, no diastolic murmur, no rub, no S3 Gallop, no S4 Gallop, no click, no other leg Peripheral Edema: bilateral: Trace - Gastrointestinal General gastrointestinal: no absent bowel sounds, no decreased bowel sounds, no distended, no hepatomegaly, no hyperactive bowel sounds, normal bowel sounds, no organomegaly, no rigid, no scaphoid, soft, no splenomegaly, no tenderness, no umbilical hernia, no ventral hernia - Integumentary Integumentary: pale - Neurologic Neurologic: CNII-XII intact - Musculoskeletal Musculoskeletal: generalized weakness - Psychiatric Psychiatric: A&O x's 3, appropriate affect, intact judgment & insight Results CBC & Chem 7: 01/31/24 06:43 01/31/24 06:43 Labs: Abnormal Lab Results - Last 24 Hours (Table) 01/30/24 01/30/24 01/30/24 Range/Units 20:57 20:57 20:57 RBC 2.77 L (4.30-5.90) m/uL Hgb 9.2 L (13.0-17.5) gm/dL Hct 28.4 L (39.0-53.0) % MCV 102.2 H (80.0-100.0) fL RDW 19.3 H (11.5-15.5) % Plt Count 63 L (150-450) k/uL Lymphocytes # (Manual) 0.55 L (1.0-4.8) k/uL Metamyelocytes # (Man) 0.16 H (0) k/uL Myelocytes # (Manual) 0.24 H (0) k/uL INR 1.2 H (<1.2) Sodium 135 L (137-145) mmol/L Potassium 5.9 H (3.5-5.1) mmol/L Chloride 111 H (98-107) mmol/L Carbon Dioxide 18 L (22-30) mmol/L BUN 53 H (9-20) mg/dL Creatinine 1.92 H (0.66-1.25) mg/dL Glucose 107 H (74-99) mg/dL POC Glucose (mg/dL) (70-110) mg/dL Plasma Lactic Acid Pantera (0.7-2.0) mmol/L Calcium (8.4-10.2) mg/dL Total Protein 5.2 L (6.3-8.2) g/dL Albumin 2.9 L (3.5-5.0) g/dL 01/30/24 01/31/24 01/31/24 Range/Units 20:57 06:28 06:43 RBC 2.51 L (4.30-5.90) m/uL Hgb 8.4 L (13.0-17.5) gm/dL Hct 25.7 L (39.0-53.0) % MCV 102.3 H (80.0-100.0) fL RDW 19.4 H (11.5-15.5) % Plt Count 61 L (150-450) k/uL Lymphocytes # (Manual) (1.0-4.8) k/uL Metamyelocytes # (Man) (0) k/uL Myelocytes # (Manual) (0) k/uL INR (<1.2) Sodium (137-145) mmol/L Potassium (3.5-5.1) mmol/L Chloride (98-107) mmol/L Carbon Dioxide (22-30) mmol/L BUN (9-20) mg/dL Creatinine (0.66-1.25) mg/dL Glucose (74-99) mg/dL POC Glucose (mg/dL) 170 H (70-110) mg/dL Plasma Lactic Acid Pantera 2.5 H* (0.7-2.0) mmol/L Calcium (8.4-10.2) mg/dL Total Protein (6.3-8.2) g/dL Albumin (3.5-5.0) g/dL 01/31/24 Range/Units 06:43 RBC (4.30-5.90) m/uL Hgb (13.0-17.5) gm/dL Hct (39.0-53.0) % MCV (80.0-100.0) fL RDW (11.5-15.5) % Plt Count (150-450) k/uL Lymphocytes # (Manual) (1.0-4.8) k/uL Metamyelocytes # (Man) (0) k/uL Myelocytes # (Manual) (0) k/uL INR (<1.2) Sodium (137-145) mmol/L Potassium (3.5-5.1) mmol/L Chloride 113 H (98-107) mmol/L Carbon Dioxide 19 L (22-30) mmol/L BUN 46 H (9-20) mg/dL Creatinine 1.61 H (0.66-1.25) mg/dL Glucose (74-99) mg/dL POC Glucose (mg/dL) (70-110) mg/dL Plasma Lactic Acid Pantera (0.7-2.0) mmol/L Calcium 8.3 L (8.4-10.2) mg/dL Total Protein 5.2 L (6.3-8.2) g/dL Albumin 3.0 L (3.5-5.0) g/dL Chest x-ray: report reviewed Assessment and Plan (1) Weakness Current Visit: Yes Status: Acute Priority: High Code(s): R53.1 - WEAKNESS SNOMED Code(s): 37463077 (2) REYNA (acute kidney injury) Current Visit: Yes Status: Acute Priority: High Code(s): N17.9 - ACUTE KIDNEY FAILURE, UNSPECIFIED SNOMED Code(s): 07949340 (3) Sepsis Current Visit: Yes Status: Acute Priority: High Code(s): A41.9 - SEPSIS, UNSPECIFIED ORGANISM SNOMED Code(s): 34108942 (4) Malignant neoplasm of prostate Current Visit: No Status: Chronic Priority: Low Code(s): C61 - MALIGNANT NEOPLASM OF PROSTATE SNOMED Code(s): 569736545 (5) Bicytopenia Current Visit: Yes Status: Acute Priority: Medium Code(s): D75.89 - OTHER SPECIFIED DISEASES OF BLOOD AND BLOOD-FORMING ORGANS SNOMED Code(s): 16585849 (6) Small cell lung cancer Current Visit: No Status: Chronic Priority: Medium Code(s): C34.90 - MALIGNANT NEOPLASM OF UNSP PART OF UNSP BRONCHUS OR LUNG SNOMED Code(s): 674848959 Plan: Weakness -Patient reporting persistent weakness since hospital admission last month, no improvements -Patient has been at [facility], unable to walk, he states 2/2 pain in the neck. Pain mgmt has been consulted for poss steroid injection -Neurology consulted to assess lower extremity weakness. Possible steroid- induced myopathy in proximal muscles of the BLE? Pending their assessment Acute kidney injury -Nephrology is following and managing the same Concerns for sepsis -patient is on antibiotics. -Defer to Internal medicine Limited stage small cell lung cancer -Treatment and diagnosis as stated in HPI -Patient had imaging this past weekend, pending those reports -Patient is not having any new symptoms to suggest recurrence of malignancy but, will await scan results to report the same. -Cont f/u as directed for now
[2024-01-31 15:37] LABS: % Iron Saturation 18.1 (15.00-50.00)
[2024-01-31] MEDS ORDERED: ZINC OXIDE PASTE (Z-GUARD) 1 APPLIC TOPICAL PRN (16:03)
--- NOTE | 2024-01-31 16:10 | P.CNNES ---
History of Present Illness Consult date: 01/31/24 Requesting physician: Frankie Carter Reason for Consult: led weakness History of Present Illness: This is a 78-year-old gentleman with multiple medical issues including right cervical radiculopathy, lung cancer about a year ago postradiation and chemotherapy, diabetes, peripheral neuropathy, peripheral arterial disease, atrial fibrillation s/p cardioversion and is on eliquis who is having weakness in the lower extremity December 2023. Patient is accompanied with his and his daughter who are bedside. He went to the patient had abnormal lab test and was sent from his rehab facility for further evaluation. This seems patient had a recent hospitalization in December 2023 for COPD exacerbation and while inpatient he had symptomatic A-fib status post cardioversion and was placed on Eliquis. According to the since December 2023 admission patient has been bedbound and has been having weakness in the lower extremities and the upper extremity. Patient is having acute on chronic right posterior lateral neck pain that radiates to the back on the right side and was evaluated by chiropractor in the past. No lower back pain. Continues to have weakness in the legs. Denies any numbness that is new from his past peripheral neuropathy. He had a recent PET scan on 10/15/2023 did not show any evidence of disease recurrence. Patient had MRI of the cervical spine on October 2023 which shows degenerative changes mostly at C5- C6 and is aware that he has right cervical radiculopathy. No history of stroke. He feels patient is just being given medication and did not see any improvement. Since November patient has acute kidney insufficiency. Some of the Workup during this hospital visit consisted of: Creatinine was 1.92 now it is 1.61 Calcium is 8.3, phosphorus is 3.2, magnesium is 1.8 Sodium is 137 Hemoglobin is 9.2 and the most repeated 1 is 8.4. MCV is 102 Review of Systems The positive and negative as per HPI. Past Medical History Past Medical History: Atrial Fibrillation, Asthma, Cancer, Diabetes Mellitus, GERD/Reflux, Hyperlipidemia, Hypertension, Prostate Disorder, Sleep Apnea/CPAP/BIPAP, Thyroid Disorder, Vascular Disorder Additional Past Medical History / Comment(s): DM type II, prostate cancer 2018 with radiation & brachytherapy. kidney stones x1. pseudogout. hx of bowel obstrution with surgery and multiple bowel obstruction since (no surgery). bilateral bifemoral bypass for calcifications (2005). sleep apnea with c-pap machine. hx anemia. Lung cancer with radation tx (last tx 02/08/23), and chemo tx (last 03/04/23). constipation & diarrhea. History of Any Multi-Drug Resistant Organisms: None Reported Past Surgical History: Appendectomy, Bowel Resection, Orthopedic Surgery Additional Past Surgical History / Comment(s): bowel resection, bi-femoral bypass for calcifications, left shoulder surgery, left knee surgery, Loop recorder, bronchoscopy with bx. Past Anesthesia/Blood Transfusion Reactions: Previous Problems w/ Anesthesia Additional Past Anesthesia/Blood Transfusion Reaction / Comment(s): difficulty waking up. Past Psychological History: No Psychological Hx Reported Smoking Status: Former smoker Past Alcohol Use History: None Reported Additional Past Alcohol Use History / Comment(s): quit smoking december 2022, hx of 1 ppd Past Drug Use History: None Reported - Past Family History Father Additional Family Medical History / Comment(s): alzheimers Mother Family Medical History: Renal Disease Additional Family Medical History / Comment(s): kidney failure Medications and Allergies Home Medications Medication Instructions Recorded Confirmed Type Omeprazole 20 mg PO Q48H 11/30/18 01/31/24 History metFORMIN HCL [Glucophage] 1,000 mg PO BID 11/30/18 01/31/24 History Cholecalciferol [Vitamin D3 (125 125 mcg PO DAILY 03/18/23 01/31/24 History Mcg = 5000 Iu)] Albuterol Inhaler [Ventolin Hfa 1 - 2 puff INHALATION RT-Q4H PRN 12/20/23 01/31/24 History Inhaler] Atorvastatin Calcium [Lipitor] 80 mg PO HS 12/20/23 01/31/24 History Budesonide [Pulmicort] 0.5 mg INHALATION RT-BID 12/20/23 01/31/24 History Cyanocobalamin (Vitamin B-12) 1,000 mcg PO DAILY 12/20/23 01/31/24 History [Vitamin B-12] Levothyroxine Sodium [Synthroid] 150 mcg PO DAILY 12/20/23 01/31/24 History Montelukast [Singulair] 10 mg PO HS 12/20/23 01/31/24 History Vitamin E (Dl,Tocopheryl Acet) 400 unit PO DAILY 12/20/23 01/31/24 History [Vitamin E (400 Iu = 180 mg)] allopurinoL [Zyloprim] 100 mg PO HS 12/20/23 01/31/24 History allopurinoL [Zyloprim] 200 mg PO DAILY 12/20/23 01/31/24 History hydrALAZINE HCL [Apresoline] 10 mg PO BID 12/20/23 01/31/24 History lisinopriL 40 mg PO DAILY 12/20/23 01/31/24 History Acetaminophen Tab [Tylenol] 650 mg PO Q6HR PRN tab MDD 4000 mg 01/03/24 01/31/24 Rx Apixaban [Eliquis] 5 mg PO BID tab 01/03/24 01/31/24 Rx Cyclobenzaprine [Flexeril] 10 mg PO Q8HR PRN tab 01/03/24 01/31/24 Rx HYDROcodone/APAP 5-325MG [[place] 1 tab PO Q6HR PRN #4 tab 01/03/24 01/31/24 Rx 5-325] Ipratropium-Albuterol Nebulize 3 ml INHALATION RT-QID each 01/03/24 01/31/24 Rx [Duoneb 0.5 mg-3 mg/3 ml Soln] Isosorbide Mononitrate ER [Imdur] 30 mg PO DAILY tab 01/03/24 01/31/24 Rx Melatonin 5 mg PO HS PRN tab 01/03/24 01/31/24 Rx Tamsulosin [Flomax] 0.4 mg PO PC-BRKFST cap 01/03/24 01/31/24 Rx Amiodarone [Cordarone] 200 mg PO BID 01/31/24 01/31/24 History Ferrous Sulfate [Feosol] 325 mg PO HS 01/31/24 01/31/24 History Furosemide [Lasix] 20 mg PO DAILY 01/31/24 01/31/24 History Furosemide [Lasix] 20 mg PO DAILY PRN 01/31/24 01/31/24 History INSULIN LISPRO (HumaLOG) [humaLOG] See Protocol SQ DAILY 01/31/24 01/31/24 History Ibuprofen [Motrin Ib] 200 mg PO Q8H PRN 01/31/24 01/31/24 History Insulin Glargine-Yfgn [Semglee 15 unit SQ BID@0900,1700 01/31/24 01/31/24 History (Yfgn) Pen] Lidocaine 4% Patch 1 patch TOPICAL DAILY 01/31/24 01/31/24 History Loperamide [Imodium] 2 - 4 mg PO Q2H PRN 01/31/24 01/31/24 History Metoprolol Tartrate [Lopressor] 50 mg PO BID 01/31/24 01/31/24 History Potassium Chloride [Klor-Con M10] 10 meq PO DAILY 01/31/24 01/31/24 History Slow-Mag Muscle/Heart 1 tab PO TID@0900,1300,2100 01/31/24 01/31/24 History bisacodyL [Dulcolax] 10 mg RECTAL BID PRN 01/31/24 01/31/24 History guaiFENesin [guaiFENesin Oral 200 mg PO Q4H PRN 01/31/24 01/31/24 History Solution] Allergies Allergy/AdvReac Type Severity Reaction Status Date / Time No Known Allergies Allergy Verified 01/31/24 10:26 Physical Examination - Vital Signs Vital Signs: Vital Signs Temp Pulse Pulse Resp BP BP Pulse Ox 01/31/24 15:37 84 01/31/24 15:21 98.1 F 79 18 93/50 92 L 01/31/24 15:19 85 01/31/24 13:53 78 18 01/31/24 12:14 78 18 105/62 90 L 01/31/24 11:47 88 01/31/24 11:42 80 01/31/24 09:15 90 18 01/31/24 09:11 97.4 F L 90 18 93/55 92 L 01/31/24 08:11 84 01/31/24 07:54 82 98 01/31/24 04:00 96.7 F L 75 18 117/68 96 01/30/24 23:30 97.2 F L 71 20 133/67 94 L 01/30/24 22:32 70 20 95/43 97 01/30/24 20:37 98.5 F 73 20 92/43 96 Intake and Output 01/31/24 01/31/24 01/31/24 06:59 14:59 22:59 Output Total 850 550 Balance -850 -550 Output: Urine 850 550 Other: Voiding Method Urinal Indwelling Catheter Weight 120.5 kg General: Was lying in bed and not acute distress. When physical therapy had him sitting on side of bed he was very short of breath and had neck pain. HENT: Has some tenderness to touch over the right posterior neck region. Lung: Very short of breath Neuro: The patient is awake alert to self place and time. Is following simple commands. No aphasia no neglect. Pupils are round equal reactive to light. Pupils are round 4 mm bilaterally. Visual page are full to confrontation. Extraocular movement is intact no nystagmus. Normal facial sensation to touch. No facial weakness. No dysarthria. Motor: Strength in uppers are 5/5. In lowers was limited because of cooperation due to his shortness of breath but had antigravity and strength seems better in distal compared to upper Sensation: Normal to touch: Cerebellar: Normal finger to nose. Reflex: Biceps 2+/2+, triceps 1+/1+, Brachioradialis 1+/1+. Lowers deferred because of cooperation and was in pain upon performing it. Plantars: Mute bilaterally. Results - Laboratory Findings CBC and BMP: 01/31/24 06:43 01/31/24 06:43 Abnormal Lab Findings: Abnormal Labs 01/30/24 01/30/24 01/30/24 20:57 20:57 20:57 RBC 2.77 L Hgb 9.2 L Hct 28.4 L MCV 102.2 H RDW 19.3 H Plt Count 63 L Lymphocytes # (Manual) 0.55 L Metamyelocytes # (Man) 0.16 H Myelocytes # (Manual) 0.24 H ESR Retic Count INR 1.2 H D-Dimer Sodium 135 L Potassium 5.9 H Chloride 111 H Carbon Dioxide 18 L BUN 53 H Creatinine 1.92 H Glucose 107 H POC Glucose (mg/dL) Plasma Lactic Acid Pantera Calcium Iron TIBC Transferrin Delta Bilirubin Lactate Dehydrogenase C-Reactive Protein Total Protein 5.2 L Albumin 2.9 L Procalcitonin Urine Blood Urine Mucus 01/30/24 01/31/24 01/31/24 20:57 00:19 06:28 RBC Hgb Hct MCV RDW Plt Count Lymphocytes # (Manual) Metamyelocytes # (Man) Myelocytes # (Manual) ESR Retic Count INR D-Dimer Sodium Potassium Chloride Carbon Dioxide BUN Creatinine Glucose POC Glucose (mg/dL) 170 H Plasma Lactic Acid Pantera 2.5 H* Calcium Iron TIBC Transferrin Delta Bilirubin Lactate Dehydrogenase C-Reactive Protein Total Protein Albumin Procalcitonin 0.13 H Urine Blood Urine Mucus 01/31/24 01/31/24 01/31/24 06:43 06:43 10:08 RBC 2.51 L Hgb 8.4 L Hct 25.7 L MCV 102.3 H RDW 19.4 H Plt Count 61 L Lymphocytes # (Manual) 0.46 L Metamyelocytes # (Man) Myelocytes # (Manual) ESR Retic Count INR D-Dimer 0.65 H Sodium Potassium Chloride 113 H Carbon Dioxide 19 L BUN 46 H Creatinine 1.61 H Glucose POC Glucose (mg/dL) Plasma Lactic Acid Pantera Calcium 8.3 L Iron TIBC Transferrin Delta Bilirubin Lactate Dehydrogenase C-Reactive Protein Total Protein 5.2 L Albumin 3.0 L Procalcitonin Urine Blood Urine Mucus 01/31/24 01/31/24 01/31/24 10:08 10:08 10:08 RBC Hgb Hct MCV RDW Plt Count Lymphocytes # (Manual) Metamyelocytes # (Man) Myelocytes # (Manual) ESR 23 H Retic Count 4.4 H INR D-Dimer Sodium Potassium Chloride Carbon Dioxide BUN Creatinine Glucose POC Glucose (mg/dL) Plasma Lactic Acid Pantera Calcium Iron 40 L TIBC 221 L Transferrin 158.0 L Delta Bilirubin 0.4 H Lactate Dehydrogenase 394 H C-Reactive Protein 2.0 H Total Protein Albumin Procalcitonin Urine Blood Urine Mucus 01/31/24 11:13 RBC Hgb Hct MCV RDW Plt Count Lymphocytes # (Manual) Metamyelocytes # (Man) Myelocytes # (Manual) ESR Retic Count INR D-Dimer Sodium Potassium Chloride Carbon Dioxide BUN Creatinine Glucose POC Glucose (mg/dL) Plasma Lactic Acid [place]tera Calcium Iron TIBC Transferrin Delta Bilirubin Lactate Dehydrogenase C-Reactive Protein Total Protein Albumin Procalcitonin Urine Blood Trace H Urine Mucus Rare H Assessment and Plan Assessment: This is a 88-year-old gentleman with history of small cell lung cancer about a year ago's post chemo and radiation therapy, atrial fibrillation status post cardioversion on Eliquis, diabetes that is poorly controlled, peripheral neuropathy, peripheral arterial disease, right neck pain that radiates down who is having weakness in the lower extremity since December 2023 since his prior hospital visit. I will physical therapy was examined him he was standing up at bedside and was very short of breath but was lifting bilateral upper extremity above gravity but could not stand up because of his severe shortness of breath pulse ox was 86% and was complaining of neck pain during the examination. Bilateral lower extremity weakness since December 2023: Unsure exact etiology. On examination patient had antigravity in lower extremities but was complaining of neck pain and was very short of breath. Rule out due to deconditioning vs peripheral neuropathy/plexopathy from uncontrolled diabetes vs ? Lambert-Eaton syndrome (from his history of lung cancer). Right cervical radiculopathy Patient is having right neck pain that radiates down. Patient had MRI of the cervical spine which showed degenerative changes on C5-C6 that the most and MRI was on 10/2023. Shortness of breath with exertion Acute kidney insufficiency Macrocytosis Controlled diabetes mellitus and patient hemoglobin A1c is 9.5 on 12/2023 History of atrial fibrillation with previous cardioversion and is on Eliquis Small cell lung cancer chemotherapy radiation therapy in March 2023 Peripheral arterial disease History of COPD Hypothyroidism Hypertension Hyperlipidemia Obstructive sleep apnea on CPAP Obesity Former tobacco use Plan: Patient had a recent PET scan on 10/14/2023 did not show any evidence of disease recurrence. I ordered CT of the brain and CT lumbar spine without. Unable to obtain with contrast because of his acute kidney insufficiency. X-ray of cervical is already ordered by other team members and is pending. I ordered TSH, vitamin B12, folate, CK level Orthopedic surgery team is consulted for the cervical radiculopathy. Recommend EMG with nerve conduction as an outpatient of the uppers. Continue to work with physical and Occupational Therapy Nephrology is consulted Oncology is consulted Will Defer the rest of the medical management to primary and other specialist The plan is discussed with patient, his and daughter who are at bedside. Thank you for the consultation. Time on care was 60 minutes Time with Patient: Greater than 30
[2024-01-31 16:12] LABS: Glucose,Whole Blood 242 mg/dL (70-110)
[2024-01-31] MEDS: INSULIN DETEMIR (LEVEMIR) 100 UNIT/ML SYR SQ SCH (18:13)
--- NOTE | 2024-01-31 18:20 | CT ---
EXAMINATION TYPE: CT brain wo con DATE OF EXAM: 01/31/2024 COMPARISON: None HISTORY: weakness CT DLP: 1227.4 mGycm Automated exposure control for dose reduction was used. FINDINGS: The ventricles, basal cisterns and sulci over the convexities are moderately enlarged consistent with moderate generalized atrophy. There is no mass effect or shift in midline structures. There is a tiny remote lacunar infarct in the right basal ganglia. There is no acute intra or extra-axial hemorrhage. The posterior fossa including the brainstem, fourth ventricle and cerebellopontine angles are grossly normal. The intraorbital contents appear normal chest. The visualized paranasal sinuses and mastoid air cells are well aerated. IMPRESSION: 1. Senescent changes as described above. 2. No acute bleed or mass effect. IMPRESSION:
--- NOTE | 2024-01-31 19:01 | CT ---
EXAMINATION TYPE: CT lumbar spine wo con DATE OF EXAM: 01/31/2024 6:10 PM COMPARISON: None HISTORY: weakness CT DLP: 1998.6 mGycm Automated exposure control for dose reduction was used. Unenhanced CT of the lumbar spine was performed. Bone and soft tissue window settings are submitted as well as coronal and sagittal reconstructions. Findings: The lumbar vertebral segments are normal in height. There is a mild superior endplate compression fra cture of L1 of indeterminate age. There is no retropulsion. This spaces from L1 through L5 are well preserved in height. There is mild disc space narrowing, vacu um phenomena and spondylosis at the L5-S1 level indicating mild degenerative disc disease. Secondary to circumferential disc bulge and thickening of the ligamentum flavum, there is a mild spin al stenosis at the L4-5 level. There are no lumbar disc herniations. There is mild bony neural foraminal encroachment at the L5-S1 level on the right and moderate bony ne ural foraminal encroachment at the L5-S1 level on the left. IMPRESSION: 1. Mild superior endplate compression fracture L1 without retropulsion. The age of the fractures inde terminate. 2.no lumbar disc herniation. 3. Mild spinal stenosis at the L4-5 level. 4. Bony neural foraminal stenosis at the L5-S1 level bilaterally as described above.
[2024-01-31] MEDS: HYDROcodone/APAP 5-325MG 1 EACH TAB PO PRN (20:00)
[2024-01-31] MEDS: ATORVASTATIN 80 MG TAB PO SCH (20:01)
[2024-01-31] MEDS: AMIODARONE 200 MG TAB PO SCH (20:01)
[2024-01-31] MEDS: MONTELUKAST 10 MG TAB PO SCH (20:01)
[2024-01-31 20:56] LABS: Glucose,Whole Blood 177 mg/dL (70-110)
[2024-01-31] MEDS ORDERED: METOPROLOL TARTRATE 50 MG TAB PO SCH (21:00)
[2024-02-01 05:46] LABS: Glucose,Whole Blood 104 mg/dL (70-110)
[2024-02-01] MEDS: ONDANSETRON 4 MG/2 ML VIAL IVP PRN (06:24)
[2024-02-01] MEDS: PANTOPRAZOLE 40 MG TABLET PO SCH (06:24)
[2024-02-01] MEDS: LEVOTHYROXINE 75 MCG TAB PO SCH (06:24)
--- NOTE | 2024-02-01 08:22 | XR ---
EXAMINATION TYPE: XR cervical spine comp DATE OF EXAM: 02/01/2024 COMPARISON: None HISTORY: 78-year-old male M50.30, right-sided neck pain TECHNIQUE: 6 views FINDINGS: No predental space widening or prevertebral soft tissue swelling. Nearly bridging anterior endplate s pondylosis C2-C3. Additional anterior endplate spondylosis C4-C6 levels. Mild multilevel degenerative disc disease. Multilevel facet and uncovertebral joint arthropathy. Degenerative grade 1 anterolisthesis C4-C5. On the left, changes result in moderate bony neuroforaminal narrowing at C3-C4 and C5-C6. Mild additi onal levels. On the right, possible severe bony neural foraminal narrowing at C5-C6 and C6-7 and moderate at C4-C5 . Limited by the degree of obliquity. Diffuse osteopenia. Normal odontoid view. IMPRESSION: Moderate multilevel spondylotic change. Degenerative grade 1 anterolisthesis C4-C5. Variable bony andreas roforaminal narrowing as outlined above with some limitation in assessment due to the degree of obliq uity.
[2024-02-01] MEDS ORDERED: TAMSULOSIN 0.4 MG CAP.ER.24H PO SCH (08:30)
[2024-02-01] MEDS: VITAMIN E (DL,TOCOPHERYL ACET) 400 UNIT (180 MG) CAP PO SCH (08:48)
[2024-02-01] MEDS: FUROSEMIDE 10 MG/ML 4 ML VIAL IV SCH (08:49)
--- NOTE | 2024-02-01 10:07 | P.PN ---
Subjective Patient is seen in follow-up for acute kidney injury on chronic kidney disease. Patient has chronic kidney disease stage IIIb with baseline creatinine 1.3-1.5. Creatinine 1.61 yesterday. Has Michelle catheter for urinary retention. Nonoliguric. Denies chest pain or shortness of breath. Vital signs are stable. General: No acute distress. HEENT: Head exam is unremarkable. LUNGS: No audible rhonchi or wheezes. HEART: Rate and Rhythm are regular. ABDOMEN: Nontender. EXTREMITITES: Trace edema. Objective - Vital Signs Vital signs: Vital Signs Temp 97.6 F 02/01/24 08:45 Pulse 90 02/01/24 08:57 Resp 18 02/01/24 08:45 BP 93/57 02/01/24 08:45 Pulse Ox 100 02/01/24 08:45 FiO2 Intake & Output 01/31/24 02/01/24 02/01/24 18:59 06:59 18:59 Intake Total 710 118 Output Total 550 500 Balance 160 -500 118 Intake: Oral 710 118 Output: Urine 550 500 Other: Voiding Method Indwelling Catheter Indwelling Catheter Indwelling Catheter - Labs CBC & Chem 7: 01/31/24 06:43 01/31/24 06:43 Labs: Abnormal Lab Results - Last 24 Hours (Table) 01/31/24 01/31/24 01/31/24 Range/Units 00:19 06:43 10:08 Lymphocytes # (Manual) 0.46 L (1.0-4.8) k/uL ESR (0-20) mm/Hr Retic Count (0.5-2.0) % Haptoglobin (31.2-198.0) mg/dL D-Dimer 0.65 H (<0.60) mg/L FEU POC Glucose (mg/dL) (70-110) mg/dL Iron (65-175) UG/DL TIBC (228-460) UG/DL Transferrin (204.0-354.0) mg/dL Delta Bilirubin (0.0-0.2) mg/dL Lactate Dehydrogenase (120-246) U/L C-Reactive Protein (<1.0) mg/dL Procalcitonin 0.13 H (0.02-0.09) ng/mL Urine Blood (Negative) Urine Mucus (None) /hpf 0701/31/24 01/31/24 Range/Units 10:08 10:08 10:08 Lymphocytes # (Manual) (1.0-4.8) k/uL ESR 23 H (0-20) mm/Hr Retic Count (0.5-2.0) % Haptoglobin (31.2-198.0) mg/dL D-Dimer (<0.60) mg/L FEU POC Glucose (mg/dL) (70-110) mg/dL Iron 40 L (65-175) UG/DL TIBC 221 L (228-460) UG/DL Transferrin 158.0 L (204.0-354.0) mg/dL Delta Bilirubin 0.4 H (0.0-0.2) mg/dL Lactate Dehydrogenase 394 H (120-246) U/L C-Reactive Protein 2.0 H (<1.0) mg/dL Procalcitonin 0.13 H (0.02-0.09) ng/mL Urine Blood (Negative) Urine Mucus (None) /hpf 01/31/24 01/31/24 01/31/24 Range/Units 10:08 10:08 11:13 Lymphocytes # (Manual) (1.0-4.8) k/uL ESR (0-20) mm/Hr Retic Count 4.4 H (0.5-2.0) % Haptoglobin 358.0 H (31.2-198.0) mg/dL D-Dimer (<0.60) mg/L FEU POC Glucose (mg/dL) (70-110) mg/dL Iron (65-175) UG/DL TIBC (228-460) UG/DL Transferrin (204.0-354.0) mg/dL Delta Bilirubin (0.0-0.2) mg/dL Lactate Dehydrogenase (120-246) U/L C-Reactive Protein (<1.0) mg/dL Procalcitonin (0.02-0.09) ng/mL Urine Blood Trace H (Negative) Urine Mucus Rare H (None) /hpf 01/31/24 01/31/24 Range/Units 16:11 20:54 Lymphocytes # (Manual) (1.0-4.8) k/uL ESR (0-20) mm/Hr Retic Count (0.5-2.0) % Haptoglobin (31.2-198.0) mg/dL D-Dimer (<0.60) mg/L FEU POC Glucose (mg/dL) 242 H 177 H (70-110) mg/dL Iron (65-175) UG/DL TIBC (228-460) UG/DL Transferrin (204.0-354.0) mg/dL Delta Bilirubin (0.0-0.2) mg/dL Lactate Dehydrogenase (120-246) U/L C-Reactive Protein (<1.0) mg/dL Procalcitonin (0.02-0.09) ng/mL Urine Blood (Negative) Urine Mucus (None) /hpf Assessment and Plan Plan: Assessment: 1. Acute kidney injury secondary to urinary retention and component of cardiorenal syndrome. Creatinine 1.9 on admission and improved to 1.61 yesterday. No proteinuria on UA. No hydronephrosis noted on kidney ultrasound. 2. Chronic kidney disease stage IIIb with baseline creatinine 1.3-1.5 secondary to nephrosclerosis. 3. Acute on chronic diastolic CHF. 4. Hyperkalemia secondary to acute kidney injury, urinary retention and acidosis. Improved. 5. Urinary retention. Has Michelle catheter. On Flomax. 6. Diabetes mellitus. 7. Anemia of chronic kidney disease. Rule out iron deficiency. Also noted to be thrombocytopenic. Oncology following. 8. History of small cell lung cancer status post chemo and radiation. 9. Metabolic acidosis secondary to acute kidney injury and IV fluids. On oral bicarb. Plan: Maintain IV Lasix. Encouraged oral intake. Avoid nephrotoxins. Continue to monitor renal function and urine output. Check a.m. cortisol level.
[2024-02-01 11:33] LABS: Glucose,Whole Blood 229 mg/dL (70-110)
[2024-02-01 12:35] LABS: Anisocytosis Slight; HCT 26.5 % (39.0-53.0); HGB 8.5 gm/dL (13.0-17.5); Hypochromasia Moderate; MCH 33.3 pg (25.0-35.0); MCHC 32.1 g/dL (31.0-37.0); MCV 103.6 fL (80.0-100.0); Macrocytosis Marked; Mean Platelet Volume 9.1; Poikilocytosis Slight; RBC 2.56 m/uL (4.30-5.90); RDW 19.3 % (11.5-15.5); WBC 6.7 k/uL (3.8-10.6)
[2024-02-01 12:44] LABS: Platelet Count 60 k/uL (150-450)
[2024-02-01 12:45] LABS: ALT 16 U/L (4-49); African American GFR (CKD) 52 (>60 ml/min/1.73 sqM); Albumin 2.8 g/dL (3.5-5.0); Alkaline Phosphatase 44 U/L (38-126); Blood Urea Nitrogen 40 mg/dL (9-20); Carbon Dioxide 20 mmol/L (22-30); Chloride 100 mmol/L (98-107); Creatine Kinase <20 U/L (55-170); Glucose 80 mg/dL (74-99); Non-African American GFR(CKD) 45 (>60 ml/min/1.73 sqM); Total Bilirubin 0.6 mg/dL (0.2-1.3); Total Protein 4.9 g/dL (6.3-8.2)
--- NOTE | 2024-02-01 13:09 | CDI ---
Documentation Clarification Form Date: 02/01/2024 12:51:19 PM From: Myrna Shepherd RN CCDS Phone: [phone] Admit Date: 01/30/2024 08:40:00 PM Patient Name: Benja Guzman Visit Number: [id number] Discharge Date: ATTENTION: The Clinical Documentation Specialists (CDI) and [facility] Coding Staff appreciate your assistance in clarifying documentation. Please respond to the clarification below the line at the bottom and electronically sign. The CDI & [facility] Coding staff will review the response and follow-up if needed. Please note: Queries are made part of the Legal Health Record. If you have any questions, please contact the author of this message via ITS. Dr. Paul Croft The patient has Sepsis documented 01/30, Oncology consult. Based on this information and the findings below, is there an additional diagnosis that is clinically appropriate for this patient? History/Risk Factors: 78-year old male presents to the ED from [facility] for abnormal labs and increased weakness and neck pain. Medical History: COPD with shortness of breath, CHF, CKD and home oxygen 3L. 01/30, [facility] Clinical Indicators: WBC, 01/29: 7.9 Lactic acid: 2.5 Vitals signs, 01/29: B/P 92/43; HR 73; Temp 98.5 F Oral; RR 20; SpO2 96% 4l nasal cannula CXR, 01/30: Cardiomegaly with chronic right suprahilar consolidation and/or atelectasis remonstrated. There is worsening reticular and reticulonodular opacities consistent with edema and/or infiltrates bilaterally. Treatment: Antibiotics: 01/29 Zoysn IVPB x 1; 01/30 Zosyn IVPB Q8H; IV Bolus: 01/29 0.9NS 500cc IV Bolus; Is there an additional diagnosis that is clinically appropriate for this patient? [ x] Sepsis, Present on admission related to (please specify) [ ] Sepsis, Ruled out [ ] No additional diagnosis/not clinically significant [ ] Other, please specify [ ] Unable to determine SIRS Criteria: 2 or more of the following may indicate SIRS Temperature < 96.8F (36C) or > 101.0F (38.3C) Heart Rate > 90 bpm Respiratory Rate > 20 breaths/min or PaCO2 < 32 mmHg White Blood Cell Count > 12,000 or < 4,000 cells/mm3 or > 10% bands (Template Last Reviewed: August 2022) MTDD
--- NOTE | 2024-02-01 13:13 | P.PN ---
Subjective Progress Note Date: 02/01/24 Patient is a 78-year-old white male with past medical history significant for small cell lung cancer status/post chemoradiation, COPD, former tobacco smoker, diabetes mellitus, hypertension, hypothyroidism, hypertension, hyperlipidemia, obesity, peripheral arterial disease, atrial fibrillation with previous cardioversion, chronically anticoagulant Eliquis, obstructive sleep apnea with home CPAP, among other comorbidities. Patient reportedly had some abnormal labs, and was sent in from his rehab facility at [facility] for evaluation. Patient's primary complaint is posterior neck pain that is worse when sitting up in bed. Denies any radiculopathy like symptoms. No upper extremity weakness. States that he is currently seeing a chiropractor outpatient. Admits significant bilateral lower extremity weakness, and he can no longer walk without a lot of assistance. States that he is limited in what he can do at rehab at [facility]. Patient denies any worsening of his chronic shortness of breath. Denies any fevers, coughing, sputum production, hemoptysis, chest pain. States his breathing is actually improved since his most recent hospitalization. He chronically wears 3 L of home oxygen. Of note, he had a recent hospitalization December 2023 for suspected COPD exacerbation. While inpatient, patient had an episode of symptomatic A-fib RVR, and is status post successful cardioversion. He is anticoagulated on Eliquis. Echocardiogram done this previous admission estimates a preserved left ventricular ejection fraction of 55 to 60% as well as moderate to severe LVH, as well as mild valvular heart disease. Chest x-ray shows cardiomegaly with increased reticular and reticulonodular opacities consistent with edema and/or infiltrates bilaterally. There is a chronic right suprahilar consolidation/posttreatment changes. Patient does have history of small cell lung cancer and has underwent previous chemoradiation. Most recent PET scan done 10/15/2023 did not show any evidence of disease recurrence. Patient was empirically placed on Zosyn in the emergency department. CBC: WBC count 7.9, hemoglobin 9.2, hematocrit 28.4, platelets 63,000. CMP: Sodium 135, potassium 5.9, chloride 111, serum bicarb 18, BUN 53, creatinine 1.92, glucose 107. Lactic acid level 2.5. Troponin less than 0.012. NT proBNP 4910. EKG demonstrating sinus rhythm with a rate of 74 bpm, no obvious acute ischemic changes. Afebrile. Vital signs are stable. 02/01/2024, the patient is resting comfortably in bed. No significant respiratory distress. The patient to be seen by neurology and spine surgery regarding his ongoing weakness in lower extremities. CT scan of the brain was done on 01/31/2024 revealing no acute abnormalities. There is some senescent changes and there is no mass effect or stroke. CAT scan of the lumbar and the cervical spine was done. Lumbar spine showed evidence of mild superior endplate compression fracture of L1 without retropulsion. There was also no lumbar disc herniation, mild spinal stenosis at level of L4-5 and neuroforaminal foraminal stenosis at the level of L5-S1. CT scan of the cervical spine was also done that showed moderate multilevel spondylotic changes. Grade 1 anterolisthesis at the level of C4-C5 and variable bony neural foraminal narrowing. The patient's white cell count at 6.7 with a hemoglobin 8.5 and the patient remains on 4 L of oxygen by nasal cannula with a pulse ox of 100%. Remains on same medication. Empiric antibiotic coverage with IV Zosyn. Blood cultures have been negative thus far. Objective - Vital Signs Vital signs: Vital Signs Temp 97.6 F 02/01/24 08:45 Pulse 90 02/01/24 08:57 Resp 18 02/01/24 08:45 BP 93/57 02/01/24 08:45 Pulse Ox 100 02/01/24 08:45 FiO2 Intake & Output 01/31/24 02/01/24 02/01/24 18:59 06:59 18:59 Intake Total 710 118 Output Total 550 500 Balance 160 -500 118 Intake: Oral 710 118 Output: Urine 550 500 Other: Voiding Method Indwelling Catheter Indwelling Catheter Indwelling Catheter - Exam GENERAL EXAM: Alert, 78-year-old white male, comfortable in no apparent distress. HEAD: Normocephalic and atraumatic EYES: Normal reaction of pupils, equal size. NOSE: Clear with pink turbinates. THROAT: No erythema or exudates. NECK: No masses, no JVD. CHEST: No chest wall deformity. LUNGS: Equal air entry with bibasilar inspiratory crackles. 4 L/min nasal cannula. SpO2 94%. No conversational dyspnea or accessory muscle use.. CVS: S1 and S2 normal with soft systolic murmur, regular rhythm. No extra heart sounds ABDOMEN: No hepatosplenomegaly, active bowel sounds, no guarding or rigidity. SPINE: No scoliosis or deformity SKIN: No rashes CENTRAL NERVOUS SYSTEM: No focal deficits, tone is normal in all 4 extremities. EXTREMITIES: There is no peripheral edema, clubbing, or cyanosis. Peripheral pulses are intact. - Labs CBC & Chem 7: 02/01/24 12:03 01/31/24 06:43 Labs: Abnormal Lab Results - Last 24 Hours (Table) 01/31/24 01/31/24 01/31/24 Range/Units 00:19 06:43 10:08 Lymphocytes # (Manual) 0.46 L (1.0-4.8) k/uL ESR (0-20) mm/Hr Retic Count (0.5-2.0) % Haptoglobin (31.2-198.0) mg/dL D-Dimer 0.65 H (<0.60) mg/L FEU POC Glucose (mg/dL) (70-110) mg/dL Iron (65-175) UG/DL TIBC (228-460) UG/DL Transferrin (204.0-354.0) mg/dL Delta Bilirubin (0.0-0.2) mg/dL Lactate Dehydrogenase (120-246) U/L C-Reactive Protein (<1.0) mg/dL Procalcitonin 0.13 H (0.02-0.09) ng/mL Urine Blood (Negative) Urine Mucus (None) /hpf 01/31/24 01/31/24 01/31/24 Range/Units 10:08 10:08 10:08 Lymphocytes # (Manual) (1.0-4.8) k/uL ESR 23 H (0-20) mm/Hr Retic Count (0.5-2.0) % Haptoglobin (31.2-198.0) mg/dL D-Dimer (<0.60) mg/L FEU POC Glucose (mg/dL) (70-110) mg/dL Iron 40 L (65-175) UG/DL TIBC 221 L (228-460) UG/DL Transferrin 158.0 L (204.0-354.0) mg/dL Delta Bilirubin 0.4 H (0.0-0.2) mg/dL Lactate Dehydrogenase 394 H (120-246) U/L C-Reactive Protein 2.0 H (<1.0) mg/dL Procalcitonin 0.13 H (0.02-0.09) ng/mL Urine Blood (Negative) Urine Mucus (None) /hpf 01/31/24 01/31/24 01/31/24 Range/Units 10:08 10:08 11:13 Lymphocytes # (Manual) (1.0-4.8) k/uL ESR (0-20) mm/Hr Retic Count 4.4 H (0.5-2.0) % Haptoglobin 358.0 H (31.2-198.0) mg/dL D-Dimer (<0.60) mg/L FEU POC Glucose (mg/dL) (70-110) mg/dL Iron (65-175) UG/DL TIBC (228-460) UG/DL Transferrin (204.0-354.0) mg/dL Delta Bilirubin (0.0-0.2) mg/dL Lactate Dehydrogenase (120-246) U/L C-Reactive Protein (<1.0) mg/dL Procalcitonin (0.02-0.09) ng/mL Urine Blood Trace H (Negative) Urine Mucus Rare H (None) /hpf 01/31/24 01/31/24 Range/Units 16:11 20:54 Lymphocytes # (Manual) (1.0-4.8) k/uL ESR (0-20) mm/Hr Retic Count (0.5-2.0) % Haptoglobin (31.2-198.0) mg/dL D-Dimer (<0.60) mg/L FEU POC Glucose (mg/dL) 242 H 177 H (70-110) mg/dL Iron (65-175) UG/DL TIBC (228-460) UG/DL Transferrin (204.0-354.0) mg/dL Delta Bilirubin (0.0-0.2) mg/dL Lactate Dehydrogenase (120-246) U/L C-Reactive Protein (<1.0) mg/dL Procalcitonin (0.02-0.09) ng/mL Urine Blood (Negative) Urine Mucus (None) /hpf Assessment and Plan Assessment: Acute on chronic hypoxemic respiratory failure, currently on 4 L/min nasal cannula, possibly secondary to an exacerbation of diastolic congestive heart failure, Chest x-ray shows cardiomegaly with increased reticular and reticulonodular opacities consistent with edema and/or infiltrates bilaterally. There are chronic posttreatment changes in the right lung. Echocardiogram done on a recent previous admission estimates a preserved left ventricular ejection fraction of 55 to 60% as well as moderate to severe LVH, as well as, mild valvular heart disease. Based on my opinion, the chest x-ray findings are stable consistent with radiation pneumonitis in the right perihilar area. Chronic obstructive pulmonary disease, stable, remains stable on 40s of oxygen by nasal cannula History of small cell lung cancer, status post chemo/radiation, follows up outpatient with oncologist. Most recent PET scan done 10/15/2023 did not show any evidence of disease recurrence. Chronic hypoxemic respiratory failure, secondary to above Acute on chronic kidney disease Hyperkalemia, secondary to above, treated with a dose of Lokelma by nephrology who is managing Bicytopenia, with thrombocytopenia and anemia, no overt signs of acute blood loss History of paroxysmal atrial fibrillation, status post previous cardioversion, currently normal sinus rhythm Diabetes mellitus type 2 Hypertension History of hyperlipidemia History of hypothyroidism History of peripheral arterial disease History of prostate cancer status post radiation History of urinary retention Obstructive sleep apnea with home CPAP Obesity, with a BMI of 33.5 kg/m Former tobacco dependence, quit smoking December 2022 Chronic stage III kidney disease Profound motor weakness in lower extremities, unable to ambulate, awaiting final recommendations from neurology and spine surgery. Plan: Respiratory status is stable Currently on 4 L/min nasal cannula, may wean to maintain oxygen saturation of 90% or greater Patient encouraged to have home APAP unit brought in if possible for use at night. Continue Lasix 40 mg twice daily Patient was empirically placed on Zosyn in the emergency department, procalcito roxi level is at 0.13 and the viral screen has been negative. COPD seems stable on my evaluation, continue maintenance DuoNebs [id number] and budesonide inhalation Repeat labs are in for this morning Will consult spine surgery and neurology to further investigate his generalized motor weakness which is predominantly in his lower extremities. No evidence of any skeletal metastases. CT scan of the cervical spine and lumbar spine were noted overall respiratory status is stable. No clear signs of any infection for now. Chest x-ray findings are consistent with postradiation changes in the right lung and an underlying pneumonia is doubtful. Will continue to follow.
--- NOTE | 2024-02-01 13:39 | P.PN ---
Subjective Progress Note Date: 02/01/24 patient is a 78-year-old gentleman past medical history significant for small cell lung cancer status/post chemoradiation, COPD, former tobacco smoker, diabetes mellitus, hypertension, hypothyroidism, hypertension, hyperlipidemia, obesity, peripheral arterial disease, atrial fibrillation with previous car dioversion who presented to the ER for abnormal labs. Patient is currently a resident of [facility]. Patient stated that he has been having increased weakness of lower extremity for the last few days. Patient also complaining of neck pain. Patient has history of COPD and is short of breath at rest at baseline. There is no complaint of fever or chills. Denies any chest pain. No complaint of palpitation. Denies any orthopnea or PND. Initial lab work done in the ER showed WBC 9.9, hemoglobin 9.2, platelet count 63, sodium 135, potassium 5.9, BUN 53, creatinine 1.92 glucose 107, lactate 2.5 Influenza A not detected Influenza B not detected RSV not detected COVID-19 not detected EKG done in the ER showed heart rate of 74 , no ST segment elevation or depression seen, no T-wave inversions seen. Chest x-ray done in the ER cardiomegaly with chronic right suprahilar consolida tion, atelectasis redemonstrated. There is worsening reticular and reticulonodular opacities consistent with edema Patient admitted to internal medicine service 01/31. Patient seen and examined. Complaining of generalized weakness, more in lower extremities. CT lumbar spine done showed mild superior endplate compression fracture of L1. Cervical spine x-ray done showed moderate multilevel spondylitic changes, degenerative grade 1 anterior listhesis of C4- C5. CT brain negative for any acute intracranial process. States he feels better. REVIEW OF SYSTEMS: CONSTITUTIONAL: No fever, no malaise,. CARDIOVASCULAR: No chest pain, no palpitations, no syncope. PULMONARY: No shortness of breath, no cough, GASTROINTESTINAL: No diarrhea, no nausea, no vomiting, no abdominal pain. NEUROLOGICAL: As mentioned above PHYSICAL EXAMINATION: GENERAL: The patient is alert and oriented x3, chronically ill looking HEENT: Pupils are round and equally reacting to light. EOMI. No scleral icterus. No conjunctival pallor. Normocephalic, atraumatic. No pharyngeal erythema. No thyromegaly. CARDIOVASCULAR: S1 and S2 present. No murmurs, rubs, or gallops. PULMONARY: Chest is clear to auscultation, no wheezing or crackles. ABDOMEN: Soft, nontender, nondistended, normoactive bowel sounds. No palpable organomegaly. MUSCULOSKELETAL: No joint swelling or deformity. EXTREMITIES: No cyanosis, clubbing, or pedal edema. NEUROLOGICAL: Gross neurological examination did not reveal any focal deficits. SKIN: No rashes. Assessment and plan Acute on chronic hypoxic respiratory Failure Acute on chronic diastolic CHF REYNA Hyperkalemia Hyponatremia Thrombocytopenia Acute on chronic kidney disease Bicytopenia, with thrombocytopenia and anemia, no overt signs of acute blood loss History of paroxysmal atrial fibrillation, status post previous cardioversion, currently normal sinus rhythm Diabetes mellitus type 2 Hypertension History of hyperlipidemia History of hypothyroidism History of peripheral arterial disease History of prostate cancer status post radiation History of urinary retention Obstructive sleep apnea with home CPAP Monitor vital signs Monitor CBC Monitor CMP Continue telemetry monitoring Avoid nephrotoxic agent Strict I's and O's Daily weights Continue IV Lasix Continue IV Zosyn Continue breathing treatments Pulmonology following Nephrology following Neurology following Orthopedic spine consulted Labs and medication were reviewed.. Continue same treatment. Continue with symptomatic treatment. Resume home medication. Monitor labs and vitals. DVT and GI prophylaxis. Further recommendations as per clinical course of the patient Dictation was produced using [employer] dictation software. please excuse any grammatical, word or spelling errors. Objective - Vital Signs Vital signs: Vital Signs Temp 97.6 F 02/01/24 08:45 Pulse 90 02/01/24 08:57 Resp 18 02/01/24 08:45 BP 93/57 02/01/24 08:45 Pulse Ox 100 02/01/24 08:45 FiO2 Intake & Output 01/31/24 02/01/24 02/01/24 18:59 06:59 18:59 Intake Total 710 118 Output Total 550 500 Balance 160 -500 118 Intake: Oral 710 118 Output: Urine 550 500 Other: Voiding Method Indwelling Catheter Indwelling Catheter Indwelling Catheter - Labs CBC & Chem 7: 02/01/24 12:03 02/01/24 12:03 Labs: Abnormal Lab Results - Last 24 Hours (Table) 01/31/24 01/31/24 01/31/24 Range/Units 00:19 06:43 10:08 Lymphocytes # (Manual) 0.46 L (1.0-4.8) k/uL ESR (0-20) mm/Hr Retic Count (0.5-2.0) % Haptoglobin (31.2-198.0) mg/dL D-Dimer 0.65 H (<0.60) mg/L FEU POC Glucose (mg/dL) (70-110) mg/dL Iron (65-175) UG/DL TIBC (228-460) UG/DL Transferrin (204.0-354.0) mg/dL Delta Bilirubin (0.0-0.2) mg/dL Lactate Dehydrogenase (120-246) U/L C-Reactive Protein (<1.0) mg/dL Procalcitonin 0.13 H (0.02-0.09) ng/mL Urine Blood (Negative) Urine Mucus (None) /hpf 01/31/24 01/31/24 01/31/24 Range/Units 10:08 10:08 10:08 Lymphocytes # (Manual) (1.0-4.8) k/uL ESR 23 H (0-20) mm/Hr Retic Count (0.5-2.0) % Haptoglobin (31.2-198.0) mg/dL D-Dimer (<0.60) mg/L FEU POC Glucose (mg/dL) (70-110) mg/dL Iron 40 L (65-175) UG/DL TIBC 221 L (228-460) UG/DL Transferrin 158.0 L (204.0-354.0) mg/dL Delta Bilirubin 0.4 H (0.0-0.2) mg/dL Lactate Dehydrogenase 394 H (120-246) U/L C-Reactive Protein 2.0 H (<1.0) mg/dL Procalcitonin 0.13 H (0.02-0.09) ng/mL Urine Blood (Negative) Urine Mucus (None) /hpf 01/31/24 01/31/24 01/31/24 Range/Units 10:08 10:08 11:13 Lymphocytes # (Manual) (1.0-4.8) k/uL ESR (0-20) mm/Hr Retic Count 4.4 H (0.5-2.0) % Haptoglobin 358.0 H (31.2-198.0) mg/dL D-Dimer (<0.60) mg/L FEU POC Glucose (mg/dL) (70-110) mg/dL Iron (65-175) UG/DL TIBC (228-460) UG/DL Transferrin (204.0-354.0) mg/dL Delta Bilirubin (0.0-0.2) mg/dL Lactate Dehydrogenase (120-246) U/L C-Reactive Protein (<1.0) mg/dL Procalcitonin (0.02-0.09) ng/mL Urine Blood Trace H (Negative) Urine Mucus Rare H (None) /hpf 01/31/24 01/31/24 Range/Units 16:11 20:54 Lymphocytes # (Manual) (1.0-4.8) k/uL ESR (0-20) mm/Hr Retic Count (0.5-2.0) % Haptoglobin (31.2-198.0) mg/dL D-Dimer (<0.60) mg/L FEU POC Glucose (mg/dL) 242 H 177 H (70-110) mg/dL Iron (65-175) UG/DL TIBC (228-460) UG/DL Transferrin (204.0-354.0) mg/dL Delta Bilirubin (0.0-0.2) mg/dL Lactate Dehydrogenase (120-246) U/L C-Reactive Protein (<1.0) mg/dL Procalcitonin (0.02-0.09) ng/mL Urine Blood (Negative) Urine Mucus (None) /hpf
[2024-02-01 13:54] VITALS: BMI 35.0
[2024-02-01 13:56] LABS: T4, Free (Free Thyroxine) 1.18 ng/dL (0.78-2.19)
[2024-02-01] MEDS: MIDODRINE 5 MG TAB PO SCH (15:41)
[2024-02-01 15:49] LABS: AST 15 U/L (17-59); Anion Gap 15 mmol/L; Potassium 3.9 mmol/L (3.5-5.1); Sodium 135 mmol/L (137-145)
[2024-02-01 15:52] LABS: Glucose,Whole Blood 198 mg/dL (70-110)
--- NOTE | 2024-02-01 16:55 | P.PN ---
Subjective Progress Note Date: 02/01/24 I am following up with patient and he feels he is slightly better today. He had CT lumbar and showed compression fracture at L1. He stated he was evaluated by Orthopedic team and they wanted MRI to be done. Patient denies any ascending numbness and his neuropathy is old and had prior EMG of maybe uppers that is old. Objective - Vital Signs Vital signs: Vital Signs Temp 97.6 F 02/01/24 08:45 Pulse 89 02/01/24 16:25 Resp 17 02/01/24 15:22 BP 67/39 02/01/24 16:34 Pulse Ox 100 02/01/24 15:22 FiO2 Intake & Output 01/31/24 02/01/24 02/01/24 18:59 06:59 18:59 Intake Total 710 118 Output Total 768 502 2824 Balance 160 -500 -1082 Weight 120.5 kg Intake: Oral 710 118 Output: Urine 252 692 1380 Other: Voiding Method Indwelling Catheter Indwelling Catheter Indwelling Catheter - Exam General: Was lying in bed and not acute distress. Neuro: The patient is awake alert to self place and time. Is following simple commands. No aphasia no neglect. Pupils are round equal reactive to light. Pupils are round 4 mm bilaterally. Visual page are full to confrontation. Extraocular movement is intact no nystagmus. Normal facial sensation to touch. No facial weakness. No dysarthria. Motor: Strength in uppers are 5/5. In lowers proximal is 4+, knee extension are 3-4- and ankles are 5/5. Sensation: Normal to touch from proximal ankle and above: Cerebellar: Normal finger to nose. Reflex (R/L): Biceps 1-2+/1-2+, triceps 2+/2+, Brachioradialis 1+/1+. Lowers are 0/0. Plantars: Mute bilaterally. Some of the Workup during this hospital visit consisted of: Creatinine was 1.92 now it is 1.61 Calcium is 8.3, phosphorus is 3.2, magnesium is 1.8 Sodium is 137 TSH: 12.20 Serum folate: 13.5 Hemoglobin is 9.2 and the most repeated 1 is 8.4. MCV is 102 CK level <20 CT head: Senescent changes as described above. No acute bleed or mass effect. I reviewed CT head and agree with report there is no acute intracranial process. CT lumbar is reported as mild superior endplate compression fracture and L1 without retropulsion. The age of the fracture is indeterminate. No lumbar disc herniation. Mild spinal stenosis at L4-L5. Bony neuroforaminal stenosis at L5- S1 level bilateral as described above Cervical spine x-rays reported as moderate multilevel spondylitic changes. Degenerative grade 1 anterior listhesis C4-C5. Variable bony neuroforaminal narrowing as outlined above with some limitation in assessment due to the degree of obliquity. - Labs CBC & Chem 7: 02/01/24 12:03 02/01/24 12:03 Labs: Abnormal Lab Results - Last 24 Hours (Table) 01/31/24 02/01/24 02/01/24 Range/Units 20:54 11:31 12:03 RBC (4.30-5.90) m/uL Hgb (13.0-17.5) gm/dL Hct (39.0-53.0) % MCV (80.0-100.0) fL RDW (11.5-15.5) % Plt Count (150-450) k/uL Macrocytosis Sodium 135 L (137-145) mmol/L Carbon Dioxide 20 L (22-30) mmol/L BUN 40 H (9-20) mg/dL Creatinine 1.49 H (0.66-1.25) mg/dL POC Glucose (mg/dL) 177 H 229 H (70-110) mg/dL Calcium 8.0 L (8.4-10.2) mg/dL AST 15 L (17-59) U/L Creatine Kinase <20 L (55-170) U/L Total Protein 4.9 L (6.3-8.2) g/dL Albumin 2.8 L (3.5-5.0) g/dL TSH 12.200 H (0.465-4.680) mIU/L 02/01/24 02/01/24 Range/Units 12:03 15:51 RBC 2.56 L (4.30-5.90) m/uL Hgb 8.5 L (13.0-17.5) gm/dL Hct 26.5 L (39.0-53.0) % MCV 103.6 H (80.0-100.0) fL RDW 19.3 H (11.5-15.5) % Plt Count 60 L (150-450) k/uL Macrocytosis Marked A Sodium (137-145) mmol/L Carbon Dioxide (22-30) mmol/L BUN (9-20) mg/dL Creatinine (0.66-1.25) mg/dL POC Glucose (mg/dL) 198 H (70-110) mg/dL Calcium (8.4-10.2) mg/dL AST (17-59) U/L Creatine Kinase (55-170) U/L Total Protein (6.3-8.2) g/dL Albumin (3.5-5.0) g/dL TSH (0.465-4.680) mIU/L Microbiology - Last 24 Hours (Table) 01/30/24 22:20 Blood Culture - Preliminary Blood 01/30/24 22:05 Blood Culture - Preliminary Blood Assessment and Plan Assessment: This is a 88-year-old gentleman with history of small cell lung cancer about a year ago's post chemo and radiation therapy, atrial fibrillation status post cardioversion on [facility], diabetes that is poorly controlled, peripheral neuropathy, peripheral arterial disease, right neck pain that radiates down who is having weakness in the lower extremity since December 2023 since his prior hospital visit. I will physical therapy was examined him he was standing up at bedside and was very short of breath but was lifting bilateral upper extremity above gravity but could not stand up because of his severe shortness of breath pulse ox was 86% and was complaining of neck pain during the examination. Bilateral lower extremity weakness since December 2023: Unsure exact etiology. On examination patient had antigravity in lower extremities but was complaining of neck pain and was very short of breath. He has L1 compression fracture of indeterminate age. Rule out due to deconditioning vs peripheral neuropathy/plexopathy from uncontrolled diabetes vs ? Lambert-Eaton syndrome (from his history of lung cancer). CK level is not elevated. Right cervical radiculopathy Patient is having right neck pain that radiates down. Patient had MRI of the cervical spine at outside hospital which showed degenerative changes on C5-C6 that the most and MRI was on 10/2023. Shortness of breath with exertion Acute kidney insufficiency---trending down Macrocytosis Thyroid level is abnormal TSH 12.2. Uncontrolled diabetes mellitus and patient hemoglobin A1c is 9.5 on 12/2023 History of atrial fibrillation with previous cardioversion and is on Eliquis Small cell lung cancer chemotherapy radiation therapy in March 2023 Peripheral arterial disease History of COPD Hypothyroidism Hypertension Hyperlipidemia Obstructive sleep apnea on CPAP Obesity Former tobacco use Plan: Patient had a recent PET scan on 10/14/2023 did not show any evidence of disease recurrence. Orthopedic surgery team is consulted. He stated he was evaluated by them earlier. Will wait for there recommendation. He has L1 compression fracture. Recommend MRI Lumbar spine w/ and w/o once his REYNA resolves. Pending Vitamin B12 level. Recommend EMG with nerve conduction as an outpatient of the uppers and lowers. Continue to work with physical and Occupational Therapy Nephrology is consulted Oncology is consulted Will Defer the rest of the medical management to primary and other specialist The plan is discussed with patient, his and daughter who are at bedside and primary team. Time with Patient: Less than 30
[2024-02-01 17:05] LABS: Glucose,Whole Blood 217 mg/dL (70-110)
--- NOTE | 2024-02-01 17:13 | P.PN ---
Subjective Progress Note Date: 02/01/24 Principal diagnosis: Hx SCLC In f/u today pt denies any significant improvements, generalized weakness, pain in the neck, weakness in the legs. No fevers, N,V, abd pain, acute changes in bowel or bladder habits Objective - Vital Signs Vital signs: Vital Signs Temp 97.6 F 02/01/24 08:45 Pulse 89 02/01/24 16:25 Resp 17 02/01/24 15:22 BP 72/45 02/01/24 16:38 Pulse Ox 100 02/01/24 15:22 FiO2 Intake & Output 01/31/24 02/01/24 02/01/24 18:59 06:59 18:59 Intake Total 710 236 Output Total 932 883 7574 Balance 160 -500 -964 Weight 120.5 kg Intake: Oral 710 236 Output: Urine 645 [id number] [id number] Other: Voiding Method Indwelling Catheter Indwelling Catheter Indwelling Catheter - Constitutional General appearance: Present: cooperative, no acute distress, obese - EENT Eyes: Present: anicteric sclerae, EOMI ENT: Present: hearing grossly normal - Respiratory Details: resp even and unlabored at rest - Cardiovascular Details: skin warm, well perfused - Peripheral edema leg Peripheral Edema: bilateral: Trace - Gastrointestinal General gastrointestinal: Present: normal bowel sounds, soft - Integumentary Integumentary: Present: normal - Neurologic Neurologic: Present: CNII-XII intact - Musculoskeletal Musculoskeletal Comment(s): BLE strength 4/5, hip flexion 4/5 bilaterally, pt cannot stand from sitting position without assistance - Psychiatric Psychiatric: Present: A&O x's 3, appropriate affect, intact judgment & insight - Labs CBC & Chem 7: 02/01/24 12:03 02/01/24 12:03 Labs: Abnormal Lab Results - Last 24 Hours (Table) 01/31/24 02/01/24 02/01/24 Range/Units 20:54 11:31 12:03 RBC (4.30-5.90) m/uL Hgb (13.0-17.5) gm/dL Hct (39.0-53.0) % MCV (80.0-100.0) fL RDW (11.5-15.5) % Plt Count (150-450) k/uL Macrocytosis Sodium 135 L (137-145) mmol/L Carbon Dioxide 20 L (22-30) mmol/L BUN 40 H (9-20) mg/dL Creatinine 1.49 H (0.66-1.25) mg/dL POC Glucose (mg/dL) 177 H 229 H (70-110) mg/dL Calcium 8.0 L (8.4-10.2) mg/dL AST 15 L (17-59) U/L Creatine Kinase <20 L (55-170) U/L Total Protein 4.9 L (6.3-8.2) g/dL Albumin 2.8 L (3.5-5.0) g/dL TSH 12.200 H (0.465-4.680) mIU/L 02/01/24 02/01/24 Range/Units 12:03 15:51 RBC 2.56 L (4.30-5.90) m/uL Hgb 8.5 L (13.0-17.5) gm/dL Hct 26.5 L (39.0-53.0) % MCV 103.6 H (80.0-100.0) fL RDW 19.3 H (11.5-15.5) % Plt Count 60 L (150-450) k/uL Macrocytosis Marked A Sodium (137-145) mmol/L Carbon Dioxide (22-30) mmol/L BUN (9-20) mg/dL Creatinine (0.66-1.25) mg/dL POC Glucose (mg/dL) 198 H (70-110) mg/dL Calcium (8.4-10.2) mg/dL AST (17-59) U/L Creatine Kinase (55-170) U/L Total Protein (6.3-8.2) g/dL Albumin (3.5-5.0) g/dL TSH (0.465-4.680) mIU/L Microbiology - Last 24 Hours (Table) 01/30/24 22:20 Blood Culture - Preliminary Blood 01/30/24 22:05 Blood Culture - Preliminary Blood - Imaging and Cardiology CT brain, C and L spine, reports reviewed Assessment and Plan (1) Weakness Current Visit: Yes Status: Acute Priority: High Code(s): R53.1 - WEAKNESS SNOMED Code(s): 72320664 (2) REYNA (acute kidney injury) Current Visit: Yes Status: Acute Priority: High Code(s): N17.9 - ACUTE KIDNEY FAILURE, UNSPECIFIED SNOMED Code(s): 79484363 (3) Sepsis Current Visit: Yes Status: Acute Priority: High Code(s): A41.9 - SEPSIS, UNSPECIFIED ORGANISM SNOMED Code(s): 46442859 (4) Bicytopenia Current Visit: Yes Status: Acute Priority: Medium Code(s): D75.89 - OTHER SPECIFIED DISEASES OF BLOOD AND BLOOD-FORMING ORGANS SNOMED Code(s): 34667591 (5) Small cell lung cancer Current Visit: No Status: Chronic Priority: Medium Code(s): C34.90 - MALIGNANT NEOPLASM OF UNSP PART OF UNSP BRONCHUS OR LUNG SNOMED Code(s): 567152775 (6) Malignant neoplasm of prostate Current Visit: No Status: Chronic Priority: Low Code(s): C61 - MALIGNANT NEOPLASM OF PROSTATE SNOMED Code(s): 600548369 Plan: Weakness -Patient reporting persistent weakness since hospital admission last month, no improvements while in rehab -Patient has been at [facility], unable to walk, he states 2/2 pain in the neck. Neuro and Pain mgmt have been consulted for poss steroid injection -Neurology consulted, mult tests ordered. Concerns for possible steroid-induced myopathy in proximal muscles of the BLE. Pt has 4/5 hip flexion strength but states he cannot stand from a sitting position without help. Pending Neuro assessment and work up results Acute kidney injury -Nephrology is following and managing the same -renal function cont to improve Concerns for sepsis -patient is on antibiotics. -Defer to Internal medicine Bicytopenia -Possibly 2/2 Hx of treatment and effects on marrow exacerbated by acute illness. Pt was still mildly anemic still in Feb, plt were low normal range. -Hgb and plt low but stable, safe range -Transfuse for Hgb < 7 or if symptomatic -Transfuse for plt < 10,000 or if pt is symptomatic -Cont to monitor CBC, may order bicytopenia work up if persistent or progressive Limited stage small cell lung cancer -Treatment and diagnosis as stated consult note. Completed treatment 03/2023 -Patient did NOT have his treatment f/u imaging this past weekend. -Plan to reorder CT CAP, SCLC f/u, 1st year post definitive treatment once Cr back to baseline -Patient is not having any new symptoms to suggest recurrence of malignancy but, he has multiple c/o. Specialists have bee consulted. Pending work up and recs. Discussed case at length with Internal Medicine
[2024-02-01] MEDS: NOREPINEPHRINE 4 MG in SODIUM CHLORIDE 0.9% 250 ML IV SCH (17:37)
[2024-02-01] MEDS ORDERED: Magnesium Replacement Protocol 1 EACH MISC MISCELLANE PRN (17:48)
[2024-02-01] MEDS ORDERED: Potassium Replacement Protocol 1 EACH MISC MISCELLANE PRN (17:48)
[2024-02-01] MEDS: MAGNESIUM SULFATE-D5W PMX 1 GM in DEXTROSE/WATER 1 100ML.BAG IVPB SCH (18:01)
--- NOTE | 2024-02-01 18:21 | P.CNOR ---
History of Present Illness - [facility] Consult date: 02/01/24 History of present illness: Patient is a 78-year-old male who presented to the hospital due to abnormal labs. Patient does have a past medical history significant for small cell lung cancer status post chemoradiation, COPD, former tobacco smoker, diabetes, hypertension, hypothyroidism, hyperlipidemia, PAD, atrial fibrillation. Patient is on Eliquis. Patient states over the past several months he has not been able to weight-bear on his own. Patient says he was in the hospital a few months ago and was able to bear weight. Patient states he thinks she has had a few falls over the past couple months. Patient denies any issues with bowel or bladder control. Patient denies any genital numbness/tingling. Patient states he has had chronic neck pain is mostly right-sided with some radiation down the right upper extremity. Patient says he previously had an MRI of the neck but cannot recall where or when this was taken. He says he was told he has a pinched nerve in the neck. Patient says he did follow with a chiropractor several times with minimal relief. Patient states he also has a history of low back pain. Patient denies any radiation of pain from the low back. Patient says he does have weakness in the upper and lower extremities. Patient says he does have a history of right knee arthroscopy as well as previous shoulder surgery and right ankle surgery. Patient denies any previous spine surgery. Patient says the pain in his neck is mostly localized to the right side with some radiation down the right upper extremity. Patient states when he sits up for extended periods of time he feels that he has not able to hold his neck up right because of the pain. Patient says that pain is exacerbated when he flexes his neck forward. X-ray of the cervical spine was performed during his stay in hospital at. CT of the lumbar spine was performed. Neurology, pain management, medicine following. Patient denies any current chest pain, fever, nausea, vomiting, change in vision. Past Medical History Past Medical History: Atrial Fibrillation, Asthma, Cancer, Diabetes Mellitus, GERD/Reflux, Hyperlipidemia, Hypertension, Prostate Disorder, Sleep Apnea/CPAP/BIPAP, Thyroid Disorder, Vascular Disorder Additional Past Medical History / Comment(s): DM type II, prostate cancer 2018 with radiation & brachytherapy. kidney stones x1. pseudogout. hx of bowel obstrution with surgery and multiple bowel obstruction since (no surgery). bilateral bifemoral bypass for calcifications (2005). sleep apnea with c-pap machine. hx anemia. Lung cancer with radation tx (last tx 02/08/23), and chemo tx (last 03/04/23). constipation & diarrhea. History of Any Multi-Drug Resistant Organisms: None Reported Past Surgical History: Appendectomy, Bowel Resection, Orthopedic Surgery Additional Past Surgical History / Comment(s): bowel resection, bi-femoral bypass for calcifications, left shoulder surgery, left knee surgery, Loop recorder, bronchoscopy with bx. Past Anesthesia/Blood Transfusion Reactions: Previous Problems w/ Anesthesia Additional Past Anesthesia/Blood Transfusion Reaction / Comm: difficulty waking up. Past Psychological History: No Psychological Hx Reported Smoking Status: Former smoker Past Alcohol Use History: None Reported Additional Past Alcohol Use History / Comment(s): quit smoking december 2022, hx of 1 ppd Past Drug Use History: None Reported - Past Family History Father Additional Family Medical History / Comment(s): alzheimers Mother Family Medical History: Renal Disease Additional Family Medical History / Comment(s): kidney failure Medications and Allergies Home Medications Medication Instructions Recorded Confirmed Type Omeprazole 20 mg PO Q48H 11/30/18 01/31/24 History metFORMIN HCL [Glucophage] 1,000 mg PO BID 11/30/18 01/31/24 History Cholecalciferol [Vitamin D3 (125 125 mcg PO DAILY 03/18/23 01/31/24 History Mcg = 5000 Iu)] Albuterol Inhaler [Ventolin Hfa 1 - 2 puff INHALATION RT-Q4H PRN 12/20/23 01/31/24 History Inhaler] Atorvastatin Calcium [Lipitor] 80 mg PO HS 12/20/23 01/31/24 History Budesonide [Pulmicort] 0.5 mg INHALATION RT-BID 12/20/23 01/31/24 History Cyanocobalamin (Vitamin B-12) 1,000 mcg PO DAILY 12/20/23 01/31/24 History [Vitamin B-12] Levothyroxine Sodium [Synthroid] 150 mcg PO DAILY 12/20/23 01/31/24 History Montelukast [Singulair] 10 mg PO HS 12/20/23 01/31/24 History Vitamin E (Dl,Tocopheryl Acet) 400 unit PO DAILY 12/20/23 01/31/24 History [Vitamin E (400 Iu = 180 mg)] allopurinoL [Zyloprim] 100 mg PO HS 12/20/23 01/31/24 History allopurinoL [Zyloprim] 200 mg PO DAILY 12/20/23 01/31/24 History hydrALAZINE HCL [Apresoline] 10 mg PO BID 12/20/23 01/31/24 History lisinopriL 40 mg PO DAILY 12/20/23 01/31/24 History Acetaminophen Tab [Tylenol] 650 mg PO Q6HR PRN tab MDD 4000 mg 01/03/24 01/31/24 Rx Apixaban [Eliquis] 5 mg PO BID tab 01/03/24 01/31/24 Rx Cyclobenzaprine [Flexeril] 10 mg PO Q8HR PRN tab 01/03/24 01/31/24 Rx HYDROcodone/APAP 5-325MG [[place] 1 tab PO Q6HR PRN #4 tab 01/03/24 01/31/24 Rx 5-325] Ipratropium-Albuterol Nebulize 3 ml INHALATION RT-QID each 01/03/24 01/31/24 Rx [Duoneb 0.5 mg-3 mg/3 ml Soln] Isosorbide Mononitrate ER [Imdur] 30 mg PO DAILY tab 01/03/24 01/31/24 Rx Melatonin 5 mg PO HS PRN tab 01/03/24 01/31/24 Rx Tamsulosin [Flomax] 0.4 mg PO PC-BRKFST cap 01/03/24 01/31/24 Rx Amiodarone [Cordarone] 200 mg PO BID 01/31/24 01/31/24 History Ferrous Sulfate [Feosol] 325 mg PO HS 01/31/24 01/31/24 History Furosemide [Lasix] 20 mg PO DAILY 01/31/24 01/31/24 History Furosemide [Lasix] 20 mg PO DAILY PRN 01/31/24 01/31/24 History INSULIN LISPRO (HumaLOG) [humaLOG] See Protocol SQ DAILY 01/31/24 01/31/24 History Ibuprofen [Motrin Ib] 200 mg PO Q8H PRN 01/31/24 01/31/24 History Insulin Glargine-Yfgn [Semglee 15 unit SQ BID@0900,1700 01/31/24 01/31/24 History (Yfgn) Pen] Lidocaine 4% Patch 1 patch TOPICAL DAILY 01/31/24 01/31/24 History Loperamide [Imodium] 2 - 4 mg PO Q2H PRN 01/31/24 01/31/24 History Metoprolol Tartrate [Lopressor] 50 mg PO BID 01/31/24 01/31/24 History Potassium Chloride [Klor-Con M10] 10 meq PO DAILY 01/31/24 01/31/24 History Slow-Mag Muscle/Heart 1 tab PO TID@0900,1300,2100 01/31/24 01/31/24 History bisacodyL [Dulcolax] 10 mg RECTAL BID PRN 01/31/24 01/31/24 History guaiFENesin [guaiFENesin Oral 200 mg PO Q4H PRN 01/31/24 01/31/24 History Solution] Allergies Allergy/AdvReac Type Severity Reaction Status Date / Time No Known Allergies Allergy Verified 01/31/24 10:26 Physical Examination Inspection: Negative for any open fracture, significant erythema/ecchymosis/open wounds. Sensation: Equal, symmetric, bilateral intact throughout the upper and lower extremities on exam. Palpation: There is a fair amount of tenderness to palpation over the cervical spine at midline and in the right paravertebral regions near the shoulder blade on the right. Some minimal tenderness palpation over the lumbar spine at midline. Nontender to palpation throughout rest of exam. Range of motion: Patient does have good range of motion in bilateral upper extremities on exam. Patient has full range of motion throughout bilateral elbo ws in flexion/extension and wrist in flexion with extension. Patient is able to forward elevate shoulders to about 130 degrees. Patient is able to flex bilateral knees to about 75 degrees while lying in the semirecumbent position in bed. Patient lacks about 5 degrees full extension bilateral knees while resting in bed. Patient does have limited range of motion in the right ankle secondary to previous surgeries performed. Patient has good range of motion of the left ankle in dorsi/plantarflexion. Motor: 4+/5 program attendant strength bilaterally. 4-/5 in resisted shoulder forward elevation, abduction, external/internal rotation and elbow flexion/extension. 4/5 in all major motor groups in bilateral lower extremities. Special test: Negative Glenda bilaterally. Positive clonus on the left lower extremity. Negative clonus on the right lower extremity. Negative Homans bilaterally. Neurovascular: Radial pulse intact bilaterally, 2+. Results - Labs Labs: Abnormal Lab Results - Last 24 Hours (Table) 01/31/24 01/31/24 01/31/24 Range/Units 00:19 06:43 10:08 Lymphocytes # (Manual) 0.46 L (1.0-4.8) k/uL ESR (0-20) mm/Hr Retic Count (0.5-2.0) % Haptoglobin (31.2-198.0) mg/dL D-Dimer 0.65 H (<0.60) mg/L FEU POC Glucose (mg/dL) (70-110) mg/dL Iron (65-175) UG/DL TIBC (228-460) UG/DL Transferrin (204.0-354.0) mg/dL Delta Bilirubin (0.0-0.2) mg/dL Lactate Dehydrogenase (120-246) U/L C-Reactive Protein (<1.0) mg/dL Procalcitonin 0.13 H (0.02-0.09) ng/mL Urine Blood (Negative) Urine Mucus (None) /hpf 01/31/24 01/31/24 01/31/24 Range/Units 10:08 10:08 10:08 Lymphocytes # (Manual) (1.0-4.8) k/uL ESR 23 H (0-20) mm/Hr Retic Count (0.5-2.0) % Haptoglobin (31.2-198.0) mg/dL D-Dimer (<0.60) mg/L FEU POC Glucose (mg/dL) (70-110) mg/dL Iron 40 L (65-175) UG/DL TIBC 221 L (228-460) UG/DL Transferrin 158.0 L (204.0-354.0) mg/dL Delta Bilirubin 0.4 H (0.0-0.2) mg/dL Lactate Dehydrogenase 394 H (120-246) U/L C-Reactive Protein 2.0 H (<1.0) mg/dL Procalcitonin 0.13 H (0.02-0.09) ng/mL Urine Blood (Negative) Urine Mucus (None) /hpf 01/31/24 01/31/24 01/31/24 Range/Units 10:08 10:08 11:13 Lymphocytes # (Manual) (1.0-4.8) k/uL ESR (0-20) mm/Hr Retic Count 4.4 H (0.5-2.0) % Haptoglobin 358.0 H (31.2-198.0) mg/dL D-Dimer (<0.60) mg/L FEU POC Glucose (mg/dL) (70-110) mg/dL Iron (65-175) UG/DL TIBC (228-460) UG/DL Transferrin (204.0-354.0) mg/dL Delta Bilirubin (0.0-0.2) mg/dL Lactate Dehydrogenase (120-246) U/L C-Reactive Protein (<1.0) mg/dL Procalcitonin (0.02-0.09) ng/mL Urine Blood Trace H (Negative) Urine Mucus Rare H (None) /hpf 01/31/24 01/31/24 Range/Units 16:11 20:54 Lymphocytes # (Manual) (1.0-4.8) k/uL ESR (0-20) mm/Hr Retic Count (0.5-2.0) % Haptoglobin (31.2-198.0) mg/dL D-Dimer (<0.60) mg/L FEU POC Glucose (mg/dL) 242 H 177 H (70-110) mg/dL Iron (65-175) UG/DL TIBC (228-460) UG/DL Transferrin (204.0-354.0) mg/dL Delta Bilirubin (0.0-0.2) mg/dL Lactate Dehydrogenase (120-246) U/L C-Reactive Protein (<1.0) mg/dL Procalcitonin (0.02-0.09) ng/mL Urine Blood (Negative) Urine Mucus (None) /hpf H & H 01/30/24 01/31/24 Range/Units 20:57 06:43 Hgb 9.2 L 8.4 L (13.0-17.5) gm/dL Hct 28.4 L 25.7 L (39.0-53.0) % Coagulation 01/30/24 01/31/24 Range/Units 20:57 10:08 INR 1.2 H 1.1 (<1.2) Result Diagrams: 02/01/24 12:03 02/01/24 12:03 - Diagnostic results Cervical AP/lateral x-ray: report reviewed, image reviewed (X-ray of the cervical spine is negative for any fractures. Positive for grade 1 anterior listhesis of C4 and C5. Positive for some neuroforaminal stenosis. Positive for cervical spondylosis) CT Scan - lumbar: report reviewed, image reviewed (CT of the lumbar spine is positive for L1 compression fracture, lumbar spondylosis, spinal canal stenosis, mild at L4-5 and neuroforaminal stenosis at L5-S1 as well as degenerative disc disease) Assessment and Plan Assessment: 1. Right upper extremity radiculopathy; mechanical neck pain; cervical spondylosis; C4-C5 spondylolisthesis; mechanical low back pain; lumbar s pondylosis; degenerative disc disease; L1 vertebral compression fracture 2. Multiple medical comorbidities Plan: 1. Right upper extremity radiculopathy; mechanical neck pain; cervical spondylosis; C4-C5 spondylolisthesis; mechanical low back pain; lumbar spondylosis; degenerative disc disease; L1 vertebral compression fracture - X- ray of the cervical spine is negative for any fractures. Positive for grade 1 anteroisthesis of C4 and C5. Positive for some neuroforaminal stenosis. Positive for cervical spondylosis. CT of the lumbar spine is positive for L1 compression fracture, lumbar spondylosis, spinal canal stenosis, mild at L4-5 and neuroforaminal stenosis at L5-S1 as well as degenerative disc disease. I did discuss the findings of the exam and imaging with my attending, Dr. Cody. At this time we are not recommending any emergent/urgent orthopedic surgical intervention. We are recommending conservative measures with the use of pain medication and PT/OT. We do recommend patient to follow-up in the outpatient setting for further evaluation. Patient is stable from orthopedic standpoint for discharge. We will be available as needed to see patient. please do not hesitate to contact us for any further questions. 2. Appreciate medical, neuro, pain management 3. Pain management - norco 4. DVT prophylaxis - mechanical 5. GI prophylaxis - protonix 6. PT/OT - perform ROM exercises while resting in bed 7. Encourage incentive spirometer use 8. Appreciate consult Time with Patient: Less than 30
[2024-02-01] MEDS ORDERED: DEXTROSE 50% SYRINGE 50 ML IVP PRN ×2 (19:07)
[2024-02-01 19:59] LABS: Glucose,Whole Blood 304 mg/dL (70-110)
[2024-02-01] MEDS: INSULIN ASPART (NovoLOG) 100 UNIT/ML VIAL SQ SCH (20:45)
[2024-02-01] MEDS: METOPROLOL TARTRATE 25 MG TAB PO SCH (22:13)
[2024-02-01 23:37] LABS: Glucose,Whole Blood 240 mg/dL (70-110)
[2024-02-02 06:40] LABS: Glucose,Whole Blood 137 mg/dL (70-110)
[2024-02-02 07:18] LABS: Anisocytosis Slight; Basophils % (A) 0 %; Eosinophils # (A) 0.1 k/uL (0-0.7); Eosinophils % (A) 2 %; HCT 25.8 % (39.0-53.0); Hypochromasia Marked; Lymphocytes # (A) 0.3 k/uL (1.0-4.8); Lymphocytes % (A) 5 %; MCH 32.9 pg (25.0-35.0); MCHC 31.2 g/dL (31.0-37.0); MCV 105.5 fL (80.0-100.0); Macrocytosis Marked; Mean Platelet Volume 8.8; Monocytes # (A) 0.4 k/uL (0-1.0); Monocytes % (A) 8 %; Neutrophils # (A) 4.5 k/uL (1.3-7.7); Neutrophils % (A) 84 %; Poikilocytosis Slight; RBC 2.44 m/uL (4.30-5.90); RDW 19.1 % (11.5-15.5); WBC 5.3 k/uL (3.8-10.6)
[2024-02-02 07:23] LABS: Platelet Count 62 k/uL (150-450)
[2024-02-02 08:17] LABS: ALT 15 U/L (4-49); AST 12 U/L (17-59); African American GFR (CKD) 67 (>60 ml/min/1.73 sqM); Albumin 2.6 g/dL (3.5-5.0); Alkaline Phosphatase 59 U/L (38-126); Anion Gap 6 mmol/L; Blood Urea Nitrogen 26 mg/dL (9-20); Calcium 7.8 mg/dL (8.4-10.2); Carbon Dioxide 19 mmol/L (22-30); Chloride 111 mmol/L (98-107); Glucose 123 mg/dL (74-99); Magnesium 1.9 mg/dL (1.6-2.3); Non-African American GFR(CKD) 58 (>60 ml/min/1.73 sqM); Potassium 3.4 mmol/L (3.5-5.1); Sodium 136 mmol/L (137-145); Total Bilirubin 0.7 mg/dL (0.2-1.3); Total Protein 4.7 g/dL (6.3-8.2)
[2024-02-02] MEDS: POTASSIUM CHLORIDE ER 20 MEQ TAB.ER PO SCH ×3 (08:43→21:45)
--- NOTE | 2024-02-02 11:38 | P.PN ---
Subjective Patient is seen in follow-up for acute kidney injury on chronic kidney disease. Patient has chronic kidney disease stage IIIb with baseline creatinine 1.3-1.5. Renal function at baseline. Has Michelle catheter for urinary retention. Nonoliguric. Denies chest pain or shortness of breath. On Levophed. Was transferred to the ICU due to hypotension. Vital signs are stable. General: No acute distress. HEENT: Head exam is unremarkable. LUNGS: No audible rhonchi or wheezes. HEART: Rate and Rhythm are regular. ABDOMEN: Nontender. EXTREMITITES: Trace edema. Objective - Vital Signs Vital signs: Vital Signs Temp 99.2 F 02/02/24 04:00 Pulse 97 02/02/24 11:13 Resp 24 02/02/24 07:00 BP 112/46 02/02/24 07:00 Pulse Ox 95 02/02/24 11:03 FiO2 40 02/02/24 00:40 Intake & Output 02/01/24 02/02/24 02/02/24 18:59 06:59 18:59 Intake Total 471.303 847.513 129.266 Output Total 1325 1180 75 Balance -853.697 -332.487 54.266 Weight 120.5 kg 122.2 kg Intake: IV 220 640 20 KVO 20 240 20 Magnesium Sulfate-D5w Pmx 100 200 1 gm In Dextrose/Water 1 100ml.bag @ 100 mls/hr IVPB Q1H TENA Rx#: [id number] Piperacillin-Tazobactam 3 100 200 .375 gm In Sodium Chloride 0.9% 100 ml @ 25 mls/hr IVPB Q8HR TENA Rx# :[id number] Intake, IV Titration 15.303 207.513 109.266 Amount Norepinephrine 4 mg In 15.303 207.513 109.266 Sodium Chloride 0.9% 250 ml @ 0.03 MCG/KG/MIN 13. 773 mls/hr IV .[id number] TENA Rx#:[id number] Oral 236 Output: Urine 1325 1180 75 Other: Voiding Method Indwelling Catheter Indwelling Catheter - Labs CBC & Chem 7: 02/02/24 07:00 02/02/24 07:00 Labs: Abnormal Lab Results - Last 24 Hours (Table) 02/01/24 02/01/24 02/01/24 Range/Units 12:03 12:03 15:51 RBC 2.56 L (4.30-5.90) m/uL Hgb 8.5 L (13.0-17.5) gm/dL Hct 26.5 L (39.0-53.0) % MCV 103.6 H (80.0-100.0) fL RDW 19.3 H (11.5-15.5) % Plt Count 60 L (150-450) k/uL Lymphocytes # (1.0-4.8) k/uL Macrocytosis Marked A Sodium 135 L (137-145) mmol/L Potassium (3.5-5.1) mmol/L Chloride (98-107) mmol/L Carbon Dioxide 20 L (22-30) mmol/L BUN 40 H (9-20) mg/dL Creatinine 1.49 H (0.66-1.25) mg/dL Glucose (74-99) mg/dL POC Glucose (mg/dL) 198 H (70-110) mg/dL Calcium 8.0 L (8.4-10.2) mg/dL Magnesium (1.6-2.3) mg/dL AST 15 L (17-59) U/L Creatine Kinase <20 L (55-170) U/L Total Protein 4.9 L (6.3-8.2) g/dL Albumin 2.8 L (3.5-5.0) g/dL Vitamin B12 1092.0 H (200.0-944.0) pg/mL TSH 12.200 H (0.465-4.680) mIU/L 02/01/24 02/01/24 02/01/24 Range/Units 16:16 17:04 19:57 RBC (4.30-5.90) m/uL Hgb (13.0-17.5) gm/dL Hct (39.0-53.0) % MCV (80.0-100.0) fL RDW (11.5-15.5) % Plt Count (150-450) k/uL Lymphocytes # (1.0-4.8) k/uL Macrocytosis Sodium (137-145) mmol/L Potassium (3.5-5.1) mmol/L Chloride (98-107) mmol/L Carbon Dioxide (22-30) mmol/L BUN (9-20) mg/dL Creatinine (0.66-1.25) mg/dL Glucose (74-99) mg/dL POC Glucose (mg/dL) 217 H 304 H (70-110) mg/dL Calcium (8.4-10.2) mg/dL Magnesium 1.2 L (1.6-2.3) mg/dL AST (17-59) U/L Creatine Kinase (55-170) U/L Total Protein (6.3-8.2) g/dL Albumin (3.5-5.0) g/dL Vitamin B12 (200.0-944.0) pg/mL TSH (0.465-4.680) mIU/L 02/01/24 02/02/24 02/02/24 Range/Units 23:35 06:39 07:00 RBC 2.44 L (4.30-5.90) m/uL Hgb 8.0 L (13.0-17.5) gm/dL Hct 25.8 L (39.0-53.0) % MCV 105.5 H (80.0-100.0) fL RDW 19.1 H (11.5-15.5) % Plt Count 62 L (150-450) k/uL Lymphocytes # 0.3 L (1.0-4.8) k/uL Macrocytosis Marked A Sodium (137-145) mmol/L Potassium (3.5-5.1) mmol/L Chloride (98-107) mmol/L Carbon Dioxide (22-30) mmol/L BUN (9-20) mg/dL Creatinine (0.66-1.25) mg/dL Glucose (74-99) mg/dL POC Glucose (mg/dL) 240 H 137 H (70-110) mg/dL Calcium (8.4-10.2) mg/dL Magnesium (1.6-2.3) mg/dL AST (17-59) U/L Creatine Kinase (55-170) U/L Total Protein (6.3-8.2) g/dL Albumin (3.5-5.0) g/dL Vitamin B12 (200.0-944.0) pg/mL TSH (0.465-4.680) mIU/L 02/02/24 Range/Units 07:00 RBC (4.30-5.90) m/uL Hgb (13.0-17.5) gm/dL Hct (39.0-53.0) % MCV (80.0-100.0) fL RDW (11.5-15.5) % Plt Count (150-450) k/uL Lymphocytes # (1.0-4.8) k/uL Macrocytosis Sodium 136 L (137-145) mmol/L Potassium 3.4 L (3.5-5.1) mmol/L Chloride 111 H (98-107) mmol/L Carbon Dioxide 19 L (22-30) mmol/L BUN 26 H (9-20) mg/dL Creatinine (0.66-1.25) mg/dL Glucose 123 H (74-99) mg/dL POC Glucose (mg/dL) (70-110) mg/dL Calcium 7.8 L (8.4-10.2) mg/dL Magnesium (1.6-2.3) mg/dL AST 12 L (17-59) U/L Creatine Kinase (55-170) U/L Total Protein 4.7 L (6.3-8.2) g/dL Albumin 2.6 L (3.5-5.0) g/dL Vitamin B12 (200.0-944.0) pg/mL TSH (0.465-4.680) mIU/L Microbiology - Last 24 Hours (Table) 01/30/24 22:20 Blood Culture - Preliminary Blood 01/30/24 22:05 Blood Culture - Preliminary Blood Assessment and Plan Plan: Assessment: 1. Acute kidney injury secondary to urinary retention and component of cardiorenal syndrome. Creatinine 1.9 on admission and improved to 1.2 today. No proteinuria on UA. No hydronephrosis noted on kidney ultrasound. 2. Chronic kidney disease stage IIIb with baseline creatinine 1.3-1.5 secondary to nephrosclerosis. 3. Acute on chronic diastolic CHF. 4. Hyperkalemia secondary to acute kidney injury, urinary retention and acidosis. Improved. Now hypokalemic from diuresis. 5. Urinary retention. Has Michelle catheter. On Flomax. 6. Diabetes mellitus. 7. Anemia of chronic kidney disease. Rule out iron deficiency. Also noted to be thrombocytopenic. Oncology following. 8. History of small cell lung cancer status post chemo and radiation. 9. Metabolic acidosis secondary to acute kidney injury and IV fluids. On oral bicarb. Stable. 10. Shock maintained on Levophed. 11. Hypomagnesemia from poor intake and diuresis. Replaced. Better. Plan: Hold Lasix. Wean Levophed. Encouraged oral intake. Avoid nephrotoxins. Continue to monitor renal function and urine output. Follow-up a.m. cortisol level.
[2024-02-02 11:42] LABS: Glucose,Whole Blood 274 mg/dL (70-110)
--- NOTE | 2024-02-02 11:54 | XR ---
EXAMINATION TYPE: XR chest 1V portable DATE OF EXAM: 02/02/2024 Comparison: 01/31/2024 Clinical History: 78-year-old male CHF Findings: Loop recorder device projecting at the cardiac apex. Heart remains mildly enlarged. Diffuse interstit ial and patchy bilateral opacities persist, similar to slightly worsened. No sizable pleural effusion . Impression: Ongoing bilateral pulmonary edema, similar to slightly worsened.
--- NOTE | 2024-02-02 12:06 | P.PN ---
Subjective Progress Note Date: 02/02/24 Patient is a 78-year-old white male with past medical history significant for small cell lung cancer status/post chemoradiation, COPD, former tobacco smoker, diabetes mellitus, hypertension, hypothyroidism, hypertension, hyperlipidemia, obesity, peripheral arterial disease, atrial fibrillation with previous cardioversion, chronically anticoagulant Eliquis, obstructive sleep apnea with home CPAP, among other comorbidities. Patient reportedly had some abnormal labs, and was sent in from his rehab facility at [facility] for evaluation. Patient's primary complaint is posterior neck pain that is worse when sitting up in bed. Denies any radiculopathy like symptoms. No upper extremity weakness. States that he is currently seeing a chiropractor outpatient. Admits significant bilateral lower extremity weakness, and he can no longer walk without a lot of assistance. States that he is limited in what he can do at rehab at [facility]. Patient denies any worsening of his chronic shortness of breath. Denies any fevers, coughing, sputum production, hemoptysis, chest pain. States his breathing is actually improved since his most recent hospitalization. He chronically wears 3 L of home oxygen. Of note, he had a recent hospitalization December 2023 for suspected COPD exacerbation. While inpatient, patient had an episode of symptomatic A-fib RVR, and is status post successful cardioversion. He is anticoagulated on Eliquis. Echocardiogram done this previous admission estimates a preserved left ventricular ejection fraction of 55 to 60% as well as moderate to severe LVH, as well as mild valvular heart disease. Chest x-ray shows cardiomegaly with increased reticular and reticulonodular opacities consistent with edema and/or infiltrates bilaterally. There is a chronic right suprahilar consolidation/posttreatment changes. Patient does have history of small cell lung cancer and has underwent previous chemoradiation. Most recent PET scan done 10/15/2023 did not show any evidence of disease recurrence. Patient was empirically placed on Zosyn in the emergency department. CBC: WBC count 7.9, hemoglobin 9.2, hematocrit 28.4, platelets 63,000. CMP: Sodium 135, potassium 5.9, chloride 111, serum bicarb 18, BUN 53, creatinine 1.92, glucose 107. Lactic acid level 2.5. Troponin less than 0.012. NT proBNP 4910. EKG demonstrating sinus rhythm with a rate of 74 bpm, no obvious acute ischemic changes. Afebrile. Vital signs are stable. 02/01/2024, the patient is resting comfortably in bed. No significant respiratory distress. The patient to be seen by neurology and spine surgery regarding his ongoing weakness in lower extremities. CT scan of the brain was done on 01/31/2024 revealing no acute abnormalities. There is some senescent changes and there is no mass effect or stroke. CAT scan of the lumbar and the cervical spine was done. Lumbar spine showed evidence of mild superior endplate compression fracture of L1 without retropulsion. There was also no lumbar disc herniation, mild spinal stenosis at level of L4-5 and neuroforaminal foraminal stenosis at the level of L5-S1. CT scan of the cervical spine was also done that showed moderate multilevel spondylotic changes. Grade 1 anterolisthesis at the level of C4-C5 and variable bony neural foraminal narrowing. The patient's white cell count at 6.7 with a hemoglobin 8.5 and the patient remains on 4 L of oxygen by nasal cannula with a pulse ox of 100%. Remains on same medication. Empiric antibiotic coverage with IV Zosyn. Blood cultures have been negative thus far. On 02/02/2024, the patient is being seen in follow-up in the intensive care unit. Noted the patient encountered an episode of hypotension yesterday. The critical care team saw the patient on the medical floor. The patient was given a total of 2 L of IV fluids and following that, the patient continued to be hypotensive and the patient and transferred to the intensive care unit and started on pressors. The patient is currently on norepinephrine running at 0.03 mcg/kg/min. He is on 6 L of oxygen by nasal cannula with a pulse ox of 99%. Blood pressure has improved. He is on normal saline at rate of 20 cc an hour. Chest x-ray findings remain unchanged. No respiratory distress. Mental status remained stable and unchanged. The blood work from today shows a white cell count of 5.3 with a hemoglobin of 8 and a platelet count of 62. BUN is 26 and creatinine is 1.2 and sodium levels at 136. The repeat chest x-ray from today shows ongoing stable consolidation perihilar right more than left, and is known to have history of history of lung cancer and previous radiation therapy to the chest. LFTs are normal. Remains profoundly weak. Being seen by neurology and spine surgery. Diuretics were placed on hold. Objective - Vital Signs Vital signs: Vital Signs Temp 99.2 F 02/02/24 04:00 Pulse 87 02/02/24 07:00 Resp 24 02/02/24 07:00 BP 112/46 02/02/24 07:00 Pulse Ox 93 L 02/02/24 07:00 FiO2 40 02/02/24 00:40 Intake & Output 02/01/24 02/02/24 02/02/24 18:59 06:59 18:59 Intake Total 471.303 847.513 20 Output Total 1325 1180 75 Balance -853.697 -332.487 -55 Weight 120.5 kg 122.2 kg Intake: IV 220 640 20 KVO 20 240 20 Magnesium Sulfate-D5w Pmx 100 200 1 gm In Dextrose/Water 1 100ml.bag @ 100 mls/hr IVPB Q1H TENA Rx#: [id number] Piperacillin-Tazobactam 3 100 200 .375 gm In Sodium Chloride 0.9% 100 ml @ 25 mls/hr IVPB Q8HR TENA Rx# :[id number] Intake, IV Titration 15.303 207.513 Amount Norepinephrine 4 mg In 15.303 207.513 Sodium Chloride 0.9% 250 ml @ 0.03 MCG/KG/MIN 13. 773 mls/hr IV .[id number] TENA Rx#:[id number] Oral 236 Output: Urine 1325 1180 75 Other: Voiding Method Indwelling Catheter Indwelling Catheter - Exam GENERAL EXAM: Alert, 78-year-old white male, comfortable in no apparent distress., Currently on 6 L of oxygen by nasal cannula with a pulse ox of 99% HEAD: Normocephalic and atraumatic EYES: Normal reaction of pupils, equal size. NOSE: Clear with pink turbinates. THROAT: No erythema or exudates. NECK: No masses, no JVD. CHEST: No chest wall deformity. LUNGS: Equal air entry with bibasilar inspiratory crackles. . No conversational dyspnea or accessory muscle use.. CVS: S1 and S2 normal with soft systolic murmur, regular rhythm. No extra heart sounds ABDOMEN: No hepatosplenomegaly, active bowel sounds, no guarding or rigidity. SPINE: No scoliosis or deformity SKIN: No rashes CENTRAL NERVOUS SYSTEM: No focal deficits, tone is normal in all 4 extremities. EXTREMITIES: There is no peripheral edema, clubbing, or cyanosis. Peripheral pulses are intact. - Labs CBC & Chem 7: 02/02/24 07:00 02/02/24 07:00 Labs: Abnormal Lab Results - Last 24 Hours (Table) 02/01/24 02/01/24 02/01/24 Range/Units 11:31 12:03 12:03 RBC 2.56 L (4.30-5.90) m/uL Hgb 8.5 L (13.0-17.5) gm/dL Hct 26.5 L (39.0-53.0) % MCV 103.6 H (80.0-100.0) fL RDW 19.3 H (11.5-15.5) % Plt Count 60 L (150-450) k/uL Lymphocytes # (1.0-4.8) k/uL Macrocytosis Marked A Sodium 135 L (137-145) mmol/L Potassium (3.5-5.1) mmol/L Chloride (98-107) mmol/L Carbon Dioxide 20 L (22-30) mmol/L BUN 40 H (9-20) mg/dL Creatinine 1.49 H (0.66-1.25) mg/dL Glucose (74-99) mg/dL POC Glucose (mg/dL) 229 H (70-110) mg/dL Calcium 8.0 L (8.4-10.2) mg/dL Magnesium (1.6-2.3) mg/dL AST 15 L (17-59) U/L Creatine Kinase <20 L (55-170) U/L Total Protein 4.9 L (6.3-8.2) g/dL Albumin 2.8 L (3.5-5.0) g/dL Vitamin B12 1092.0 H (200.0-944.0) pg/mL TSH 12.200 H (0.465-4.680) mIU/L 02/01/24 02/01/24 02/01/24 Range/Units 15:51 16:16 17:04 RBC (4.30-5.90) m/uL Hgb (13.0-17.5) gm/dL Hct (39.0-53.0) % MCV (80.0-100.0) fL RDW (11.5-15.5) % Plt Count (150-450) k/uL Lymphocytes # (1.0-4.8) k/uL Macrocytosis Sodium (137-145) mmol/L Potassium (3.5-5.1) mmol/L Chloride (98-107) mmol/L Carbon Dioxide (22-30) mmol/L BUN (9-20) mg/dL Creatinine (0.66-1.25) mg/dL Glucose (74-99) mg/dL POC Glucose (mg/dL) 198 H 217 H (70-110) mg/dL Calcium (8.4-10.2) mg/dL Magnesium 1.2 L (1.6-2.3) mg/dL AST (17-59) U/L Creatine Kinase (55-170) U/L Total Protein (6.3-8.2) g/dL Albumin (3.5-5.0) g/dL Vitamin B12 (200.0-944.0) pg/mL TSH (0.465-4.680) mIU/L 02/01/24 02/01/24 02/02/24 Range/Units 19:57 23:35 06:39 RBC (4.30-5.90) m/uL Hgb (13.0-17.5) gm/dL Hct (39.0-53.0) % MCV (80.0-100.0) fL RDW (11.5-15.5) % Plt Count (150-450) k/uL Lymphocytes # (1.0-4.8) k/uL Macrocytosis Sodium (137-145) mmol/L Potassium (3.5-5.1) mmol/L Chloride (98-107) mmol/L Carbon Dioxide (22-30) mmol/L BUN (9-20) mg/dL Creatinine (0.66-1.25) mg/dL Glucose (74-99) mg/dL POC Glucose (mg/dL) 304 H 240 H 137 H (70-110) mg/dL Calcium (8.4-10.2) mg/dL Magnesium (1.6-2.3) mg/dL AST (17-59) U/L Creatine Kinase (55-170) U/L Total Protein (6.3-8.2) g/dL Albumin (3.5-5.0) g/dL Vitamin B12 (200.0-944.0) pg/mL TSH (0.465-4.680) mIU/L 02/02/24 02/02/24 Range/Units 07:00 07:00 RBC 2.44 L (4.30-5.90) m/uL Hgb 8.0 L (13.0-17.5) gm/dL Hct 25.8 L (39.0-53.0) % MCV 105.5 H (80.0-100.0) fL RDW 19.1 H (11.5-15.5) % Plt Count 62 L (150-450) k/uL Lymphocytes # 0.3 L (1.0-4.8) k/uL Macrocytosis Marked A Sodium 136 L (137-145) mmol/L Potassium 3.4 L (3.5-5.1) mmol/L Chloride 111 H (98-107) mmol/L Carbon Dioxide 19 L (22-30) mmol/L BUN 26 H (9-20) mg/dL Creatinine (0.66-1.25) mg/dL Glucose 123 H (74-99) mg/dL POC Glucose (mg/dL) (70-110) mg/dL Calcium 7.8 L (8.4-10.2) mg/dL Magnesium (1.6-2.3) mg/dL AST 12 L (17-59) U/L Creatine Kinase (55-170) U/L Total Protein 4.7 L (6.3-8.2) g/dL Albumin 2.6 L (3.5-5.0) g/dL Vitamin B12 (200.0-944.0) pg/mL TSH (0.465-4.680) mIU/L Microbiology - Last 24 Hours (Table) 01/30/24 22:20 Blood Culture - Preliminary Blood 01/30/24 22:05 Blood Culture - Preliminary Blood Assessment and Plan Assessment: Acute on chronic hypoxemic respiratory failure, currently on 46 L/min nasal cannula, possibly secondary to an exacerbation of diastolic congestive heart failure, Chest x-ray shows cardiomegaly with increased reticular and reticulonodular opacities consistent with edema and/or infiltrates bilaterally. There are chronic posttreatment changes in the right lung. Echocardiogram done on a recent previous admission estimates a preserved left ventricular ejection fraction of 55 to 60% as well as moderate to severe LVH, as well as, mild valvular heart disease. Based on my opinion, the chest x-ray findings are stable consistent with radiation pneumonitis in the right perihilar area. Repeat chest x-ray from today shows no major interval change in the findings. Pneumonia still doubtful. Chronic obstructive pulmonary disease, stable, remains stable on oxygen History of small cell lung cancer, status post chemo/radiation, follows up outpatient with oncologist. Most recent PET scan done 10/15/2023 did not show any evidence of disease recurrence. Chronic hypoxemic respiratory failure, secondary to above Hypertension, likely hypovolemic in nature and the patient responded to fluids and currently the patient is on low-dose pressors. Norepinephrine is running at 0.02 mcg/kg/min. Producing adequate amount of urine output. Acute on chronic kidney disease, renal function is stable and the creatinine is improved and currently down to 1.2 Hyperkalemia, secondary to above, treated with a dose of Lokelma by nephrology who is managing Bicytopenia, with thrombocytopenia and anemia, no overt signs of acute blood loss History of paroxysmal atrial fibrillation, status post previous cardioversion, currently normal sinus rhythm Diabetes mellitus type 2 Hypertension History of hyperlipidemia History of hypothyroidism History of peripheral arterial disease History of prostate cancer status post radiation History of urinary retention Obstructive sleep apnea with home CPAP Obesity, with a BMI of 33.5 kg/m Former tobacco dependence, quit smoking December 2022 Chronic stage III kidney disease Profound motor weakness in lower extremities, unable to ambulate, awaiting final recommendations from neurology and spine surgery. Plan: Respiratory status is stable, we will the 520 patient should be able to wean down to 4 L of O2 nasal cannula Currently on 6 L/min nasal cannula, may wean to maintain oxygen saturation of 90% or greater Patient encouraged to have home APAP unit brought in if possible for use at night. Discontinue Lasix Wean off pressors and discontinue Patient was empirically placed on Zosyn in the emergency department, procalcitonin level is at 0.13 and the viral screen has been negative. COPD seems stable on my evaluation, continue maintenance DuoNebs around-the- clock and budesonide inhalation Mental status is stable. Respiratory status remained stable. Will consult spine surgery and neurology to further investigate his generalized motor weakness which is predominantly in his lower extremities. No evidence of any skeletal metastases. CT scan of the cervical spine and lumbar spine were noted overall respiratory status is stable. No clear signs of any infection for now. Chest x-ray findings are consistent with postradiation changes in the right lung and an underlying pneumonia is doubtful. Will continue to follow.
[2024-02-02] MEDS: APIXABAN 5 MG TAB PO SCH (12:28)
--- NOTE | 2024-02-02 13:42 | P.PN ---
Subjective Progress Note Date: 02/02/24 patient is a 78-year-old gentleman past medical history significant for small cell lung cancer status/post chemoradiation, COPD, former tobacco smoker, diabetes mellitus, hypertension, hypothyroidism, hypertension, hyperlipidemia, obesity, peripheral arterial disease, atrial fibrillation with previous car dioversion who presented to the ER for abnormal labs. Patient is currently a resident of [facility]. Patient stated that he has been having increased weakness of lower extremity for the last few days. Patient also complaining of neck pain. Patient has history of COPD and is short of breath at rest at baseline. There is no complaint of fever or chills. Denies any chest pain. No complaint of palpitation. Denies any orthopnea or PND. Initial lab work done in the ER showed WBC 9.9, hemoglobin 9.2, platelet count 63, sodium 135, potassium 5.9, BUN 53, creatinine 1.92 glucose 107, lactate 2.5 Influenza A not detected Influenza B not detected RSV not detected COVID-19 not detected EKG done in the ER showed heart rate of 74 , no ST segment elevation or depression seen, no T-wave inversions seen. Chest x-ray done in the ER cardiomegaly with chronic right suprahilar consolida tion, atelectasis redemonstrated. There is worsening reticular and reticulonodular opacities consistent with edema Patient admitted to internal medicine service 01/31. Patient seen and examined. Complaining of generalized weakness, more in lower extremities. CT lumbar spine done showed mild superior endplate compression fracture of L1. Cervical spine x-ray done showed moderate multilevel spondylitic changes, degenerative grade 1 anterior listhesis of C4- C5. CT brain negative for any acute intracranial process. States he feels better. 02/01. Patient seen and examined. Patient had a rapid response called yesterday for low blood pressure, patient was lethargic at the time. Patient had to be started on Levophed. Currently patient is feeling better. Blood work this morning showed WBC 5.3, hemoglobin 8, platelet count 62, sodium 138, potassium 3.4, BUN 26, creatinine 1.20 REVIEW OF SYSTEMS: CONSTITUTIONAL: No fever, no malaise,. CARDIOVASCULAR: No chest pain, no palpitations, no syncope. PULMONARY: No shortness of breath, no cough, GASTROINTESTINAL: No diarrhea, no nausea, no vomiting, no abdominal pain. NEUROLOGICAL: As mentioned above PHYSICAL EXAMINATION: GENERAL: The patient is alert and oriented x3, chronically ill looking HEENT: Pupils are round and equally reacting to light. EOMI. No scleral icterus. No conjunctival pallor. Normocephalic, atraumatic. No pharyngeal erythema. No thyromegaly. CARDIOVASCULAR: S1 and S2 present. No murmurs, rubs, or gallops. PULMONARY: Chest is clear to auscultation, no wheezing or crackles. ABDOMEN: Soft, nontender, nondistended, normoactive bowel sounds. No palpable organomegaly. MUSCULOSKELETAL: No joint swelling or deformity. EXTREMITIES: No cyanosis, clubbing, or pedal edema. NEUROLOGICAL: Gross neurological examination did not reveal any focal deficits. SKIN: No rashes. Assessment and plan Acute on chronic hypoxic respiratory Failure Acute on chronic diastolic CHF Septic shock REYNA Hyperkalemia Hyponatremia Thrombocytopenia Acute on chronic kidney disease Bicytopenia, with thrombocytopenia and anemia, no overt signs of acute blood loss History of paroxysmal atrial fibrillation, status post previous cardioversion, currently normal sinus rhythm Diabetes mellitus type 2 Hypertension History of hyperlipidemia History of hypothyroidism History of peripheral arterial disease History of prostate cancer status post radiation History of urinary retention Obstructive sleep apnea with home CPAP Monitor vital signs Monitor CBC Monitor CMP Continue telemetry monitoring Avoid nephrotoxic agent Strict I's and O's Daily weights Continue IV Zosyn Continue IV Levophed Continue breathing treatments Continue amiodarone, Lopressor Eliquis Pulmonology following Nephrology following Neurology following Orthopedic spine following Cardiology following Labs and medication were reviewed.. Continue same treatment. Continue with symptomatic treatment. Resume home medication. Monitor labs and vitals. DVT and GI prophylaxis. Further recommendations as per clinical course of the patient Dictation was produced using [employer] dictation software. please excuse any grammatical, word or spelling errors. Objective - Vital Signs Vital signs: Vital Signs Temp 99.2 F 02/02/24 04:00 Pulse 87 02/02/24 07:00 Resp 24 02/02/24 07:00 BP 112/46 02/02/24 07:00 Pulse Ox 93 L 02/02/24 07:00 FiO2 40 02/02/24 00:40 Intake & Output 02/01/24 02/02/24 02/02/24 18:59 06:59 18:59 Intake Total 471.303 847.513 20 Output Total 1325 1180 75 Balance -853.697 -332.487 -55 Weight 120.5 kg 122.2 kg Intake: IV 220 640 20 KVO 20 240 20 Magnesium Sulfate-D5w Pmx 100 200 1 gm In Dextrose/Water 1 100ml.bag @ 100 mls/hr IVPB Q1H TENA Rx#: [id number] Piperacillin-Tazobactam 3 100 200 .375 gm In Sodium Chloride 0.9% 100 ml @ 25 mls/hr IVPB Q8HR TENA Rx# :[id number] Intake, IV Titration 15.303 207.513 Amount Norepinephrine 4 mg In 15.303 207.513 Sodium Chloride 0.9% 250 ml @ 0.03 MCG/KG/MIN 13. 773 mls/hr IV .[id number] [facility] Rx#:[id number] Oral 236 Output: Urine 1325 1180 75 Other: Voiding Method Indwelling Catheter Indwelling Catheter - Labs CBC & Chem 7: 02/02/24 07:00 02/02/24 07:00 Labs: Abnormal Lab Results - Last 24 Hours (Table) 02/01/24 02/01/24 02/01/24 Range/Units 11:31 12:03 12:03 RBC 2.56 L (4.30-5.90) m/uL Hgb 8.5 L (13.0-17.5) gm/dL Hct 26.5 L (39.0-53.0) % MCV 103.6 H (80.0-100.0) fL RDW 19.3 H (11.5-15.5) % Plt Count 60 L (150-450) k/uL Lymphocytes # (1.0-4.8) k/uL Macrocytosis Marked A Sodium 135 L (137-145) mmol/L Potassium (3.5-5.1) mmol/L Chloride (98-107) mmol/L Carbon Dioxide 20 L (22-30) mmol/L BUN 40 H (9-20) mg/dL Creatinine 1.49 H (0.66-1.25) mg/dL Glucose (74-99) mg/dL POC Glucose (mg/dL) 229 H (70-110) mg/dL Calcium 8.0 L (8.4-10.2) mg/dL Magnesium (1.6-2.3) mg/dL AST 15 L (17-59) U/L Creatine Kinase <20 L (55-170) U/L Total Protein 4.9 L (6.3-8.2) g/dL Albumin 2.8 L (3.5-5.0) g/dL Vitamin B12 1092.0 H (200.0-944.0) pg/mL TSH 12.200 H (0.465-4.680) mIU/L 02/01/24 02/01/24 02/01/24 Range/Units 15:51 16:16 17:04 RBC (4.30-5.90) m/uL Hgb (13.0-17.5) gm/dL Hct (39.0-53.0) % MCV (80.0-100.0) fL RDW (11.5-15.5) % Plt Count (150-450) k/uL Lymphocytes # (1.0-4.8) k/uL Macrocytosis Sodium (137-145) mmol/L Potassium (3.5-5.1) mmol/L Chloride (98-107) mmol/L Carbon Dioxide (22-30) mmol/L BUN (9-20) mg/dL Creatinine (0.66-1.25) mg/dL Glucose (74-99) mg/dL POC Glucose (mg/dL) 198 H 217 H (70-110) mg/dL Calcium (8.4-10.2) mg/dL Magnesium 1.2 L (1.6-2.3) mg/dL AST (17-59) U/L Creatine Kinase (55-170) U/L Total Protein (6.3-8.2) g/dL Albumin (3.5-5.0) g/dL Vitamin B12 (200.0-944.0) pg/mL TSH (0.465-4.680) mIU/L 02/01/24 02/01/24 02/02/24 Range/Units 19:57 23:35 06:39 RBC (4.30-5.90) m/uL Hgb (13.0-17.5) gm/dL Hct (39.0-53.0) % MCV (80.0-100.0) fL RDW (11.5-15.5) % Plt Count (150-450) k/uL Lymphocytes # (1.0-4.8) k/uL Macrocytosis Sodium (137-145) mmol/L Potassium (3.5-5.1) mmol/L Chloride (98-107) mmol/L Carbon Dioxide (22-30) mmol/L BUN (9-20) mg/dL Creatinine (0.66-1.25) mg/dL Glucose (74-99) mg/dL POC Glucose (mg/dL) 304 H 240 H 137 H (70-110) mg/dL Calcium (8.4-10.2) mg/dL Magnesium (1.6-2.3) mg/dL AST (17-59) U/L Creatine Kinase (55-170) U/L Total Protein (6.3-8.2) g/dL Albumin (3.5-5.0) g/dL Vitamin B12 (200.0-944.0) pg/mL TSH (0.465-4.680) mIU/L 02/02/24 02/02/24 Range/Units 07:00 07:00 RBC 2.44 L (4.30-5.90) m/uL Hgb 8.0 L (13.0-17.5) gm/dL Hct 25.8 L (39.0-53.0) % MCV 105.5 H (80.0-100.0) fL RDW 19.1 H (11.5-15.5) % Plt Count 62 L (150-450) k/uL Lymphocytes # 0.3 L (1.0-4.8) k/uL Macrocytosis Marked A Sodium 136 L (137-145) mmol/L Potassium 3.4 L (3.5-5.1) mmol/L Chloride 111 H (98-107) mmol/L Carbon Dioxide 19 L (22-30) mmol/L BUN 26 H (9-20) mg/dL Creatinine (0.66-1.25) mg/dL Glucose 123 H (74-99) mg/dL POC Glucose (mg/dL) (70-110) mg/dL Calcium 7.8 L (8.4-10.2) mg/dL Magnesium (1.6-2.3) mg/dL AST 12 L (17-59) U/L Creatine Kinase (55-170) U/L Total Protein 4.7 L (6.3-8.2) g/dL Albumin 2.6 L (3.5-5.0) g/dL Vitamin B12 (200.0-944.0) pg/mL TSH (0.465-4.680) mIU/L Microbiology - Last 24 Hours (Table) 01/30/24 22:20 Blood Culture - Preliminary Blood 01/30/24 22:05 Blood Culture - Preliminary Blood
[2024-02-02] MEDS: MORPHINE SULFATE 4 MG/ML SYRINGE IV PRN (15:39)
[2024-02-02 16:21] LABS: Glucose,Whole Blood 278 mg/dL (70-110)
[2024-02-02] MEDS: MIDODRINE 5 MG TAB PO PRN (16:36)
--- NOTE | 2024-02-02 20:05 | P.PN ---
Subjective Progress Note Date: 02/02/24 I am following up with patient and he feels he is currently stable. It seems yesterday while on the floors he was hypotensive and without exertion according to nurse. So therefore he was transferred to ICU for escalation of care. Objective - Vital Signs Vital signs: Vital Signs Temp 98.5 F 02/02/24 16:00 Pulse 106 H 02/02/24 19:30 Resp 21 02/02/24 19:30 BP 91/43 02/02/24 19:30 Pulse Ox 90 L 02/02/24 19:30 FiO2 40 02/02/24 16:29 Intake & Output 02/02/24 02/02/24 02/03/24 06:59 18:59 06:59 Intake Total 847.513 494.970 10 Output Total 1180 1690 30 Balance -332.487 -1195.030 -20 Weight 122.2 kg Intake: IV 640 330 10 KVO 240 130 10 Magnesium Sulfate-D5w Pmx 200 1 gm In Dextrose/Water 1 100ml.bag @ 100 mls/hr IVPB Q1H TENA Rx#: [id number] Piperacillin-Tazobactam 3 200 200 .375 gm In Sodium Chloride 0.9% 100 ml @ 25 mls/hr IVPB Q8HR TENA Rx# :[id number] Intake, IV Titration 207.513 164.970 Amount Norepinephrine 4 mg In 207.513 164.970 Sodium Chloride 0.9% 250 ml @ 0.03 MCG/KG/MIN 13. 773 mls/hr IV .[id number] TENA Rx#:[id number] Output: Urine 1180 1690 30 Other: Voiding Method Indwelling Catheter Indwelling Catheter - Exam General: Was lying in bed and not acute distress. Neuro: The patient is awake alert to self place and time. Is following simple commands. No aphasia no neglect. Pupils are round equal reactive to light. Pupils are round 4 mm bilaterally. Visual page are full to confrontation. Extraocular movement is intact no nystagmus. Normal facial sensation to touch. No facial weakness. No dysarthria. Motor: Strength in uppers are 5/5. In lowers proximal is 4+, knee extension are 3-4- and ankles are 5/5. Sensation: Normal to touch from proximal ankle and above: Cerebellar: Normal finger to nose. Reflex (R/L): Biceps 1-2+/1-2+, triceps 2+/2+, Brachioradialis 1+/1+. Lowers are 0/0. Plantars: Mute bilaterally. Some of the Workup during this hospital visit consisted of: Creatinine was 1.92 now it is 1.61--improved Calcium is 8.3, phosphorus is 3.2, magnesium is 1.8 Sodium is 137 TSH: 12.20 but free T4 is 1.18 Vitamin B12: 1092 Serum folate: 13.5 Hemoglobin is 9.2 and the most repeated 1 is 8.4. MCV is 102 CK level <20 CT head: Senescent changes as described above. No acute bleed or mass effect. I reviewed CT head and agree with report there is no acute intracranial process. CT lumbar is reported as mild superior endplate compression fracture and L1 without retropulsion. The age of the fracture is indeterminate. No lumbar disc herniation. Mild spinal stenosis at L4-L5. Bony neuroforaminal stenosis at L5- S1 level bilateral as described above Cervical spine x-rays reported as moderate multilevel spondylitic changes. Degenerative grade 1 anterior listhesis C4-C5. Variable bony neuroforaminal narrowing as outlined above with some limitation in assessment due to the degree of obliquity. - Labs CBC & Chem 7: 02/02/24 07:00 02/02/24 14:20 Labs: Abnormal Lab Results - Last 24 Hours (Table) 02/01/24 02/01/24 02/01/24 Range/Units 12:03 19:57 23:35 RBC (4.30-5.90) m/uL Hgb (13.0-17.5) gm/dL Hct (39.0-53.0) % MCV (80.0-100.0) fL RDW (11.5-15.5) % Plt Count (150-450) k/uL Lymphocytes # (1.0-4.8) k/uL Macrocytosis Sodium (137-145) mmol/L Potassium (3.5-5.1) mmol/L Chloride (98-107) mmol/L Carbon Dioxide (22-30) mmol/L BUN (9-20) mg/dL Glucose (74-99) mg/dL POC Glucose (mg/dL) 304 H 240 H (70-110) mg/dL Calcium (8.4-10.2) mg/dL AST (17-59) U/L Total Protein (6.3-8.2) g/dL Albumin (3.5-5.0) g/dL Vitamin B12 1092.0 H (200.0-944.0) pg/mL 02/02/24 02/02/24 02/02/24 Range/Units 06:39 07:00 07:00 RBC 2.44 L (4.30-5.90) m/uL Hgb 8.0 L (13.0-17.5) gm/dL Hct 25.8 L (39.0-53.0) % MCV 105.5 H (80.0-100.0) fL RDW 19.1 H (11.5-15.5) % Plt Count 62 L (150-450) k/uL Lymphocytes # 0.3 L (1.0-4.8) k/uL Macrocytosis Marked A Sodium 136 L (137-145) mmol/L Potassium 3.4 L (3.5-5.1) mmol/L Chloride 111 H (98-107) mmol/L Carbon Dioxide 19 L (22-30) mmol/L BUN 26 H (9-20) mg/dL Glucose 123 H (74-99) mg/dL POC Glucose (mg/dL) 137 H (70-110) mg/dL Calcium 7.8 L (8.4-10.2) mg/dL AST 12 L (17-59) U/L Total Protein 4.7 L (6.3-8.2) g/dL Albumin 2.6 L (3.5-5.0) g/dL Vitamin B12 (200.0-944.0) pg/mL 02/02/24 02/02/24 Range/Units 11:31 16:09 RBC (4.30-5.90) m/uL Hgb (13.0-17.5) gm/dL Hct (39.0-53.0) % MCV (80.0-100.0) fL RDW (11.5-15.5) % Plt Count (150-450) k/uL Lymphocytes # (1.0-4.8) k/uL Macrocytosis Sodium (137-145) mmol/L Potassium (3.5-5.1) mmol/L Chloride (98-107) mmol/L Carbon Dioxide (22-30) mmol/L BUN (9-20) mg/dL Glucose (74-99) mg/dL POC Glucose (mg/dL) 274 H 278 H (70-110) mg/dL Calcium (8.4-10.2) mg/dL AST (17-59) U/L Total Protein (6.3-8.2) g/dL Albumin (3.5-5.0) g/dL Vitamin B12 (200.0-944.0) pg/mL Microbiology - Last 24 Hours (Table) 01/30/24 22:20 Blood Culture - Preliminary Blood 01/30/24 22:05 Blood Culture - Preliminary Blood Assessment and Plan Assessment: This is a 88-year-old gentleman with history of small cell lung cancer about a year ago's post chemo and radiation therapy, atrial fibrillation status post cardioversion on Eliquis, diabetes that is poorly controlled, peripheral neuropathy, peripheral arterial disease, right neck pain that radiates down who is having weakness in the lower extremity since December 2023 since his prior hospital visit. I will physical therapy was examined him he was standing up at bedside and was very short of breath but was lifting bilateral upper extremity above gravity but could not stand up because of his severe shortness of breath pulse ox was 86% and was complaining of neck pain during the examination. Bilateral lower extremity weakness since December 2023: Unsure exact etiology. On examination patient had antigravity in lower extremities but was complaining of neck pain and was very short of breath. Possible deconditioning from his prior hospital stay in December 2023 and was bed bound with multiple medical issues. He has L1 compression fracture of indeterminate age but doubt this is cause. Cannot rule peripheral neuropathy/plexopathy from uncontrolled diabetes vs ? 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 CK level is not elevated. Right cervical radiculopathy Patient is having right neck pain that radiates down. Patient had MRI of the cervical spine at outside hospital which showed degenerative changes on C5-C6 that the most and MRI was on 10/2023. Hypotensive episode: Unsure exact cause. Unsure if patient has autonomic dysfunction (especially yesterday's episode was at bed resting without exertion) Shortness of breath with exertion Acute kidney insufficiency---improved Macrocytosis but has normal vitamin B12 and folate. Thyroid level is abnormal TSH 12.2. Uncontrolled diabetes mellitus and patient hemoglobin A1c is 9.5 on 12/2023 History of atrial fibrillation with previous cardioversion and is on Eliquis Small cell lung cancer chemotherapy radiation therapy in March 2023 Peripheral arterial disease History of COPD Hypothyroidism Hypertension Hyperlipidemia Obstructive sleep apnea on CPAP Obesity Former tobacco use Plan: Patient had a recent PET scan on 10/14/2023 did not show any evidence of disease recurrence. Orthopedic surgery team is consulted. They stated medical management and no intervention. I will pursue with MRI thoracic and lumbar spine w/ and w/o. 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 Recommend EMG with nerve conduction as an outpatient of the uppers and lowers. Recommend repetitive nerve stimulation of the lowers. Continue to work with physical and Occupational Therapy Nephrology is consulted Oncology is consulted Will Defer the rest of the medical management to primary and other specialist The plan is discussed with patient and ICU team. Time with Patient: Less than 30
[2024-02-02 21:07] LABS: Glucose,Whole Blood 227 mg/dL (70-110)
[2024-02-02] MEDS ORDERED: Potassium Replacement Protocol 1 EACH MISC MISCELLANE PRN (21:37)
--- NOTE | 2024-02-02 23:17 | P.CRDCN ---
History of Present Illness Consult date: 02/02/24 History of present illness: HISTORY OF PRESENTING ILLNESS 78-year-old with PMH of small cell lung cancer s/p chemotherapy and radiation therapy, COPD, prior tobacco user, type 2 diabetes, hypertension, dyslipidemia, hypothyroidism, PAD, paroxysmal atrial fibrillation, TONY on CPAP. He was last hospitalized in December 2023 for hypoxic respiratory failure. At that time he was treated for type II NSTEMI and other comorbidities. His echo showed an EF of 55 to 60%, grade 1 diastolic function, moderate to severe LVH, moderate LA dilatation, mild aortic stenosis. He had labs drawn at his rehab facility which were abnormal and he was advised to get admitted to the hospital. On admission his labs showed hemoglobin 9.2, platelets 63,000, potassium 5.9, bicarb 18, BUN 53, creatinine 1.9. Lactic 5.2. BNP 4900, his troponins are not elevated. Admission ECG showed sinus rhythm with no significant ST-T wave changes diagnostic for ischemia. While inpatient patient had an episode of A-fib RVR which was symptomatic with low blood pressure for which she was cardioverted. Cardiology was consulted for A-fib management. REVIEW OF SYSTEMS 14 point review of system is negative except what is mentioned above in HPI. Patient does complain of neck pain with some pain radiating to his bilateral upper arms. PHYSICAL EXAMINATION Vital signs reviewed. Head: Normocephalic. Eyes: Sclerae nonicteric. Neck: Brisk carotid upstroke, no jugular venous distention. Lungs: Reduced inspiratory effort with reduced air entry bilateral lower lung page Heart: Regular rate and rhythm, S1-S2, systolic murmur audible Abdomen: Soft nontender, positive bowel sounds. Extremities: No edema, intact distal pulses. Neuro: Lethargic, oritented, no focal deficits. Detailed neuro exam was not performed. ASSESSMENT Paroxysmal atrial fibrillation. Episode of symptomatic A-fib while inpatient, s/p synchronized cardioversion. Currently sinus tachycardia Labile blood pressure Bicytopenia with anemia and thrombocytopenia Small cell lung cancer s/p chemoradiation Acute on chronic hypoxic respiratory failure COPD CKD Type 2 diabetes Hypertension Dyslipidemia PAD History of prostate cancer s/p radiation TONY on CPAP PLAN Currently patient is maintained on low-dose norepinephrine. Currently patient is in sinus tachycardia. I will reduce patient's amiodarone to 200 mg daily Because of patient's labile blood pressure, hold metoprolol. Give heart rate above 120 Use midodrine only as needed with SBP less than 90 mmHg Once patient is off norepinephrine, slowly uptitrate beta-sarai. Consider switching to metoprolol succinate 25 mg daily tomorrow Continue Eliquis 5 mg twice daily. Patient does have anemia and thrombocytopenia. Will continue to monitor for any signs of bleeding. Risk of bleeding into stroke risk was discussed with family. Patient and family chose to be on anticoagulation. Casper Gorman MD, FACC, RPVI Thank you for allowing [facility] to participate in this patient's care. Feel free to reach out in case of any followup questions. Past Medical History Past Medical History: Atrial Fibrillation, Asthma, Cancer, Diabetes Mellitus, GERD/Reflux, Hyperlipidemia, Hypertension, Prostate Disorder, Sleep Apnea/CPAP/BIPAP, Thyroid Disorder, Vascular Disorder Additional Past Medical History / Comment(s): DM type II, prostate cancer 2018 with radiation & brachytherapy. kidney stones x1. pseudogout. hx of bowel obstrution with surgery and multiple bowel obstruction since (no surgery). bilateral bifemoral bypass for calcifications (2005). sleep apnea with c-pap machine. hx anemia. Lung cancer with radation tx (last tx 02/08/23), and chemo tx (last 03/04/23). constipation & diarrhea. History of Any Multi-Drug Resistant Organisms: None Reported Past Surgical History: Appendectomy, Bowel Resection, Orthopedic Surgery Additional Past Surgical History / Comment(s): bowel resection, bi-femoral bypass for calcifications, left shoulder surgery, left knee surgery, Loop recorder, bronchoscopy with bx. Past Anesthesia/Blood Transfusion Reactions: Previous Problems w/ Anesthesia Additional Past Anesthesia/Blood Transfusion Reaction / Comment(s): difficulty waking up. Past Psychological History: No Psychological Hx Reported Smoking Status: Former smoker Past Alcohol Use History: None Reported Additional Past Alcohol Use History / Comment(s): quit smoking december 2022, hx of 1 ppd Past Drug Use History: None Reported - Past Family History Father Additional Family Medical History / Comment(s): alzheimers Mother Family Medical History: Renal Disease Additional Family Medical History / Comment(s): kidney failure Medications and Allergies Home Medications Medication Instructions Recorded Confirmed Type Omeprazole 20 mg PO Q48H 11/30/18 01/31/24 History metFORMIN HCL [Glucophage] 1,000 mg PO BID 11/30/18 01/31/24 History Cholecalciferol [Vitamin D3 (125 125 mcg PO DAILY 03/18/23 01/31/24 History Mcg = 5000 Iu)] Albuterol Inhaler [Ventolin Hfa 1 - 2 puff INHALATION RT-Q4H PRN 12/20/23 01/31/24 History Inhaler] Atorvastatin Calcium [Lipitor] 80 mg PO HS 12/20/23 01/31/24 History Budesonide [Pulmicort] 0.5 mg INHALATION RT-BID 12/20/23 01/31/24 History Cyanocobalamin (Vitamin B-12) 1,000 mcg PO DAILY 12/20/23 01/31/24 History [Vitamin B-12] Levothyroxine Sodium [Synthroid] 150 mcg PO DAILY 12/20/23 01/31/24 History Montelukast [Singulair] 10 mg PO HS 12/20/23 01/31/24 History Vitamin E (Dl,Tocopheryl Acet) 400 unit PO DAILY 12/20/23 01/31/24 History [Vitamin E (400 Iu = 180 mg)] allopurinoL [Zyloprim] 100 mg PO HS 12/20/23 01/31/24 History allopurinoL [Zyloprim] 200 mg PO DAILY 12/20/23 01/31/24 History hydrALAZINE HCL [Apresoline] 10 mg PO BID 12/20/23 01/31/24 History lisinopriL 40 mg PO DAILY 12/20/23 01/31/24 History Acetaminophen Tab [Tylenol] 650 mg PO Q6HR PRN tab MDD 4000 mg 01/03/24 01/31/24 Rx Apixaban [Eliquis] 5 mg PO BID tab 01/03/24 01/31/24 Rx Cyclobenzaprine [Flexeril] 10 mg PO Q8HR PRN tab 01/03/24 01/31/24 Rx HYDROcodone/APAP 5-325MG [[place] 1 tab PO Q6HR PRN #4 tab 01/03/24 01/31/24 Rx 5-325] Ipratropium-Albuterol Nebulize 3 ml INHALATION RT-QID each 01/03/24 01/31/24 Rx [Duoneb 0.5 mg-3 mg/3 ml Soln] Isosorbide Mononitrate ER [Imdur] 30 mg PO DAILY tab 01/03/24 01/31/24 Rx Melatonin 5 mg PO HS PRN tab 01/03/24 01/31/24 Rx Tamsulosin [Flomax] 0.4 mg PO PC-BRKFST cap 01/03/24 01/31/24 Rx Amiodarone [Cordarone] 200 mg PO BID 01/31/24 01/31/24 History Ferrous Sulfate [Feosol] 325 mg PO HS 01/31/24 01/31/24 History Furosemide [Lasix] 20 mg PO DAILY 01/31/24 01/31/24 History Furosemide [Lasix] 20 mg PO DAILY PRN 01/31/24 01/31/24 History INSULIN LISPRO (HumaLOG) [humaLOG] See Protocol SQ DAILY 01/31/24 01/31/24 H istory Ibuprofen [Motrin Ib] 200 mg PO Q8H PRN 01/31/24 01/31/24 History Insulin Glargine-Yfgn [Semglee 15 unit SQ BID@0900,1700 01/31/24 01/31/24 History (Yfgn) Pen] Lidocaine 4% Patch 1 patch TOPICAL DAILY 01/31/24 01/31/24 History Loperamide [Imodium] 2 - 4 mg PO Q2H PRN 01/31/24 01/31/24 History Metoprolol Tartrate [Lopressor] 50 mg PO BID 01/31/24 01/31/24 History Potassium Chloride [Klor-Con M10] 10 meq PO DAILY 01/31/24 01/31/24 History Slow-Mag Muscle/Heart 1 tab PO TID@0900,1300,2100 01/31/24 01/31/24 History bisacodyL [Dulcolax] 10 mg RECTAL BID PRN 01/31/24 01/31/24 History guaiFENesin [guaiFENesin Oral 200 mg PO Q4H PRN 01/31/24 01/31/24 History Solution] Allergies Allergy/AdvReac Type Severity Reaction Status Date / Time No Known Allergies Allergy Verified 01/31/24 10:26 Physical Exam Vitals: Vital Signs Temp Pulse Resp BP Pulse Ox FiO2 02/02/24 21:42 93 L 02/02/24 21:03 114 H 02/02/24 20:50 114 H 40 07/03/24 19:30 106 H 21 91/43 90 L 02/02/24 19:15 98 23 88/42 94 L 02/02/24 19:00 98 23 91/38 90 L 02/02/24 18:45 26 H 72/41 91 L 02/02/24 18:30 105 H 30 H 86/40 92 L 02/02/24 18:15 96 31 H 91/41 92 L 02/02/24 18:00 96 28 H 88/45 93 L 02/02/24 17:45 100 32 H 93/40 91 L 02/02/24 17:30 98 26 H 87/43 94 L 02/02/24 17:15 109 H 25 H 71/45 93 L 02/02/24 17:00 106 H 21 87/43 90 L 02/02/24 16:45 105 H 22 74/40 90 L 02/02/24 16:30 105 H 25 H 81/48 93 L 02/02/24 16:29 40 02/02/24 16:15 101 H 25 H 82/41 91 L 02/02/24 16:00 98.5 F 102 H 24 93/51 91 L 02/02/24 15:45 101 H 29 H 83/45 91 L 02/02/24 15:30 101 H 23 92/35 88 L 02/02/24 15:15 105 H 19 89/53 90 L 02/02/24 15:00 106 H 22 102/57 88 L 02/02/24 14:45 107 H 20 96/52 88 L 02/02/24 14:30 112 H 22 90/53 93 L 02/02/24 14:15 106 H 21 103/55 93 L 02/02/24 14:00 111 H 20 100/45 95 40 02/02/24 13:45 111 H 19 105/53 89 L 02/02/24 13:30 112 H 24 104/46 88 L 02/02/24 13:15 107 H 22 113/49 88 L 02/02/24 13:00 104 H 23 102/47 91 L 02/02/24 12:45 109 H 24 111/54 89 L 02/02/24 12:30 111 H 22 94/43 88 L 02/02/24 12:15 112 H 24 103/43 93 L 02/02/24 12:00 98.1 F 111 H 24 96/44 90 L 02/02/24 11:45 102 H 20 102/44 92 L 02/02/24 11:30 103 H 26 H 114/41 94 L 02/02/24 11:15 98 26 H 115/50 94 L 02/02/24 11:13 97 02/02/24 11:03 95 02/02/24 11:02 98 02/02/24 11:00 98 22 124/56 93 L 02/02/24 10:45 96 20 123/54 93 L 02/02/24 10:30 96 20 120/48 92 L 02/02/24 10:15 101 H 24 112/51 88 L 02/02/24 10:00 93 20 99/49 94 L 02/02/24 09:45 93 19 105/49 93 L 02/02/24 09:30 92 20 105/52 93 L 02/02/24 09:15 92 18 100/46 93 L 02/02/24 09:00 91 19 112/49 90 L 02/02/24 08:45 93 21 103/42 94 L 02/02/24 08:30 92 19 106/39 94 L 02/02/24 08:15 93 18 99/42 93 L 02/02/24 08:00 97.6 F 96 19 96/46 94 L 02/02/24 07:45 93 19 101/46 95 02/02/24 07:30 96 22 113/54 91 L 02/02/24 07:15 95 20 104/51 88 L 02/02/24 07:00 87 24 112/46 93 L 02/02/24 06:45 84 16 110/48 92 L 02/02/24 06:30 86 17 106/45 92 L 02/02/24 06:15 84 17 107/49 91 L 02/02/24 06:00 84 17 103/49 94 L 02/02/24 05:45 85 17 106/47 94 L 02/02/24 05:30 84 19 108/49 92 L 02/02/24 05:16 84 16 108/49 93 L 02/02/24 05:00 84 26 H 98/49 93 L 02/02/24 04:45 80 17 103/51 92 L 02/02/24 04:30 81 16 96/46 96 07/03/24 04:15 81 16 108/55 95 02/02/24 04:00 99.2 F 81 22 106/51 94 L 02/02/24 03:45 81 17 90/49 94 L 02/02/24 03:30 82 26 H 113/52 02/02/24 03:15 80 18 100/49 95 02/02/24 03:00 80 14 112/57 96 02/02/24 02:45 81 18 104/52 95 02/02/24 02:30 83 23 112/49 94 L 02/02/24 02:15 81 18 122/51 95 02/02/24 02:00 81 17 122/54 95 02/02/24 01:45 80 16 115/50 95 02/02/24 01:30 80 17 112/52 95 02/02/24 01:15 80 19 109/50 95 02/02/24 01:00 80 16 128/56 95 02/02/24 00:45 81 17 124/57 97 02/02/24 00:40 40 02/02/24 00:30 80 15 135/56 97 02/02/24 00:15 77 16 124/53 96 02/02/24 00:05 78 17 124/53 96 02/02/24 00:00 99.0 F 78 16 123/56 95 40 02/01/24 23:45 78 16 124/54 95 02/01/24 23:30 79 16 124/50 Intake and Output 02/02/24 02/02/24 02/03/24 14:59 22:59 06:59 Intake Total 329.261 205.933 Output Total 1570 150 Balance -1240.739 55.933 Intake: IV 190 150 KVO 90 50 Piperacillin-Tazobactam 3 100 100 .375 gm In Sodium Chloride 0.9% 100 ml @ 25 mls/hr IVPB Q8HR [facility] Rx# :[id number] Intake, IV Titration 139.261 55.933 Amount Norepinephrine 4 mg In 139.261 55.933 Sodium Chloride 0.9% 250 ml @ 0.03 MCG/KG/MIN 13. 773 mls/hr IV .[id number] [facility] Rx#:[id number] Output: Urine 1570 150 Other: Voiding Method Indwelling Catheter Indwelling Catheter Results 02/02/24 07:00 02/02/24 20:30 Cardiac Enzymes 02/02/24 Range/Units 07:00 AST 12 L (17-59) U/L CBC 02/02/24 Range/Units 07:00 WBC 5.3 (3.8-10.6) k/uL RBC 2.44 L (4.30-5.90) m/uL Hgb 8.0 L (13.0-17.5) gm/dL Hct 25.8 L (39.0-53.0) % Plt Count 62 L (150-450) k/uL Comprehensive Metabolic Panel 02/02/24 02/02/24 02/02/24 Range/Units 07:00 14:20 20:30 Sodium 136 L (137-145) mmol/L Potassium 3.4 L 3.5 3.7 (3.5-5.1) mmol/L Chloride 111 H (98-107) mmol/L Carbon Dioxide 19 L (22-30) mmol/L BUN 26 H (9-20) mg/dL Creatinine 1.20 (0.66-1.25) mg/dL Glucose 123 H (74-99) mg/dL Calcium 7.8 L (8.4-10.2) mg/dL AST 12 L (17-59) U/L ALT 15 (4-49) U/L Alkaline Phosphatase 59 (38-126) U/L Total Protein 4.7 L (6.3-8.2) g/dL Albumin 2.6 L (3.5-5.0) g/dL Current Medications Generic Name Dose Route Start Last Admin Trade Name Freq PRN Reason Stop Dose Admin Hydrocodone Bitart/Acetaminophen 1 each 01/31/24 01:24 02/02/24 12:27 Hydrocodone/Apap 5-325mg 1 Each Tab PO 1 each Q6HR PRN Administration Pain Albuterol Sulfate 2.5 mg 01/31/24 13:31 Albuterol Nebulized 2.5 Mg/3 Ml INHALATION RT-Q4H PRN Shortness Of Breath Albuterol/Ipratropium 3 ml 01/31/24 08:00 02/02/24 20:49 Ipratropium-Albuterol 3 Ml Neb INHALATION 3 ml RT-QID TENA Administration Amiodarone HCl 200 mg 01/31/24 21:00 02/02/24 21:26 Amiodarone 200 Mg Tab PO 200 mg BID TENA Administration Amiodarone HCl 200 mg 02/03/24 09:00 Amiodarone 200 Mg Tab PO DAILY TENA Apixaban 5 mg 02/02/24 09:45 02/02/24 21:26 Apixaban 5 Mg Tab PO 5 mg BID TENA Administration Protocol Atorvastatin Calcium 80 mg 01/31/24 21:00 02/02/24 21:26 Atorvastatin 80 Mg Tab PO 80 mg HS TENA Administration Budesonide 0.5 mg 01/31/24 08:00 02/02/24 20:49 Budesonide 0.5 Mg/2 Ml Nebu INHALATION 0.5 mg RT-BID TENA Administration Dextrose/Water 25 ml 02/01/24 19:07 Dextrose 50% Syringe 50 Ml IVP PER PROTOCOL PRN Hypoglycemia Protocol Dextrose/Water 50 ml 02/01/24 19:07 Dextrose 50% Syringe 50 Ml IVP PER PROTOCOL PRN Hypoglycemia Protocol Piperacillin Sod/Tazobactam 100 mls @ 25 mls/hr 01/31/24 00:00 02/02/24 15:45 Sod 3.375 gm/ Sodium Chloride IVPB 25 mls/hr Q8HR TENA Administration Protocol Norepinephrine Bitartrate 4 mg 254 mls @ 13.773 mls/hr 02/01/24 17:30 02/02/24 20:45 / Sodium Chloride IV 0.05 mcg/kg/min .[id number] TENA 22.955 mls/hr Titration Protocol 0.03 MCG/KG/MIN Insulin Aspart 0 unit 02/01/24 21:00 02/02/24 21:45 Insulin Aspart (Novolog) 100 Unit/Ml Vial SQ 4 unit ACHS TENA Administration Protocol Insulin Detemir 15 unit 01/31/24 17:00 02/02/24 18:13 Insulin Detemir (Levemir) 100 Unit/Ml Syr SQ 15 unit BID@0900,1700 TENA Administration Levothyroxine Sodium 150 mcg 02/01/24 06:30 02/02/24 06:54 Levothyroxine 75 Mcg Tab PO 150 mcg 0630 TENA Administration Metoprolol Tartrate 25 mg 02/01/24 21:00 02/02/24 20:49 Metoprolol Tartrate 25 Mg Tab PO Not Given BID TENA Midodrine 10 mg 02/02/24 12:20 02/02/24 16:36 Midodrine 5 Mg Tab PO 10 mg AC-TID PRN Administration Blood Pressure - Low Miscellaneous Information 1 each 02/01/24 17:48 Potassium Replacement Protocol 1 Each Mis MISCELLANE DAILY PRN Per Protocol Protocol Miscellaneous Information 1 each 02/01/24 17:48 Magnesium Replacement Protocol 1 Each [facility] [place] PRN Per Protocol Protocol Miscellaneous Information 1 each 02/02/24 21:37 Potassium Replacement Protocol 1 Each [facility] PRN Per Protocol Protocol Montelukast Sodium 10 mg 01/31/24 21:00 02/02/24 21:26 Montelukast 10 Mg Tab PO 10 mg HS TENA Administration Morphine Sulfate 4 mg 01/30/24 20:37 02/02/24 20:55 Morphine Sulfate 4 Mg/Ml Syringe IV 4 mg Q4HR PRN Administration Severe Pain (Scale 7 to 10) Naloxone HCl 0.2 mg 01/30/24 20:37 Naloxone 0.4 Mg/Ml 1 Ml Vial IV Q2M PRN Opioid Reversal Ondansetron HCl 4 mg 01/30/24 20:37 02/01/24 06:24 Ondansetron 4 Mg/2 Ml Vial IVP 4 mg Q8HR PRN Administration Nausea And Vomiting Pantoprazole Sodium 40 mg 02/01/24 07:30 02/02/24 06:54 Pantoprazole 40 Mg Tablet PO 40 mg AC-BRKFST TENA Administration Petrolatum 1 applic 01/31/24 16:03 Zinc Oxide Paste (Z-Guard) 1 Applic TOPICAL BID PRN Wound Healing Protocol Sodium Bicarbonate 650 mg 01/31/24 10:45 02/02/24 21:26 Sodium Bicarbonate Tab 650 Mg Tab PO 650 mg BID TENA Administration Tamsulosin HCl 0.4 mg 01/31/24 10:45 02/02/24 08:44 Tamsulosin 0.4 Mg Cap.Er.24h PO 0.4 mg PC-BRKFST TENA Administration Vitamin E 400 unit 02/01/24 09:00 02/02/24 08:43 Vitamin E (Dl,Tocopheryl Acet) 400 Unit (180 Mg) Cap PO 400 unit DAILY TENA Administration Intake and Output 02/02/24 02/02/24 02/03/24 14:59 22:59 06:59 Intake Total 329.261 205.933 Output Total 1570 150 Balance -1240.739 55.933 Intake: IV 190 150 KVO 90 50 Piperacillin-Tazobactam 3 100 100 .375 gm In Sodium Chloride 0.9% 100 ml @ 25 mls/hr IVPB Q8HR [facility] Rx# :[id number] Intake, IV Titration 139.261 55.933 Amount Norepinephrine 4 mg In 139.261 55.933 Sodium Chloride 0.9% 250 ml @ 0.03 MCG/KG/MIN 13. 773 mls/hr IV .[id number] [facility] Rx#:[id number] Output: Urine 1570 150 Other: Voiding Method Indwelling Catheter Indwelling Catheter 02/02/24 07:00 02/02/24 20:30
[2024-02-03 01:31] LABS: African American GFR (CKD) 47 (>60 ml/min/1.73 sqM); Anion Gap 12 mmol/L; Blood Urea Nitrogen 30 mg/dL (9-20); Calcium 8.6 mg/dL (8.4-10.2); Carbon Dioxide 14 mmol/L (22-30); Chloride 108 mmol/L (98-107); Glucose 246 mg/dL (74-99); Magnesium 1.5 mg/dL (1.6-2.3); Non-African American GFR(CKD) 40 (>60 ml/min/1.73 sqM); Potassium 4.4 mmol/L (3.5-5.1); Sodium 134 mmol/L (137-145)
[2024-02-03] MEDS ORDERED: Magnesium Replacement Protocol 1 EACH MISC MISCELLANE PRN (01:45)
[2024-02-03] MEDS: MAGNESIUM SULFATE-D5W PMX 1 GM in DEXTROSE/WATER 1 100ML.BAG IVPB SCH (01:56)
[2024-02-03] MEDS: VASOPRESSIN 20 UNIT in SODIUM CHLORIDE 0.9% 50 ML IV SCH (02:05)
[2024-02-03 02:09] LABS: ABG Base Excess -6.3 mmol/L; ABG HCO3 19 mmol/L (21-25); ABG Oxygen Saturation 95.2 % (94-97); ABG PCO2 33 mmHg (35-45); ABG PH 7.36 (7.35-7.45); ABG PO2 75 mmHg (83-108); ABG TCO2 20 mmol/L (19-24); Allen Test Performed? Yes
[2024-02-03] MEDS ORDERED: NOREPINEPHRINE 8 MG in SODIUM CHLORIDE 0.9% 250 ML IV SCH (02:30)
[2024-02-03] MEDS: NOREPINEPHRINE 4 MG in SODIUM CHLORIDE 0.9% 250 ML IV SCH (02:36)
[2024-02-03] MEDS: DEXTROSE 5% IN WATER 100 ML with AMIODARONE 150 MG IV ONE (03:13)
[2024-02-03 03:42] LABS: Anisocytosis Slight; Basophils % (A) 0 %; Eosinophils # (A) 0.1 k/uL (0-0.7); Eosinophils % (A) 1 %; HCT 26.6 % (39.0-53.0); HGB 8.3 gm/dL (13.0-17.5); Hypochromasia Moderate; Lymphocytes # (A) 0.2 k/uL (1.0-4.8); Lymphocytes % (A) 4 %; MCH 32.3 pg (25.0-35.0); MCHC 31.2 g/dL (31.0-37.0); MCV 103.4 fL (80.0-100.0); Macrocytosis Moderate; Monocytes # (A) 0.6 k/uL (0-1.0); Monocytes % (A) 13 %; Neutrophils # (A) 4.1 k/uL (1.3-7.7); Neutrophils % (A) 79 %; Poikilocytosis Slight; RBC 2.58 m/uL (4.30-5.90); RDW 19.1 % (11.5-15.5); WBC 5.1 k/uL (3.8-10.6)
[2024-02-03 03:54] LABS: Platelet Count 62 k/uL (150-450)
[2024-02-03 04:09] LABS: African American GFR (CKD) 48 (>60 ml/min/1.73 sqM); Anion Gap 9 mmol/L; Blood Urea Nitrogen 30 mg/dL (9-20); Calcium 8.6 mg/dL (8.4-10.2); Carbon Dioxide 16 mmol/L (22-30); Chloride 109 mmol/L (98-107); Glucose 246 mg/dL (74-99); Non-African American GFR(CKD) 42 (>60 ml/min/1.73 sqM); Potassium 4.4 mmol/L (3.5-5.1); Sodium 134 mmol/L (137-145)
[2024-02-03 06:49] LABS: Glucose,Whole Blood 288 mg/dL (70-110)
--- NOTE | 2024-02-03 07:50 | XR ---
EXAMINATION TYPE: XR chest 1V portable DATE OF EXAM: 02/03/2024 5:21 AM CLINICAL INDICATION:Male, 78 years old with history of increased oxygen demands; H COMPARISON: Chest radiograph from one day prior. TECHNIQUE: XR chest 1V portable Frontal view of the chest. FINDINGS: Lungs/Pleura: Similar multifocal airspace opacities. No evidence of pneumothorax or pleural effusion. Pulmonary vascularity: Unremarkable. Heart/mediastinum: Cardiomediastinal silhouette is prominent in size. Musculoskeletal: No acute osseous pathology. IMPRESSION: Similar multifocal airspace opacities.
[2024-02-03] MEDS: SODIUM CHLORIDE 0.9% 1,000 ML IV ONE ×2 (10:00→12:53)
[2024-02-03] MEDS: AMIODARONE 200 MG TAB PO SCH (10:37)
[2024-02-03] MEDS: TERBUTALINE 1 MG/ML VIAL SQ ONE (10:38)
--- NOTE | 2024-02-03 10:54 | XR ---
EXAMINATION TYPE: XR chest 1V portable DATE OF EXAM: 02/03/2024 10:34 AM CLINICAL INDICATION:Male, 78 years old with history of post central line insertion; [facility] COMPARISON: Chest radiographs from same day. TECHNIQUE: XR chest 1V portable Frontal view of the chest. FINDINGS: Lungs/Pleura: Prominent interstitial lung markings are seen scattered throughout the lungs. No eviden ce of focal consolidation, pneumothorax or pleural effusion. Pulmonary vascularity: Pulmonary vascular congestion. Heart/mediastinum: Cardiomediastinal silhouette is enlarged and stable. Musculoskeletal: No acute osseous pathology. Other findings: None Lines/Tubes: Left internal jugular central venous catheter with distal tip at the cavoatrial junction. IMPRESSION: Chronic interstitial changes with suspected superimposed Cardiomegaly and mild pulmonary vascular con gestion. Correlate with BNP for congestive heart failure.
[2024-02-03 12:00] LABS: Glucose,Whole Blood 232 mg/dL (70-110)
--- NOTE | 2024-02-03 12:51 | P.PN ---
Subjective Progress Note Date: 02/03/24 Patient is a 78-year-old white male with past medical history significant for small cell lung cancer status/post chemoradiation, COPD, former tobacco smoker, diabetes mellitus, hypertension, hypothyroidism, hypertension, hyperlipidemia, obesity, peripheral arterial disease, atrial fibrillation with previous cardioversion, chronically anticoagulant Eliquis, obstructive sleep apnea with home CPAP, among other comorbidities. Patient reportedly had some abnormal labs, and was sent in from his rehab facility at [facility] for evaluation. Patient's primary complaint is posterior neck pain that is worse when sitting up in bed. Denies any radiculopathy like symptoms. No upper extremity weakness. States that he is currently seeing a chiropractor outpatient. Admits significant bilateral lower extremity weakness, and he can no longer walk without a lot of assistance. States that he is limited in what he can do at rehab at [facility]. Patient denies any worsening of his chronic shortness of breath. Denies any fevers, coughing, sputum production, hemoptysis, chest pain. States his breathing is actually improved since his most recent hospitalization. He chronically wears 3 L of home oxygen. Of note, he had a recent hospitalization December 2023 for suspected COPD exacerbation. While inpatient, patient had an episode of symptomatic A-fib RVR, and is status post successful cardioversion. He is anticoagulated on Eliquis. Echocardiogram done this previous admission estimates a preserved left ventricular ejection fraction of 55 to 60% as well as moderate to severe LVH, as well as mild valvular heart disease. Chest x-ray shows cardiomegaly with increased reticular and reticulonodular opacities consistent with edema and/or infiltrates bilaterally. There is a chronic right suprahilar consolidation/posttreatment changes. Patient does have history of small cell lung cancer and has underwent previous chemoradiation. Most recent PET scan done 10/15/2023 did not show any evidence of disease recurrence. Patient was empirically placed on Zosyn in the emergency department. CBC: WBC count 7.9, hemoglobin 9.2, hematocrit 28.4, platelets 63,000. CMP: Sodium 135, potassium 5.9, chloride 111, serum bicarb 18, BUN 53, creatinine 1.92, glucose 107. Lactic acid level 2.5. Troponin less than 0.012. NT proBNP 4910. EKG demonstrating sinus rhythm with a rate of 74 bpm, no obvious acute ischemic changes. Afebrile. Vital signs are stable. 02/01/2024, the patient is resting comfortably in bed. No significant respiratory distress. The patient to be seen by neurology and spine surgery regarding his ongoing weakness in lower extremities. CT scan of the brain was done on 01/31/2024 revealing no acute abnormalities. There is some senescent changes and there is no mass effect or stroke. CAT scan of the lumbar and the cervical spine was done. Lumbar spine showed evidence of mild superior endplate compression fracture of L1 without retropulsion. There was also no lumbar disc herniation, mild spinal stenosis at level of L4-5 and neuroforaminal foraminal stenosis at the level of L5-S1. CT scan of the cervical spine was also done that showed moderate multilevel spondylotic changes. Grade 1 anterolisthesis at the level of C4-C5 and variable bony neural foraminal narrowing. The patient's white cell count at 6.7 with a hemoglobin 8.5 and the patient remains on 4 L of oxygen by nasal cannula with a pulse ox of 100%. Remains on same medication. Empiric antibiotic coverage with IV Zosyn. Blood cultures have been negative thus far. On 02/02/2024, the patient is being seen in follow-up in the intensive care unit. Noted the patient encountered an episode of hypotension yesterday. The critical care team saw the patient on the medical floor. The patient was given a total of 2 L of IV fluids and following that, the patient continued to be hypotensive and the patient and transferred to the intensive care unit and started on pressors. The patient is currently on norepinephrine running at 0.03 mcg/kg/min. He is on 6 L of oxygen by nasal cannula with a pulse ox of 99%. Blood pressure has improved. He is on normal saline at rate of 20 cc an hour. Chest x-ray findings remain unchanged. No respiratory distress. Mental status remained stable and unchanged. The blood work from today shows a white cell count of 5.3 with a hemoglobin of 8 and a platelet count of 62. BUN is 26 and creatinine is 1.2 and sodium levels at 136. The repeat chest x-ray from today shows ongoing stable consolidation perihilar right more than left, and is known to have history of history of lung cancer and previous radiation therapy to the chest. LFTs are normal. Remains profoundly weak. Being seen by neurology and spine surgery. Diuretics were placed on hold. On today's evaluation of 02/03/2024, the patient is being seen for a follow-up. The patient is currently on 10 L of oxygen by nasal cannula. Awake and alert and communicating. Complaining of diffuse bodyaches. Complaining of generalized weakness. No overt or obvious signs of any respiratory distress. No other issue is paroxysmal atrial fibrillation with rapid ventricular response. The patient was given a bolus of amiodarone overnight by cardiology. He is currently cardiac rhythm is back to sinus. He remains on amiodarone 200 mg p.o. daily. He is also on metoprolol p.o. twice daily. Meanwhile, the patient is also having episodes of hypotension. There earlier this morning, the patient was on a norepinephrine running at 0.08 mcg/kg/min and vasopressin physiologic dose. Urine output is low in the order of 10 cc an hour. The patient remains on IV Zosyn. He is using the AVAPS more than mechanical ventilation overnight with a target tidal volume of 600. He is currently on normal saline at rate of 50 cc an hour. Remains on anticoagulation with Eliquis 5 mg p.o. twice daily. Chest x-ray findings from today are essentially unchanged and there is cardiomegaly and mild pulm venous congestion. The most recent echocardiogram of this patient from 12/20/2023 showed a preserved LV function with an ejection fraction of 55 to 60%. He has moderate to severe left ventricular wall thickness and some mild aortic stenosis and mild tricuspid regurgitation. The white cell count of 5.1, hemoglobin is at 8.3. Platelet count is 62. BUN is at 30 with a creatinine 1.68 and a sodium of is at 134 and the potassium is at 4.4. Objective - Vital Signs Vital signs: Vital Signs Temp 98.0 F 02/03/24 04:00 Pulse 80 02/03/24 07:15 Resp 24 02/03/24 07:15 BP 112/73 02/03/24 07:15 Pulse Ox 93 L 02/03/24 07:15 FiO2 50 02/03/24 04:00 Intake & Output 02/02/24 02/03/24 02/03/24 18:59 06:59 18:59 Intake Total 494.970 951.927 50.691 Output Total 1690 454 25 Balance -1195.030 497.927 25.691 Weight 124.5 kg Intake: IV 330 415 KVO 130 90 Magnesium Sulfate-D5w Pmx 200 1 gm In Dextrose/Water 1 100ml.bag @ 100 mls/hr IVPB Q1H TENA Rx#: [id number] Piperacillin-Tazobactam 3 200 125 .375 gm In Sodium Chloride 0.9% 100 ml @ 25 mls/hr IVPB Q8HR TENA Rx# :[id number] Intake, IV Titration 164.970 536.927 50.691 Amount Norepinephrine 4 mg In 164.970 333.618 Sodium Chloride 0.9% 250 ml @ 0.03 MCG/KG/MIN 13. 773 mls/hr IV .[id number] TENA Rx#:[id number] Norepinephrine 4 mg In 203.309 50.691 Sodium Chloride 0.9% 250 ml @ 0.03 MCG/KG/MIN 13. 967 mls/hr IV .[id number] TENA Rx#:[id number] Output: Urine 1690 254 25 Emesis 200 Other: Voiding Method Indwelling Catheter Indwelling Catheter - Exam GENERAL EXAM: Alert, 78-year-old white male, comfortable in no apparent distre ss., Currently on 10 L of oxygen by nasal cannula with a pulse ox of 99% HEAD: Normocephalic and atraumatic EYES: Normal reaction of pupils, equal size. NOSE: Clear with pink turbinates. THROAT: No erythema or exudates. NECK: No masses, no JVD. CHEST: No chest wall deformity. LUNGS: Equal air entry with bibasilar inspiratory crackles. . No conversational dyspnea or accessory muscle use.. CVS: S1 and S2 normal with soft systolic murmur, regular rhythm. No extra heart sounds ABDOMEN: No hepatosplenomegaly, active bowel sounds, no guarding or rigidity. SPINE: No scoliosis or deformity SKIN: No rashes CENTRAL NERVOUS SYSTEM: No focal deficits, tone is normal in all 4 extremities. EXTREMITIES: There is no peripheral edema, clubbing, or cyanosis. Peripheral pulses are intact. - Labs CBC & Chem 7: 02/03/24 03:14 02/03/24 03:14 Labs: Abnormal Lab Results - Last 24 Hours (Table) 02/02/24 02/02/24 02/02/24 Range/Units 11:31 16:09 21:06 RBC (4.30-5.90) m/uL Hgb (13.0-17.5) gm/dL Hct (39.0-53.0) % MCV (80.0-100.0) fL RDW (11.5-15.5) % Plt Count (150-450) k/uL Lymphocytes # (1.0-4.8) k/uL ABG pCO2 (35-45) mmHg ABG pO2 (83-108) mmHg ABG HCO3 (21-25) mmol/L Sodium (137-145) mmol/L Chloride (98-107) mmol/L Carbon Dioxide (22-30) mmol/L BUN (9-20) mg/dL Creatinine (0.66-1.25) mg/dL Glucose (74-99) mg/dL POC Glucose (mg/dL) 274 H 278 H 227 H (70-110) mg/dL Plasma Lactic Acid Pantera (0.7-2.0) mmol/L Magnesium (1.6-2.3) mg/dL 02/03/24 02/03/24 02/03/24 Range/Units 00:41 00:41 02:07 RBC (4.30-5.90) m/uL Hgb (13.0-17.5) gm/dL Hct (39.0-53.0) % MCV (80.0-100.0) fL RDW (11.5-15.5) % Plt Count (150-450) k/uL Lymphocytes # (1.0-4.8) k/uL ABG pCO2 33 L (35-45) mmHg ABG pO2 75 L (83-108) mmHg ABG HCO3 19 L (21-25) mmol/L Sodium 134 L (137-145) mmol/L Chloride 108 H (98-107) mmol/L Carbon Dioxide 14 L (22-30) mmol/L BUN 30 H (9-20) mg/dL Creatinine 1.62 H (0.66-1.25) mg/dL Glucose 246 H (74-99) mg/dL POC Glucose (mg/dL) (70-110) mg/dL Plasma Lactic Acid Pantera 4.4 H* (0.7-2.0) mmol/L Magnesium 1.5 L (1.6-2.3) mg/dL 02/03/24 02/03/24 02/03/24 Range/Units 03:14 03:14 06:47 RBC 2.58 L (4.30-5.90) m/uL Hgb 8.3 L (13.0-17.5) gm/dL Hct 26.6 L (39.0-53.0) % MCV 103.4 H (80.0-100.0) fL RDW 19.1 H (11.5-15.5) % Plt Count 62 L (150-450) k/uL Lymphocytes # 0.2 L (1.0-4.8) k/uL ABG pCO2 (35-45) mmHg ABG pO2 (83-108) mmHg ABG HCO3 (21-25) mmol/L Sodium 134 L (137-145) mmol/L Chloride 109 H (98-107) mmol/L Carbon Dioxide 16 L (22-30) mmol/L BUN 30 H (9-20) mg/dL Creatinine 1.58 H (0.66-1.25) mg/dL Glucose 246 H (74-99) mg/dL POC Glucose (mg/dL) 288 H (70-110) mg/dL Plasma Lactic Acid Pantera (0.7-2.0) mmol/L Magnesium (1.6-2.3) mg/dL Microbiology - Last 24 Hours (Table) 01/30/24 22:20 Blood Culture - Preliminary Blood 01/30/24 22:05 Blood Culture - Preliminary Blood Assessment and Plan Assessment: Acute on chronic hypoxemic respiratory failure, currently on 10L/min nasal cannula, possibly secondary to an exacerbation of diastolic congestive heart failure, Chest x-ray shows cardiomegaly with increased reticular and reticulonodular opacities consistent with edema and/or infiltrates bilaterally. There are chronic posttreatment changes in the right lung. Echocardiogram done on a recent previous admission estimates a preserved left ventricular ejection fraction of 55 to 60% as well as moderate to severe LVH, as well as, mild valvular heart disease. Based on my opinion, the chest x-ray findings are stab le consistent with radiation pneumonitis in the right perihilar area. Chronic obstructive pulmonary disease, stable, remains stable on oxygen History of small cell lung cancer, status post chemo/radiation, follows up outpatient with oncologist. Most recent PET scan done 10/15/2023 did not show any evidence of disease recurrence. Chronic hypoxemic respiratory failure, secondary to above Hypertension , triple-lumen catheter inserted and the patient is being given IV fluids and pressors. Acute on chronic kidney disease, renal function is stable and the creatinine is improved and currently at 1.58. Hyperkalemia, secondary to above, treated with a dose of Lokelma by nephrology who is managing Bicytopenia, with thrombocytopenia and anemia, no overt signs of acute blood loss History of paroxysmal atrial fibrillation, status post previous cardioversion, overnight the patient had another episode of A-fib RVR and currently is on amiodarone 4 mg p.o. daily metoprolol and the patient remains on anticoagulation with Eliquis. Diabetes mellitus type 2 Hypertension History of hyperlipidemia History of hypothyroidism History of peripheral arterial disease History of prostate cancer status post radiation History of urinary retention Obstructive sleep apnea with home CPAP Obesity, with a BMI of 33.5 kg/m Former tobacco dependence, quit smoking December 2022 Chronic stage III kidney disease Profound motor weakness in lower extremities, unable to ambulate, awaiting final recommendations from neurology and spine surgery. Plan: Currently on 10 L/min nasal cannula, may wean to maintain oxygen saturation of 90% or greater Chest x-ray findings remain unchanged AVAPS with a target volume of 600 overnight Discontinue Lasix Wean off pressors Triple-lumen catheter was inserted Check CVP Titrate pressors as needed Patient was empirically placed on Zosyn in the emergency department, procalcitonin level is at 0.13 and the viral screen has been negative. COPD seems stable on my evaluation, continue maintenance DuoNebs [id number] and budesonide inhalation Mental status is stable. Respiratory status remained stable. No clear signs of any infection for now. Chest x-ray findings are consistent with postradiation changes in the right lung and an underlying pneumonia is doubtful. Will continue to follow. Overall prognosis poor based on above-mentioned comorbidities. Evaluation was done more than 30 minutes. Time with Patient: Greater than 30
--- NOTE | 2024-02-03 12:52 | P.PCN ---
Date of Procedure: 02/03/24 Preoperative Diagnosis: Hypotension Postoperative Diagnosis: Hypotension Procedure(s) Performed: Central line Anesthesia: local Surgeon: Frankie Carter Estimated Blood Loss (ml): 0 Pathology: none sent Condition: critical Disposition: ICU Operative Findings: Central line insertion [facility] Central Line Insertion Practices form was completed starting with the first handwash prior to starting sterile technique. A time out was performed. My hands were washed immediately prior to the procedure. I wore a surgical cap, mask with protective eyewear, full gown and sterile gloves throughout the procedure. The patient was placed in Trendelenburg position. Left chest region was prepped using chlorhexidine scrub and draped in sterile fashion using a full drape and sterile probe cover and sterile gel employed. The medial and lateral heads of the sternocleidomastoid muscle were identified as was the carotid pulse. The introducer needle was inserted into the left subclavian vein under direct ultrasound visualization. Venous blood was withdrawn. The syringe was removed and a guidewire was advanced into the introducer needle. A small incision was made at the skin surface with a scalpel and the introducer needle was exchanged for a dilator over the guidewire. After appropriate dilation was obtained, the dilator was exchanged over the wire for a central venous catheter. The patient tolerated the procedure without any hemodynamic compromise. At time of procedure completion, all ports aspirated and flushed properly. Post-procedure chest x-ray is pending at this time. Estimated blood loss is 0
--- NOTE | 2024-02-03 13:28 | P.PN ---
Subjective Progress Note Date: 02/03/24 Patient is seen in follow-up for acute kidney injury on chronic kidney disease. Patient has chronic kidney disease stage IIIb with baseline creatinine 1.3-1.5. Renal function at baseline. Has Michelle catheter for urinary retention. Nonoliguric. Denies chest pain or shortness of breath. On Levophed. Was transferred to the ICU due to hypotension. Patient and family contemplating hospice. Vital signs are stable. General: No acute distress. HEENT: Head exam is unremarkable. LUNGS: No audible rhonchi or wheezes. HEART: Rate and Rhythm are regular. ABDOMEN: Nontender. EXTREMITITES: Trace edema. Objective - Vital Signs Vital signs: Vital Signs Temp 98.0 F 02/03/24 04:00 Pulse 80 02/03/24 07:15 Resp 24 02/03/24 07:15 BP 112/73 02/03/24 07:15 Pulse Ox 93 L 02/03/24 07:15 FiO2 50 02/03/24 04:00 Intake & Output 02/02/24 02/03/24 02/03/24 18:59 06:59 18:59 Intake Total 494.970 951.927 89.783 Output Total 1690 454 25 Balance -1195.030 497.927 64.783 Weight 124.5 kg Intake: IV 330 415 KVO 130 90 Magnesium Sulfate-D5w Pmx 200 1 gm In Dextrose/Water 1 100ml.bag @ 100 mls/hr IVPB Q1H TENA Rx#: [id number] Piperacillin-Tazobactam 3 200 125 .375 gm In Sodium Chloride 0.9% 100 ml @ 25 mls/hr IVPB Q8HR TENA Rx# :[id number] Intake, IV Titration 164.970 536.927 89.783 Amount Norepinephrine 4 mg In 164.970 333.618 Sodium Chloride 0.9% 250 ml @ 0.03 MCG/KG/MIN 13. 773 mls/hr IV .[id number] TENA Rx#:[id number] Norepinephrine 4 mg In 203.309 50.691 Sodium Chloride 0.9% 250 ml @ 0.03 MCG/KG/MIN 13. 967 mls/hr IV .[id number] TENA Rx#:[id number] Vasopressin 20 unit In 39.092 Sodium Chloride 0.9% 50 ml @ 0.03 UNITS/MIN 4.59 mls/hr IV .[id number] [facility] Rx# :[id number] Output: Urine 1690 254 25 Emesis 200 Other: Voiding Method Indwelling Catheter Indwelling Catheter - Labs CBC & Chem 7: 02/03/24 03:14 02/03/24 03:14 Labs: Abnormal Lab Results - Last 24 Hours (Table) 02/02/24 02/02/24 02/03/24 Range/Units 16:09 21:06 00:41 RBC (4.30-5.90) m/uL Hgb (13.0-17.5) gm/dL Hct (39.0-53.0) % MCV (80.0-100.0) fL RDW (11.5-15.5) % Plt Count (150-450) k/uL Lymphocytes # (1.0-4.8) k/uL ABG pCO2 (35-45) mmHg ABG pO2 (83-108) mmHg ABG HCO3 (21-25) mmol/L Sodium 134 L (137-145) mmol/L Chloride 108 H (98-107) mmol/L Carbon Dioxide 14 L (22-30) mmol/L BUN 30 H (9-20) mg/dL Creatinine 1.62 H (0.66-1.25) mg/dL Glucose 246 H (74-99) mg/dL POC Glucose (mg/dL) 278 H 227 H (70-110) mg/dL Plasma Lactic Acid Pantera (0.7-2.0) mmol/L Magnesium 1.5 L (1.6-2.3) mg/dL 02/03/24 02/03/24 02/03/24 Range/Units 00:41 02:07 03:14 RBC 2.58 L (4.30-5.90) m/uL Hgb 8.3 L (13.0-17.5) gm/dL Hct 26.6 L (39.0-53.0) % MCV 103.4 H (80.0-100.0) fL RDW 19.1 H (11.5-15.5) % Plt Count 62 L (150-450) k/uL Lymphocytes # 0.2 L (1.0-4.8) k/uL ABG pCO2 33 L (35-45) mmHg ABG pO2 75 L (83-108) mmHg ABG HCO3 19 L (21-25) mmol/L Sodium (137-145) mmol/L Chloride (98-107) mmol/L Carbon Dioxide (22-30) mmol/L BUN (9-20) mg/dL Creatinine (0.66-1.25) mg/dL Glucose (74-99) mg/dL POC Glucose (mg/dL) (70-110) mg/dL Plasma Lactic Acid Pantera 4.4 H* (0.7-2.0) mmol/L Magnesium (1.6-2.3) mg/dL 02/03/24 02/03/24 Range/Units 03:14 06:47 RBC (4.30-5.90) m/uL Hgb (13.0-17.5) gm/dL Hct (39.0-53.0) % MCV (80.0-100.0) fL RDW (11.5-15.5) % Plt Count (150-450) k/uL Lymphocytes # (1.0-4.8) k/uL ABG pCO2 (35-45) mmHg ABG pO2 (83-108) mmHg ABG HCO3 (21-25) mmol/L Sodium 134 L (137-145) mmol/L Chloride 109 H (98-107) mmol/L Carbon Dioxide 16 L (22-30) mmol/L BUN 30 H (9-20) mg/dL Creatinine 1.58 H (0.66-1.25) mg/dL Glucose 246 H (74-99) mg/dL POC Glucose (mg/dL) 288 H (70-110) mg/dL Plasma Lactic Acid Pantera (0.7-2.0) mmol/L Magnesium (1.6-2.3) mg/dL Microbiology - Last 24 Hours (Table) 01/30/24 22:20 Blood Culture - Preliminary Blood 01/30/24 22:05 Blood Culture - Preliminary Blood Assessment and Plan Assessment: 1. Acute kidney injury secondary to urinary retention and component of cardiorenal syndrome. Creatinine 1.9 on admission and stable at 1.6 today. No proteinuria on UA. No hydronephrosis noted on kidney ultrasound. 2. Chronic kidney disease stage IIIb with baseline creatinine 1.3-1.5 secondary to nephrosclerosis. 3. Acute on chronic diastolic CHF. 4. Hyperkalemia secondary to acute kidney injury, urinary retention and acidosis. Improved. Now hypokalemic from diuresis. 5. Urinary retention. Has Michelle catheter. On Flomax. 6. Diabetes mellitus. 7. Anemia of chronic kidney disease. Rule out iron deficiency. Also noted to be thrombocytopenic. Oncology following. 8. History of small cell lung cancer status post chemo and radiation. 9. Metabolic acidosis secondary to acute kidney injury and IV fluids. On oral bicarb. Stable. 10. Shock maintained on Levophed. 11. Hypomagnesemia from poor intake and diuresis. Replaced. Better. Plan: Hold Lasix. Wean Levophed and vasopressin Encouraged oral intake. Avoid nephrotoxins. Continue to monitor renal function and urine output. Family considering hospice care.
--- NOTE | 2024-02-03 14:07 | P.PN ---
Subjective Progress Note Date: 02/03/24 HISTORY OF PRESENTING ILLNESS 78-year-old with PMH of small cell lung cancer s/p chemotherapy and radiation therapy, COPD, prior tobacco user, type 2 diabetes, hypertension, dyslipidemia, hypothyroidism, PAD, paroxysmal atrial fibrillation, TONY on CPAP. He was last hospitalized in December 2023 for hypoxic respiratory failure. At that time he was treated for type II NSTEMI and other comorbidities. His echo showed an EF of 55 to 60%, grade 1 diastolic function, moderate to severe LVH, moderate LA dilatation, mild aortic stenosis. He had labs drawn at his rehab facility which were abnormal and he was advised to get admitted to the hospital. On admission his labs showed hemoglobin 9.2, platelets 63,000, potassium 5.9, bicarb 18, BUN 53, creatinine 1.9. Lactic 5.2. BNP 4900, his troponins are not elevated. Admission ECG showed sinus rhythm with no significant ST-T wave changes diagnostic for ischemia. While inpatient patient had an episode of A-fib RVR which was symptomatic with low blood pressure for which she was cardioverted. Cardiology was consulted for A-fib management. February 03, 2024 Last night patient went into A-fib RVR. For this he was given 1 dose of amiodarone bolus. This morning patient is in rate controlled atrial fibrillation without agminated branch block morphology on telemetry. Last night patient's blood pressure also dropped for which she was placed on vasopressin along with norepinephrine. This morning patient has been having lower urine outputs. For this he was given fluid boluses with minimal increase in urine output. His chest x-ray does look more congested as compared to yesterday BP 100/63 on your epinephrine and vasopressin Heart rate 70, sinus rhythm with frequent PACs Globin 8.3 stable on Eliquis 5 twice daily, creatinine 1.58, BUN 30, PHYSICAL EXAMINATION Vital signs reviewed. Head: Normocephalic. Eyes: Sclerae nonicteric. Neck: Brisk carotid upstroke, no jugular venous distention. Lungs: Reduced inspiratory effort with reduced air entry bilateral lower lung page Heart: Regular rate and rhythm, S1-S2, systolic murmur audible Abdomen: Soft nontender, positive bowel sounds. Extremities: No edema, intact distal pulses. Neuro: Lethargic, oritented, no focal deficits. Detailed neuro exam was not performed. ASSESSMENT Paroxysmal atrial fibrillation. Episode of symptomatic A-fib while inpatient, s/p synchronized cardioversion. Currently sinus tachycardia Labile blood pressure Bicytopenia with anemia and thrombocytopenia Small cell lung cancer s/p chemoradiation Acute on chronic hypoxic respiratory failure COPD CKD Type 2 diabetes Hypertension Dyslipidemia PAD History of prostate cancer s/p radiation TONY on CPAP PLAN amiodarone to 200 mg daily Because of patient's labile blood pressure, hold metoprolol. Give heart rate above 120 On norepinephrine and vasopressin. Titrate on vasopressin, go up on norepinephrine if needed. Monitor urine output. Fluid boluses as needed. Use midodrine only as needed with SBP less than 90 mmHg Once patient is off norepinephrine, slowly uptitrate beta-sarai. Consider switching to metoprolol succinate 25 mg daily tomorrow Reduce Eliquis to 2.5 mg BID, due to poor renal clearance. patient does have anemia and thrombocytopenia. Will continue to monitor for any signs of bl eeding. Risk of bleeding into stroke risk was discussed with family. Patient and family chose to be on anticoagulation. Objective - Vital Signs Vital signs: Vital Signs Temp 98.4 F 02/03/24 12:00 Pulse 65 02/03/24 12:30 Resp 26 H 02/03/24 12:30 BP 107/53 02/03/24 12:30 Pulse Ox 92 L 02/03/24 12:30 FiO2 50 02/03/24 04:00 Intake & Output 02/02/24 02/03/24 02/03/24 18:59 06:59 18:59 Intake Total 494.970 951.927 473.844 Output Total 1690 454 50 Balance -1195.030 497.927 423.844 Weight 124.5 kg Intake: IV 330 415 200 KVO 130 90 100 Magnesium Sulfate-D5w Pmx 200 1 gm In Dextrose/Water 1 100ml.bag @ 100 mls/hr IVPB Q1H [facility] Rx#: [id number] Piperacillin-Tazobactam 3 200 125 100 .375 gm In Sodium Chloride 0.9% 100 ml @ 25 mls/hr IVPB Q8HR [facility] Rx# :[id number] Intake, IV Titration 164.970 536.927 273.844 Amount Norepinephrine 4 mg In 164.970 333.618 Sodium Chloride 0.9% 250 ml @ 0.03 MCG/KG/MIN 13. 773 mls/hr IV .[id number] [facility] Rx#:[id number] Norepinephrine 4 mg In 203.309 234.752 Sodium Chloride 0.9% 250 ml @ 0.03 MCG/KG/MIN 13. 967 mls/hr IV .[id number] [facility] Rx#:[id number] Vasopressin 20 unit In 39.092 Sodium Chloride 0.9% 50 ml @ 0.03 UNITS/MIN 4.59 mls/hr IV .[id number] [facility] Rx# :[id number] Output: Urine 1690 254 50 Emesis 200 Other: Voiding Method Indwelling Catheter Indwelling Catheter - Labs CBC & Chem 7: 02/03/24 03:14 02/03/24 03:14 Labs: Abnormal Lab Results - Last 24 Hours (Table) 02/02/24 02/02/24 02/03/24 Range/Units 16:09 21:06 00:41 RBC (4.30-5.90) m/uL Hgb (13.0-17.5) gm/dL Hct (39.0-53.0) % MCV (80.0-100.0) fL RDW (11.5-15.5) % Plt Count (150-450) k/uL Lymphocytes # (1.0-4.8) k/uL ABG pCO2 (35-45) mmHg ABG pO2 (83-108) mmHg ABG HCO3 (21-25) mmol/L Sodium 134 L (137-145) mmol/L Chloride 108 H (98-107) mmol/L Carbon Dioxide 14 L (22-30) mmol/L BUN 30 H (9-20) mg/dL Creatinine 1.62 H (0.66-1.25) mg/dL Glucose 246 H (74-99) mg/dL POC Glucose (mg/dL) 278 H 227 H (70-110) mg/dL Plasma Lactic Acid Pantera (0.7-2.0) mmol/L Magnesium 1.5 L (1.6-2.3) mg/dL 02/03/24 02/03/24 02/03/24 Range/Units 00:41 02:07 03:14 RBC 2.58 L (4.30-5.90) m/uL Hgb 8.3 L (13.0-17.5) gm/dL Hct 26.6 L (39.0-53.0) % MCV 103.4 H (80.0-100.0) fL RDW 19.1 H (11.5-15.5) % Plt Count 62 L (150-450) k/uL Lymphocytes # 0.2 L (1.0-4.8) k/uL ABG pCO2 33 L (35-45) mmHg ABG pO2 75 L (83-108) mmHg ABG HCO3 19 L (21-25) mmol/L Sodium (137-145) mmol/L Chloride (98-107) mmol/L Carbon Dioxide (22-30) mmol/L BUN (9-20) mg/dL Creatinine (0.66-1.25) mg/dL Glucose (74-99) mg/dL POC Glucose (mg/dL) (70-110) mg/dL Plasma Lactic Acid Pantera 4.4 H* (0.7-2.0) mmol/L Magnesium (1.6-2.3) mg/dL 02/03/24 02/03/24 02/03/24 Range/Units 03:14 06:47 11:59 RBC (4.30-5.90) m/uL Hgb (13.0-17.5) gm/dL Hct (39.0-53.0) % MCV (80.0-100.0) fL RDW (11.5-15.5) % Plt Count (150-450) k/uL Lymphocytes # (1.0-4.8) k/uL ABG pCO2 (35-45) mmHg ABG pO2 (83-108) mmHg ABG HCO3 (21-25) mmol/L Sodium 134 L (137-145) mmol/L Chloride 109 H (98-107) mmol/L Carbon Dioxide 16 L (22-30) mmol/L BUN 30 H (9-20) mg/dL Creatinine 1.58 H (0.66-1.25) mg/dL Glucose 246 H (74-99) mg/dL POC Glucose (mg/dL) 288 H 232 H (70-110) mg/dL Plasma Lactic Acid Pantera (0.7-2.0) mmol/L Magnesium (1.6-2.3) mg/dL Microbiology - Last 24 Hours (Table) 01/30/24 22:20 Blood Culture - Preliminary Blood 01/30/24 22:05 Blood Culture - Preliminary Blood
--- NOTE | 2024-02-03 14:41 | P.PN ---
Subjective Progress Note Date: 02/03/24 patient is a 78-year-old gentleman past medical history significant for small cell lung cancer status/post chemoradiation, COPD, former tobacco smoker, diabetes mellitus, hypertension, hypothyroidism, hypertension, hyperlipidemia, obesity, peripheral arterial disease, atrial fibrillation with previous car dioversion who presented to the ER for abnormal labs. Patient is currently a resident of [facility]. Patient stated that he has been having increased weakness of lower extremity for the last few days. Patient also complaining of neck pain. Patient has history of COPD and is short of breath at rest at baseline. There is no complaint of fever or chills. Denies any chest pain. No complaint of palpitation. Denies any orthopnea or PND. Initial lab work done in the ER showed WBC 9.9, hemoglobin 9.2, platelet count 63, sodium 135, potassium 5.9, BUN 53, creatinine 1.92 glucose 107, lactate 2.5 Influenza A not detected Influenza B not detected RSV not detected COVID-19 not detected EKG done in the ER showed heart rate of 74 , no ST segment elevation or depression seen, no T-wave inversions seen. Chest x-ray done in the ER cardiomegaly with chronic right suprahilar consolida tion, atelectasis redemonstrated. There is worsening reticular and reticulonodular opacities consistent with edema Patient admitted to internal medicine service 01/31. Patient seen and examined. Complaining of generalized weakness, more in lower extremities. CT lumbar spine done showed mild superior endplate compression fracture of L1. Cervical spine x-ray done showed moderate multilevel spondylitic changes, degenerative grade 1 anterior listhesis of C4- C5. CT brain negative for any acute intracranial process. States he feels better. 02/01. Patient seen and examined. Patient had a rapid response called yesterday for low blood pressure, patient was lethargic at the time. Patient had to be started on Levophed. Currently patient is feeling better. Blood work this morning showed WBC 5.3, hemoglobin 8, platelet count 62, sodium 138, potassium 3.4, BUN 26, creatinine 1.20 02/02. Patient seen and examined. Blood work done this morning showed WBC 5.1, hemoglobin 8.3, platelet count 62, sodium 134, potassium 4.4, BUN 30, creatinine 1.58. Currently on 10 L of oxygen high flow. Patient overnight went into A- fib, had to be placed on amiodarone. Patient also currently on Levophed and vasopressin. Discussed with patient family, discussed with them regarding patient's critical condition and poor prognosis, family wants to talk to hospice just for education purposes REVIEW OF SYSTEMS: CONSTITUTIONAL: No fever, no malaise,. CARDIOVASCULAR: No chest pain, no palpitations, no syncope. PULMONARY: No shortness of breath, no cough, GASTROINTESTINAL: No diarrhea, no nausea, no vomiting, no abdominal pain. NEUROLOGICAL: As mentioned above PHYSICAL EXAMINATION: GENERAL: The patient is alert and oriented x3, chronically ill looking HEENT: Pupils are round and equally reacting to light. EOMI. No scleral icterus. No conjunctival pallor. Normocephalic, atraumatic. No pharyngeal erythema. No thyromegaly. CARDIOVASCULAR: S1 and S2 present. No murmurs, rubs, or gallops. PULMONARY: Chest is clear to auscultation, no wheezing or crackles. ABDOMEN: Soft, nontender, nondistended, normoactive bowel sounds. No palpable organomegaly. MUSCULOSKELETAL: No joint swelling or deformity. EXTREMITIES: No cyanosis, clubbing, or pedal edema. NEUROLOGICAL: Gross neurological examination did not reveal any focal deficits. SKIN: No rashes. Assessment and plan Acute on chronic hypoxic respiratory Failure Acute on chronic diastolic CHF Septic shock REYNA Hyperkalemia Hyponatremia Thrombocytopenia Acute on chronic kidney disease Bicytopenia, with thrombocytopenia and anemia, no overt signs of acute blood loss History of paroxysmal atrial fibrillation, status post previous cardioversion, currently normal sinus rhythm Diabetes mellitus type 2 Hypertension History of hyperlipidemia History of hypothyroidism History of peripheral arterial disease History of prostate cancer status post radiation History of urinary retention Obstructive sleep apnea with home CPAP Monitor vital signs Monitor CBC Monitor CMP Continue telemetry monitoring Avoid nephrotoxic agent Strict I's and O's Daily weights Continue IV Zosyn Continue IV Levophed and vasopressin Continue breathing treatments Continue amiodarone, Lopressor Eliquis Pulmonology following Nephrology following Neurology following Orthopedic spine following Cardiology following Labs and medication were reviewed.. Continue same treatment. Continue with symptomatic treatment. Resume home medication. Monitor labs and vitals. DVT and GI prophylaxis. Further recommendations as per clinical course of the patient Dictation was produced using [employer] software. please excuse any grammatical, word or spelling errors. Objective - Vital Signs Vital signs: Vital Signs Temp 98.0 F 02/03/24 04:00 Pulse 80 02/03/24 07:15 Resp 24 02/03/24 07:15 BP 112/73 02/03/24 07:15 Pulse Ox 93 L 02/03/24 07:15 FiO2 50 02/03/24 04:00 Intake & Output 02/02/24 02/03/24 02/03/24 18:59 06:59 18:59 Intake Total 494.970 951.927 50.691 Output Total 1690 454 25 Balance -1195.030 497.927 25.691 Weight 124.5 kg Intake: IV 330 415 KVO 130 90 Magnesium Sulfate-D5w Pmx 200 1 gm In Dextrose/Water 1 100ml.bag @ 100 mls/hr IVPB Q1H [facility] Rx#: [id number] Piperacillin-Tazobactam 3 200 125 .375 gm In Sodium Chloride 0.9% 100 ml @ 25 mls/hr IVPB Q8HR [facility] Rx# :[id number] Intake, IV Titration 164.970 536.927 50.691 Amount Norepinephrine 4 mg In 164.970 333.618 Sodium Chloride 0.9% 250 ml @ 0.03 MCG/KG/MIN 13. 773 mls/hr IV .[id number] [facility] Rx#:[id number] Norepinephrine 4 mg In 203.309 50.691 Sodium Chloride 0.9% 250 ml @ 0.03 MCG/KG/MIN 13. 967 mls/hr IV .[id number] [facility] Rx#:[id number] Output: Urine 1690 254 25 Emesis 200 Other: Voiding Method Indwelling Catheter Indwelling Catheter - Labs CBC & Chem 7: 02/03/24 03:14 02/03/24 03:14 Labs: Abnormal Lab Results - Last 24 Hours (Table) 02/02/24 02/02/24 02/02/24 Range/Units 11:31 16:09 21:06 RBC (4.30-5.90) m/uL Hgb (13.0-17.5) gm/dL Hct (39.0-53.0) % MCV (80.0-100.0) fL RDW (11.5-15.5) % Plt Count (150-450) k/uL Lymphocytes # (1.0-4.8) k/uL ABG pCO2 (35-45) mmHg ABG pO2 (83-108) mmHg ABG HCO3 (21-25) mmol/L Sodium (137-145) mmol/L Chloride (98-107) mmol/L Carbon Dioxide (22-30) mmol/L BUN (9-20) mg/dL Creatinine (0.66-1.25) mg/dL Glucose (74-99) mg/dL POC Glucose (mg/dL) 274 H 278 H 227 H (70-110) mg/dL Plasma Lactic Acid Pantera (0.7-2.0) mmol/L Magnesium (1.6-2.3) mg/dL 02/03/24 02/03/24 02/03/24 Range/Units 00:41 00:41 02:07 RBC (4.30-5.90) m/uL Hgb (13.0-17.5) gm/dL Hct (39.0-53.0) % MCV (80.0-100.0) fL RDW (11.5-15.5) % Plt Count (150-450) k/uL Lymphocytes # (1.0-4.8) k/uL ABG pCO2 33 L (35-45) mmHg ABG pO2 75 L (83-108) mmHg ABG HCO3 19 L (21-25) mmol/L Sodium 134 L (137-145) mmol/L Chloride 108 H (98-107) mmol/L Carbon Dioxide 14 L (22-30) mmol/L BUN 30 H (9-20) mg/dL Creatinine 1.62 H (0.66-1.25) mg/dL Glucose 246 H (74-99) mg/dL POC Glucose (mg/dL) (70-110) mg/dL Plasma Lactic Acid Pantera 4.4 H* (0.7-2.0) mmol/L Magnesium 1.5 L (1.6-2.3) mg/dL 02/03/24 02/03/24 02/03/24 Range/Units 03:14 03:14 06:47 RBC 2.58 L (4.30-5.90) m/uL Hgb 8.3 L (13.0-17.5) gm/dL Hct 26.6 L (39.0-53.0) % MCV 103.4 H (80.0-100.0) fL RDW 19.1 H (11.5-15.5) % Plt Count 62 L (150-450) k/uL Lymphocytes # 0.2 L (1.0-4.8) k/uL ABG pCO2 (35-45) mmHg ABG pO2 (83-108) mmHg ABG HCO3 (21-25) mmol/L Sodium 134 L (137-145) mmol/L Chloride 109 H (98-107) mmol/L Carbon Dioxide 16 L (22-30) mmol/L BUN 30 H (9-20) mg/dL Creatinine 1.58 H (0.66-1.25) mg/dL Glucose 246 H (74-99) mg/dL POC Glucose (mg/dL) 288 H (70-110) mg/dL Plasma Lactic Acid Pantera (0.7-2.0) mmol/L Magnesium (1.6-2.3) mg/dL Microbiology - Last 24 Hours (Table) 01/30/24 22:20 Blood Culture - Preliminary Blood 01/30/24 22:05 Blood Culture - Preliminary Blood
--- NOTE | 2024-02-03 15:49 | P.PN ---
Subjective Progress Note Date: 02/03/24 I am following-up with patient and it seems he was hypotensive yesterday and as result was started on Norepinephrine and Vasopressin. Otherwise no new neurological issues. Objective - Vital Signs Vital signs: Vital Signs Temp 98.4 F 02/03/24 12:00 Pulse 76 02/03/24 15:40 Resp 24 02/03/24 14:45 BP 112/43 02/03/24 14:45 Pulse Ox 92 L 02/03/24 14:45 FiO2 50 02/03/24 15:29 Intake & Output 02/02/24 02/03/24 02/03/24 18:59 06:59 18:59 Intake Total 494.970 661.077 1580.600 Output Total 1690 454 65 Balance -1195.030 302.662 9768.600 Weight 124.5 kg Intake: IV 330 415 269 KVO 130 90 169 Magnesium Sulfate-D5w Pmx 200 1 gm In Dextrose/Water 1 100ml.bag @ 100 mls/hr IVPB Q1H [facility] Rx#: [id number] Piperacillin-Tazobactam 3 200 125 100 .375 gm In Sodium Chloride 0.9% 100 ml @ 25 mls/hr IVPB Q8HR [facility] Rx# :[id number] Intake, IV Titration 164.970 485.362 5695.600 Amount Norepinephrine 4 mg In 164.970 333.618 Sodium Chloride 0.9% 250 ml @ 0.03 MCG/KG/MIN 13. 773 mls/hr IV .[id number] [facility] Rx#:[id number] Norepinephrine 4 mg In 203.309 245.848 Sodium Chloride 0.9% 250 ml @ 0.03 MCG/KG/MIN 13. 967 mls/hr IV .[id number] [facility] Rx#:[id number] Sodium Chloride 0.9% 1, 2000 000 ml @ 999 mls/hr IV . Q1H1M [facility] Rx#:[id number] Vasopressin 20 unit In 58.752 Sodium Chloride 0.9% 50 ml @ 0.03 UNITS/MIN 4.59 mls/hr IV .[id number] [facility] Rx# :[id number] Output: Urine 1690 254 65 Emesis 200 Other: Voiding Method Indwelling Catheter Indwelling Catheter Indwelling Catheter - Exam General: Was lying in bed and not acute distress. Neuro: The patient is awake alert to self place and time. Is following simple commands. No aphasia no neglect. Pupils are round equal reactive to light. Pupils are round 4 mm bilaterally. Visual page are full to confrontation. Extraocular movement is intact no nystagmus. Normal facial sensation to touch. No facial weakness. No dysarthria. Motor: Strength in uppers are 5/5. In lowers proximal is 4+, knee extension are 3-4- and ankles are 5/5. Sensation: Normal to touch from proximal ankle and above: Cerebellar: Normal finger to nose. Some of the Workup during this hospital visit consisted of: Creatinine was 1.92 now it is 1.61--improved Calcium is 8.3, phosphorus is 3.2, magnesium is 1.8 Sodium is 137 TSH: 12.20 but free T4 is 1.18 Vitamin B12: 1092 Serum folate: 13.5 Hemoglobin is 9.2 and the most repeated 1 is 8.4. MCV is 102 CK level <20 CT head: Senescent changes as described above. No acute bleed or mass effect. I reviewed CT head and agree with report there is no acute intracranial process. CT lumbar is reported as mild superior endplate compression fracture and L1 without retropulsion. The age of the fracture is indeterminate. No lumbar disc herniation. Mild spinal stenosis at L4-L5. Bony neuroforaminal stenosis at L5- S1 level bilateral as described above Cervical spine x-rays reported as moderate multilevel spondylitic changes. Degenerative grade 1 anterior listhesis C4-C5. Variable bony neuroforaminal narrowing as outlined above with some limitation in assessment due to the degree of obliquity. - Labs CBC & Chem 7: 02/03/24 03:14 02/03/24 03:14 Labs: Abnormal Lab Results - Last 24 Hours (Table) 02/02/24 02/02/24 02/03/24 Range/Units 16:09 21:06 00:41 RBC (4.30-5.90) m/uL Hgb (13.0-17.5) gm/dL Hct (39.0-53.0) % MCV (80.0-100.0) fL RDW (11.5-15.5) % Plt Count (150-450) k/uL Lymphocytes # (1.0-4.8) k/uL ABG pCO2 (35-45) mmHg ABG pO2 (83-108) mmHg ABG HCO3 (21-25) mmol/L Sodium 134 L (137-145) mmol/L Chloride 108 H (98-107) mmol/L Carbon Dioxide 14 L (22-30) mmol/L BUN 30 H (9-20) mg/dL Creatinine 1.62 H (0.66-1.25) mg/dL Glucose 246 H (74-99) mg/dL POC Glucose (mg/dL) 278 H 227 H (70-110) mg/dL Plasma Lactic Acid Pantera (0.7-2.0) mmol/L Magnesium 1.5 L (1.6-2.3) mg/dL 02/03/24 02/03/24 02/03/24 Range/Units 00:41 02:07 03:14 RBC 2.58 L (4.30-5.90) m/uL Hgb 8.3 L (13.0-17.5) gm/dL Hct 26.6 L (39.0-53.0) % MCV 103.4 H (80.0-100.0) fL RDW 19.1 H (11.5-15.5) % Plt Count 62 L (150-450) k/uL Lymphocytes # 0.2 L (1.0-4.8) k/uL ABG pCO2 33 L (35-45) mmHg ABG pO2 75 L (83-108) mmHg ABG HCO3 19 L (21-25) mmol/L Sodium (137-145) mmol/L Chloride (98-107) mmol/L Carbon Dioxide (22-30) mmol/L BUN (9-20) mg/dL Creatinine (0.66-1.25) mg/dL Glucose (74-99) mg/dL POC Glucose (mg/dL) (70-110) mg/dL Plasma Lactic Acid Pantera 4.4 H* (0.7-2.0) mmol/L Magnesium (1.6-2.3) mg/dL 02/03/24 02/03/24 02/03/24 Range/Units 03:14 06:47 11:59 RBC (4.30-5.90) m/uL Hgb (13.0-17.5) gm/dL Hct (39.0-53.0) % MCV (80.0-100.0) fL RDW (11.5-15.5) % Plt Count (150-450) k/uL Lymphocytes # (1.0-4.8) k/uL ABG pCO2 (35-45) mmHg ABG pO2 (83-108) mmHg ABG HCO3 (21-25) mmol/L Sodium 134 L (137-145) mmol/L Chloride 109 H (98-107) mmol/L Carbon Dioxide 16 L (22-30) mmol/L BUN 30 H (9-20) mg/dL Creatinine 1.58 H (0.66-1.25) mg/dL Glucose 246 H (74-99) mg/dL POC Glucose (mg/dL) 288 H 232 H (70-110) mg/dL Plasma Lactic Acid Pantera (0.7-2.0) mmol/L Magnesium (1.6-2.3) mg/dL Microbiology - Last 24 Hours (Table) 01/30/24 22:20 Blood Culture - Preliminary Blood 01/30/24 22:05 Blood Culture - Preliminary Blood Assessment and Plan Assessment: This is a 88-year-old gentleman with history of small cell lung cancer about a year ago's post chemo and radiation therapy, atrial fibrillation status post cardioversion on Eliquis, diabetes that is poorly controlled, peripheral neuropathy, peripheral arterial disease, right neck pain that radiates down who is having weakness in the lower extremity since December 2023 since his prior hospital visit. I will physical therapy was examined him he was standing up at bedside and was very short of breath but was lifting bilateral upper extremity above gravity but could not stand up because of his severe shortness of breath pulse ox was 86% and was complaining of neck pain during the examination. Bilateral lower extremity weakness since December 2023: Unsure exact etiology. On examination patient had antigravity in lower extremities probable deconditioning from his prior hospital stay in December 2023 and was bed bound with multiple medical issues. He has L1 compression fracture of indeterminate age but doubt this is cause. Cannot rule peripheral neuropathy/plexopathy from uncontrolled diabetes vs ? Lambert-Eaton myasthenic syndrome (from his history of small cell lung cancer). CK level is not elevated. Right cervical radiculopathy Patient is having right neck pain that radiates down. Patient had MRI of the cervical spine at outside hospital which showed degenerative changes on C5-C6 that the most and MRI was on 10/2023. Hypotensive episode: Unsure exact cause. Unsure if patient has autonomic dysfunction--Is on two pressors Shortness of breath with exertion Acute kidney insufficiency---improved Macrocytosis but has normal vitamin B12 and folate. Thyroid level is abnormal TSH 12.2. Uncontrolled diabetes mellitus and patient hemoglobin A1c is 9.5 on 12/2023 History of atrial fibrillation with previous cardioversion and is on Eliquis Small cell lung cancer chemotherapy radiation therapy in March 2023 Peripheral arterial disease History of COPD Hypothyroidism Hypertension Hyperlipidemia Obstructive sleep apnea on CPAP Obesity Former tobacco use Plan: Patient had a recent PET scan on 10/14/2023 did not show any evidence of disease recurrence. Orthopedic surgery team is consulted. They stated medical management and no intervention. Pending MRI thoracic and lumbar spine w/ and w/o. 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 I will pursue with serum paraneoplastic panel (send out test). Recommend EMG with nerve conduction as an outpatient of the uppers and lowers. Recommend repetitive nerve stimulation of the lowers. Continue to work with physical and Occupational Therapy I spoke with Dr. Lane (Oncology) and he feel his condition is likely deconditioning. He feels unlikely due to history of lung cancer since is in remission but agreed with pursuing lab tests as stated above. Nephrology is consulted Will Defer the rest of the medical management to primary and other specialist Hospice to be consulted. The plan is discussed with patient, Oncology team and ICU team. Time with Patient: Less than 30
[2024-02-03] MEDS: DICLOFENAC SODIUM GEL 50 GM TUBE TOPICAL SCH (15:52)
[2024-02-03 16:21] LABS: Glucose,Whole Blood 227 mg/dL (70-110)
[2024-02-03] MEDS: EPINEPHrine 10 ML SYRINGE (0.1 MG/ML) IV STA (17:35)
[2024-02-03] MEDS: DOPamine DRIP 800 MG in DEXTROSE/WATER 1 250ML.BAG IV SCH (17:40)
[2024-02-03 17:50] LABS: ABG Base Excess -15.4 mmol/L; ABG HCO3 13 mmol/L (21-25); ABG Oxygen Saturation 99.6 % (94-97); ABG PCO2 43 mmHg (35-45); ABG PO2 179 mmHg (83-108); ABG TCO2 15 mmol/L (19-24); Allen Test Performed? Yes
[2024-02-03] MEDS: SODIUM BICARB 8.4% 50 ML SYR (1 MEQ/ML) ONE (17:50)
[2024-02-03] MEDS: DEXTROSE 5% IN WATER 1,000 ML with SODIUM BICARB (1 MEQ/ML) 150 ML IV SCH (18:25)
[2024-02-03] MEDS: DOPamine DRIP 250 ML IV ONE (18:44)
[2024-02-03] MEDS: SODIUM BICARB 8.4% 50 ML SYR (1 MEQ/ML) IV STA (18:47)
[2024-02-03 19:07] LABS: African American GFR (CKD) 37 (>60 ml/min/1.73 sqM); Albumin 2.4 g/dL (3.5-5.0); Alkaline Phosphatase 102 U/L (38-126); Anion Gap 10 mmol/L; Blood Urea Nitrogen 33 mg/dL (9-20); Calcium 8.1 mg/dL (8.4-10.2); Carbon Dioxide 16 mmol/L (22-30); Chloride 111 mmol/L (98-107); Glucose 236 mg/dL (74-99); Magnesium 1.8 mg/dL (1.6-2.3); Non-African American GFR(CKD) 32 (>60 ml/min/1.73 sqM); Potassium 5.2 mmol/L (3.5-5.1); Sodium 137 mmol/L (137-145); Total Protein 4.5 g/dL (6.3-8.2)
[2024-02-03 19:19] LABS: ALT 2057 U/L (4-49)
[2024-02-03 19:31] LABS: AST 2825 U/L (17-59)
[2024-02-03] MEDS ORDERED: HEPARIN SODIUM 1,000 UN/ML (10ML VL) IV PRN (19:33)
[2024-02-03 20:01] LABS: Glucose,Whole Blood 273 mg/dL (70-110)
[2024-02-03] MEDS: MAGNESIUM SULFATE-D5W PMX 1 GM in DEXTROSE/WATER 1 100ML.BAG IVPB ONE (20:14)
[2024-02-03 20:35] LABS: Anisocytosis Slight; HCT 23.6 % (39.0-53.0); HGB 7.8 gm/dL (13.0-17.5); Hypochromasia Slight; MCH 33.6 pg (25.0-35.0); MCHC 32.9 g/dL (31.0-37.0); MCV 102.1 fL (80.0-100.0); Macrocytosis Moderate; Mean Platelet Volume 9.5; Poikilocytosis Slight; RBC 2.31 m/uL (4.30-5.90); RDW 19.1 % (11.5-15.5); WBC 3.9 k/uL (3.8-10.6)
[2024-02-03 20:42] LABS: INR 1.5 (<1.2); Partial Thromboplastin Time 29.1 sec (22.0-30.0)
[2024-02-03 20:51] LABS: Platelet Count 51 k/uL (150-450)
[2024-02-03] MEDS ORDERED: APIXABAN 2.5 MG TABLET PO SCH (21:00)
[2024-02-03 21:41] LABS: Band Neutrophils % 6 %; Lymphocytes # (M) 0.39 k/uL (1.0-4.8); Metamyelocytes # (M) 0.04 k/uL (0); Metamyelocytes % 1 %; Monocytes # (M) 0.23 k/uL (0-1.0); Neutrophils % (M) 78 %; Nucleated Red Blood Cells 1 /100 WBC (0-0); Total Cells Counted 200
[2024-02-03 21:43] LABS: RBC Fragments Present
[2024-02-03] MEDS: HEPARIN SODIUM 1,000 UN/ML (10ML VL) IV ONE (22:55)
[2024-02-03] MEDS: HEPARIN SOD,PORK IN 0.45% NACL 25,000 UNIT in 0.45% NACL 1 250ML.BAG IV SCH (22:56)
[2024-02-04] MEDS ORDERED: SCOPOLAMINE 1 MG/72 HR PATCH TRANSDERM SCH
[2024-02-04] MEDS: MORPHINE SULFATE (100 MG/2 ML) 100 MG in SODIUM CHLORIDE 0.9% 100 ML IV SCH (00:12)
[2024-02-04 01:56] VITALS: BP 78/48; PULSE 69; RESP 24; TEMP 98.2
== END 2024-02-04 00:27 | disposition expired | DRG 871 ==
LOC: EC 20:29 → 3SCARD 20:40 → 2SICU 02-01 16:58
PROVIDERS: ADMIT Hospitalist; ATTEND Hospitalist
PROC: 5A09357 Assistance with Respiratory Ventilation, Less than 24 Consecutive Hours, Continuous Positive Airway Pressure (ICD-10-PCS; 2024-02-02)
PROC: 02HV33Z Insertion of Infusion Device into Superior Vena Cava, Percutaneous Approach (ICD-10-PCS; principal; 2024-02-03)
PROC: 3E043XZ Introduction of Vasopressor into Central Vein, Percutaneous Approach (ICD-10-PCS; 2024-02-03)
DX: A41.9 Sepsis, unspecified organism (principal); I50.33 Acute on chronic diastolic (congestive) heart failure; J96.21 Acute and chronic respiratory failure with hypoxia; R65.21 Severe sepsis with septic shock; C34.11 Malignant neoplasm of upper lobe, right bronchus or lung; I13.0 Hypertensive heart and chronic kidney disease with heart failure and stage 1 through stage 4 chronic kidney disease, or unspecified chronic kidney disease; N17.9 Acute kidney failure, unspecified; E87.1 Hypo-osmolality and hyponatremia; E87.20 Acidosis, unspecified; G70.80 Lambert-Eaton syndrome, unspecified; M47.012 Anterior spinal artery compression syndromes, cervical region; J44.1 Chronic obstructive pulmonary disease with (acute) exacerbation; J70.0 Acute pulmonary manifestations due to radiation; J98.11 Atelectasis; M48.56XA Collapsed vertebra, not elsewhere classified, lumbar region, initial encounter for fracture; N39.0 Urinary tract infection, site not specified; C61 Malignant neoplasm of prostate; E11.22 Type 2 diabetes mellitus with diabetic chronic kidney disease; E11.65 Type 2 diabetes mellitus with hyperglycemia; J84.10 Pulmonary fibrosis, unspecified; Z68.33 Body mass index [BMI] 33.0-33.9, adult; Z66 Do not resuscitate; Z51.5 Encounter for palliative care; E11.51 Type 2 diabetes mellitus with diabetic peripheral angiopathy without gangrene; D69.6 Thrombocytopenia, unspecified; E03.9 Hypothyroidism, unspecified; E11.42 Type 2 diabetes mellitus with diabetic polyneuropathy; F02.80 Dementia in other diseases classified elsewhere, unspecified severity, without behavioral disturbance, psychotic disturbance, mood disturbance, and anxiety; E66.9 Obesity, unspecified; G30.9 Alzheimer's disease, unspecified; D63.1 Anemia in chronic kidney disease; N18.32 Chronic kidney disease, stage 3b; Z79.4 Long term (current) use of insulin; Z79.84 Long term (current) use of oral hypoglycemic drugs; E78.5 Hyperlipidemia, unspecified; Z92.21 Personal history of antineoplastic chemotherapy; Z87.891 Personal history of nicotine dependence; K21.9 Gastro-esophageal reflux disease without esophagitis; Z92.3 Personal history of irradiation; D75.89 Other specified diseases of blood and blood-forming organs; E83.42 Hypomagnesemia; T50.2X5A Adverse effect of carbonic-anhydrase inhibitors, benzothiadiazides and other diuretics, initial encounter; E86.1 Hypovolemia; E87.5 Hyperkalemia; E87.6 Hypokalemia; G47.33 Obstructive sleep apnea (adult) (pediatric); I25.2 Old myocardial infarction; M48.02 Spinal stenosis, cervical region; I48.0 Paroxysmal atrial fibrillation; K52.9 Noninfective gastroenteritis and colitis, unspecified; M43.12 Spondylolisthesis, cervical region; M47.22 Other spondylosis with radiculopathy, cervical region; M47.816 Spondylosis without myelopathy or radiculopathy, lumbar region; M51.37 Other intervertebral disc degeneration, lumbosacral region; R33.9 Retention of urine, unspecified; Y84.2 Radiological procedure and radiotherapy as the cause of abnormal reaction of the patient, or of later complication, without mention of misadventure at the time of the procedure; N40.1 Benign prostatic hyperplasia with lower urinary tract symptoms; Z74.01 Bed confinement status; Z79.01 Long term (current) use of anticoagulants; Z79.899 Other long term (current) drug therapy; Z79.890 Hormone replacement therapy; Z87.442 Personal history of urinary calculi
CPT/HCPCS: 36600; 70450; 71045; 72050; 72131; 76770; 80048; 80053; 81001; 82248; 82533; 82550; 82607; 82728; 82746; 82747; 82805; 83010; 83540; 83550; 83605; 83615; 83735; 83880; 84100; 84132; 84145; 84439; 84443; 84484; 85025; 85027; 85045; 85379; 85384; 85610; 85652; 85730; 86140; 87040; 87636; 93005; 94640; 94660; 94760; 99285